=== PATIENT | male | born 1965 | race Hispanic/Latino ===

== ENCOUNTER 2017-01-19 11:39 | Inpatient (IN) | payer BC, OTHER ==
[2017-01-19 11:50] VITALS: BMI 25.1
[2017-01-19] MEDS ORDERED: Multivitamin (MVI) 10 ML, Thiamine 100 MG, Folic Acid 1 MG in Dextrose 5% In Water 1,00... IV ONE (12:02)
--- NOTE | 2017-01-19 12:15 | ED PDOC ---
Arrival/HPI - General Chief Complaint: Abdominal Pain Time Seen by Provider: 01/19/17 11:53 Historian: Patient - History of Present Illness Narrative History of Present Illness (Text): 01/19/17 11:53 A 51 year old male, whose denies any significant past medical history, presents to the emergency department complaining of nausea since this morning. Patient reports he drinks daily and has been feeling "whoozy" recently. Contrary to triage, the patient denies any abdominal pain or discomfort. Patient notes he saw his PMD a week ago and was started on antacids but it did not bring him any relief. He reports feeling gassy and is shaky upon walking. Patient notes some loose diarrhea and darker urine, but denies any fever, hematochezia, hematuria, or any other complaints at this time. PMD: Dr. aJmar Gay Time/Duration: Other (6-10 hours) Symptom Onset: Gradual Symptom Course: Unchanged Quality: Other Activities at Onset: Rest Modifying Factors (Text): antacid medication do not relieve symptoms Context: Home Associated Symptoms (Text): diarrhea and dark urination Past Medical History - Provider Review Nursing Documentation Reviewed: Yes - Psychiatric Hx Substance Use: No (denies) Family/Social History - Physician Review Nursing Documentation Reviewed: Yes Family/Social History: No Known Family HX Smoking Status: Never Smoked Hx Alcohol Use: Yes (ETOH) Frequency of alcohol use: Daily Hx Substance Use: No (denies) Allergies/Home Meds Allergies/Adverse Reactions: Allergies No Known Allergies Allergy (Unverified 01/19/17 12:01) Home Medications: Home Meds Medication Instructions Recorded Confirmed Pantoprazole Sodium [Protonix] 40 mg PO DAILY 01/19/17 01/19/17 Review of Systems - Physician Review All systems were reviewed & negative as marked: Yes - Review of Systems Constitutional: absent: Fevers Gastrointestinal: Diarrhea, Nausea. absent: Abdominal Pain, Vomiting, Hematochezia Genitourinary Male: Other (darker urination). absent: Hematuria Physical Exam Vital Signs Reviewed: Yes Vital Signs Temp Pulse Resp BP Pulse Ox 01/19/17 15:45 96 H 18 126/97 H 96 01/19/17 12:46 79 18 152/79 H 97 01/19/17 11:49 98.2 F 80 18 156/89 H 97 Temperature: Afebrile Blood Pressure: Hypertensive Pulse: Regular Respiratory Rate: Normal Appearance: Positive for: Well-Appearing, Non-Toxic, Comfortable Pain Distress: None Mental Status: Positive for: Alert and Oriented X 3 - Systems Exam Head: Present: Atraumatic, Normocephalic Pupils: Present: PERRL Extroacular Muscles: Present: EOMI Conjunctiva: Present: Normal Mouth: Present: Dry, Other (no tongue fasciculations) Neck: Present: Normal Range of Motion Respiratory/Chest: Present: Clear to Auscultation, Good Air Exchange. No: Respiratory Distress, Accessory Muscle Use Cardiovascular: Present: Regular Rate and Rhythm, Normal S1, S2. No: Murmurs Abdomen: Present: Normal Bowel Sounds. No: Tenderness, Distention, Peritoneal Signs, Rebound, Guarding Back: Present: Normal Inspection Upper Extremity: Present: Normal Inspection. No: Cyanosis, Edema Lower Extremity: Present: Normal Inspection. No: Edema Neurological: Present: GCS=15, CN II-XII Intact, Speech Normal, Motor Func Grossly Intact, Normal Sensory Function, Other (no tremors) Skin: Present: Warm, Dry, Normal Color. No: Rashes Psychiatric: Present: Alert, Oriented x 3, Normal Insight, Normal Concentration Medical Decision Making ED Course and Treatment: 01/19/17 12:28 Impression: A 51 year old female with nausea. Differential Diagnosis included but are not limited to: most likely alcohol withdrawal Plan: -- Labs -- Urinalysis -- Ativan, Librium and Banana bag -- Reassess and disposition Progress Notes: 01/19/17 14:32 Patient blood work noted to have very high Triglylcerides >5000. Case discussed with insights manager Dr. Miller, who is aware and agrees with the plan to admit the patient to ICU. Agrees to starting patient on an insulin drip. He recommends obtaining a Abdomen/Pelvis CT. Dr. Gay paged. 01/19/17 14:[address] Gay, who is aware and agrees with the plan to admit the patient to ICU under his service. He states to consult Dr. Berumen (edge gluer) and Dr. Regan (gastrointestinologist). I have discussed the results and plan with the patient, who expresses understanding. Patient given the opportunity to ask question, all questions were answered and there is agreement with the plan to be admitted to the hospital. 01/19/17 15:56 Resident David called the emergency department to notify us, Dr. Regan said to obtain Abdomen/Pelvis CT without contrast. - Critical Care Critical Care Minutes: 30 minutes - Lab Interpretations Lab Results: 01/19/17 12:15 01/19/17 12:50 Lab Results 01/19/17 12:50: Sodium 133, Potassium 5.3 H, Chloride 98, Carbon Dioxide 18 L, Anion Gap 22 H, BUN 15, Creatinine 1.1, Est GFR ( Amer) > 60, Est GFR ( Non-Af Amer) > 60, Random Glucose 112 H, Calcium 8.3 L, Phosphorus 2.5, Magnesium 2.2, Total Bilirubin 4.3 H, AST 517 H, ALT 200 H, Alkaline Phosphatase 189 H, Total Protein 8.4 H, Albumin 4.3, Globulin 4.2, Albumin/ Globulin Ratio 1.0 L, Triglycerides 5180 H, Cholesterol 399 H, LDL Cholesterol Direct 157 H, HDL Cholesterol 13 L, Amylase 103, Lipase 1344 H 01/19/17 12:30: Urine Color Yellow, Urine Appearance Clear, Urine pH 6.0, Ur Specific [place] 1.015, Urine Protein 30 H, Urine Glucose (UA) Negative, Urine Ketones Negative, Urine Blood Trace-intact H, Urine Nitrate Negative, Urine Bilirubin Negative, Urine Urobilinogen 0.2, Ur Leukocyte Esterase Negative, Urine RBC Negative, Urine WBC 0 - 2, Ur Epithelial Cells 0 - 2, Urine Bacteria Few, Urine Opiates Screen Negative, Urine Methadone Screen Negative, Ur Barbiturates Screen Negative, Ur Phencyclidine Scrn Negative, Ur Amphetamines Screen Negative, U Benzodiazepines Scrn Negative, U Oth Cocaine Metabols Negative, U Cannabinoids Screen Negative 01/19/17 12:15: WBC 6.9, RBC 4.93, Hgb 17.0, Hct 43.7, MCV 88.6, MCH 34.5, MCHC 38.9 H, RDW 13.8, Plt Count 158, MPV 9.8, Gran % 46.8 L, Lymph % (Auto) 38.7 H, [place] % (Auto) 12.8 H, Eos % (Auto) 1.0 L, Baso % (Auto) 0.7, Gran # 3.20, Lymph # 2.7, [place] # 0.9 H, Eos # 0.1, Baso # 0.05 I have reviewed the lab results: Yes - Medication Orders Current Medication Orders: Dextrose/Sodium Chloride (Dextrose 5%/0.45% Ns 1000 Ml) 1,000 mls @ 100 mls/hr IV .Q10H LENKA Last Admin: 01/19/17 15:04 Dose: 100 MLS/HR eMAR Start Stop Document 01/19/17 15:04 SF (Rec: 01/19/17 15:04 [email or web address] Intravenous Solution Start Date 01/19/17 Start Time 15:04 End Date 01/19/17 Insulin Human Regular 100 (units/ Sodium Chloride) 100 mls @ 7 mls/hr IV .[id number] PRN; Protocol; 7 UNITS/HR PRN Reason: Until an adequate response is Last Admin: 01/19/17 15:42 Dose: 7 MLS/HR MAR Blood Glucose Document 01/19/17 15:42 SF (Rec: 01/19/17 15:45 [email or web address] Blood Glucose Finger Stick Blood Glucose (70-120) 162 Titration Intervention Document 01/19/17 15:42 SF (Rec: 01/19/17 15:45 [email or web address] Titration Intake Container Volume 100 Titration Dosing Titration Dose 7 IV Rate 7 Intake/Decrease Start eMAR Start Stop Document 01/19/17 15:42 SF (Rec: 01/19/17 15:45 [email or web address] Intravenous Solution Start Date 01/19/17 Start Time 15:43 Lorazepam (Ativan) 1 mg IVP Q6H PRN; Protocol PRN Reason: Withdrawal Discontinued Medications Chlordiazepoxide (Librium) 25 mg PO STAT STA Stop: 01/19/17 12:02 Last Admin: 01/19/17 12:27 Dose: 25 MG Multivitamins/Vitamin C 10 ml/Thiamine HCl 100 mg/ Folic Acid 1 mg/ Dextrose 1, 011.2 mls @ 1,000 mls/hr IV .Q1H1M ONE Stop: 01/19/17 13:02 Last Admin: 01/19/17 12:44 Dose: 1,000 MLS/HR eMAR Start Stop Document 01/19/17 12:44 SF (Rec: 01/19/17 12:44 SF [email or web address]) Intravenous Solution Start Date 01/19/17 Start Time 12:44 End Date 01/19/17 End time 13:45 Total Infusion Time 61 Iohexol (Omnipaque 350 100 Ml) Confirm Administered Dose 350 mg .ROUTE .STK-MED ONE Stop: 01/19/17 14:36 Lorazepam (Ativan) 1 mg IVP ONCE ONE Stop: 01/19/17 12:02 Last Admin: 01/19/17 12:27 Dose: 1 MG IVP Administration Document 01/19/17 12:27 SF (Rec: 01/19/17 12:27 [email or web address] Charges for Administration # of IVP Administrations 1 - Scribe Statement The provider has reviewed the documentation as recorded by the Art Martinez training under Rubi Sevilla Provider Scribe Attestation: All medical record entries made by the Scribe were at my direction and personally dictated by me. I have reviewed the chart and agree that the record accurately reflects my personal performance of the history, physical exam, medical decision making, and the department course for this patient. I have also personally directed, reviewed, and agree with the discharge instructions and disposition. Disposition/Present on Arrival - Present on Arrival Any Indicators Present on Arrival: No History of DVT/PE: No History of Uncontrolled Diabetes: No Urinary Catheter: No History of Decub. Ulcer: No History Surgical Site Infection Following: None - Disposition Have Diagnosis and Disposition been Completed?: Yes Diagnosis: Hypertriglyceridemia, Pancreatitis, Alcohol withdrawal syndrome Disposition: HOSPITALIZED Disposition Time: 14:43 Patient Plan: Admission, ICU Condition: CRITICAL
[2017-01-19 12:36] LABS: URINE BILIRUBIN NEGATIVE (NEGATIVE); URINE BLOOD TRACE-INTACT (NEGATIVE); URINE GLUCOSE (UA) NEGATIVE (NEGATIVE); URINE KETONE NEGATIVE (NEGATIVE); URINE LEUKOCYTE ESTERASE NEGATIVE Leu/uL (NEGATIVE); URINE PROTEIN 30 mg/dL (<30 mg/dL); URINE UROBILINOGEN 0.2 E.U./dL (<1 E.U./dL)
[2017-01-19 12:37] LABS: URINE APPEARANCE CLEAR (CLEAR); URINE COLOR YELLOW (YELLOW)
[2017-01-19 12:42] LABS: ADD MANUAL DIFF? NO
[2017-01-19 12:44] LABS: URINE BACTERIA FEW (NEG); URINE EPITHELIAL CELLS 0 - 2 /hpf (0-5); URINE RBC NEGATIVE /hpf (0-2); URINE WBC 0 - 2 /hpf (0-6)
[2017-01-19 12:47] LABS: BASO # 0.05 K/mm3 (0.0-2.0); BASO % 0.7 % (0.0-3.0); EOS # 0.1 (0.0-0.7); GRAN % 46.8 % (50.0-68.0); HEMATOCRIT 43.7 % (42.0-52.0); LYMPH # 2.7 (1.2-3.4); LYMPH % 38.7 % (22.0-35.0); MEAN CELL VOLUME 88.6 fL (80.0-105.0); MEAN CORPUSCULAR HEMOGLOBIN 34.5 pg (25.0-35.0); MEAN CORPUSCULAR HGB CONC 38.9 g/dl (31.0-37.0); MEAN PLATELET VOLUME 9.8 fl (7.0-11.0); MONO # 0.9 (0.1-0.6); MONO % 12.8 % (1.0-6.0); PLATELET COUNT 158 10^3/uL (120.0-450.0); RED CELL DISTRIBUTION WIDTH 13.8 % (11.5-14.5); WHITE BLOOD COUNT 6.9 10^3/ul (4.5-11.0)
[2017-01-19 13:21] LABS: ALKALINE PHOSPHATASE 189 U/L (38-133); ALT/SGPT 200 U/L (7-56); AMYLASE 103 U/L (35-125); AST/SGOT 517 U/L (15-59); BILIRUBIN,TOTAL 4.3 mg/dL (0.2-1.3); BLOOD UREA NITROGEN 15 mg/dL (7-21); CALCIUM 8.3 mg/dL (8.4-10.5); CARBON DIOXIDE 18 mmol/L (21-33); CHLORIDE 98 mmol/L (98-107); GFR AFRICAN-AMERICAN > 60; MAGNESIUM 2.2 mg/dL (1.7-2.2); PHOSPHOROUS 2.5 mg/dL (2.5-4.5); POTASSIUM 5.3 mmol/L (3.6-5.0); SODIUM 133 mmol/L (132-148); TOTAL PROTEIN 8.4 g/dL (5.8-8.3)
[2017-01-19 13:28] LABS: LIPASE 1344 U/L (23-300)
[2017-01-19 13:36] LABS: GLUCOSE,RANDOM 112 mg/dL (70-110)
[2017-01-19 14:19] LABS: CHOLESTEROL 399 mg/dL (130-200)
[2017-01-19] MEDS ORDERED: Sodium Chloride 0.9% 1,000 ML IV STA (14:22)
[2017-01-19] MEDS ORDERED: Dextrose 5%/0.45% NS 1,000 ML IV SCH (14:30)
[2017-01-19] MEDS ORDERED: Iohexol 350 MG/100 ML VIAL ONE (14:35)
[2017-01-19] MEDS: Insulin Regular 100 UNITS in Sodium Chloride 0.9% 99 ML IV PRN ×2 (15:42→18:34)
--- NOTE | 2017-01-19 16:03 | CP.PCM.CON ---
<Robbie Armando - Last Filed: 01/19/17 18:26> History of Present Illness - History of Present Illness History of Present Illness: ICU Consult Note Robbie Armando, PGY-1 Internal Medicine CC: Malaise and abdominal discomfort HPI: This is a 51 yo M with PMH of HTN (not medically managed) and alcohol abuse who presents with complaint of fluctuating persistent abdominal discomfort, malaise, and weakness. Per patient, his symptoms began approximately 5 weeks ago, while on a 2-week trip to [place]. He initially attributed his symptoms to alcohol withdrawal, so he managed with increase alcohol intake (approximately 3 bottles of wine per day). He continued to drink this amount after returning, but reports that his symptoms persisted through this time, although the severity fluctuates. He reports decreased appetite/PO intake for the last 1-2 weeks; he is able to force himself to eat, and he is able to tolerate the intake, but he has no desire to eat and experiences early fullness. Patient is adamant that his abdominal symptoms are merely discomfort, not pain. He also reports intermittent episodes of emesis; he describes them as vomiting up small amounts of clear/white mucous, denies bilious or bloody emesis, and is not specifically associated with episodes of PO intake. He also reports watery and "bubbly" bowel movements, with foul odor which is new. He denies chest pain, shortness of breath, sensation of abdominal mass or rigidity, skin yellowing, new lesions or skin masses, syncopal episodes, hematuria, or hematochezia/melena, but admits to chronic abdominal fullness, intermittently blurred vision x 3-4 days, and 1 episode of near-syncope/lightheadedness today prior to presentation. We were consulted due to his initial labs including a TG > 5000, elevated LFTs, Bilirubin, and a Lipase of > 1300. PMH: HTN (not medically managed), Alcohol abuse (baseline 3-4 drinks daily of wine/martini's, up to 3 bottles of wine/day for last 5 weeks) PSH: Denies FHx: Stroke (Father), Unspecified "cholesterol" disorder (father and brother) SHx: Owns/Runs a liquor store Lives alone Denies tobacco, illicits, IVDA Admits alcohol (as detailed in PMH), last drink ~6hrs prior to presentation, becomes tremulous without alcohol within 12 hours PMD: Dr. Gay (established with PCP 2 weeks prior, no medical followup prior to this) Review of Systems - Constitutional Constitutional: Lethargy, Malaise, Weakness. absent: Chills, Fever, Increased Appetite, Weight Gain, Weight Loss - EENT Eyes: Blurred Vision (intermittently blurred vision x3-4 days). absent: Loss of Peripheral Vision, Spots in Vision, Loss of Vision Ears: Dizziness (1x episode of dizziness/lightheadedness/near-syncope today, prior to presentation to ED, resolved by time of exam) Nose/Mouth/Throat: absent: Dysphagia, Mouth Pain, Sore Throat, Throat Swelling, Neck Pain, Neck Mass - Cardiovascular Cardiovascular: Lightheadedness (1x episode of dizziness/lightheadedness/near- syncope today). absent: Chest Pain, Chest Pain at Rest, Chest Pain with Activity, Dyspnea, Edema, Pain Radiating to Arm/Neck/Jaw, Palpitations, Syncope Additional comments: One episode of near-syncope today, prior to presentation to ED, resolved by time of exam - Respiratory Respiratory: Cough (1 week productive cough, clear-white mucous, resolved 1-2 weeks prior to presentation). absent: Dyspnea, Hemoptysis, Wheezing, Pain on Inspiration, Change in Mucous Color - Gastrointestinal Gastrointestinal: Abdominal Pain (described more as discomfort/fullness/ pressure than pain, intermittent sensation of abdominal spasm), Change in Stool Character (soft to watery, describes as "bubbly," floating on water, new foul odor), Diarrhea, Early Satiety, Heartburn (midline chest burning sensation, worse with some PO intake and with lying flat, improved with PPI prescribed as outpt and with sitting up), Loose Stools, Vomiting (intermittent episodes of emesis, small output, clear-white output, non-bloody non-bilious, no specific triggers for emesis). absent: Coffee Ground Emesis, Constipation, Dysphagia, Fecal Incontinence, Hematemesis, Hematochezia, Melena, Nausea Additional comments: Decreased PO intake, decreased appetite, but remains able to tolerate PO food and fluids intake - Genitourinary Genitourinary: Other (Urine color increasingly dark). absent: Change in Urinary Stream, Difficulty Urinating, Dysuria, Flank Pain, Hematuria, Urinary Incontinence, Hx Renal/Bladder Calculi - Musculoskeletal Musculoskeletal: absent: Abnormal Gait, Back Pain, Deformity, Joint Swelling, Limited Range of Motion, Neck Pain, Numbness, Radiating Pain into Limb - Integumentary Integumentary: Other (denies new skin masses). absent: Bleeding Lesions, Change in Pigmentation, New Lesions, Non-Healing Lesions, Pruritus, Rash, Sores , Jaundice - Neurological Neurological: Dizziness, Weakness, Other Visual Disturbances (intermittently blurred vision x3-4 days). absent: Abnormal Gait, Confusion, Numbness, Focal Weakness, Frequent Falls, Loss of Vision, Syncope (1x episode of of dizziness/ lightheadedness/near-syncope today, but no acutal syncopal episode), Vertigo - Psychiatric Psychiatric: absent: Anxiety Additional comments: Alcohol dependence - Endocrine Endocrine: absent: Fatigue, Palpitations, Polyuria Past Patient History - Past Social History Smoking Status: Never Smoked - PSYCHIATRIC Hx Substance Use: No (denies) - SURGICAL HISTORY Hx Surgeries: No Meds Allergies/Adverse Reactions: Allergies Allergy/AdvReac Type Severity Reaction Status Date / Time No Known Allergies Allergy Verified 01/19/17 18:33 - Medications Medications: Current Medications Dextrose/Sodium Chloride (Dextrose 5%/0.45% Ns 1000 Ml) 1,000 mls @ 100 mls/hr IV .Q10H [facility] Last Admin: 01/19/17 15:04 Dose: 100 mls/hr Insulin Human Regular 100 (units/ Sodium Chloride) 100 mls @ 7 mls/hr IV .[id number] PRN; Protocol; 7 UNITS/HR PRN Reason: Until an adequate response is Physical Exam - Constitutional Appears: Well, Non-toxic, No Acute Distress - Head Exam Head Exam: ATRAUMATIC, NORMAL INSPECTION, NORMOCEPHALIC - Eye Exam Eye Exam: EOMI, PERRL, Scleral icterus (bilateral). absent: Conjunctival injection, Normal appearance, Nystagmus Pupil Exam: NORMAL ACCOMODATION, PERRL. absent: Fixed, Irregular, Unequal - ENT Exam ENT Exam: Mucous Membranes Moist. absent: Mucous Membranes Dry Additional comments: uvula midline - Neck Exam Neck exam: Positive for: Normal Inspection. Negative for: Lymphadenopathy, Tenderness Additional comments: No JVD, no hepatojugular reflex, normal carotid auscultation - Respiratory Exam Respiratory Exam: Clear to Auscultation Bilateral, NORMAL BREATHING PATTERN. absent: Accessory Muscle Use, Chest Wall Tenderness, Decreased Breath Sounds, Prolonged Expiratory Phase, Rales, Rhonchi, Wheezes, Respiratory Distress, Stridor - Cardiovascular Exam Cardiovascular Exam: Tachycardia, REGULAR RHYTHM, +S1, +S2. absent: Bradycardia , Clicks, Diastolic murmur, Irregular Rhythm, RRR, +S4, Systolic Murmur - GI/Abdominal Exam GI & Abdominal Exam: Distended (obese vs distended, unclear), Firm, Normal Bowel Sounds. absent: Diminished Bowel Sounds, Guarding, Hyperactive Bowel Sounds, Hypoactive Bowel Sounds, Organomegaly, Pulsatile Mass, Rebound, Rigid, Soft, Tenderness - Rectal Exam Rectal Exam: Deferred - Extremities Exam Extremities exam: Positive for: full ROM, normal capillary refill, normal inspection, pedal pulses present (+2 dorsalis pedis bilaterally). Negative for : calf tenderness, joint swelling, pedal edema, tenderness Additional comments: No acute tremors of extremities at rest or with movement - Back Exam Back exam: absent: CVA tenderness (L), CVA tenderness (R) - Neurological Exam Neurological exam: Alert, Oriented x3 Additional comments: no tremors, regular and appropriate movement of extremities, spontaneously moving all extremities - Psychiatric Exam Psychiatric exam: Normal Affect, Normal Mood - Skin Skin Exam: Dry, Intact (except for small scratch keith inferior to umbilicus, scabbed over, no active bleed or surrounding erythema), Normal Color, Warm Additional comments: no caput medusa, spider angiomas, or xanthomas Results - Vital Signs Recent Vital Signs: Last Vital Signs Temp 98.2 F 01/19/17 11:49 Pulse 79 01/19/17 12:46 Resp 18 01/19/17 12:46 BP 152/79 H 01/19/17 12:46 Pulse Ox 97 01/19/17 12:46 - Labs Result Diagrams: 01/19/17 12:15 01/19/17 12:50 Assessment & Plan - Assessment and Plan (Free Text) Assessment: This is a 51 yo M with PMH of HTN (not medically managed) and alcohol abuse who presents with complaint of fluctuating persistent abdominal discomfort , malaise, and weakness, and is being admitted to the ICU for management of severe hypertriglyceridemia (>5000) with pancreatitis, likely requiring pheresis. Plan: Neuro: -AAOx3, spontaneous movement of all extremities -Following commands appropriately -maintain normothermia -at risk for EtOH withdrawal, seizures due to significant alcohol abuse; Ativan 1mg IV q3 PRN for withdrawal, CIWA protocol q1, EtOH level -Tox screen negative Pulm: -CTAB on exam, satting well on room air, No O2 supplementation indicated at this time -Given pancreatitis, at risk for developing pulm edema/ARDS, continue to monitor -maintain SaO2 > 92% and paO2 > 60 -Aspiration precautions, head of bed to 30 degrees Cardio: -Currently hemodynamically stable, maintain MAP > 65 -EKG ordered, f/u -Hx HTN, SBP 150s at time of exam, continue to monitor -Hypertriglyceridemia > 5000 on admission labs; 2/2 severe alcohol abuse vs familial component, likely multifactorial; treating with insulin drip + D5 pending initiation of pheresis, Nephro (Dr. Berumen) concurs; will d/c insulin drip after pheresis started -Coags unable to be measured due to excessive lipid content of blood, will attempt to measure after first round of pheresis -No AC indicated at this time, SCDs for DVT ppx, Type and Screen ordered; if coags measurable after pheresis and elevated, may require FFP -K 5.3, Mag 2.2, Ca 8.3, will recheck post pheresis and again in AM, f/u -TSH wnl at 1.33 GI: -NPO -Protonix for GI ppx -Elevated LFTs, AST 517 and ALT 200 (2:1 ratio consistent with EtOH abuse), Alk phos 189, Tbili 4.3 -Lipase 1344, Amylase 103 -TG 5180, Chol 399, LDL 157, HDL 13 -Alcoholic hepatitis etiology present, but need to also rule out gallstone pancreatitis -CT abd/pelvis notable for mild infiltration of peripancreatic fat confined to head of pancreas, likely mild pancreatitis; recently passed common duct stones, hepatomegaly/hepatic steatosis; Abd US ordered to assess for gallstones/ gallstone pancreatitis -Aggressive fluid rehydration, IVF NS at 250cc/hr -GI (Dr. Regan) consulted, appreciate all recs -Lactic acid 1.9, Uric acid 7.2 -repeat CMP, Mag, Phos, TG, Lipid panel, and lactic acid post 1st round pheresis , f/u Renal: -Cr 1.1, no prior labs for comparison/baseline -Monitor I's & O's -Nephro (Dr. Berumen) consulted, appreciate all recs; pheresis ordered for Hypertriglyceridemia, 1st round to be done tonight -avoid nephrotoxic drugs where feasible -monitor and replete electrolytes as needed; will recheck CMP + Mag/Phos after 1st round pheresis -maintain euglycemia (BG 140-180), aggressive fluid rehydration for pancreatitis -UA obtained, notable for 30 Protein and trace intact blood Heme: -Hypertriglyceridemia > 5000 -GI and Nephro consulted, after discussed agreed to proceed with pheresis -Hgb 17.0, likely hemoconcentration component given poor PO intake/emesis/ diarrhea for 1-2 weeks, f/u AM CBC -Right IJ Double lumen dialysis catheter placed (please see procedure note by Dr Sne), XRay confirmed placement -Type and Screen ordered -Coags unobtainable due to elevated lipid content of blood, will repeat coags after 1st round of pheresis ID: -WBCs 6.9, afebrile -no antibiotics indicated at this time -IGG4 ordered Dispo: ICU pending pheresis, aggressive fluid resuscitation FEN: NPO, NS IVF 250cc/hr Access: Peripheral IVs, Right IJ double lumen dialysis catheter Consults: GI, Nephro Ppx: Protonix for GI, SCDs for DVT Code status: Full Patient seen, reviewed, and discussed with attending, Dr. Miller. - Date & Time Date: 01/19/17 Time: 18:31 <Paul UMANZOR,Madhavidemi H - Last Filed: 01/20/17 08:30> Meds - Medications Medications: Current Medications Insulin Human Regular 100 (units/ Sodium Chloride) 101 mls @ 7 mls/hr IV .[id number] [facility] Last Admin: 01/19/17 18:37 Dose: 0.2 mls/hr Sodium Chloride (Sodium Chloride 0.9%) 1,000 mls @ 250 mls/hr IV .Q4H [facility] Last Admin: 01/20/17 06:40 Dose: 250 mls/hr Calcium Gluconate 1,000 mg/ (Sodium Chloride) 110 mls @ 110 mls/hr IVPB Q1H [facility] Stop: 01/20/17 10:29 Last Admin: 01/20/17 07:55 Dose: 110 mls/hr Magnesium Sulfate 1 gm/ Sodium (Chloride) 102 mls @ 100 mls/hr IVPB ONCE ONE Stop: 01/20/17 08:53 Last Admin: 01/20/17 08:26 Dose: 100 mls/hr Lorazepam (Ativan) 1 mg IVP Q3H PRN; Protocol PRN Reason: Withdrawal Pantoprazole Sodium (Protonix Inj) 40 mg IVP DAILY [facility] Results - Vital Signs Recent Vital Signs: Last Vital Signs Temp 98.5 F 01/20/17 07:34 Pulse 99 H 01/20/17 07:00 Resp 18 01/20/17 07:00 BP 168/107 H 01/20/17 07:00 Pulse Ox 95 01/20/17 07:00 - Labs Result Diagrams: 01/20/17 05:30 01/20/17 05:30 Labs: Laboratory Results - last 24 hr 01/19/17 01/19/17 01/19/17 16:10 16:20 17:06 WBC RBC Hgb Hct MCV MCH MCHC RDW Plt Count MPV Gran % Lymph % (Auto) Sac % (Auto) Eos % (Auto) Baso % (Auto) Gran # Lymph # Sac # Eos # Baso # PT INR APTT Sodium Potassium Chloride Carbon Dioxide Anion Gap BUN Creatinine Est GFR ( Amer) Est GFR (Non-Af Amer) POC Glucose (mg/dL) 87 Random Glucose Lactic Acid 1.9 Uric Acid 7.2 Calcium Phosphorus Magnesium Total Bilirubin AST ALT Alkaline Phosphatase Total Protein Albumin Globulin Albumin/Globulin Ratio Triglycerides Cholesterol LDL Cholesterol Direct HDL Cholesterol Amylase 123 TSH 3rd Generation 1.33 Urine Color Urine Appearance Urine pH Ur Specific [place] Urine Protein Urine Glucose (UA) Urine Ketones Urine Blood Urine Nitrate Urine Bilirubin Urine Urobilinogen Ur Leukocyte Esterase Urine RBC Urine WBC Ur Epithelial Cells Urine Bacteria Ur Random Creatinine Ur Random Sodium Salicylates Acetaminophen Alcohol, Quantitative Blood Type Blood Type Confirm Antibody Screen BBK History Checked 01/19/17 01/19/17 01/19/17 18:00 18:14 18:27 WBC RBC Hgb Hct MCV MCH MCHC RDW Plt Count MPV Gran % Lymph % (Auto) Sac % (Auto) Eos % (Auto) Baso % (Auto) Gran # Lymph # Sac # Eos # Baso # PT INR APTT Sodium Potassium Chloride Carbon Dioxide Anion Gap BUN Creatinine Est GFR ( Amer) Est GFR (Non-Af Amer) POC Glucose (mg/dL) 96 Random Glucose Lactic Acid Uric Acid Calcium Phosphorus Magnesium Total Bilirubin AST ALT Alkaline Phosphatase Total Protein Albumin Globulin Albumin/Globulin Ratio Triglycerides 5136 H Cholesterol LDL Cholesterol Direct HDL Cholesterol Amylase TSH 3rd Generation Urine Color Urine Appearance Urine pH Ur Specific [place] Urine Protein Urine Glucose (UA) Urine Ketones Urine Blood Urine Nitrate Urine Bilirubin Urine Urobilinogen Ur Leukocyte Esterase Urine RBC Urine WBC Ur Epithelial Cells Urine Bacteria Ur Random Creatinine Ur Random Sodium Salicylates < 1 L Acetaminophen < 10.0 L Alcohol, Quantitative 291 H Blood Type O POSITIVE Blood Type Confirm Antibody Screen Negative BBK History Checked No verified bt 01/19/17 01/19/17 01/19/17 18:39 19:15 20:18 WBC RBC Hgb Hct MCV MCH MCHC RDW Plt Count MPV Gran % Lymph % (Auto) Sac % (Auto) Eos % (Auto) Baso % (Auto) Gran # Lymph # Sac # Eos # Baso # PT INR APTT Sodium Potassium Chloride Carbon Dioxide Anion Gap BUN Creatinine Est GFR ( Amer) Est GFR (Non-Af Amer) POC Glucose (mg/dL) 102 106 Random Glucose Lactic Acid Uric Acid Calcium Phosphorus Magnesium Total Bilirubin AST ALT Alkaline Phosphatase Total Protein Albumin Globulin Albumin/Globulin Ratio Triglycerides Cholesterol LDL Cholesterol Direct HDL Cholesterol Amylase TSH 3rd Generation Urine Color Urine Appearance Urine pH Ur Specific [place] Urine Protein Urine Glucose (UA) Urine Ketones Urine Blood Urine Nitrate Urine Bilirubin Urine Urobilinogen Ur Leukocyte Esterase Urine RBC Urine WBC Ur Epithelial Cells Urine Bacteria Ur Random Creatinine Ur Random Sodium Salicylates Acetaminophen Alcohol, Quantitative Blood Type Blood Type Confirm O POSITIVE Antibody Screen BBK History Checked 01/19/17 01/20/17 01/20/17 21:05 00:25 05:30 WBC 11.0 D RBC 4.76 Hgb 15.4 Hct 42.7 MCV 89.7 MCH 32.4 MCHC 36.1 RDW 14.0 Plt Count 118 L MPV 9.8 Gran % 70.3 H Lymph % (Auto) 20.9 L Sac % (Auto) 7.7 H Eos % (Auto) 0.6 L Baso % (Auto) 0.5 Gran # 7.71 H Lymph # 2.3 Sac # 0.9 H Eos # 0.1 Baso # 0.05 PT TNP INR TNP APTT TNP Sodium 136 136 Potassium 3.6 4.0 Chloride 104 105 Carbon Dioxide 23 21 Anion Gap 13 14 BUN 11 11 Creatinine 1.0 1.0 Est GFR ( Amer) > 60 > 60 Est GFR (Non-Af Amer) > 60 > 60 POC Glucose (mg/dL) Random Glucose 120 H 93 Lactic Acid 1.8 1.6 Uric Acid Calcium 6.6 L* 6.9 L* Phosphorus 2.9 3.5 Magnesium 1.7 1.6 L Total Bilirubin 2.3 H 3.1 H AST 136 H 163 H ALT 82 H 81 H Alkaline Phosphatase 45 47 Total Protein 5.3 L 5.4 L Albumin 3.6 3.5 Globulin 1.7 1.9 Albumin/Globulin Ratio 2.1 H 1.8 Triglycerides 1332 H 1516 H Cholesterol 156 166 LDL Cholesterol Direct < 30 < 30 HDL Cholesterol 11 L 11 L Amylase TSH 3rd Generation Urine Color Yellow Urine Appearance Clear Urine pH 7.0 Ur Specific [place] 1.010 Urine Protein Negative Urine Glucose (UA) Negative Urine Ketones Negative Urine Blood Trace-lysed H Urine Nitrate Negative Urine Bilirubin Negative Urine Urobilinogen 0.2 Ur Leukocyte Esterase Negative Urine RBC 1 - 3 Urine WBC Negative Ur Epithelial Cells None Urine Bacteria Few Ur Random Creatinine 55 Ur Random Sodium 94 Salicylates Acetaminophen Alcohol, Quantitative Blood Type Blood Type Confirm Antibody Screen BBK History Checked Attending/Attestation - Attestation I have personally seen and examined this patient.: Yes I have fully participated in the care of the patient.: Yes I have reviewed all pertinent clinical information: Yes Notes (Text): 01/20/17 08:29 51 y/o M w/ High TGYL pancreatitis. Please see Attending note. Agree with plan Apheresis x 3. F/U labs and clinical findings. cc time 92 min
[2017-01-19] MEDS ORDERED: Insulin Regular 100 UNITS in Sodium Chloride 0.9% 100 ML IV SCH (17:00)
[2017-01-19 17:02] LABS: URIC ACID 7.2 mg/dL (3.5-8.5)
--- NOTE | 2017-01-19 17:11 | CT ---
PROCEDURE: CT Abdomen and Pelvis without intravenous contrast HISTORY: high triglycerides, pancreatitis COMPARISON: None. TECHNIQUE: Technique. Contrast Dose: Radiation dose: Total exam DLP = mGy-cm. This CT exam was performed using one or more of the following dose reduction techniques: Automated exposure control, adjustment of the mA and/or kV according to patient size, and/or use of iterative reconstruction technique. FINDINGS: LOWER THORAX: Unremarkable. LIVER: Unremarkable. No gross lesion or ductal dilatation. GALLBLADDER AND BILE DUCTS: Unremarkable. PANCREAS: Mild streaking of the fat in the vicinity of the head of the pancreas/uncinate process. Findings may represent very mild pancreatitis. Two calculi identified in the duodenum which may represent recently passed common duct stones. SPLEEN: Unremarkable. ADRENALS: Unremarkable. No mass. KIDNEYS AND URETERS: Unremarkable. No hydronephrosis. No solid mass. VASCULATURE: Unremarkable. No aortic aneurysm. BOWEL: Unremarkable. No obstruction. No gross mural thickening. APPENDIX: Unremarkable. Normal appendix. PERITONEUM: Unremarkable. No free fluid. No free air. LYMPH NODES: Unremarkable. No enlarged lymph nodes. BLADDER: Unremarkable. REPRODUCTIVE: Unremarkable. BONES: No acute fracture. OTHER FINDINGS: None. IMPRESSION: 1. Mild infiltration peripancreatic fat confined to the head of the pancreas. Likely mild pancreatitis. 2. Findings suggest recently passed common duct stones. 3. Hepatomegaly/hepatic steatosis.
[2017-01-19] MEDS ORDERED: Lidocaine 2% Inj (20ml) IJ STA (18:08)
[2017-01-19] MEDS ORDERED: Albumin Human 5% (12.5 gm/250 ml) IV ONE (18:13)
[2017-01-19] MEDS ORDERED: Sodium Chloride 0.9% 100 ML IV SCH (18:15)
--- NOTE | 2017-01-19 19:27 | CP.PCM.CON ---
History of Present Illness - History of Present Illness History of Present Illness: 51 yo M w/ pmh of recently diagnosed htn, presented to ED with abdominal discomfort; Patient reports having feeling of abdomen feeling "hollow" intermittently since past 2 weeks; denies any overt abdominal pain but does have associated nausea and anorexia; reports discomfort is eased by drinking wine; has been drinking about 2 bottles of wine daily, increased over past month with recent visit to [place]; denies any vomiting or diarrhea; no change in stool color; no fevers/ chills; no abdominal discomfort after meals; denies any dysuria or change in urinary habits; Review of Systems - Constitutional Constitutional: Anorexia, Fatigue. absent: Chills - EENT Eyes: absent: Blurred Vision, Change in Vision Ears: absent: Decreased Hearing, Dizziness Nose/Mouth/Throat: absent: Nasal Discharge, Sinus Pain, Sore Throat Additional comments: URI symptoms about 2 weeks ago, resolved; - Cardiovascular Cardiovascular: absent: Chest Pain, Dyspnea, Leg Edema, Palpitations - Respiratory Respiratory: absent: Cough, Dyspnea on Exertion - Gastrointestinal Gastrointestinal: As Per HPI - Genitourinary Genitourinary: absent: Change in Urinary Stream, Dysuria - Musculoskeletal Musculoskeletal: absent: Arthralgias, Back Pain, Muscle Weakness - Integumentary Integumentary: absent: Pruritus, Rash - Neurological Neurological: absent: Abnormal Gait, Dizziness, Sensory Deficit - Psychiatric Psychiatric: absent: Anxiety, Depression - Hematologic/Lymphatic Hematologic: absent: Easy Bleeding, Easy Bruising Past Patient History - Past Social History Smoking Status: Never Smoked Alcohol: > 2 Drinks/Day - PSYCHIATRIC Hx Substance Use: No (denies) - SURGICAL HISTORY Hx Surgeries: No Meds Allergies/Adverse Reactions: Allergies Allergy/AdvReac Type Severity Reaction Status Date / Time No Known Allergies Allergy Verified 01/19/17 18:33 - Medications Medications: Current Medications Dextrose/Sodium Chloride (Dextrose 5%/0.45% Ns 1000 Ml) 1,000 mls @ 100 mls/hr IV .Q10H [facility] Last Admin: 01/19/17 15:04 Dose: 100 mls/hr Insulin Human Regular 100 (units/ Sodium Chloride) 101 mls @ 7 mls/hr IV .[id number] [facility] Last Admin: 01/19/17 18:37 Dose: 0.2 mls/hr Sodium Chloride (Sodium Chloride 0.9%) 100 mls @ 250 mls/hr IV .Q24M [facility] Last Admin: 01/19/17 18:15 Dose: 250 mls/hr Lorazepam (Ativan) 1 mg IVP Q3H PRN; Protocol PRN Reason: Withdrawal Physical Exam - Constitutional Appears: Well, No Acute Distress - Head Exam Head Exam: NORMAL INSPECTION - Eye Exam Eye Exam: EOMI, Normal appearance, PERRL. absent: Scleral icterus - ENT Exam ENT Exam: Mucous Membranes Moist - Neck Exam Neck exam: Positive for: Normal Inspection - Respiratory Exam Respiratory Exam: Clear to Auscultation Bilateral, NORMAL BREATHING PATTERN. absent: Rales, Rhonchi, Wheezes - Cardiovascular Exam Cardiovascular Exam: REGULAR RHYTHM, RRR, +S1, +S2. absent: JVD - GI/Abdominal Exam GI & Abdominal Exam: Normal Bowel Sounds, Soft. absent: Distended, Tenderness - Exam Exam: absent: Bladder Distension - Extremities Exam Extremities exam: Positive for: normal capillary refill, pedal pulses present. Negative for: pedal edema, tenderness - Neurological Exam Neurological exam: Alert, CN II-XII Intact, Oriented x3 Additional comments: 5/5 bilateral UE and LE motor strength - Psychiatric Exam Psychiatric exam: Normal Affect, Normal Mood - Skin Skin Exam: Normal Color, Warm Results - Vital Signs Recent Vital Signs: Last Vital Signs Temp 99.3 F 01/19/17 17:00 Pulse 93 H 01/19/17 18:00 Resp 19 01/19/17 18:00 BP 155/90 H 01/19/17 18:00 Pulse Ox 95 01/19/17 18:41 - Labs Result Diagrams: 01/19/17 12:15 01/19/17 12:50 Labs: Laboratory Results - last 24 hr 01/19/17 01/19/17 01/19/17 16:10 16:20 18:00 Lactic Acid 1.9 Uric Acid 7.2 Triglycerides 5136 H Amylase 123 TSH 3rd Generation 1.33 Salicylates < 1 L Acetaminophen < 10.0 L Alcohol, Quantitative 291 H BBK History Checked 01/19/17 18:27 Lactic Acid Uric Acid Triglycerides Amylase TSH 3rd Generation Salicylates Acetaminophen Alcohol, Quantitative BBK History Checked No verified bt - Imaging and Cardiology Chest x-ray Status: Image reviewed by me (no vascular congestion) Assessment & Plan - Assessment and Plan (Free Text) Assessment: Acute Pancreatitis - Secondary to severe hypertriglyceridemia although may be multi-factorial with patient admitting to ETOH abuse and with possibility of gallstone pancreatitis; not particularly hemoconcentrated and appears euvolemic currently on exam; nevertheless agree with agressive IVF to keep volume replete in the setting of expected pancreatic third spacing; As plasma exchange has been shown to be beneficial in rapidly decreasing triglyceride level and improving clinical outcome, will commence with one treatment this evening; blood bank will pherese 1 plasma volume (3L) with the same volume of 5% albumin replacement (150g); will give 3g of calcium gluconate during procedure as citrate is used in the pheresis circuit and can expect to chelate calcium (already with very mild hypocalcemia); -continue IVF -check urine Na for evidence of intravascular volume depletion despite elevated BP -agree with abd US to look for evidence of gallstone pancreatitis Hypertrigylceridemia - Possibly with genetic disposition; unclear family history ; obesity and ETOH abuse likely contributory; -agree with keeping on insulin drip until pheresis procedure starts; -start gemfibrozil 600 mg bid as adjuvant therapy -check HgbA1c HTN - BP modestly elevated currently; can start PO anti-htn agent as outpatient if BP remains elevated; ETOH abuse - Monitor for possible withdrawal; consider prn ativan Electrolyte imbalance - Borderline hyperkalemia, should improve with IVF; mild hypocalcemia in the setting of acute pancreatitis; calcium replenishment during phereis as mentioned above.
[2017-01-19] MEDS ORDERED: Pneumococcal 23-Valent Vaccine IM ONE (20:54)
[2017-01-19 21:18] LABS: URINE BILIRUBIN NEGATIVE (NEGATIVE); URINE BLOOD TRACE-LYSED (NEGATIVE); URINE GLUCOSE (UA) NEGATIVE (NEGATIVE); URINE KETONE NEGATIVE (NEGATIVE); URINE LEUKOCYTE ESTERASE NEGATIVE Leu/uL (NEGATIVE); URINE PROTEIN NEGATIVE mg/dL (<30 mg/dL); URINE UROBILINOGEN 0.2 E.U./dL (<1 E.U./dL)
[2017-01-19 21:29] LABS: URINE APPEARANCE CLEAR (CLEAR); URINE COLOR YELLOW (YELLOW)
[2017-01-19 21:34] LABS: URINE WBC NEGATIVE /hpf (0-6)
[2017-01-19 21:35] LABS: URINE BACTERIA FEW (NEG)
[2017-01-19] MEDS: Sodium Chloride 0.9% 1,000 ML IV SCH (22:38)
[2017-01-20 01:56] LABS: ALB/GLOB RATIO 2.1 (1.1-1.8); ALKALINE PHOSPHATASE 45 U/L (38-133); ALT/SGPT 82 U/L (7-56); AST/SGOT 136 U/L (15-59); BILIRUBIN,TOTAL 2.3 mg/dL (0.2-1.3); BLOOD UREA NITROGEN 11 mg/dL (7-21); CARBON DIOXIDE 23 mmol/L (21-33); CHLORIDE 104 mmol/L (98-107); CHOLESTEROL 156 mg/dL (130-200); GFR AFRICAN-AMERICAN > 60; GLUCOSE,RANDOM 120 mg/dL (70-110); MAGNESIUM 1.7 mg/dL (1.7-2.2); PHOSPHOROUS 2.9 mg/dL (2.5-4.5); POTASSIUM 3.6 mmol/L (3.6-5.0); SODIUM 136 mmol/L (132-148); TOTAL PROTEIN 5.3 g/dL (5.8-8.3)
[2017-01-20 01:58] LABS: CALCIUM 6.6 mg/dL (8.4-10.5)
[2017-01-20] MEDS: Sodium Chloride 0.9% 1,000 ML IV SCH ×4 (02:08→20:06)
--- NOTE | 2017-01-20 03:52 | CON ---
DATE: 01/19/2017 This patient was seen and evaluated earlier. Discussed with the metal stamper and also with Dr. Gay. HISTORY OF PRESENT ILLNESS: This 51-year-old patient with a long history of alcohol abuse presented to the Emergency Room complaining of wooziness and feeling of nausea. Denies any complaints of vomiting blood. No melena. Denies any abdominal pain. The patient mentioned that he recently has increased his alcohol intake more. He did have, recently, a trip to [place]. The patient was found to have elevated lipase level of 1,300, but triglycerides was were 5,000. GI consultation was requested to evaluate for pancreatitis in the setting of the triglycerides. The patient was also drinking alcohol before; that partially could also be it, in the past. The patient also noticed to have elevated liver enzymes. PAST MEDICAL HISTORY: Other past medical history as above. PAST SURGICAL HISTORY: Denies any surgical history. FAMILY HISTORY: Noncontributory except that father does have some cholesterol problem. SOCIAL HISTORY: Positive for alcohol. Denies smoking. No intravenous drug use. ALLERGIES: No known drug allergy. REVIEW OF SYSTEMS: Positive as above. Other systems reviewed. PHYSICAL EXAMINATION: VITAL SIGNS: Temp 98.8,BP 168/97,R 18 SAT 92 HEENT: Atraumatic, jaundiced. NECK: Supple. HEART: S1, S2 heard. LUNGS: Bilateral air entry present. ABDOMEN: Soft. There was no tenderness. EXTREMITIES: No edema. No cyanosis. NEUROLOGIC: Alert, oriented. Moves all the extremities. LABORATORY DATA: Hemoglobin 17, hematocrit 43.7, WBC 6.9, platelets 158. creatinine 1.1, total bilirubin 4.3, AST 517, ALT 200, alkaline phosphatase 189. Triglycerides 5,180. Total cholesterol 399. Amylase 103. Lipase 1,344. The patient had a CT scan of the abdomen and pelvis done, which was reviewed, mild infiltration of the peripancreatic fat in the head area suggestive of mild pancreatitis. There was a small radiopaque structure seen in the duodenum. One possibility to be considered is passed stone, hepatomegaly. Ultrasound scan of the abdomen was done, which was also reviewed. There is mild gallbladder wall thickening, but no stones seen. No sludge. CBD was normal, measuring only .26. IMPRESSION: This 51-year-old patient is admitted with vague abdominal complaints, nausea, found to be jaundiced, and also has mild pancreatitis. However, the real concern is significantly elevated triglycerides. The case was discussed in detail with metal stamper with Dr. Berumen and Dr. Gay. The patient is scheduled for plasmapheresis in view of the extremely high triglyceride level. CT, was -viewed, showed only pancreatitis in the head area with some peripancreatic fat infiltration. No fluid loculation or ascites. Questionable, there is a small radiopaque shadows in the duodenal bulb suggestive of possible passed stone; however, there are no stones in the gallbladder, so that makes it less likely. The other likely possibility to be considered is alcoholic-induced pancreatitis. Alcoholic hepatitis. The DF ratio is low, does not qualify for steroid therapy now. We will continue to closely follow up his care and suggest further management based on the clinical course. Brian Regan MD cc: [id number] TT: 01/20/2017 03:51:50 Confirmation # [id number] Dictation # [id number] MTDD
[2017-01-20 06:40] LABS: ADD MANUAL DIFF? NO
[2017-01-20 06:51] LABS: BASO # 0.05 K/mm3 (0.0-2.0); BASO % 0.5 % (0.0-3.0); EOS # 0.1 (0.0-0.7); EOS % 0.6 % (1.5-5.0); GRAN # 7.71 (1.4-6.5); GRAN % 70.3 % (50.0-68.0); HEMATOCRIT 42.7 % (42.0-52.0); LYMPH # 2.3 (1.2-3.4); LYMPH % 20.9 % (22.0-35.0); MEAN CELL VOLUME 89.7 fL (80.0-105.0); MEAN CORPUSCULAR HEMOGLOBIN 32.4 pg (25.0-35.0); MEAN CORPUSCULAR HGB CONC 36.1 g/dl (31.0-37.0); MEAN PLATELET VOLUME 9.8 fl (7.0-11.0); MONO # 0.9 (0.1-0.6); MONO % 7.7 % (1.0-6.0); PLATELET COUNT 118 10^3/uL (120.0-450.0)
[2017-01-20 07:01] LABS: ALB/GLOB RATIO 1.8 (1.1-1.8); ALKALINE PHOSPHATASE 47 U/L (38-133); ALT/SGPT 81 U/L (7-56); AST/SGOT 163 U/L (15-59); BILIRUBIN,TOTAL 3.1 mg/dL (0.2-1.3); BLOOD UREA NITROGEN 11 mg/dL (7-21); CARBON DIOXIDE 21 mmol/L (21-33); CHLORIDE 105 mmol/L (98-107); CHOLESTEROL 166 mg/dL (130-200); GFR AFRICAN-AMERICAN > 60; GLUCOSE,RANDOM 93 mg/dL (70-110); MAGNESIUM 1.6 mg/dL (1.7-2.2); PHOSPHOROUS 3.5 mg/dL (2.5-4.5); SODIUM 136 mmol/L (132-148); TOTAL PROTEIN 5.4 g/dL (5.8-8.3)
[2017-01-20 07:17] LABS: CALCIUM 6.9 mg/dL (8.4-10.5)
--- NOTE | 2017-01-20 07:37 | CP.CCUPN ---
<Robbie Armando - Last Filed: 01/20/17 14:08> CCU Subjective - Physician Review Subjective (Free Text): 01/20/17 07:07 Patient seen and examined at bedside in the ICU. Today is hospital day 2. Overnight, patient underwent pheresis, with reduction of TG from 5136 to 1332. He also was found to be hypocalemic overnight after pheresis, so calcium supplementation was given. No other acute events overnight. Resting comfortably in bed today, no acute distress. Denies chest pain, abdominal pain , shortness of breath, or nausea/emesis, but admits to abdominal "hollowness." CCU Objective - Vital Signs / Intake & Output Vital Signs (Last 4 hours): Vital Signs Temp Pulse Resp BP Pulse Ox 01/20/17 06:00 94 H 16 146/95 H 96 01/20/17 05:00 84 15 142/88 96 01/20/17 04:15 88 19 94 L 01/20/17 04:00 98.6 F 85 17 139/89 97 Intake and Output (Last 8hrs): Intake & Output 01/19/17 01/20/17 01/20/17 22:59 06:59 14:59 Intake Total 0.2 4100 Output Total 350 2600 Balance -349.8 1500 Weight 77.111 kg Intake: IV 0.2 4100 Left Forearm 4100 Oral 0 0 Output: Urine 350 2600 Urine, Voided 2600 Oral Regurgitation 0 Other: Voiding Method Urinal # Voids Urine, Voided 6 # Bowel Movements 0 0 - Physical Exam Head: Positive for: Atraumatic, Normocephalic. Negative for: Contusion, Swelling, Ecchymosis, Abrasion, Laceration Pupils: Positive for: PERRL. Negative for: Sluggish, Non-Reactive Extroacular Muscles: Positive for: EOMI. Negative for: Gaze Palsy, Entrapment Conjunctiva: Positive for: Icteric. Negative for: Normal, Injected Mouth: Positive for: Moist Mucous Membranes, Normal Tounge, Normal Teeth, Other (no tongue fasciculations). Negative for: Dry Pharnyx: Positive for: Normal. Negative for: Uvular Deviation Nose (External): Positive for: Atraumatic. Negative for: Abrasion, Contusion, Laceration Neck: Positive for: Normal Range of Motion, Trachea Midline. Negative for: Meningeal Signs, JVD, Lymphadenopathy Respiratory/Chest: Positive for: Clear to Auscultation, Good Air Exchange. Negative for: Respiratory Distress, Accessory Muscle Use, Wheezes, Decreased Breath Sounds, Rales, Retracting, Rhonchi, Tachypneic, Tender to Palpation Cardiovascular: Positive for: Normal S1, S2, Tachycardic. Negative for: Regular Rate and Rhythm (regular rhythm, rapid rate), Murmurs, Irregular Rhythm , Bradycardic Abdomen: Positive for: Distention (unclear if distention vs obseity), Normal Bowel Sounds, Other (firm but not rigid abdomen). Negative for: Tenderness, Peritoneal Signs, Rebound, Guarding Back: Negative for: CVA Tenderness Upper Extremity: Positive for: Normal Inspection, Normal ROM, NORMAL PULSES. Negative for: Cyanosis, Edema, Tenderness, Swelling, Erythema, Deformity Lower Extremity: Positive for: Normal Inspection, NORMAL PULSES, Normal ROM, Other (no tremors at rest or with movement). Negative for: Edema, CALF TENDERNESS, Cyanosis, Tenderness, Swelling, Erythema, Deformity Neurological: Positive for: GCS=15, CN II-XII Intact, Speech Normal, Motor Func Grossly Intact, Normal Sensory Function, Other (no tremors at rest or with movement) Skin: Positive for: Warm, Dry, Normal Color. Negative for: Rashes, Diaphoretic , Erythematous, Laceration, Abrasion Psychiatric: Positive for: Alert, Oriented x 3, Normal Insight, Normal Concentration, Normal Affect, Normal Mood. Negative for: Anxious, Agitated - Medications Active Medications: Active Medications Generic Name Dose Route Start Last Admin Trade Name Freq PRN Reason Stop Dose Admin Insulin Human Regular 100 101 mls @ 7 mls/hr 01/19/17 17:00 01/19/17 18:37 units/ Sodium Chloride IV 0.2 mls/hr .[id number] LENKA Administration Sodium Chloride 1,000 mls @ 250 mls/hr 01/19/17 22:34 01/20/17 06:40 Sodium Chloride 0.9% IV 250 mls/hr .Q4H LENKA Administration Lorazepam 1 mg 01/19/17 19:03 Ativan IVP Q3H PRN Withdrawal Protocol Pantoprazole Sodium 40 mg 01/20/17 10:00 Protonix Inj IVP DAILY LENKA - Patient Studies Lab Studies: Lab Studies 01/20/17 01/20/17 01/19/17 Range/Units 05:30 00:25 21:05 WBC 11.0 D (4.5-11.0) 10^3/ul RBC 4.76 (3.5-6.1) 10^6/uL Hgb 15.4 (14.0-18.0) gm/dL Hct 42.7 (42.0-52.0) % MCV 89.7 (80.0-105.0) fL MCH 32.4 (25.0-35.0) pg MCHC 36.1 (31.0-37.0) g/dl RDW 14.0 (11.5-14.5) % Plt Count 118 L (120.0-450.0) 10^3/uL MPV 9.8 (7.0-11.0) fl Gran % 70.3 H (50.0-68.0) % Lymph % (Auto) 20.9 L (22.0-35.0) % [place] % (Auto) 7.7 H (1.0-6.0) % Eos % (Auto) 0.6 L (1.5-5.0) % Baso % (Auto) 0.5 (0.0-3.0) % Gran # 7.71 H (1.4-6.5) Lymph # 2.3 (1.2-3.4) [place] # 0.9 H (0.1-0.6) Eos # 0.1 (0.0-0.7) Baso # 0.05 (0.0-2.0) K/mm3 PT TNP INR TNP APTT TNP Sodium 136 (132-148) mmol/L Potassium 3.6 (3.6-5.0) mmol/L Chloride 104 (98-107) mmol/L Carbon Dioxide 23 (21-33) mmol/L Anion Gap 13 (10-20) BUN 11 (7-21) mg/dL Creatinine 1.0 (0.5-1.4) mg/dL Est GFR ( Amer) > 60 Est GFR (Non-Af Amer) > 60 POC Glucose (mg/dL) (65-110) mg/dL Random Glucose 120 H (70-110) mg/dL Lactic Acid 1.8 (0.7-2.1) mmol/L Uric Acid (3.5-8.5) mg/dL Calcium 6.6 L* (8.4-10.5) mg/dL Phosphorus 2.9 (2.5-4.5) mg/dL Magnesium 1.7 (1.7-2.2) mg/dL Total Bilirubin 2.3 H (0.2-1.3) mg/dL AST 136 H (15-59) U/L ALT 82 H (7-56) U/L Alkaline Phosphatase 45 (38-133) U/L Total Protein 5.3 L (5.8-8.3) g/dL Albumin 3.6 (3.0-4.8) g/dL Globulin 1.7 gm/dL Albumin/Globulin Ratio 2.1 H (1.1-1.8) Triglycerides 1332 H (35-160) mg/dL Cholesterol 156 (130-200) mg/dL LDL Cholesterol Direct < 30 (0-129) mg/dL HDL Cholesterol 11 L (29-60) mg/dL Amylase (35-125) U/L TSH 3rd Generation (0.46-4.68) mIU/mL Urine Color Yellow (YELLOW) Urine Appearance Clear (CLEAR) Urine pH 7.0 (4.7-8.0) Ur Specific [place] 1.010 (1.005-1.035) Urine Protein Negative (<30 mg/dL) mg/dL Urine Glucose (UA) Negative (NEGATIVE) mg/dL Urine Ketones Negative (NEGATIVE) mg/dL Urine Blood Trace-lysed H (NEGATIVE) Urine Nitrate Negative (NEGATIVE) Urine Bilirubin Negative (NEGATIVE) Urine Urobilinogen 0.2 (<1 E.U./dL) E.U./dL Ur Leukocyte Esterase Negative (NEGATIVE) Winter/uL Urine RBC 1 - 3 (0-2) /hpf Urine WBC Negative (0-6) /hpf Ur Epithelial Cells None (0-5) /hpf Urine Bacteria Few (NEG) Ur Random Creatinine 55 mg/dL Ur Random Sodium 94 meq/L Salicylates (2.0-20.0) mg/dL Acetaminophen (10.0-20.0) ug/ml Alcohol, Quantitative (0-10) mg/dL Blood Type Blood Type Confirm Antibody Screen BBK History Checked 01/19/17 01/19/1717 Range/Units 20:18 19:15 18:39 WBC (4.5-11.0) 10^3/ul RBC (3.5-6.1) 10^6/uL Hgb (14.0-18.0) gm/dL Hct (42.0-52.0) % MCV (80.0-105.0) fL MCH (25.0-35.0) pg MCHC (31.0-37.0) g/dl RDW (11.5-14.5) % Plt Count (120.0-450.0) 10^3/uL MPV (7.0-11.0) fl Gran % (50.0-68.0) % Lymph % (Auto) (22.0-35.0) % [place] % (Auto) (1.0-6.0) % Eos % (Auto) (1.5-5.0) % Baso % (Auto) (0.0-3.0) % Gran # (1.4-6.5) Lymph # (1.2-3.4) [place] # (0.1-0.6) Eos # (0.0-0.7) Baso # (0.0-2.0) K/mm3 PT INR APTT Sodium (132-148) mmol/L Potassium (3.6-5.0) mmol/L Chloride (98-107) mmol/L Carbon Dioxide (21-33) mmol/L Anion Gap (10-20) BUN (7-21) mg/dL Creatinine (0.5-1.4) mg/dL Est GFR ( Amer) Est GFR (Non-Af Amer) POC Glucose (mg/dL) 106 102 (65-110) mg/dL Random Glucose (70-110) mg/dL Lactic Acid (0.7-2.1) mmol/L Uric Acid (3.5-8.5) mg/dL Calcium (8.4-10.5) mg/dL Phosphorus (2.5-4.5) mg/dL Magnesium (1.7-2.2) mg/dL Total Bilirubin (0.2-1.3) mg/dL AST (15-59) U/L ALT (7-56) U/L Alkaline Phosphatase (38-133) U/L Total Protein (5.8-8.3) g/dL Albumin (3.0-4.8) g/dL Globulin gm/dL Albumin/Globulin Ratio (1.1-1.8) Triglycerides (35-160) mg/dL Cholesterol (130-200) mg/dL LDL Cholesterol Direct (0-129) mg/dL HDL Cholesterol (29-60) mg/dL Amylase (35-125) U/L TSH 3rd Generation (0.46-4.68) mIU/mL Urine Color (YELLOW) Urine Appearance (CLEAR) Urine pH (4.7-8.0) Ur Specific [place] (1.005-1.035) Urine Protein (<30 mg/dL) mg/dL Urine Glucose (UA) (NEGATIVE) mg/dL Urine Ketones (NEGATIVE) mg/dL Urine Blood (NEGATIVE) Urine Nitrate (NEGATIVE) Urine Bilirubin (NEGATIVE) Urine Urobilinogen (<1 E.U./dL) E.U./dL Ur Leukocyte Esterase (NEGATIVE) Winter/uL Urine RBC (0-2) /hpf Urine WBC (0-6) /hpf Ur Epithelial Cells (0-5) /hpf Urine Bacteria (NEG) Ur Random Creatinine mg/dL Ur Random Sodium meq/L Salicylates (2.0-20.0) mg/dL Acetaminophen (10.0-20.0) ug/ml Alcohol, Quantitative (0-10) mg/dL Blood Type Blood Type Confirm O POSITIVE Antibody Screen BBK History Checked 01/19/17 01/19/17 01/19/17 Range/Units 18:27 18:14 18:00 WBC (4.5-11.0) 10^3/ul RBC (3.5-6.1) 10^6/uL Hgb (14.0-18.0) gm/dL Hct (42.0-52.0) % MCV (80.0-105.0) fL MCH (25.0-35.0) pg MCHC (31.0-37.0) g/dl RDW (11.5-14.5) % Plt Count (120.0-450.0) 10^3/uL MPV (7.0-11.0) fl Gran % (50.0-68.0) % Lymph % (Auto) (22.0-35.0) % [place] % (Auto) (1.0-6.0) % Eos % (Auto) (1.5-5.0) % Baso % (Auto) (0.0-3.0) % Gran # (1.4-6.5) Lymph # (1.2-3.4) [place] # (0.1-0.6) Eos # (0.0-0.7) Baso # (0.0-2.0) K/mm3 PT INR APTT Sodium (132-148) mmol/L Potassium (3.6-5.0) mmol/L Chloride (98-107) mmol/L Carbon Dioxide (21-33) mmol/L Anion Gap (10-20) BUN (7-21) mg/dL Creatinine (0.5-1.4) mg/dL Est GFR ( Amer) Est GFR (Non-Af Amer) POC Glucose (mg/dL) 96 (65-110) mg/dL Random Glucose (70-110) mg/dL Lactic Acid (0.7-2.1) mmol/L Uric Acid (3.5-8.5) mg/dL Calcium (8.4-10.5) mg/dL Phosphorus (2.5-4.5) mg/dL Magnesium (1.7-2.2) mg/dL Total Bilirubin (0.2-1.3) mg/dL AST (15-59) U/L ALT (7-56) U/L Alkaline Phosphatase (38-133) U/L Total Protein (5.8-8.3) g/dL Albumin (3.0-4.8) g/dL Globulin gm/dL Albumin/Globulin Ratio (1.1-1.8) Triglycerides 5136 H (35-160) mg/dL Cholesterol (130-200) mg/dL LDL Cholesterol Direct (0-129) mg/dL HDL Cholesterol (29-60) mg/dL Amylase (35-125) U/L TSH 3rd Generation (0.46-4.68) mIU/mL Urine Color (YELLOW) Urine Appearance (CLEAR) Urine pH (4.7-8.0) Ur Specific [place] (1.005-1.035) Urine Protein (<30 mg/dL) mg/dL Urine Glucose (UA) (NEGATIVE) mg/dL Urine Ketones (NEGATIVE) mg/dL Urine Blood (NEGATIVE) Urine Nitrate (NEGATIVE) Urine Bilirubin (NEGATIVE) Urine Urobilinogen (<1 E.U./dL) E.U./dL Ur Leukocyte Esterase (NEGATIVE) Winter/uL Urine RBC (0-2) /hpf Urine WBC (0-6) /hpf Ur Epithelial Cells (0-5) /hpf Urine Bacteria (NEG) Ur Random Creatinine mg/dL Ur Random Sodium meq/L Salicylates < 1 L (2.0-20.0) mg/dL Acetaminophen < 10.0 L (10.0-20.0) ug/ml Alcohol, Quantitative 291 H (0-10) mg/dL Blood Type O POSITIVE Blood Type Confirm Antibody Screen Negative BBK History Checked No verified bt 01/19/17 01/19/17 01/19/17 Range/Units 17:06 16:20 16:10 WBC (4.5-11.0) 10^3/ul RBC (3.5-6.1) 10^6/uL Hgb (14.0-18.0) gm/dL Hct (42.0-52.0) % MCV (80.0-105.0) fL MCH (25.0-35.0) pg MCHC (31.0-37.0) g/dl RDW (11.5-14.5) % Plt Count (120.0-450.0) 10^3/uL MPV (7.0-11.0) fl Gran % (50.0-68.0) % Lymph % (Auto) (22.0-35.0) % [place] % (Auto) (1.0-6.0) % Eos % (Auto) (1.5-5.0) % Baso % (Auto) (0.0-3.0) % Gran # (1.4-6.5) Lymph # (1.2-3.4) [place] # (0.1-0.6) Eos # (0.0-0.7) Baso # (0.0-2.0) K/mm3 PT INR APTT Sodium (132-148) mmol/L Potassium (3.6-5.0) mmol/L Chloride (98-107) mmol/L Carbon Dioxide (21-33) mmol/L Anion Gap (10-20) BUN (7-21) mg/dL Creatinine (0.5-1.4) mg/dL Est GFR ( Amer) Est GFR (Non-Af Amer) POC Glucose (mg/dL) 87 (65-110) mg/dL Random Glucose (70-110) mg/dL Lactic Acid 1.9 (0.7-2.1) mmol/L Uric Acid 7.2 (3.5-8.5) mg/dL Calcium (8.4-10.5) mg/dL Phosphorus (2.5-4.5) mg/dL Magnesium (1.7-2.2) mg/dL Total Bilirubin (0.2-1.3) mg/dL AST (15-59) U/L ALT (7-56) U/L Alkaline Phosphatase (38-133) U/L Total Protein (5.8-8.3) g/dL Albumin (3.0-4.8) g/dL Globulin gm/dL Albumin/Globulin Ratio (1.1-1.8) Triglycerides (35-160) mg/dL Cholesterol (130-200) mg/dL LDL Cholesterol Direct (0-129) mg/dL HDL Cholesterol (29-60) mg/dL Amylase 123 (35-125) U/L TSH 3rd Generation 1.33 (0.46-4.68) mIU/mL Urine Color (YELLOW) Urine Appearance (CLEAR) Urine pH (4.7-8.0) Ur Specific [place] (1.005-1.035) Urine Protein (<30 mg/dL) mg/dL Urine Glucose (UA) (NEGATIVE) mg/dL Urine Ketones (NEGATIVE) mg/dL Urine Blood (NEGATIVE) Urine Nitrate (NEGATIVE) Urine Bilirubin (NEGATIVE) Urine Urobilinogen (<1 E.U./dL) E.U./dL Ur Leukocyte Esterase (NEGATIVE) Winter/uL Urine RBC (0-2) /hpf Urine WBC (0-6) /hpf Ur Epithelial Cells (0-5) /hpf Urine Bacteria (NEG) Ur Random Creatinine mg/dL Ur Random Sodium meq/L Salicylates (2.0-20.0) mg/dL Acetaminophen (10.0-20.0) ug/ml Alcohol, Quantitative (0-10) mg/dL Blood Type Blood Type Confirm Antibody Screen BBK History Checked Laboratory Results - last 24 hr 01/19/17 01/19/17 01/19/17 16:10 16:20 17:06 WBC RBC Hgb Hct MCV MCH MCHC RDW Plt Count MPV Gran % Lymph % (Auto) [place] % (Auto) Eos % (Auto) Baso % (Auto) Gran # Lymph # [place] # Eos # Baso # PT INR APTT Sodium Potassium Chloride Carbon Dioxide Anion Gap BUN Creatinine Est GFR ( Amer) Est GFR (Non-Af Amer) POC Glucose (mg/dL) 87 Random Glucose Lactic Acid 1.9 Uric Acid 7.2 Calcium Phosphorus Magnesium Total Bilirubin AST ALT Alkaline Phosphatase Total Protein Albumin Globulin Albumin/Globulin Ratio Triglycerides Cholesterol LDL Cholesterol Direct HDL Cholesterol Amylase 123 TSH 3rd Generation 1.33 Urine Color Urine Appearance Urine pH Ur Specific [place] Urine Protein Urine Glucose (UA) Urine Ketones Urine Blood Urine Nitrate Urine Bilirubin Urine Urobilinogen Ur Leukocyte Esterase Urine RBC Urine WBC Ur Epithelial Cells Urine Bacteria Ur Random Creatinine Ur Random Sodium Salicylates Acetaminophen Alcohol, Quantitative Blood Type Blood Type Confirm Antibody Screen BBK History Checked 01/19/17 01/19/17 01/19/17 18:00 18:14 18:27 WBC RBC Hgb Hct MCV MCH MCHC RDW Plt Count MPV Gran % Lymph % (Auto) [place] % (Auto) Eos % (Auto) Baso % (Auto) Gran # Lymph # [place] # Eos # Baso # PT INR APTT Sodium Potassium Chloride Carbon Dioxide Anion Gap BUN Creatinine Est GFR ( Amer) Est GFR (Non-Af Amer) POC Glucose (mg/dL) 96 Random Glucose Lactic Acid Uric Acid Calcium Phosphorus Magnesium Total Bilirubin AST ALT Alkaline Phosphatase Total Protein Albumin Globulin Albumin/Globulin Ratio Triglycerides 5136 H Cholesterol LDL Cholesterol Direct HDL Cholesterol Amylase TSH 3rd Generation Urine Color Urine Appearance Urine pH Ur Specific [place] Urine Protein Urine Glucose (UA) Urine Ketones Urine Blood Urine Nitrate Urine Bilirubin Urine Urobilinogen Ur Leukocyte Esterase Urine RBC Urine WBC Ur Epithelial Cells Urine Bacteria Ur Random Creatinine Ur Random Sodium Salicylates < 1 L Acetaminophen < 10.0 L Alcohol, Quantitative 291 H Blood Type O POSITIVE Blood Type Confirm Antibody Screen Negative BBK History Checked No verified bt 01/19/17 01/19/17 01/19/17 18:39 19:15 20:18 WBC RBC Hgb Hct MCV MCH MCHC RDW Plt Count MPV Gran % Lymph % (Auto) [place] % (Auto) Eos % (Auto) Baso % (Auto) Gran # Lymph # [place] # Eos # Baso # PT INR APTT Sodium Potassium Chloride Carbon Dioxide Anion Gap BUN Creatinine Est GFR ( Amer) Est GFR (Non-Af Amer) POC Glucose (mg/dL) 102 106 Random Glucose Lactic Acid Uric Acid Calcium Phosphorus Magnesium Total Bilirubin AST ALT Alkaline Phosphatase Total Protein Albumin Globulin Albumin/Globulin Ratio Triglycerides Cholesterol LDL Cholesterol Direct HDL Cholesterol Amylase TSH 3rd Generation Urine Color Urine Appearance Urine pH Ur Specific [place] Urine Protein Urine Glucose (UA) Urine Ketones Urine Blood Urine Nitrate Urine Bilirubin Urine Urobilinogen Ur Leukocyte Esterase Urine RBC Urine WBC Ur Epithelial Cells Urine Bacteria Ur Random Creatinine Ur Random Sodium Salicylates Acetaminophen Alcohol, Quantitative Blood Type Blood Type Confirm O POSITIVE Antibody Screen BBK History Checked 01/19/17 01/20/17 01/20/17 21:05 00:25 05:30 WBC 11.0 D RBC 4.76 Hgb 15.4 Hct 42.7 MCV 89.7 MCH 32.4 MCHC 36.1 RDW 14.0 Plt Count 118 L MPV 9.8 Gran % 70.3 H Lymph % (Auto) 20.9 L [place] % (Auto) 7.7 H Eos % (Auto) 0.6 L Baso % (Auto) 0.5 Gran # 7.71 H Lymph # 2.3 [place] # 0.9 H Eos # 0.1 Baso # 0.05 PT TNP INR TNP APTT TNP Sodium 136 Potassium 3.6 Chloride 104 Carbon Dioxide 23 Anion Gap 13 BUN 11 Creatinine 1.0 Est GFR ( Amer) > 60 Est GFR (Non-Af Amer) > 60 POC Glucose (mg/dL) Random Glucose 120 H Lactic Acid 1.8 Uric Acid Calcium 6.6 L* Phosphorus 2.9 Magnesium 1.7 Total Bilirubin 2.3 H AST 136 H ALT 82 H Alkaline Phosphatase 45 Total Protein 5.3 L Albumin 3.6 Globulin 1.7 Albumin/Globulin Ratio 2.1 H Triglycerides 1332 H Cholesterol 156 LDL Cholesterol Direct < 30 HDL Cholesterol 11 L Amylase TSH 3rd Generation Urine Color Yellow Urine Appearance Clear Urine pH 7.0 Ur Specific [place] 1.010 Urine Protein Negative Urine Glucose (UA) Negative Urine Ketones Negative Urine Blood Trace-lysed H Urine Nitrate Negative Urine Bilirubin Negative Urine Urobilinogen 0.2 Ur Leukocyte Esterase Negative Urine RBC 1 - 3 Urine WBC Negative Ur Epithelial Cells None Urine Bacteria Few Ur Random Creatinine 55 Ur Random Sodium 94 Salicylates Acetaminophen Alcohol, Quantitative Blood Type Blood Type Confirm Antibody Screen BBK History Checked EKG/Cardiology Studies: Cardiology / EKG Studies 01/19/17 17:25 EKG [ELECTROCARDIOGRAM] Stat Comment: Reason For Exam: hypertrygleceremia Fingerstick Blood Sugar Results: 96 Review of Systems - Constitutional Constitutional: absent: Fever, Chills - EENT Eyes: absent: Blurred Vision, Change in Vision, Loss of Vision Ears: absent: Dizziness Nose/Mouth/Throat: absent: Sore Throat, Neck Pain - Cardiovascular Cardiovascular: absent: Chest Pain, Dyspnea, Pain Radiating to Arm/Neck/Jaw, Palpitations, Syncope - Respiratory Respiratory: absent: Cough, Dyspnea, Hemoptysis, Wheezing - Gastrointestinal Gastrointestinal: Abdominal Pain (describes it more as fullness than pain), Heartburn. absent: Coffee Ground Emesis, Constipation, Diarrhea, Dysphagia, Hematemesis, Hematochezia, Melena, Nausea, Vomiting - Genitourinary Genitourinary: absent: Dysuria, Flank Pain, Hematuria - Musculoskeletal Musculoskeletal: absent: Back Pain, Muscle Weakness, Numbness - Integumentary Integumentary: absent: Change in Pigmentation, Pruritus, Rash, Jaundice - Neurological Neurological: absent: Dizziness, Focal Weakness, Loss of Vision, Syncope, Other Visual Disturbances - Psychiatric Psychiatric: absent: Anxiety - Endocrine Endocrine: absent: Fatigue, Palpitations Critical Care Progress Note - Nutrition Nutrition: Nutrition Category Date Time Status NPO Diet [DIET] Diets 01/20/17 Breakfast Ordered Assessment/Plan - Assessment and Plan (Free Text) Assessment: This is a 51 yo M with PMH of HTN (not medically managed) and alcohol abuse who presents with complaint of fluctuating persistent abdominal discomfort , malaise, and weakness, and is being admitted to the ICU for management of severe hypertriglyceridemia (>5000) with pancreatitis, requiring pheresis. He has currently received one round of pheresis, and is pending another today. Plan: Neuro: -AAOx3, spontaneous movement of all extremities -Following commands appropriately -maintain normothermia -at risk for EtOH withdrawal, seizures due to significant alcohol abuse; Ativan 1mg IV q3 PRN for withdrawal, CIWA protocol q1, EtOH level 292 yesterday, repeat level pending -Tox screen negative Pulm: -CTAB on exam, satting well on room air, No O2 supplementation indicated at this time -Given pancreatitis, at risk for developing pulm edema/ARDS, continue to monitor -maintain SaO2 > 92% and paO2 > 60 -Aspiration precautions, head of bed to 30 degrees Cardio: -Currently hemodynamically stable, maintain MAP > 65 -Fluctuating rate and rhythm on telemetry, possible afib 2/2 electrolyte abnormalities vs holiday heart for alcohol abuse -Repeat EKG today notable for sinus tachy 113, incomplete RBBB, left axis deviation, prolonged QTc 463 -Hx HTN, started on PRN Lopressor 5mg IV q6 if SBP >= 180 -Hypertriglyceridemia > 5000 on admission labs, improved to 1516 today; 2/2 severe alcohol abuse vs familial component, likely multifactorial -Coags unable to be measured due to excessive lipid content of blood, blood remained to lipemic after first round of pheresis, send out to outside lab pending -Heparin 5000u SC q8 for DVT/PE ppx; need to cover with AC b/c risk of hypercoagulability post-pheresis -K 3.4, Mag 1.6, Ca 7.7, will recheck post pheresis and replete accordingly -Calcium persistently low after first round of pheresis, 6.6 post-procedure, then 6.9 after 4 bags of Calcium gluconate, then 7.7 after another 3 bags and 1x 1000mg IVP of Calcium Gluconate; continue to monitor due to risk for arrhythmia; will recheck after 2nd round of pheresis and replete further as needed -TSH wnl at 1.33 GI: -NPO -Protonix for GI ppx -Elevated LFTs, AST 196 and ALT 99 (2:1 ratio consistent with EtOH abuse), Alk phos 75, Tbili 3.6; all remain elevated but all improved over levels on admission -Lipase today 1739 (was 1344) -TG 1516, Chol 166, LDL < 30, HDL 11 -Alcoholic hepatitis etiology present, but need to also rule out gallstone pancreatitis -CT abd/pelvis notable for mild infiltration of peripancreatic fat confined to head of pancreas, likely mild pancreatitis; recently passed common duct stones, hepatomegaly/hepatic steatosis; Abd US notable for findings consistent with mild fatty liver, no sonographic evidence of pancreatic or GB pathology -Aggressive fluid rehydration, IVF NS at 250cc/hr -GI (Dr. Regan) consulted, appreciate all recs -Uric acid 7.2 on admit; Lactic acid 1.6 (was 1.8) -Hgb A1c 5.7 -repeat CMP, Mag, Phos, TG, Lipid panel, and lactic acid post 1st round pheresis , f/u Renal: -Cr 1.1, no prior labs for comparison/baseline -Monitor I's & O's -Nephro (Dr. Berumen) consulted, appreciate all recs; pheresis ordered for Hypertriglyceridemia, 1st round to be done tonight -avoid nephrotoxic drugs where feasible -monitor and replete electrolytes as needed; will recheck CMP + Mag/Phos after 1st round pheresis -maintain euglycemia (BG 140-180), aggressive fluid rehydration for pancreatitis -UA obtained, notable for 30 Protein and trace intact blood Heme: -Hypertriglyceridemia > 5000 on admission labs, improved to 1516 today; 2/2 severe alcohol abuse vs familial component, likely multifactorial -s/p 1 round pheresis overnight, pending another today -Hgb 15.4 (was 17.0), decrease more likely 2/2 hemoconcentration from poor PO intake than due to hemorrhage, will follow up AM CBC tmr -Right IJ Double lumen dialysis catheter placed (please see procedure note by Dr Sen), XRay confirmed placement, cleared for use for pheresis -Coags remain unobtainable due to lipemic content of blood, send out coags pending, will repeat coags after next round of pheresis -Heparin 5000u SC q8 for DVT/PE ppx; need to cover with AC b/c risk of hypercoagulability post-pheresis ID: -WBCs 11.0 (was 6.9), afebrile -no antibiotics indicated at this time -[id number] pending Dispo: ICU pending 2nd round of pheresis, aggressive fluid resuscitation FEN: NPO, NS IVF 250cc/hr Access: Peripheral IVs, Right IJ double lumen dialysis catheter Consults: GI, Nephro Ppx: Protonix for GI, Heparin for DVT Code status: Full Patient seen, reviewed, and discussed with attending, Dr. Miller. - Date & Time Date: 01/20/17 Time: 07:49 <David Miller MD H - Last Filed: 01/20/17 16:18> CCU Objective - Vital Signs / Intake & Output Vital Signs (Last 4 hours): Vital Signs Temp Pulse Resp BP Pulse Ox 01/20/17 14:01 106 H 19 172/101 H 93 L 01/20/17 14:00 112 H 21 95 01/20/17 13:43 112 H 23 179/110 H 93 L 01/20/17 13:32 106 H 19 172/110 H 94 L 01/20/17 13:11 111 H 21 93 L 01/20/17 13:04 107 H 21 159/103 H 93 L 01/20/17 13:00 112 H 20 171/118 H 94 L 01/20/17 12:15 98.9 F Intake and Output (Last 8hrs): Intake & Output 01/20/17 01/20/17 01/20/17 06:59 14:59 22:59 Intake Total 4100 Output Total 2600 Balance 1500 Intake: IV 4100 Left Forearm 4100 Oral 0 Output: Urine 2600 Urine, Voided 2600 Other: Voiding Method Urinal # Voids Urine, Voided 6 # Bowel Movements 0 - Medications Active Medications: Active Medications Generic Name Dose Route Start Last Admin Trade Name Freq PRN Reason Stop Dose Admin Heparin Sodium (Porcine) 5,000 units 01/20/17 11:00 01/20/17 11:03 Heparin SC 5,000 units Q8 LENKA Administration Protocol Sodium Chloride 1,000 mls @ 250 mls/hr 01/19/17 22:34 01/20/17 15:42 Sodium Chloride 0.9% IV 250 mls/hr .Q4H LENKA Administration Albumin Human 3,000 mls @ 1,500 mls/hr 01/20/17 14:45 01/20/17 15:35 Albutein 5% 500 Ml IVPB 01/20/17 16:44 1,500 mls/hr ONCE ONE Administration Calcium Gluconate 1,000 mg/ 110 mls @ 110 mls/hr 01/20/17 14:45 01/20/17 15:42 Sodium Chloride IVPB 01/20/17 18:44 110 mls/hr Q1H LENKA Administration Lorazepam 1 mg 01/19/17 19:03 Ativan IVP Q3H PRN Withdrawal Protocol Metoprolol Tartrate 5 mg 01/20/17 10:53 01/20/17 11:03 Lopressor IVP 5 mg Q6 PRN Administration SBP >= 180 Pantoprazole Sodium 40 mg 01/20/17 10:00 01/20/17 09:04 Protonix Inj IVP 40 mg DAILY LENKA Administration - Patient Studies Lab Studies: Lab Studies 01/20/17 01/20/17 01/20/17 Range/Units 10:30 06:00 05:30 WBC 11.0 D (4.5-11.0) 10^3/ul RBC 4.76 (3.5-6.1) 10^6/uL Hgb 15.4 (14.0-18.0) gm/dL Hct 42.7 (42.0-52.0) % MCV 89.7 (80.0-105.0) fL MCH 32.4 (25.0-35.0) pg MCHC 36.1 (31.0-37.0) g/dl RDW 14.0 (11.5-14.5) % Plt Count 118 L (120.0-450.0) 10^3/uL MPV 9.8 (7.0-11.0) fl Gran % 70.3 H (50.0-68.0) % Lymph % (Auto) 20.9 L (22.0-35.0) % [place] % (Auto) 7.7 H (1.0-6.0) % Eos % (Auto) 0.6 L (1.5-5.0) % Baso % (Auto) 0.5 (0.0-3.0) % Gran # 7.71 H (1.4-6.5) Lymph # 2.3 (1.2-3.4) [place] # 0.9 H (0.1-0.6) Eos # 0.1 (0.0-0.7) Baso # 0.05 (0.0-2.0) K/mm3 PT INR APTT Sodium 135 136 (132-148) mmol/L Potassium 3.4 L 4.0 (3.6-5.0) mmol/L Chloride 104 105 (98-107) mmol/L Carbon Dioxide 18 L 21 (21-33) mmol/L Anion Gap 16 14 (10-20) BUN 9 11 (7-21) mg/dL Creatinine 0.9 1.0 (0.5-1.4) mg/dL Est GFR ( Amer) > 60 > 60 Est GFR (Non-Af Amer) > 60 > 60 POC Glucose (mg/dL) (65-110) mg/dL Random Glucose 104 93 (70-110) mg/dL Hemoglobin A1c 5.7 (4.2-6.5) % Lactic Acid 1.6 (0.7-2.1) mmol/L Uric Acid (3.5-8.5) mg/dL Calcium 7.7 L 6.9 L* (8.4-10.5) mg/dL Phosphorus 3.2 3.5 (2.5-4.5) mg/dL Magnesium 1.6 L 1.6 L (1.7-2.2) mg/dL Total Bilirubin 3.9 H 3.1 H (0.2-1.3) mg/dL AST 196 H 163 H (15-59) U/L ALT 99 H 81 H (7-56) U/L Alkaline Phosphatase 75 47 (38-133) U/L Total Protein 5.9 5.4 L (5.8-8.3) g/dL Albumin 3.8 3.5 (3.0-4.8) g/dL Globulin 2.1 1.9 gm/dL Albumin/Globulin Ratio 1.8 1.8 (1.1-1.8) Triglycerides 1516 H (35-160) mg/dL Cholesterol 166 (130-200) mg/dL LDL Cholesterol Direct < 30 (0-129) mg/dL HDL Cholesterol 11 L (29-60) mg/dL Amylase (35-125) U/L Lipase 1739 H (23-300) U/L TSH 3rd Generation (0.46-4.68) mIU/mL Urine Color (YELLOW) Urine Appearance (CLEAR) Urine pH (4.7-8.0) Ur Specific [place] (1.005-1.035) Urine Protein (<30 mg/dL) mg/dL Urine Glucose (UA) (NEGATIVE) mg/dL Urine Ketones (NEGATIVE) mg/dL Urine Blood (NEGATIVE) Urine Nitrate (NEGATIVE) Urine Bilirubin (NEGATIVE) Urine Urobilinogen (<1 E.U./dL) E.U./dL Ur Leukocyte Esterase (NEGATIVE) Winter/uL Urine RBC (0-2) /hpf Urine WBC (0-6) /hpf Ur Epithelial Cells (0-5) /hpf Urine Bacteria (NEG) Ur Random Creatinine mg/dL Ur Random Sodium meq/L Salicylates (2.0-20.0) mg/dL Acetaminophen (10.0-20.0) ug/ml Alcohol, Quantitative 14 H (0-10) mg/dL Blood Type Blood Type Confirm Antibody Screen BBK History Checked 01/20/17 01/19/17 01/19/17 Range/Units 00:25 21:05 20:18 WBC (4.5-11.0) 10^3/ul RBC (3.5-6.1) 10^6/uL Hgb (14.0-18.0) gm/dL Hct (42.0-52.0) % MCV (80.0-105.0) fL MCH (25.0-35.0) pg MCHC (31.0-37.0) g/dl RDW (11.5-14.5) % Plt Count (120.0-450.0) 10^3/uL MPV (7.0-11.0) fl Gran % (50.0-68.0) % Lymph % (Auto) (22.0-35.0) % [place] % (Auto) (1.0-6.0) % Eos % (Auto) (1.5-5.0) % Baso % (Auto) (0.0-3.0) % Gran # (1.4-6.5) Lymph # (1.2-3.4) [place] # (0.1-0.6) Eos # (0.0-0.7) Baso # (0.0-2.0) K/mm3 PT TNP INR TNP APTT TNP Sodium 136 (132-148) mmol/L Potassium 3.6 (3.6-5.0) mmol/L Chloride 104 (98-107) mmol/L Carbon Dioxide 23 (21-33) mmol/L Anion Gap 13 (10-20) BUN 11 (7-21) mg/dL Creatinine 1.0 (0.5-1.4) mg/dL Est GFR ( Amer) > 60 Est GFR (Non-Af Amer) > 60 POC Glucose (mg/dL) 106 (65-110) mg/dL Random Glucose 120 H (70-110) mg/dL Hemoglobin A1c (4.2-6.5) % Lactic Acid 1.8 (0.7-2.1) mmol/L Uric Acid (3.5-8.5) mg/dL Calcium 6.6 L* (8.4-10.5) mg/dL Phosphorus 2.9 (2.5-4.5) mg/dL Magnesium 1.7 (1.7-2.2) mg/dL Total Bilirubin 2.3 H (0.2-1.3) mg/dL AST 136 H (15-59) U/L ALT 82 H (7-56) U/L Alkaline Phosphatase 45 (38-133) U/L Total Protein 5.3 L (5.8-8.3) g/dL Albumin 3.6 (3.0-4.8) g/dL Globulin 1.7 gm/dL Albumin/Globulin Ratio 2.1 H (1.1-1.8) Triglycerides 1332 H (35-160) mg/dL Cholesterol 156 (130-200) mg/dL LDL Cholesterol Direct < 30 (0-129) mg/dL HDL Cholesterol 11 L (29-60) mg/dL Amylase (35-125) U/L Lipase (23-300) U/L TSH 3rd Generation (0.46-4.68) mIU/mL Urine Color Yellow (YELLOW) Urine Appearance Clear (CLEAR) Urine pH 7.0 (4.7-8.0) Ur Specific [place] 1.010 (1.005-1.035) Urine Protein Negative (<30 mg/dL) mg/dL Urine Glucose (UA) Negative (NEGATIVE) mg/dL Urine Ketones Negative (NEGATIVE) mg/dL Urine Blood Trace-lysed H (NEGATIVE) Urine Nitrate Negative (NEGATIVE) Urine Bilirubin Negative (NEGATIVE) Urine Urobilinogen 0.2 (<1 E.U./dL) E.U./dL Ur Leukocyte Esterase Negative (NEGATIVE) Winter/uL Urine RBC 1 - 3 (0-2) /hpf Urine WBC Negative (0-6) /hpf Ur Epithelial Cells None (0-5) /hpf Urine Bacteria Few (NEG) Ur Random Creatinine 55 mg/dL Ur Random Sodium 94 meq/L Salicylates (2.0-20.0) mg/dL Acetaminophen (10.0-20.0) ug/ml Alcohol, Quantitative (0-10) mg/dL Blood Type Blood Type Confirm Antibody Screen BBK History Checked 01/19/17 01/19/17 01/19/17 Range/Units 19:15 18:39 18:27 WBC (4.5-11.0) 10^3/ul RBC (3.5-6.1) 10^6/uL Hgb (14.0-18.0) gm/dL Hct (42.0-52.0) % MCV (80.0-105.0) fL MCH (25.0-35.0) pg MCHC (31.0-37.0) g/dl RDW (11.5-14.5) % Plt Count (120.0-450.0) 10^3/uL MPV (7.0-11.0) fl Gran % (50.0-68.0) % Lymph % (Auto) (22.0-35.0) % [place] % (Auto) (1.0-6.0) % Eos % (Auto) (1.5-5.0) % Baso % (Auto) (0.0-3.0) % Gran # (1.4-6.5) Lymph # (1.2-3.4) [place] # (0.1-0.6) Eos # (0.0-0.7) Baso # (0.0-2.0) K/mm3 PT INR APTT Sodium (132-148) mmol/L Potassium (3.6-5.0) mmol/L Chloride (98-107) mmol/L Carbon Dioxide (21-33) mmol/L Anion Gap (10-20) BUN (7-21) mg/dL Creatinine (0.5-1.4) mg/dL Est GFR ( Amer) Est GFR (Non-Af Amer) POC Glucose (mg/dL) 102 (65-110) mg/dL Random Glucose (70-110) mg/dL Hemoglobin A1c (4.2-6.5) % Lactic Acid (0.7-2.1) mmol/L Uric Acid (3.5-8.5) mg/dL Calcium (8.4-10.5) mg/dL Phosphorus (2.5-4.5) mg/dL Magnesium (1.7-2.2) mg/dL Total Bilirubin (0.2-1.3) mg/dL AST (15-59) U/L ALT (7-56) U/L Alkaline Phosphatase (38-133) U/L Total Protein (5.8-8.3) g/dL Albumin (3.0-4.8) g/dL Globulin gm/dL Albumin/Globulin Ratio (1.1-1.8) Triglycerides (35-160) mg/dL Cholesterol (130-200) mg/dL LDL Cholesterol Direct (0-129) mg/dL HDL Cholesterol (29-60) mg/dL Amylase (35-125) U/L Lipase (23-300) U/L TSH 3rd Generation (0.46-4.68) mIU/mL Urine Color (YELLOW) Urine Appearance (CLEAR) Urine pH (4.7-8.0) Ur Specific [place] (1.005-1.035) Urine Protein (<30 mg/dL) mg/dL Urine Glucose (UA) (NEGATIVE) mg/dL Urine Ketones (NEGATIVE) mg/dL Urine Blood (NEGATIVE) Urine Nitrate (NEGATIVE) Urine Bilirubin (NEGATIVE) Urine Urobilinogen (<1 E.U./dL) E.U./dL Ur Leukocyte Esterase (NEGATIVE) Winter/uL Urine RBC (0-2) /hpf Urine WBC (0-6) /hpf Ur Epithelial Cells (0-5) /hpf Urine Bacteria (NEG) Ur Random Creatinine mg/dL Ur Random Sodium meq/L Salicylates (2.0-20.0) mg/dL Acetaminophen (10.0-20.0) ug/ml Alcohol, Quantitative (0-10) mg/dL Blood Type O POSITIVE Blood Type Confirm O POSITIVE Antibody Screen Negative BBK History Checked No verified bt 01/19/17 01/19/17 01/19/17 Range/Units 18:14 18:00 17:06 WBC (4.5-11.0) 10^3/ul RBC (3.5-6.1) 10^6/uL Hgb (14.0-18.0) gm/dL Hct (42.0-52.0) % MCV (80.0-105.0) fL MCH (25.0-35.0) pg MCHC (31.0-37.0) g/dl RDW (11.5-14.5) % Plt Count (120.0-450.0) 10^3/uL MPV (7.0-11.0) fl Gran % (50.0-68.0) % Lymph % (Auto) (22.0-35.0) % [place] % (Auto) (1.0-6.0) % Eos % (Auto) (1.5-5.0) % Baso % (Auto) (0.0-3.0) % Gran # (1.4-6.5) Lymph # (1.2-3.4) [place] # (0.1-0.6) Eos # (0.0-0.7) Baso # (0.0-2.0) K/mm3 PT 11.2 INR 1.10 H APTT 30.0 Sodium (132-148) mmol/L Potassium (3.6-5.0) mmol/L Chloride (98-107) mmol/L Carbon Dioxide (21-33) mmol/L Anion Gap (10-20) BUN (7-21) mg/dL Creatinine (0.5-1.4) mg/dL Est GFR ( Amer) Est GFR (Non-Af Amer) POC Glucose (mg/dL) 96 87 (65-110) mg/dL Random Glucose (70-110) mg/dL Hemoglobin A1c (4.2-6.5) % Lactic Acid (0.7-2.1) mmol/L Uric Acid (3.5-8.5) mg/dL Calcium (8.4-10.5) mg/dL Phosphorus (2.5-4.5) mg/dL Magnesium (1.7-2.2) mg/dL Total Bilirubin (0.2-1.3) mg/dL AST (15-59) U/L ALT (7-56) U/L Alkaline Phosphatase (38-133) U/L Total Protein (5.8-8.3) g/dL Albumin (3.0-4.8) g/dL Globulin gm/dL Albumin/Globulin Ratio (1.1-1.8) Triglycerides 5136 H (35-160) mg/dL Cholesterol (130-200) mg/dL LDL Cholesterol Direct (0-129) mg/dL HDL Cholesterol (29-60) mg/dL Amylase (35-125) U/L Lipase (23-300) U/L TSH 3rd Generation (0.46-4.68) mIU/mL Urine Color (YELLOW) Urine Appearance (CLEAR) Urine pH (4.7-8.0) Ur Specific [place] (1.005-1.035) Urine Protein (<30 mg/dL) mg/dL Urine Glucose (UA) (NEGATIVE) mg/dL Urine Ketones (NEGATIVE) mg/dL Urine Blood (NEGATIVE) Urine Nitrate (NEGATIVE) Urine Bilirubin (NEGATIVE) Urine Urobilinogen (<1 E.U./dL) E.U./dL Ur Leukocyte Esterase (NEGATIVE) Winter/uL Urine RBC (0-2) /hpf Urine WBC (0-6) /hpf Ur Epithelial Cells (0-5) /hpf Urine Bacteria (NEG) Ur Random Creatinine mg/dL Ur Random Sodium meq/L Salicylates < 1 L (2.0-20.0) mg/dL Acetaminophen < 10.0 L (10.0-20.0) ug/ml Alcohol, Quantitative 291 H (0-10) mg/dL Blood Type Blood Type Confirm Antibody Screen BBK History Checked 01/19/17 01/19/17 Range/Units 16:20 16:10 WBC (4.5-11.0) 10^3/ul RBC (3.5-6.1) 10^6/uL Hgb (14.0-18.0) gm/dL Hct (42.0-52.0) % MCV (80.0-105.0) fL MCH (25.0-35.0) pg MCHC (31.0-37.0) g/dl RDW (11.5-14.5) % Plt Count (120.0-450.0) 10^3/uL MPV (7.0-11.0) fl Gran % (50.0-68.0) % Lymph % (Auto) (22.0-35.0) % [place] % (Auto) (1.0-6.0) % Eos % (Auto) (1.5-5.0) % Baso % (Auto) (0.0-3.0) % Gran # (1.4-6.5) Lymph # (1.2-3.4) [place] # (0.1-0.6) Eos # (0.0-0.7) Baso # (0.0-2.0) K/mm3 PT INR APTT Sodium (132-148) mmol/L Potassium (3.6-5.0) mmol/L Chloride (98-107) mmol/L Carbon Dioxide (21-33) mmol/L Anion Gap (10-20) BUN (7-21) mg/dL Creatinine (0.5-1.4) mg/dL Est GFR ( Amer) Est GFR (Non-Af Amer) POC Glucose (mg/dL) (65-110) mg/dL Random Glucose (70-110) mg/dL Hemoglobin A1c (4.2-6.5) % Lactic Acid 1.9 (0.7-2.1) mmol/L Uric Acid 7.2 (3.5-8.5) mg/dL Calcium (8.4-10.5) mg/dL Phosphorus (2.5-4.5) mg/dL Magnesium (1.7-2.2) mg/dL Total Bilirubin (0.2-1.3) mg/dL AST (15-59) U/L ALT (7-56) U/L Alkaline Phosphatase (38-133) U/L Total Protein (5.8-8.3) g/dL Albumin (3.0-4.8) g/dL Globulin gm/dL Albumin/Globulin Ratio (1.1-1.8) Triglycerides (35-160) mg/dL Cholesterol (130-200) mg/dL LDL Cholesterol Direct (0-129) mg/dL HDL Cholesterol (29-60) mg/dL Amylase 123 (35-125) U/L Lipase (23-300) U/L TSH 3rd Generation 1.33 (0.46-4.68) mIU/mL Urine Color (YELLOW) Urine Appearance (CLEAR) Urine pH (4.7-8.0) Ur Specific [place] (1.005-1.035) Urine Protein (<30 mg/dL) mg/dL Urine Glucose (UA) (NEGATIVE) mg/dL Urine Ketones (NEGATIVE) mg/dL Urine Blood (NEGATIVE) Urine Nitrate (NEGATIVE) Urine Bilirubin (NEGATIVE) Urine Urobilinogen (<1 E.U./dL) E.U./dL Ur Leukocyte Esterase (NEGATIVE) Winter/uL Urine RBC (0-2) /hpf Urine WBC (0-6) /hpf Ur Epithelial Cells (0-5) /hpf Urine Bacteria (NEG) Ur Random Creatinine mg/dL Ur Random Sodium meq/L Salicylates (2.0-20.0) mg/dL Acetaminophen (10.0-20.0) ug/ml Alcohol, Quantitative (0-10) mg/dL Blood Type Blood Type Confirm Antibody Screen BBK History Checked Laboratory Results - last 24 hr 01/19/17 01/19/17 01/19/17 16:10 16:20 17:06 WBC RBC Hgb Hct MCV MCH MCHC RDW Plt Count MPV Gran % Lymph % (Auto) [place] % (Auto) Eos % (Auto) Baso % (Auto) Gran # Lymph # [place] # Eos # Baso # PT INR APTT Sodium Potassium Chloride Carbon Dioxide Anion Gap BUN Creatinine Est GFR ( Amer) Est GFR (Non-Af Amer) POC Glucose (mg/dL) 87 Random Glucose Hemoglobin A1c Lactic Acid 1.9 Uric Acid 7.2 Calcium Phosphorus Magnesium Total Bilirubin AST ALT Alkaline Phosphatase Total Protein Albumin Globulin Albumin/Globulin Ratio Triglycerides Cholesterol LDL Cholesterol Direct HDL Cholesterol Amylase 123 Lipase TSH 3rd Generation 1.33 Urine Color Urine Appearance Urine pH Ur Specific [place] Urine Protein Urine Glucose (UA) Urine Ketones Urine Blood Urine Nitrate Urine Bilirubin Urine Urobilinogen Ur Leukocyte Esterase Urine RBC Urine WBC Ur Epithelial Cells Urine Bacteria Ur Random Creatinine Ur Random Sodium Salicylates Acetaminophen Alcohol, Quantitative Blood Type Blood Type Confirm Antibody Screen BBK History Checked 01/19/17 01/19/17 01/19/17 18:00 18:14 18:27 WBC RBC Hgb Hct MCV MCH MCHC RDW Plt Count MPV Gran % Lymph % (Auto) [place] % (Auto) Eos % (Auto) Baso % (Auto) Gran # Lymph # [place] # Eos # Baso # PT 11.2 INR 1.10 H APTT 30.0 Sodium Potassium Chloride Carbon Dioxide Anion Gap BUN Creatinine Est GFR ( Amer) Est GFR (Non-Af Amer) POC Glucose (mg/dL) 96 Random Glucose Hemoglobin A1c Lactic Acid Uric Acid Calcium Phosphorus Magnesium Total Bilirubin AST ALT Alkaline Phosphatase Total Protein Albumin Globulin Albumin/Globulin Ratio Triglycerides 5136 H Cholesterol LDL Cholesterol Direct HDL Cholesterol Amylase Lipase TSH 3rd Generation Urine Color Urine Appearance Urine pH Ur Specific [place] Urine Protein Urine Glucose (UA) Urine Ketones Urine Blood Urine Nitrate Urine Bilirubin Urine Urobilinogen Ur Leukocyte Esterase Urine RBC Urine WBC Ur Epithelial Cells Urine Bacteria Ur Random Creatinine Ur Random Sodium Salicylates < 1 L Acetaminophen < 10.0 L Alcohol, Quantitative 291 H Blood Type O POSITIVE Blood Type Confirm Antibody Screen Negative BBK History Checked No verified bt 01/19/17 01/19/17 01/19/17 18:39 19:15 20:18 WBC RBC Hgb Hct MCV MCH MCHC RDW Plt Count MPV Gran % Lymph % (Auto) [place] % (Auto) Eos % (Auto) Baso % (Auto) Gran # Lymph # [place] # Eos # Baso # PT INR APTT Sodium Potassium Chloride Carbon Dioxide Anion Gap BUN Creatinine Est GFR ( Amer) Est GFR (Non-Af Amer) POC Glucose (mg/dL) 102 106 Random Glucose Hemoglobin A1c Lactic Acid Uric Acid Calcium Phosphorus Magnesium Total Bilirubin AST ALT Alkaline Phosphatase Total Protein Albumin Globulin Albumin/Globulin Ratio Triglycerides Cholesterol LDL Cholesterol Direct HDL Cholesterol Amylase Lipase TSH 3rd Generation Urine Color Urine Appearance Urine pH Ur Specific [place] Urine Protein Urine Glucose (UA) Urine Ketones Urine Blood Urine Nitrate Urine Bilirubin Urine Urobilinogen Ur Leukocyte Esterase Urine RBC Urine WBC Ur Epithelial Cells Urine Bacteria Ur Random Creatinine Ur Random Sodium Salicylates Acetaminophen Alcohol, Quantitative Blood Type Blood Type Confirm O POSITIVE Antibody Screen BBK History Checked 01/19/17 01/20/17 01/20/17 21:05 00:25 05:30 WBC 11.0 D RBC 4.76 Hgb 15.4 Hct 42.7 MCV 89.7 MCH 32.4 MCHC 36.1 RDW 14.0 Plt Count 118 L MPV 9.8 Gran % 70.3 H Lymph % (Auto) 20.9 L [place] % (Auto) 7.7 H Eos % (Auto) 0.6 L Baso % (Auto) 0.5 Gran # 7.71 H Lymph # 2.3 [place] # 0.9 H Eos # 0.1 Baso # 0.05 PT TNP INR TNP APTT TNP Sodium 136 136 Potassium 3.6 4.0 Chloride 104 105 Carbon Dioxide 23 21 Anion Gap 13 14 BUN 11 11 Creatinine 1.0 1.0 Est GFR ( Amer) > 60 > 60 Est GFR (Non-Af Amer) > 60 > 60 POC Glucose (mg/dL) Random Glucose 120 H 93 Hemoglobin A1c 5.7 Lactic Acid 1.8 1.6 Uric Acid Calcium 6.6 L* 6.9 L* Phosphorus 2.9 3.5 Magnesium 1.7 1.6 L Total Bilirubin 2.3 H 3.1 H AST 136 H 163 H ALT 82 H 81 H Alkaline Phosphatase 45 47 Total Protein 5.3 L 5.4 L Albumin 3.6 3.5 Globulin 1.7 1.9 Albumin/Globulin Ratio 2.1 H 1.8 Triglycerides 1332 H 1516 H Cholesterol 156 166 LDL Cholesterol Direct < 30 < 30 HDL Cholesterol 11 L 11 L Amylase Lipase TSH 3rd Generation Urine Color Yellow Urine Appearance Clear Urine pH 7.0 Ur Specific [place] 1.010 Urine Protein Negative Urine Glucose (UA) Negative Urine Ketones Negative Urine Blood Trace-lysed H Urine Nitrate Negative Urine Bilirubin Negative Urine Urobilinogen 0.2 Ur Leukocyte Esterase Negative Urine RBC 1 - 3 Urine WBC Negative Ur Epithelial Cells None Urine Bacteria Few Ur Random Creatinine 55 Ur Random Sodium 94 Salicylates Acetaminophen Alcohol, Quantitative Blood Type Blood Type Confirm Antibody Screen BBK History Checked 01/20/17 01/20/17 06:00 10:30 WBC RBC Hgb Hct MCV MCH MCHC RDW Plt Count MPV Gran % Lymph % (Auto) [place] % (Auto) Eos % (Auto) Baso % (Auto) Gran # Lymph # [place] # Eos # Baso # PT INR APTT Sodium 135 Potassium 3.4 L Chloride 104 Carbon Dioxide 18 L Anion Gap 16 BUN 9 Creatinine 0.9 Est GFR ( Amer) > 60 Est GFR (Non-Af Amer) > 60 POC Glucose (mg/dL) Random Glucose 104 Hemoglobin A1c Lactic Acid Uric Acid Calcium 7.7 L Phosphorus 3.2 Magnesium 1.6 L Total Bilirubin 3.9 H AST 196 H ALT 99 H Alkaline Phosphatase 75 Total Protein 5.9 Albumin 3.8 Globulin 2.1 Albumin/Globulin Ratio 1.8 Triglycerides Cholesterol LDL Cholesterol Direct HDL Cholesterol Amylase Lipase 1739 H TSH 3rd Generation Urine Color Urine Appearance Urine pH Ur Specific [place] Urine Protein Urine Glucose (UA) Urine Ketones Urine Blood Urine Nitrate Urine Bilirubin Urine Urobilinogen Ur Leukocyte Esterase Urine RBC Urine WBC Ur Epithelial Cells Urine Bacteria Ur Random Creatinine Ur Random Sodium Salicylates Acetaminophen Alcohol, Quantitative 14 H Blood Type Blood Type Confirm Antibody Screen BBK History Checked EKG/Cardiology Studies: Cardiology / EKG Studies 01/19/17 17:25 EKG [ELECTROCARDIOGRAM] Stat Comment: Reason For Exam: hypertrygleceremia 01/20/17 12:21 EKG [ELECTROCARDIOGRAM] Stat Comment: Reason For Exam: variable rapid HR Critical Care Progress Note - Nutrition Nutrition: Nutrition Category Date Time Status NPO Diet [DIET] Diets 01/20/17 Breakfast Ordered Attending/Attestation - Attestation I have personally seen and examined this patient.: Yes I have fully participated in the care of the patient.: Yes I have reviewed all pertinent clinical information: Yes Notes (Text): 01/20/17 16:07 51 y/o M W/ Hyper TGYL w/ Pancreatitis S/P 1 Apheresis done yesterday with improvement of the TGYL Hypocalcemia noted, with constant repletion , w/o any clinical signs currently. Mg, K, Phos and Ca to be repleted. Lipase stable but mildly elevated. On 250cc N.S/HR with good urine output. Alcohol level has almost normalized and patient's abd discomfort has subsided. Plan for next Apheresis today and hope for TGYL to be< 500. Appreciate Eileen and nephrology input. Literature has been kept in the chart about Apheresis in the setting of hyper- TGYL. cc time 72 min
--- NOTE | 2017-01-20 07:49 | US ---
HISTORY: pancreatitis COMPARISON: CT abdomen and pelvis 01/19/2017 report noted TECHNIQUE: Sonographic evaluation of the abdomen. FINDINGS: LIVER: Measures 13.2 cm. -normal size. Increased echogenicity of the liver parenchyma. No mass. No intrahepatic bile duct dilatation. GALLBLADDER: Unremarkable. No gallstones. COMMON BILE DUCT: Measures 2.6 mm. No stones. No dilatation. PANCREAS: Unremarkable as visualized. No mass. No ductal dilatation. No ultrasound correlate to the CT findings. RIGHT KIDNEY: Measures 11.9 x 4.7 x 6.0cm. Normal echogenicity. No calculus, mass, or hydronephrosis. LEFT KIDNEY: Measures 10.5 x 5.6 x 5.2cm. Normal echogenicity. No calculus, mass, or hydronephrosis. SPLEEN: Normal in size and contour. No mass. AORTA: No aneurysmal dilatation. IVC: Unremarkable. OTHER FINDINGS: None. IMPRESSION: Findings consistent with mild fatty liver. No sonographic pancreatic or gallbladder pathology
--- NOTE | 2017-01-20 07:53 | RAD ---
HISTORY: shiley/HD catheter placement COMPARISON: No prior. FINDINGS: LUNGS: No active pulmonary disease. PLEURA: No significant pleural effusion identified, no pneumothorax apparent. CARDIOVASCULAR: Normal. OSSEOUS STRUCTURES: No significant abnormalities. VISUALIZED UPPER ABDOMEN: Normal. OTHER FINDINGS: A right internal jugular vein central catheter, a reported Shiley catheter i, s inserted i-ts tip is in the right atrium. IMPRESSION: Right internal jugular vein central catheter - positioned as above. No pneumothorax.
--- NOTE | 2017-01-20 08:19 | CON ---
DATE: 01/19/2017 HISTORY OF PRESENT ILLNESS: The patient presented to the [facility] with acute abdominal pain, generalized fatigue, lethargy and mild alcohol intoxication. The patient gives a longstanding history dating back to the middle of November when he traveled to [place]. He claims that he had been drinking heavy while he was there, approximately 3-4 bottles of wine a day in addition to his normal drinking habits prior to his trip of roughly 4-5 drinks per day. He has returned from [place] the last 5 weeks and continued to drink to offset his alcohol withdrawal. He presents today with multiple lab abnormalities. Of note, his triglycerides are greater than 5000. I was called for the ICU. PAST MEDICAL HISTORY: None that he knows of. PAST SURGICAL HISTORY: None that he knows of. FAMILY HISTORY : DM, CVA SOCIAL HISTORY: The patient has a longstanding 40-year history of drinking, he says, very heavy drinking. No IV drug abuse. No smoking. REVIEW OF SYSTEMS: Complains of positive findings of lethargy, abdominal pain, nausea, vomiting. All other review of systems are negative. LABORATORY RESULTS: pertinent results showed a total bilirubin of 4.1. Triglycerides greater than 5000. Lactic acid is 1.9, bicarbonate is 18, creatinine 1.1, alk phos 186. AST 500, ALT 380. INR is still pending. Chest x- ray shows no acute findings. PHYSICAL EXAMINATION: VITAL SIGNS: Temp is 98.6, heart rate is 95, blood pressure 128/86, respiratory rate 22 HEENT: Pupils are equal and reactive. The patient has mild scleral icterus. NECK: No JVD. LUNGS: Clear to auscultation bilaterally without any rhonchi, rales, or wheezes. CARDIOVASCULAR: S1, S2 is heard without any heaves, murmurs, or thrills. ABDOMEN: Soft, mildly tender diffusely. No rebound or guarding is appreciated. Minimal bowel sounds. EXTREMITIES: Show no pedal edema. SKIN: Shows no rashes or xanthoma. NEUROLOGIC: The patient is alert and oriented x 3. No focal neurological deficits. ASSESSMENT AND PLAN: The patient is a 51-year-old male who presents with multiple abnormalities secondary to acute alcoholic hepatitis, possible gallstone pancreatitis, pancreatitis with lipase greater than 1300. Also found to have hypertriglyceridemia greater than 5000. Acute pancreatitis. The patient should have bowel rest early in the first 24 hours, IV fluids 250 mL an hour of normal saline or lactated Ringer's No antibiotics indicated at this time. CT abdomen and pelvis done without contrast. Review findings and results. The patient should also have an abdominal ultrasound to rule out any gallstones at this time. The patient had gastroenterology on board and consult. The patient does not have any encephalopathy at this time or renal failure. Upon review of multiple literature, since there is no [id number] trials or randomized control trials in the setting of hypertriglyceridemia greater than 5000, the mortality risk is quite high. Many studies have shown that early treatment with plasmapheresis has shown improved outcomes and rapid clearing of triglyceride levels . Therefore, at this point, the case was discussed with the custodian athletic equipment and gastroenterology, and we went ahead gained informed consent for dialysis , Shiley catheter placed, which was placed in the right IJ under ultrasound guidance with no complications, verified by x-ray . The patient should be plasmapheresed this evening and subsequent 2 more times. The patient should have labs following Aperesis - amylase, lipase, CMP, total bilirubin, electrolytes and triglycerides. The patient's urine output should be followed. All organs to be supported.Calcium, T.Bili and Transaminitis should also be followed and trended. The patient also will have an element of alcohol withdrawal for which the patient should be given Ativan p.r.n. The case is discussed in great extent to the patient's brother and the patient himself. The patient remains critically ill at this time. TOTAL CRITICAL CARE TIME: 94 minutes. David Miller M.D. cc: [id number] TT: 01/19/2017 19:30:31 Confirmation # [id number] Dictation # [id number] alton ALCANTAR
--- NOTE | 2017-01-20 08:24 | HP ---
CHIEF COMPLAINT: Vague abdominal pain. HISTORY OF PRESENT ILLNESS: This is a 51-year-old man whom I last saw in 2011 at the office for a well physical that was quite unremarkable. His mother is a regular patient of mine, as well as his brother. She had been concerned about him lately; requesting him to come in for a routine wellness exam. He was feeling well. He was rather resistant. He developed some abdominal pain , was seen by another physician a few weeks ago for reflux and GI symptoms, but now came to the Emergency Room because these symptoms persisted. In the Emergency Room, amylase and lipase were compatible with rather severe pancreatitis, and his triglycerides were markedly elevated at over 5100, so arrangements were made for him to be admitted, and in fact, he was admitted to ICU on the recommendation of the ER who first contacted renal system consultant, Dr. Berumen. PAST MEDICAL HISTORY: Negative for hypertension, diabetes, cholesterol, tuberculosis, asthma, seizures, gout, COPD, TIA, CVA, CT, CAD, or cancers of any type. He has no prior hospitalizations or surgeries. HE IS ALLERGIC TO PENICILLIN, WITH UNKNOWN REACTION A CHILD. He does not smoke, never did, but does drink quite a bit. In fact lately, he says he would be drinking mostly wine, but it was an estimated bottle or 2 per day. He drinks 2 cups of coffee per day. Has not had a colonoscopy as of yet, does not take the flu shot or want it, nor does he want a Pneumovax vaccine. FAMILY HISTORY: Significant that his mother is still alive and well at age 80. His father at a young age, age 61, of a cerebral aneurysm. He has a brother who was present with him in the intensive care. He is single, with no children. 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 REVIEW OF SYSTEMS: Negative, except for the reflux symptoms as mentioned above. On physical exam, the patient was seen in the intensive care unit, coronary care bed 4, with his mother and brother in attendance. He was undergoing plasmapheresis for the hypertriglyceridemia at that time. He was awake, alert, comfortable in bed, with a right central line in the neck for the phoresis. HEAD AND NECK: Otherwise unremarkable. Conjunctivae were pink. Mucous membranes moist. LUNGS: Clear. HEART: Regular, nontachycardic. ABDOMEN: Slightly tender in the epigastric area. EXTREMITIES: Were overweight with no significant edema. IMPRESSION: 1. Acute pancreatitis. 2. Hypertriglyceridemia. 3. Elevated liver enzymes. 4. Alcohol use. 5. Reflux esophagitis. PLAN: When the patient was in the Emergency Room I received an urgent/emergent call from the ER physician who had already spoke to the hospital youth liaison officer and the renal system consultant, Dr. Berumen, about the pancreatitis and hypertriglyceridemia. They were familiar with a protocol for plasmapheresis in situations like this, which I, up until now, had never used or heard of. I did some quick research and placed a call to Dr. Berumen, the consulting renal physician, as this all seemed new to me. He reassured me of the indications for such a protocol and his familiarity with it in similar circumstances in the past; so I will concede the plan to his direction. In the interim, I will ask GI to see the patient for his reflux symptoms as well as pancreatitis, for additional opinion and guidance through this course of treatment. I met with the patient and his family in ICU this Wednesday night. We reviewed the problems at hand and the treatment plan already underway. I also spoke at length with a renal system consultant associate of Dr. Berumen', Dr. Riggins. Hopefully, this is a one-time plasmapheresis, and we will follow the patient's labs in the morning. Will continue the conservative approach of aggressive hydration, especially in view of the no cardiac history, and check morning labs. I counseled the patient at great length regarding his alcohol consumption , explaining how this near life-ending experience of the pancreatitis, hypertriglyceridemia, hepatic insufficiency, and GERD, would mean an end to all future alcohol consumption. The patient feels this is possible. I offered additional outside help and referrals if need be. ADMITTING DIAGNOSES: 1. Acute pancreatitis. 2. Hypertriglyceridemia over 5,100. 3. Gastroesophageal reflux disease, reflux esophagitis. 4. Alcohol use. 5. Elevated liver enzymes in the acute setting. Jamar Gay MD cc: [id number] TT: 01/20/2017 08:23:51 jn MTDD
[2017-01-20 10:54] LABS: ALB/GLOB RATIO 1.8 (1.1-1.8); ALKALINE PHOSPHATASE 75 U/L (38-133); ALT/SGPT 99 U/L (7-56); AST/SGOT 196 U/L (15-59); BILIRUBIN,TOTAL 3.9 mg/dL (0.2-1.3); BLOOD UREA NITROGEN 9 mg/dL (7-21); CALCIUM 7.7 mg/dL (8.4-10.5); CARBON DIOXIDE 18 mmol/L (21-33); CHLORIDE 104 mmol/L (98-107); GFR AFRICAN-AMERICAN > 60; GLUCOSE,RANDOM 104 mg/dL (70-110); MAGNESIUM 1.6 mg/dL (1.7-2.2); PHOSPHOROUS 3.2 mg/dL (2.5-4.5); POTASSIUM 3.4 mmol/L (3.6-5.0); SODIUM 135 mmol/L (132-148); TOTAL PROTEIN 5.9 g/dL (5.8-8.3)
[2017-01-20] MEDS: Metoprolol 1 mg/ml Inj IVP PRN ×2 (11:03→19:28)
[2017-01-20 11:28] LABS: INR 1.1 (0.93-1.08)
--- NOTE | 2017-01-20 12:14 | PN ---
DATE: 01/20/2017 Seen and examined at the bedside. Earlier today, the patient had one round of plasmapheresis. He do es report improvement of abdominal pain. No nausea, vomiting. No shortness of breath or chest pain or reports of any overt GI bleed. VITAL SIGNS: Temperature this morning was 98.5. His blood pressure is 173/117, pulse 97, is 94 on r oom air. LABORATORY DATA: Sodium is 135, K is 3.4, BUN is 9, creatinine is 0.9, calcium is 7.7. Earlier it w as 6.9. These labs were repeated at 10:30. He had a set at 5:30. His total bilirubin is 3.9, AST 1 96, ALT is 99, alkaline phosphatase is 75. Triglycerides at 5:30 this morning is 1516. Around midni ght, it was 1332, so this went up a bit. His lipase this morning at 6:00 a.m. is 1739. This shows a mild increase compared to admission, which was 1344. The alcohol quantitative was done this morning . It is 14. On admission yesterday it was 291. PHYSICAL EXAMINATION: HEENT: Sclerae looks a little icteric. NECK: Supple. CARDIAC: S1, S2. LUNGS: Decreased breath sounds but good aeration. Did not hear any rales or wheeze. ABDOMEN: Positive bowel sounds. It is soft and distended, nontender at this time. No rebound, guar ding. EXTREMITIES: Positive pulses. No edema, no calf tenderness. NEUROLOGIC: Awake and alert, oriented, noted to have some positive mild hand tremors. ASSESSMENT: This is a 51-year-old male with history of hypertension as well as chronic alcohol abuse , came with complaints of abdominal discomfort and generalized weakness. The patient was found to shah ve severe hypertriglyceridemia with pancreatitis. He had plasmapheresis yesterday. His triglyceride s throughout the night did show a decrease, but mildly elevated again this morning. He is noted to h ave elevated liver enzymes which may be related to alcoholic hepatitis. The patient did have a CT sc an of abdomen and pelvis which was reviewed with Dr. Wei. It appears that there is some peripancr eatic fat infiltration and some pancreatitis at the head of the pancreas, but no fluid loculation or ascites and possibility of a passed stone. PLAN: The patient is currently n.p.o. The patient may have another round of plasmapheresis. He is also on seizure precautions for alcohol withdrawal symptoms and has Ativan p.r.n. for withdrawal. He is on DVT prophylaxis with heparin q. 8. Continue GI prophylaxis. He is on Protonix 40 IV daily an d on IV fluids for hydration. He was also receiving calcium replacement. He is also being followed by renal. Will continue to follow closely. The patient was seen and case discussed with Dr. Jose olivares Arlette BERG cc: [id number] TT: 01/20/2017 12:13:41 Confirmation # [id number] Dictation # [id number] alton
--- NOTE | 2017-01-20 15:41 | CARD ---
APPROVED REPORT EKG Measurement Heart [id number] <Conclusion> Normal sinus rhythm LAD PRWP NSSTW changes
[2017-01-20 18:33] LABS: ALB/GLOB RATIO 2.8 (1.1-1.8); ALKALINE PHOSPHATASE 21 U/L (38-133); ALT/SGPT 51 U/L (7-56); AST/SGOT 73 U/L (15-59); BILIRUBIN,TOTAL 3.6 mg/dL (0.2-1.3); BLOOD UREA NITROGEN 7 mg/dL (7-21); CALCIUM 7.2 mg/dL (8.4-10.5); CARBON DIOXIDE 18 mmol/L (21-33); CHLORIDE 106 mmol/L (98-107); GFR AFRICAN-AMERICAN > 60; GLUCOSE,RANDOM 117 mg/dL (70-110); MAGNESIUM 1.4 mg/dL (1.7-2.2); PHOSPHOROUS 2.5 mg/dL (2.5-4.5); POTASSIUM 3.4 mmol/L (3.6-5.0); SODIUM 136 mmol/L (132-148); TOTAL PROTEIN 5.3 g/dL (5.8-8.3)
[2017-01-20] MEDS ORDERED: Magnesium Sulfate 2 GM in Sodium Chloride 0.9% 100 ML IVPB ONE (19:00)
[2017-01-20 19:12] LABS: LIPASE 1128 U/L (23-300)
[2017-01-20] MEDS ORDERED: Potassium Chloride 20 mEq 100 ML IVPB SCH (19:15)
[2017-01-20] MEDS ORDERED: Potassium Chloride 10 mEq 100 ML IVPB SCH (21:15)
[2017-01-20] MEDS: Potassium Chloride 10 mEq 100 ML IVPB SCH ×2 (21:36→23:14)
--- NOTE | 2017-01-20 23:54 | PN ---
DATE: 01/20/2017 SUBJECTIVE: This patient was seen and evaluated earlier today. The patient did have one plasmaphere sis earlier. The patient feels comfortable. Tolerating the diet. PHYSICAL EXAMINATION: VITAL SIGNS: Afebrile, vital signs stable. HEENT: Jaundiced. NECK: Supple. HEART: S1, S2 heard. LUNGS: Bilateral normal vesicular breath sounds. ABDOMEN: Soft. There is no tenderness. EXTREMITIES: No edema. LABORATORY DATA: Total bilirubin was 3.9. Lipase in the morning was 1,739. Post plasmapheresis, th e level was 1,344. IMPRESSION: This 51-year-old patient with a history of ETOH abuse, admitted with pancreatitis, alcoh olic hepatitis. The patient has a very high triglyceride level, over 5,000, and had one drawn after plasmapheresis, due to have another one. The patient had 2 rounds of plasmapheresis. Discussed with anesthesia. Discussed with stabber. Recommendation is followup of the LFTs. Continue the present management . Monitor for a DT. The patient has, clinically, alcoholic hepatitis. Clinically, presentation is not typical of any gallstone disease. There are no stones noticed in the gallbladder. CBD was lilli l. The present plan is to followup of the LFTs and pancreatic enzymes. We will continue to closely follow up his care and suggest further management based on the clinical course. Brian Regan MD cc: [id number] TT: 01/20/2017 23:53:20 Confirmation # [id number] Dictation # [id number] tn
--- NOTE | 2017-01-21 00:05 | PN ---
DATE: 01/20/2017 NEPHROLOGY FOLLOWUP NOTE HISTORY OF PRESENT ILLNESS: A 51-year-old male with history of recently diagnosed hypertension, alco hol abuse, admitted with severe pancreatitis secondary to severe hypertriglyceridemia. The patient t his morning reports feeling well. Denies any abdominal pain. Feels tremulous, which happens when he withdraws from alcohol. PHYSICAL EXAMINATION: VITAL SIGNS: This morning, blood pressure 217/123, heart rate 99, respirations 15, O2 sat 94% on artur m air. GENERAL: No distress, speaking coherently in full sentences. HEENT: Nonicteric. Moist mucous membranes. No JVD. CHEST: Clear to auscultation bilaterally. No rales, no wheezes, no rhonchi. HEART: S1, S2 positive, no murmurs, no rubs, no gallops. ABDOMEN: Soft, nontender, nondistended. EXTREMITIES: No leg edema. Mild tremor of outstretched hands. LABORATORY DATA: This morning, WBC 11.0, hemoglobin 15.4, hematocrit 42.7, platelets 118. Chemistry : Sodium 136, potassium 4.0, chloride 105, bicarb is 21, BUN 11, creatinine 1.0, glucose 93, calcium 6.9, magnesium 1.6, albumin 3.5, triglycerides 1516, lipase 1739. ASSESSMENT: 1. Acute pancreatitis secondary to alcohol abuse and severe hypertriglyceridemia, status post one se ssion of plasma exchange last night, 1+ the volume exchanged, which came out to 3 L of 5% albumin rep lenished. Triglyceride level decreased by approximately two-thirds, lipase still markedly elevated. Plan for second plasma exchange today with same 3 L plasma volume being exchanged with 3 L of 5% alb umin. 2. Hypocalcemia secondary to citrate chelation during plasma exchange. The patient did get 3 g of c alcium gluconate with the plasma exchange. Nevertheless, still developed hypocalcemia. Received ano ther 3 g of calcium gluconate. Subsequently 4 g of calcium gluconate ordered with today's plasma exc hange session. Continue to monitor. Replenish magnesium as well, as hypomagnesemia will contribute to hypocalcemia. 3. Hypertension. The patient getting aggressive IV fluids in the setting of pancreatitis with dory rn for peripancreatic third spacing of fluids. Agree with giving p.r.n. Lopressor. Alcohol withdra wal may be contributory to hypertension. May benefit from p.r.n. clonidine. 4. Alcohol withdrawal. The patient with alcohol level yesterday of 291. Now experiencing mild with drawal signs and symptoms. Will benefit from tapering dose of benzodiazepine. 5. Hypertriglyceridemia, likely induced by alcohol abuse. Should be put on gemfibrozil p.o. as an a djuvant therapy. Monitor. Abhishek Leach MD cc: [id number] TT: 01/21/2017 00:05:01 Confirmation # [id number] Dictation # [id number] dn
[2017-01-21] MEDS: Potassium Chloride 10 mEq 100 ML IVPB SCH ×2 (00:16→03:14)
[2017-01-21] MEDS: Sodium Chloride 0.9% 1,000 ML IV SCH ×3 (00:17→07:58)
[2017-01-21 01:14] LABS: ALB/GLOB RATIO 2.3 (1.1-1.8); ALKALINE PHOSPHATASE 28 U/L (38-133); ALT/SGPT 62 U/L (7-56); AST/SGOT 103 U/L (15-59); BILIRUBIN,TOTAL 3.9 mg/dL (0.2-1.3); BLOOD UREA NITROGEN 7 mg/dL (7-21); CALCIUM 8.2 mg/dL (8.4-10.5); CARBON DIOXIDE 20 mmol/L (21-33); CHLORIDE 103 mmol/L (98-107); GFR AFRICAN-AMERICAN > 60; GLUCOSE,RANDOM 106 mg/dL (70-110); MAGNESIUM 2.1 mg/dL (1.7-2.2); PHOSPHOROUS 2.4 mg/dL (2.5-4.5); POTASSIUM 3.8 mmol/L (3.6-5.0); SODIUM 134 mmol/L (132-148); TOTAL PROTEIN 5.2 g/dL (5.8-8.3)
[2017-01-21 05:02] LABS: ADD MANUAL DIFF? NO
[2017-01-21 05:05] LABS: BASO # 0.06 K/mm3 (0.0-2.0); BASO % 0.5 % (0.0-3.0); EOS # 0.5 (0.0-0.7); EOS % 4.4 % (1.5-5.0); GRAN % 65.4 % (50.0-68.0); HEMATOCRIT 43.3 % (42.0-52.0); LYMPH # 2.4 (1.2-3.4); LYMPH % 21.9 % (22.0-35.0); MEAN CELL VOLUME 89.1 fL (80.0-105.0); MEAN CORPUSCULAR HEMOGLOBIN 32.5 pg (25.0-35.0); MEAN CORPUSCULAR HGB CONC 36.5 g/dl (31.0-37.0); MEAN PLATELET VOLUME 10.3 fl (7.0-11.0); MONO # 0.9 (0.1-0.6); MONO % 7.8 % (1.0-6.0); PLATELET COUNT 73 10^3/uL (120.0-450.0); RED CELL DISTRIBUTION WIDTH 13.9 % (11.5-14.5); WHITE BLOOD COUNT 11.2 10^3/ul (4.5-11.0)
[2017-01-21 05:17] LABS: INR 1.06 (0.93-1.08); PARTIAL THROMBOPLASTIN TIME 45.9 Seconds (23.7-30.8)
[2017-01-21 05:22] LABS: ALB/GLOB RATIO 2.2 (1.1-1.8); ALKALINE PHOSPHATASE 36 U/L (38-133); ALT/SGPT 68 U/L (7-56); AMYLASE 109 U/L (35-125); AST/SGOT 117 U/L (15-59); BILIRUBIN,TOTAL 4.4 mg/dL (0.2-1.3); BLOOD UREA NITROGEN 5 mg/dL (7-21); CALCIUM 7.9 mg/dL (8.4-10.5); CARBON DIOXIDE 18 mmol/L (21-33); CHLORIDE 103 mmol/L (98-107); CHOLESTEROL 87 mg/dL (130-200); GFR AFRICAN-AMERICAN > 60; GLUCOSE,RANDOM 102 mg/dL (70-110); LIPASE 892 U/L (23-300); PHOSPHOROUS 1.9 mg/dL (2.5-4.5); POTASSIUM 3.8 mmol/L (3.6-5.0); SODIUM 133 mmol/L (132-148); TOTAL PROTEIN 5.8 g/dL (5.8-8.3)
[2017-01-21] MEDS ORDERED: Potassium Phosphate 15 MMOLE in Dextrose 5% In Water 250 ML IVPB ONE (06:17)
[2017-01-21] MEDS ORDERED: Sodium Phosphate 15 MMOLE in Dextrose 5% In Water 250 ML IVPB ONE (07:13)
[2017-01-21 09:32] LABS: ALB/GLOB RATIO 2.2 (1.1-1.8); ALKALINE PHOSPHATASE 43 U/L (38-133); ALT/SGPT 66 U/L (7-56); AST/SGOT 126 U/L (15-59); BILIRUBIN,TOTAL 4.5 mg/dL (0.2-1.3); BLOOD UREA NITROGEN 5 mg/dL (7-21); CALCIUM 8.5 mg/dL (8.4-10.5); CARBON DIOXIDE 21 mmol/L (21-33); CHLORIDE 99 mmol/L (98-107); GFR AFRICAN-AMERICAN > 60; GLUCOSE,RANDOM 96 mg/dL (70-110); MAGNESIUM 1.9 mg/dL (1.7-2.2); PHOSPHOROUS 1.6 mg/dL (2.5-4.5); POTASSIUM 3.4 mmol/L (3.6-5.0); SODIUM 133 mmol/L (132-148); TOTAL PROTEIN 5.7 g/dL (5.8-8.3)
--- NOTE | 2017-01-21 11:12 | CARD ---
APPROVED REPORT EKG Measurement Heart [id number] <Conclusion> Sinus tachycardia Left axis deviation Incomplete right bundle branch block Abnormal ECG
[2017-01-21] MEDS ORDERED: Insulin Regular 100 UNITS in Sodium Chloride 0.9% 99 ML IV SCH (12:00)
[2017-01-21] MEDS: Dextrose 5%/0.45% NS 1,000 ML IV SCH (12:10)
--- NOTE | 2017-01-21 12:19 | PN ---
DATE: 01/21/2017 GI FOLLOWUP NOTE Seen and examined at bedside earlier today. He had a second round of plasmapheresis yesterday. Curr ently, he denies any nausea, vomiting. Improved abdominal discomfort. No reports of any shortness o f breath or chest pain. No fever or chills. VITAL SIGNS: Temperature is 98.4. Blood pressure is 1____3/109. Pulse is 90, respirations 18, 95 o n room air. LABORATORY DATA: Sodium is 133. K is 3.4, BUN 5. Creatinine is 0.9. Magnesium 1.9. Total bilirub in is 4.5, AST 126, ALT ____6. Alkaline phosphatase is 43. Lipase is 892. This is improving. His triglyceride is 705. PHYSICAL EXAMINATION: HEENT: Sclerae are icteric. NECK: Supple. CARDIAC: S1, S2. LUNGS: Lung sounds are clear. ABDOMEN: With bowel sounds, softly distended, but nontender on palpation. No rebound, guarding, or organomegaly. EXTREMITIES: No edema. NEUROLOGIC: Awake, alert, and oriented. ASSESSMENT: This is a 51-year-old male with history of hypertension and history of ethanol abuse, ad mitted with pancreatitis, hypertriglyceridemia. His levels were over 5000. Pancreatitis. The patie nt is status post 2 rounds of plasmapheresis. PLAN: Continue to trend LFTs. The patient is on IV fluids. He is getting thiamine, Ativan p.r.n. withdrawal symptoms on DVT prophylaxis of heparin. He is also on Librium. Continue GI prophylaxis on Protonix, and is on Lopressor as per renal. The patient was seen and case discussed with Dr. Regan. Arlette BERG cc: [id number] TT: 01/21/2017 12:19:05 Confirmation # [id number] Dictation # [id number] soni
[2017-01-21] MEDS: Multivitamin (MVI) 10 ML, Thiamine 100 MG, Folic Acid 1 MG in Sodium Chloride 0.9% 1,00... IV SCH ×2 (12:46→21:30)
[2017-01-21] MEDS: Metoprolol 1 mg/ml Inj IVP PRN (13:27)
--- NOTE | 2017-01-21 14:14 | CP.CCUPN ---
<Robbie Armando - Last Filed: 01/21/17 15:07> CCU Subjective - Physician Review Subjective (Free Text): 01/21/17 13:49 Patient seen and examined at bedside in the ICU. Today is hospital day 3. S/p 2x pheresis. TG now improved to 700s. Remains mildly tremulous overnight into today, with intermittent mild HR increases into tachycardia. No acute events overnight. Patient reports generally feeling better. Denies chest pain, shortness of breath, abdominal pain, or weakness; admits to some remaining tremulousness. CCU Objective - Vital Signs / Intake & Output Vital Signs (Last 4 hours): Vital Signs Temp Pulse Resp BP Pulse Ox 01/21/17 13:27 122 H 164/100 H 01/21/17 13:00 121 H 20 164/105 H 97 01/21/17 12:26 115 H 27 H 01/21/17 12:25 119 H 20 01/21/17 12:24 148 H 28 H 01/21/17 12:11 162/105 H 01/21/17 12:05 130 H 32 H 01/21/17 12:01 122 H 20 166/115 H 98 01/21/17 12:00 121 H 39 H 97 01/21/17 11:07 99 H 21 163/105 H 98 01/21/17 11:00 111 H 21 164/108 H 98 01/21/17 10:19 98.4 F 90 18 163/109 H 95 01/21/17 10:18 99 H 15 93 L 01/21/17 10:11 102 H 14 163/109 H 91 L 01/21/17 10:00 102 H 22 158/113 H 95 Intake and Output (Last 8hrs): Intake & Output 01/20/17 01/21/17 01/21/17 22:59 06:59 14:59 Intake Total 3100 3300 Output Total 780 2800 Balance 2320 500 Weight 78.188 kg Intake: IV 2500 Left Forearm 2500 Albumin 800 Other 3100 Output: Urine 780 2800 Urine, Voided 780 2800 Other: Voiding Method Urinal - Physical Exam Head: Positive for: Atraumatic, Normocephalic. Negative for: Contusion, Swelling, Ecchymosis, Abrasion, Laceration Pupils: Positive for: PERRL. Negative for: Sluggish, Non-Reactive Extroacular Muscles: Positive for: EOMI. Negative for: Gaze Palsy, Entrapment Conjunctiva: Positive for: Icteric. Negative for: Normal, Injected Mouth: Positive for: Moist Mucous Membranes, Normal Tounge, Normal Teeth, Other (no tongue fasciculations). Negative for: Dry Pharnyx: Positive for: Normal. Negative for: Uvular Deviation Nose (External): Positive for: Atraumatic. Negative for: Abrasion, Contusion, Laceration Neck: Positive for: Normal Range of Motion, Trachea Midline. Negative for: Meningeal Signs, JVD, Lymphadenopathy Respiratory/Chest: Positive for: Clear to Auscultation, Good Air Exchange. Negative for: Respiratory Distress, Accessory Muscle Use, Wheezes, Decreased Breath Sounds, Rales, Retracting, Rhonchi, Tachypneic, Tender to Palpation Cardiovascular: Positive for: Normal S1, S2, Tachycardic. Negative for: Regular Rate and Rhythm (regular rhythm, rapid rate), Murmurs, Irregular Rhythm , Bradycardic Abdomen: Positive for: Distention (unclear if distention vs obseity), Normal Bowel Sounds, Mass/Organomegaly (hepatomegaly), Other (firm but not rigid abdomen). Negative for: Tenderness, Peritoneal Signs, Rebound, Guarding Back: Negative for: CVA Tenderness Upper Extremity: Positive for: Normal Inspection, Normal ROM, NORMAL PULSES, Other (mild tremor in upper extremities at rest and with movement, but purposful activities intact, able to feed himself without overt difficulty). Negative for: Cyanosis, Edema, Tenderness, Swelling, Erythema, Deformity Lower Extremity: Positive for: Normal Inspection, NORMAL PULSES, Normal ROM, Other (no tremors at rest or with movement). Negative for: Edema, CALF TENDERNESS, Cyanosis, Tenderness, Swelling, Erythema, Deformity Neurological: Positive for: GCS=15, CN II-XII Intact, Speech Normal, Motor Func Grossly Intact, Normal Sensory Function, Other (no tremors at rest or with movement) Skin: Positive for: Warm, Dry, Normal Color. Negative for: Rashes, Diaphoretic , Erythematous, Laceration, Abrasion Psychiatric: Positive for: Alert, Oriented x 3, Normal Insight, Normal Concentration, Normal Affect, Normal Mood. Negative for: Anxious, Agitated - Medications Active Medications: Active Medications Generic Name Dose Route Start Last Admin Trade Name Bulmaro PRN Reason Stop Dose Admin Amlodipine Besylate 5 mg 01/21/17 12:00 01/21/17 12:11 Norvasc PO 5 mg DAILY LENKA Administration Chlordiazepoxide 10 mg 01/20/17 22:45 01/21/17 05:51 Librium PO 10 mg Q8 LENKA Administration Protocol Folic Acid 1 mg 01/21/17 10:00 01/21/17 10:00 Folic Acid PO 1 mg DAILY LENKA Administration Heparin Sodium (Porcine) 5,000 units 01/20/17 11:00 01/21/17 05:43 Heparin SC 5,000 units Q8 LENKA Administration Protocol Multivitamins/Vitamin C 10 ml/ 1,011.2 mls @ 150 mls/hr 01/21/17 12:00 12:46 Thiamine HCl 100 mg/ Folic IV 150 mls/hr Acid 1 mg/ Sodium Chloride .[id number] LENKA Administration Dextrose/Sodium Chloride 1,000 mls @ 75 mls/hr 01/21/17 12:00 01/21/17 12:10 Dextrose 5%/0.45% Ns 1000 Ml IV 75 mls/hr .[id number] LENKA Administration Insulin Human Regular 100 100 mls @ 0.2 mls/hr 01/21/17 12:00 01/21/17 13:00 units/ Sodium Chloride IV 1 units/hr .Q24H LENKA Titration Protocol 0.2 UNITS/HR Lorazepam 1 mg 01/19/17 19:03 01/21/17 12:20 Ativan IVP 1 mg Q3H PRN Administration Withdrawal Protocol Metoprolol Tartrate 5 mg 01/20/17 10:53 01/21/17 13:27 Lopressor IVP 5 mg Q6 PRN Administration SBP >= 180 Pantoprazole Sodium 40 mg 01/20/17 10:00 01/21/17 09:59 Protonix Inj IVP 40 mg DAILY LENKA Administration Thiamine HCl 100 mg 01/21/17 10:00 01/21/17 10:00 Vitamin B1 Tab PO 100 mg DAILY LENKA Administration - Patient Studies Lab Studies: Microbiology Studies 01/19/17 17:10 MRSA Culture (Admit) - Final Nose MRSA NOT DETECTED Lab Studies 01/21/17 01/21/17 01/21/17 Range/Units 09:00 06:46 04:50 WBC 11.2 H (4.5-11.0) 10^3/ul RBC 4.86 (3.5-6.1) 10^6/uL Hgb 15.8 (14.0-18.0) gm/dL Hct 43.3 (42.0-52.0) % MCV 89.1 (80.0-105.0) fL MCH 32.5 (25.0-35.0) pg MCHC 36.5 (31.0-37.0) g/dl RDW 13.9 (11.5-14.5) % Plt Count 73 L (120.0-450.0) 10^3/uL MPV 10.3 (7.0-11.0) fl Gran % 65.4 (50.0-68.0) % Lymph % (Auto) 21.9 L (22.0-35.0) % [place] % (Auto) 7.8 H (1.0-6.0) % Eos % (Auto) 4.4 (1.5-5.0) % Baso % (Auto) 0.5 (0.0-3.0) % Gran # 7.30 H (1.4-6.5) Lymph # 2.4 (1.2-3.4) [place] # 0.9 H (0.1-0.6) Eos # 0.5 (0.0-0.7) Baso # 0.06 (0.0-2.0) K/mm3 PT 11.4 (9.9-11.8) Seconds INR 1.06 (0.93-1.08) APTT 45.9 H (23.7-30.8) Seconds Sodium 133 133 (132-148) mmol/L Potassium 3.4 L 3.8 (3.6-5.0) mmol/L Chloride 99 103 (98-107) mmol/L Carbon Dioxide 21 18 L (21-33) mmol/L Anion Gap 16 16 (10-20) BUN 5 L 5 L (7-21) mg/dL Creatinine 0.9 0.9 (0.5-1.4) mg/dL Est GFR ( Amer) > 60 > 60 Est GFR (Non-Af Amer) > 60 > 60 POC Glucose (mg/dL) (65-110) mg/dL Random Glucose 96 102 (70-110) mg/dL Lactic Acid 0.9 (0.7-2.1) mmol/L Calcium 8.5 7.9 L (8.4-10.5) mg/dL Phosphorus 1.6 L 1.9 L (2.5-4.5) mg/dL Magnesium 1.9 2.0 (1.7-2.2) mg/dL Total Bilirubin 4.5 H 4.4 H (0.2-1.3) mg/dL AST 126 H 117 H (15-59) U/L ALT 66 H 68 H (7-56) U/L Alkaline Phosphatase 43 36 L (38-133) U/L Total Protein 5.7 L 5.8 (5.8-8.3) g/dL Albumin 3.9 3.9 (3.0-4.8) g/dL Globulin 1.8 1.8 gm/dL Albumin/Globulin Ratio 2.2 H 2.2 H (1.1-1.8) Triglycerides 705 H (35-160) mg/dL Cholesterol 87 L (130-200) mg/dL LDL Cholesterol Direct < 30 (0-129) mg/dL HDL Cholesterol 19 L (29-60) mg/dL Amylase 109 (35-125) U/L Lipase 892 H (23-300) U/L Vitamin B12 598 (239-931) pg/mL Folate 15.0 ng/mL Hepatitis A IgM Ab (NEGATIVE) Hep Bs Antigen (NEGATIVE) Hep B Core IgM Ab (NEGATIVE) Hepatitis C Antibody (NEGATIVE) 01/21/17 01/21/17 01/20/17 Range/Units 00:30 00:07 18:15 WBC (4.5-11.0) 10^3/ul RBC (3.5-6.1) 10^6/uL Hgb (14.0-18.0) gm/dL Hct (42.0-52.0) % MCV (80.0-105.0) fL MCH (25.0-35.0) pg MCHC (31.0-37.0) g/dl RDW (11.5-14.5) % Plt Count (120.0-450.0) 10^3/uL MPV (7.0-11.0) fl Gran % (50.0-68.0) % Lymph % (Auto) (22.0-35.0) % [place] % (Auto) (1.0-6.0) % Eos % (Auto) (1.5-5.0) % Baso % (Auto) (0.0-3.0) % Gran # (1.4-6.5) Lymph # (1.2-3.4) [place] # (0.1-0.6) Eos # (0.0-0.7) Baso # (0.0-2.0) K/mm3 PT (9.9-11.8) Seconds INR (0.93-1.08) APTT (23.7-30.8) Seconds Sodium 134 136 (132-148) mmol/L Potassium 3.8 3.4 L (3.6-5.0) mmol/L Chloride 103 106 (98-107) mmol/L Carbon Dioxide 20 L 18 L (21-33) mmol/L Anion Gap 15 15 (10-20) BUN 7 7 (7-21) mg/dL Creatinine 1.0 1.0 (0.5-1.4) mg/dL Est GFR ( Amer) > 60 > 60 Est GFR (Non-Af Amer) > 60 > 60 POC Glucose (mg/dL) 106 (65-110) mg/dL Random Glucose 106 117 H (70-110) mg/dL Lactic Acid (0.7-2.1) mmol/L Calcium 8.2 L 7.2 L (8.4-10.5) mg/dL Phosphorus 2.4 L 2.5 (2.5-4.5) mg/dL Magnesium 2.1 1.4 L (1.7-2.2) mg/dL Total Bilirubin 3.9 H 3.6 H (0.2-1.3) mg/dL AST 103 H 73 H (15-59) U/L ALT 62 H 51 (7-56) U/L Alkaline Phosphatase 28 L 21 L (38-133) U/L Total Protein 5.2 L 5.3 L (5.8-8.3) g/dL Albumin 3.6 3.9 (3.0-4.8) g/dL Globulin 1.6 1.4 gm/dL Albumin/Globulin Ratio 2.3 H 2.8 H (1.1-1.8) Triglycerides 400 H (35-160) mg/dL Cholesterol (130-200) mg/dL LDL Cholesterol Direct (0-129) mg/dL HDL Cholesterol (29-60) mg/dL Amylase (35-125) U/L Lipase 1128 H (23-300) U/L Vitamin B12 (239-931) pg/mL Folate ng/mL Hepatitis A IgM Ab Negative (NEGATIVE) Hep Bs Antigen Negative (NEGATIVE) Hep B Core IgM Ab Negative (NEGATIVE) Hepatitis C Antibody Negative (NEGATIVE) 01/20/17 01/20/17 Range/Units 11:52 07:56 WBC (4.5-11.0) 10^3/ul RBC (3.5-6.1) 10^6/uL Hgb (14.0-18.0) gm/dL Hct (42.0-52.0) % MCV (80.0-105.0) fL MCH (25.0-35.0) pg MCHC (31.0-37.0) g/dl RDW (11.5-14.5) % Plt Count (120.0-450.0) 10^3/uL MPV (7.0-11.0) fl Gran % (50.0-68.0) % Lymph % (Auto) (22.0-35.0) % [place] % (Auto) (1.0-6.0) % Eos % (Auto) (1.5-5.0) % Baso % (Auto) (0.0-3.0) % Gran # (1.4-6.5) Lymph # (1.2-3.4) [place] # (0.1-0.6) Eos # (0.0-0.7) Baso # (0.0-2.0) K/mm3 PT (9.9-11.8) Seconds INR (0.93-1.08) APTT (23.7-30.8) Seconds Sodium (132-148) mmol/L Potassium (3.6-5.0) mmol/L Chloride (98-107) mmol/L Carbon Dioxide (21-33) mmol/L Anion Gap (10-20) BUN (7-21) mg/dL Creatinine (0.5-1.4) mg/dL Est GFR ( Amer) Est GFR (Non-Af Amer) POC Glucose (mg/dL) 97 82 (65-110) mg/dL Random Glucose (70-110) mg/dL Lactic Acid (0.7-2.1) mmol/L Calcium (8.4-10.5) mg/dL Phosphorus (2.5-4.5) mg/dL Magnesium (1.7-2.2) mg/dL Total Bilirubin (0.2-1.3) mg/dL AST (15-59) U/L ALT (7-56) U/L Alkaline Phosphatase (38-133) U/L Total Protein (5.8-8.3) g/dL Albumin (3.0-4.8) g/dL Globulin gm/dL Albumin/Globulin Ratio (1.1-1.8) Triglycerides (35-160) mg/dL Cholesterol (130-200) mg/dL LDL Cholesterol Direct (0-129) mg/dL HDL Cholesterol (29-60) mg/dL Amylase (35-125) U/L Lipase (23-300) U/L Vitamin B12 (239-931) pg/mL Folate ng/mL Hepatitis A IgM Ab (NEGATIVE) Hep Bs Antigen (NEGATIVE) Hep B Core IgM Ab (NEGATIVE) Hepatitis C Antibody (NEGATIVE) Laboratory Results - last 24 hr 01/20/17 01/20/17 01/20/17 07:56 11:52 18:15 WBC RBC Hgb Hct MCV MCH MCHC RDW Plt Count MPV Gran % Lymph % (Auto) [place] % (Auto) Eos % (Auto) Baso % (Auto) Gran # Lymph # [place] # Eos # Baso # PT INR APTT Sodium 136 Potassium 3.4 L Chloride 106 Carbon Dioxide 18 L Anion Gap 15 BUN 7 Creatinine 1.0 Est GFR ( Amer) > 60 Est GFR (Non-Af Amer) > 60 POC Glucose (mg/dL) 82 97 Random Glucose 117 H Lactic Acid Calcium 7.2 L Phosphorus 2.5 Magnesium 1.4 L Total Bilirubin 3.6 H AST 73 H ALT 51 Alkaline Phosphatase 21 L Total Protein 5.3 L Albumin 3.9 Globulin 1.4 Albumin/Globulin Ratio 2.8 H Triglycerides 400 H Cholesterol LDL Cholesterol Direct HDL Cholesterol Amylase Lipase 1128 H Vitamin B12 Folate Hepatitis A IgM Ab Negative Hep Bs Antigen Negative Hep B Core IgM Ab Negative Hepatitis C Antibody Negative 01/21/17 01/21/17 01/21/17 00:07 00:30 04:50 WBC 11.2 H RBC 4.86 Hgb 15.8 Hct 43.3 MCV 89.1 MCH 32.5 MCHC 36.5 RDW 13.9 Plt Count 73 L MPV 10.3 Gran % 65.4 Lymph % (Auto) 21.9 L [place] % (Auto) 7.8 H Eos % (Auto) 4.4 Baso % (Auto) 0.5 Gran # 7.30 H Lymph # 2.4 [place] # 0.9 H Eos # 0.5 Baso # 0.06 PT 11.4 INR 1.06 APTT 45.9 H Sodium 134 133 Potassium 3.8 3.8 Chloride 103 103 Carbon Dioxide 20 L 18 L Anion Gap 15 16 BUN 7 5 L Creatinine 1.0 0.9 Est GFR ( Amer) > 60 > 60 Est GFR (Non-Af Amer) > 60 > 60 POC Glucose (mg/dL) 106 Random Glucose 106 102 Lactic Acid 0.9 Calcium 8.2 L 7.9 L Phosphorus 2.4 L 1.9 L Magnesium 2.1 2.0 Total Bilirubin 3.9 H 4.4 H AST 103 H 117 H ALT 62 H 68 H Alkaline Phosphatase 28 L 36 L Total Protein 5.2 L 5.8 Albumin 3.6 3.9 Globulin 1.6 1.8 Albumin/Globulin Ratio 2.3 H 2.2 H Triglycerides 705 H Cholesterol 87 L LDL Cholesterol Direct < 30 HDL Cholesterol 19 L Amylase 109 Lipase 892 H Vitamin B12 Folate Hepatitis A IgM Ab Hep Bs Antigen Hep B Core IgM Ab Hepatitis C Antibody 01/21/17 01/21/17 06:46 09:00 WBC RBC Hgb Hct MCV MCH MCHC RDW Plt Count MPV Gran % Lymph % (Auto) [place] % (Auto) Eos % (Auto) Baso % (Auto) Gran # Lymph # [place] # Eos # Baso # PT INR APTT Sodium 133 Potassium 3.4 L Chloride 99 Carbon Dioxide 21 Anion Gap 16 BUN 5 L Creatinine 0.9 Est GFR ( Amer) > 60 Est GFR (Non-Af Amer) > 60 POC Glucose (mg/dL) Random Glucose 96 Lactic Acid Calcium 8.5 Phosphorus 1.6 L Magnesium 1.9 Total Bilirubin 4.5 H AST 126 H ALT 66 H Alkaline Phosphatase 43 Total Protein 5.7 L Albumin 3.9 Globulin 1.8 Albumin/Globulin Ratio 2.2 H Triglycerides Cholesterol LDL Cholesterol Direct HDL Cholesterol Amylase Lipase Vitamin B12 598 Folate 15.0 Hepatitis A IgM Ab Hep Bs Antigen Hep B Core IgM Ab Hepatitis C Antibody Fingerstick Blood Sugar Results: 86 Review of Systems - Constitutional Constitutional: absent: Fever, Chills - EENT Eyes: absent: Blurred Vision, Change in Vision, Loss of Vision Ears: absent: Dizziness Nose/Mouth/Throat: absent: Sore Throat, Tongue Swelling, Facial Pain, Neck Pain - Cardiovascular Cardiovascular: absent: Chest Pain, Dyspnea, Lightheadedness, Palpitations, Syncope - Respiratory Respiratory: absent: Cough, Dyspnea, Hemoptysis, Dyspnea on Exertion, Pain on Inspiration - Gastrointestinal Gastrointestinal: absent: Abdominal Pain, Coffee Ground Emesis, Diarrhea, Dysphagia, Hematemesis, Hematochezia, Loose Stools, Melena, Nausea, Vomiting - Genitourinary Genitourinary: absent: Dysuria, Flank Pain, Hematuria, Pyuria - Musculoskeletal Musculoskeletal: absent: Back Pain, Neck Pain, Numbness, Radiating Pain into Limb - Integumentary Integumentary: absent: Pruritus, Rash, Skin Pain, Jaundice - Neurological Neurological: absent: Confusion, Disequilibrium, Dizziness, Focal Weakness, Headaches, Loss of Vision, Syncope, Tremor, Weakness, Other Visual Disturbances - Psychiatric Psychiatric: absent: Anxiety - Endocrine Endocrine: absent: Fatigue, Palpitations Critical Care Progress Note - Nutrition Nutrition: Nutrition Category Date Time Status Dysphagia/Modified Consistency Diet [DIET] Diets 01/21/17 Lunch Ordered Assessment/Plan - Assessment and Plan (Free Text) Assessment: This is a 51 yo M with PMH of HTN (not medically managed) and alcohol abuse who presents with complaint of fluctuating persistent abdominal discomfort , malaise, and weakness, and is being admitted to the ICU for management of severe hypertriglyceridemia (>5000) with pancreatitis, requiring pheresis. He has undergone two rounds of pheresis, and is now being medically management and observed. Plan: Neuro: -AAOx3, spontaneous movement of all extremities -Following commands appropriately -maintain normothermia -at risk for EtOH withdrawal, seizures due to significant alcohol abuse; Ativan 1mg IV q3 PRN for withdrawal, CIWA protocol q1, EtOH level 292 on admit, repeat level 22 -Tox screen negative Pulm: -CTAB on exam, satting well on room air, No O2 supplementation indicated at this time -Given pancreatitis, at risk for developing pulm edema/ARDS, continue to monitor -maintain SaO2 > 92% and paO2 > 60 -Aspiration precautions, head of bed to 30 degrees Cardio: -Currently hemodynamically stable, maintain MAP > 65 -Fluctuating rate on telemetry, possible afib 2/2 electrolyte abnormalities vs holiday heart for alcohol abuse; rhythm stable and hemodynamically stable, continue to monitor, PRN Lopressor will cover if HR becomes persistently rapid -Hx HTN, started on Amlodipine 5mg daily, continue PRN Lopressor 5mg IV q6 if SBP >= 180 -Hypertriglyceridemia > 5000 on admission labs, improved to 1516 yesterday after 1st pheresis, improved to 705 today after 2nd pheresis; 2/2 severe alcohol abuse vs familial component, likely multifactorial -INR 1.06, PT 11.4, PTT 45.9 today -Heparin 5000u SC q8 for DVT/PE ppx; need to cover with AC b/c risk of hypercoagulability post-pheresis -K 3.4, Mag 1.6, Ca 7.7, will recheck post pheresis and replete accordingly -Calcium persistently low after first round of pheresis, 6.6 post-procedure, then 6.9 after 4 bags of Calcium gluconate, then 7.7 after another 3 bags and 1x 1000mg IVP of Calcium Gluconate; continue to monitor due to risk for arrhythmia; will recheck after 2nd round of pheresis and replete further as needed -TSH wnl at 1.33 GI: -Diet advanced to Soft consistency low fat, will monitor to observe how patient tolerates -Protonix for GI ppx -Elevated LFTs, AST 126 and ALT 66 (2:1 ratio consistent with EtOH abuse), Alk phos 43, Tbili 4.5; T-bili worse than lvl at admission, likely 2/2 alcohol abuse /alcoholic hepatitis; AST/ALT improved -Lipase improved to 892 -TG 702, Chol 87, LDL < 30, HDL 19; will hold off on further pheresis and manage with IV insulin drip and D5 1/2 NS for now, continue to monitor -CT abd/pelvis notable for mild infiltration of peripancreatic fat confined to head of pancreas, likely mild pancreatitis; recently passed common duct stones, hepatomegaly/hepatic steatosis; Abd US notable for findings consistent with mild fatty liver, no sonographic evidence of pancreatic or GB pathology -Aggressive fluid rehydration, holding NS in favor of Banana bags at 150 cc/hr and D5 1/2 NS at 75 cc/hr -GI (Dr. Regan) consulted, appreciate all recs -Uric acid 7.2 on admit; Lactic acid 0.9 (was 1.6) -Hgb A1c 5.7 -CMP/Mag/Phos/TG/Lipase q4 Renal: -Cr 0.9 -Monitor I's & O's -Nephro (Dr. Berumen) consulted, appreciate all recs -avoid nephrotoxic drugs where feasible -monitor and replete electrolytes as needed -maintain euglycemia (BG 140-180), aggressive fluid rehydration for pancreatitis -UA obtained, notable for 30 Protein and trace intact blood -s/p 2 rounds of pheresis, TGs improved from > 5000s to 702, will hold on pheresis for now and proceed with IV insulin + D5 1/2 NS for management Heme: -Hypertriglyceridemia > 5000 on admission labs, improved to 1516 yesterday after 1st pheresis, improved to 705 today after 2nd pheresis; 2/2 severe alcohol abuse vs familial component, likely multifactorial -s/p 2 round pheresis, will hold on pheresis for now and proceed with IV insulin + D5 1/2 NS for management -Hgb 15.8 (was 15.4), will follow up AM CBC tmr -Heparin 5000u SC q8 for DVT/PE ppx; need to cover with AC b/c risk of hypercoagulability post-pheresis -INR 1.06, PT 11.4, PTT 45.9 today -Platelets decreased x2 days, from 158 to 118 to 73 ID: -WBCs 11.2 (was 11.0), afebrile -no antibiotics indicated at this time -IGG4 pending Dispo: ICU s/p 2nd round of pheresis, aggressive fluid resuscitation FEN: Soft low fat diet, 150cc/hr Banana Bag + 75cc/hr D5 1/2 NS Access: Peripheral IVs, Right IJ double lumen dialysis catheter Consults: GI, Nephro Ppx: Protonix for GI, Heparin for DVT Code status: Full Patient seen, reviewed, and discussed with attending, Dr. Miller. - Date & Time Date: 01/21/17 Time: 15:07 <Paul UMANZOR,David H - Last Filed: 01/21/17 15:25> CCU Objective - Vital Signs / Intake & Output Vital Signs (Last 4 hours): Vital Signs Pulse Resp BP Pulse Ox 01/21/17 15:00 109 H 23 143/97 H 95 01/21/17 14:00 102 H 21 139/96 H 95 01/21/17 13:31 94 H 19 94 L 01/21/17 13:27 122 H 164/100 H 01/21/17 13:00 121 H 20 164/105 H 97 01/21/17 12:26 115 H 27 H 01/21/17 12:25 119 H 20 01/21/17 12:24 148 H 28 H 01/21/17 12:11 162/105 H 01/21/17 12:05 130 H 32 H 01/21/17 12:01 122 H 20 166/115 H 98 01/21/17 12:00 121 H 39 H 97 Intake and Output (Last 8hrs): Intake & Output 01/21/17 01/21/17 01/21/17 06:59 14:59 22:59 Intake Total 3300 Output Total 2800 Balance 500 Weight 172 lb 6 oz Intake: IV 2500 Left Forearm 2500 Albumin 800 Output: Urine 2800 Urine, Voided 2800 Other: Voiding Method Urinal - Medications Active Medications: Active Medications Generic Name Dose Route Start Last Admin Trade Name Bulmaro PRN Reason Stop Dose Admin Amlodipine Besylate 5 mg 01/21/17 12:00 01/21/17 12:11 Norvasc PO 5 mg DAILY LENKA Administration Chlordiazepoxide 10 mg 01/20/17 22:45 01/21/17 14:37 Librium PO 10 mg Q8 LENKA Administration Protocol Folic Acid 1 mg 01/21/17 10:00 01/21/17 10:00 Folic Acid PO 1 mg DAILY LENKA Administration Gemfibrozil 600 mg 01/21/17 18:00 Lopid PO BID LENKA Heparin Sodium (Porcine) 5,000 units 01/20/17 11:00 01/21/17 14:36 Heparin SC 5,000 units Q8 LENKA Administration Protocol Multivitamins/Vitamin C 10 ml/ 1,011.2 mls @ 150 mls/hr 01/21/17 12:00 12:46 Thiamine HCl 100 mg/ Folic IV 150 mls/hr Acid 1 mg/ Sodium Chloride .[id number] LENKA Administration Dextrose/Sodium Chloride 1,000 mls @ 75 mls/hr 01/21/17 12:00 01/21/17 12:10 Dextrose 5%/0.45% Ns 1000 Ml IV 75 mls/hr .[id number] LENKA Administration Insulin Human Regular 100 100 mls @ 0.2 mls/hr 01/21/17 12:00 01/21/17 15:05 units/ Sodium Chloride IV 1 units/hr .Q24H LENKA Titration Protocol 0.2 UNITS/HR Potassium Phosphate 15 mmole/ 255 mls @ 42.5 mls/hr 01/21/17 15:00 Sodium Chloride IVPB 01/21/17 20:59 ONCE ONE Lorazepam 1 mg 01/19/17 19:03 01/21/17 12:20 Ativan IVP 1 mg Q3H PRN Administration Withdrawal Protocol Metoprolol Tartrate 5 mg 01/20/17 10:53 01/21/17 13:27 Lopressor IVP 5 mg Q6 PRN Administration SBP >= 180 Pantoprazole Sodium 40 mg 01/20/17 10:00 01/21/17 09:59 Protonix Inj IVP 40 mg DAILY LENKA Administration Thiamine HCl 100 mg 01/21/17 10:00 01/21/17 10:00 Vitamin B1 Tab PO 100 mg DAILY LENKA Administration - Patient Studies Lab Studies: Microbiology Studies 01/19/17 17:10 MRSA Culture (Admit) - Final Nose MRSA NOT DETECTED Lab Studies 01/21/17 01/21/17 01/21/17 Range/Units 09:00 06:46 04:50 WBC 11.2 H (4.5-11.0) 10^3/ul RBC 4.86 (3.5-6.1) 10^6/uL Hgb 15.8 (14.0-18.0) gm/dL Hct 43.3 (42.0-52.0) % MCV 89.1 (80.0-105.0) fL MCH 32.5 (25.0-35.0) pg MCHC 36.5 (31.0-37.0) g/dl RDW 13.9 (11.5-14.5) % Plt Count 73 L (120.0-450.0) 10^3/uL MPV 10.3 (7.0-11.0) fl Gran % 65.4 (50.0-68.0) % Lymph % (Auto) 21.9 L (22.0-35.0) % [place] % (Auto) 7.8 H (1.0-6.0) % Eos % (Auto) 4.4 (1.5-5.0) % Baso % (Auto) 0.5 (0.0-3.0) % Gran # 7.30 H (1.4-6.5) Lymph # 2.4 (1.2-3.4) [place] # 0.9 H (0.1-0.6) Eos # 0.5 (0.0-0.7) Baso # 0.06 (0.0-2.0) K/mm3 PT 11.4 (9.9-11.8) Seconds INR 1.06 (0.93-1.08) APTT 45.9 H (23.7-30.8) Seconds Sodium 133 133 (132-148) mmol/L Potassium 3.4 L 3.8 (3.6-5.0) mmol/L Chloride 99 103 (98-107) mmol/L Carbon Dioxide 21 18 L (21-33) mmol/L Anion Gap 16 16 (10-20) BUN 5 L 5 L (7-21) mg/dL Creatinine 0.9 0.9 (0.5-1.4) mg/dL Est GFR ( Amer) > 60 > 60 Est GFR (Non-Af Amer) > 60 > 60 POC Glucose (mg/dL) (65-110) mg/dL Random Glucose 96 102 (70-110) mg/dL Lactic Acid 0.9 (0.7-2.1) mmol/L Calcium 8.5 7.9 L (8.4-10.5) mg/dL Phosphorus 1.6 L 1.9 L (2.5-4.5) mg/dL Magnesium 1.9 2.0 (1.7-2.2) mg/dL Total Bilirubin 4.5 H 4.4 H (0.2-1.3) mg/dL AST 126 H 117 H (15-59) U/L ALT 66 H 68 H (7-56) U/L Alkaline Phosphatase 43 36 L (38-133) U/L Total Protein 5.7 L 5.8 (5.8-8.3) g/dL Albumin 3.9 3.9 (3.0-4.8) g/dL Globulin 1.8 1.8 gm/dL Albumin/Globulin Ratio 2.2 H 2.2 H (1.1-1.8) Triglycerides 705 H (35-160) mg/dL Cholesterol 87 L (130-200) mg/dL LDL Cholesterol Direct < 30 (0-129) mg/dL HDL Cholesterol 19 L (29-60) mg/dL Amylase 109 (35-125) U/L Lipase 892 H (23-300) U/L Vitamin B12 598 (239-931) pg/mL Folate 15.0 ng/mL Hepatitis A IgM Ab (NEGATIVE) Hep Bs Antigen (NEGATIVE) Hep B Core IgM Ab (NEGATIVE) Hepatitis C Antibody (NEGATIVE) 01/21/17 01/21/17 01/20/17 Range/Units 00:30 00:07 18:15 WBC (4.5-11.0) 10^3/ul RBC (3.5-6.1) 10^6/uL Hgb (14.0-18.0) gm/dL Hct (42.0-52.0) % MCV (80.0-105.0) fL MCH (25.0-35.0) pg MCHC (31.0-37.0) g/dl RDW (11.5-14.5) % Plt Count (120.0-450.0) 10^3/uL MPV (7.0-11.0) fl Gran % (50.0-68.0) % Lymph % (Auto) (22.0-35.0) % [place] % (Auto) (1.0-6.0) % Eos % (Auto) (1.5-5.0) % Baso % (Auto) (0.0-3.0) % Gran # (1.4-6.5) Lymph # (1.2-3.4) [place] # (0.1-0.6) Eos # (0.0-0.7) Baso # (0.0-2.0) K/mm3 PT (9.9-11.8) Seconds INR (0.93-1.08) APTT (23.7-30.8) Seconds Sodium 134 136 (132-148) mmol/L Potassium 3.8 3.4 L (3.6-5.0) mmol/L Chloride 103 106 (98-107) mmol/L Carbon Dioxide 20 L 18 L (21-33) mmol/L Anion Gap 15 15 (10-20) BUN 7 7 (7-21) mg/dL Creatinine 1.0 1.0 (0.5-1.4) mg/dL Est GFR ( Amer) > 60 > 60 Est GFR (Non-Af Amer) > 60 > 60 POC Glucose (mg/dL) 106 (65-110) mg/dL Random Glucose 106 117 H (70-110) mg/dL Lactic Acid (0.7-2.1) mmol/L Calcium 8.2 L 7.2 L (8.4-10.5) mg/dL Phosphorus 2.4 L 2.5 (2.5-4.5) mg/dL Magnesium 2.1 1.4 L (1.7-2.2) mg/dL Total Bilirubin 3.9 H 3.6 H (0.2-1.3) mg/dL AST 103 H 73 H (15-59) U/L ALT 62 H 51 (7-56) U/L Alkaline Phosphatase 28 L 21 L (38-133) U/L Total Protein 5.2 L 5.3 L (5.8-8.3) g/dL Albumin 3.6 3.9 (3.0-4.8) g/dL Globulin 1.6 1.4 gm/dL Albumin/Globulin Ratio 2.3 H 2.8 H (1.1-1.8) Triglycerides 400 H (35-160) mg/dL Cholesterol (130-200) mg/dL LDL Cholesterol Direct (0-129) mg/dL HDL Cholesterol (29-60) mg/dL Amylase (35-125) U/L Lipase 1128 H (23-300) U/L Vitamin B12 (239-931) pg/mL Folate ng/mL Hepatitis A IgM Ab Negative (NEGATIVE) Hep Bs Antigen Negative (NEGATIVE) Hep B Core IgM Ab Negative (NEGATIVE) Hepatitis C Antibody Negative (NEGATIVE) 01/20/17 01/20/17 Range/Units 11:52 07:56 WBC (4.5-11.0) 10^3/ul RBC (3.5-6.1) 10^6/uL Hgb (14.0-18.0) gm/dL Hct (42.0-52.0) % MCV (80.0-105.0) fL MCH (25.0-35.0) pg MCHC (31.0-37.0) g/dl RDW (11.5-14.5) % Plt Count (120.0-450.0) 10^3/uL MPV (7.0-11.0) fl Gran % (50.0-68.0) % Lymph % (Auto) (22.0-35.0) % [place] % (Auto) (1.0-6.0) % Eos % (Auto) (1.5-5.0) % Baso % (Auto) (0.0-3.0) % Gran # (1.4-6.5) Lymph # (1.2-3.4) [place] # (0.1-0.6) Eos # (0.0-0.7) Baso # (0.0-2.0) K/mm3 PT (9.9-11.8) Seconds INR (0.93-1.08) APTT (23.7-30.8) Seconds Sodium (132-148) mmol/L Potassium (3.6-5.0) mmol/L Chloride (98-107) mmol/L Carbon Dioxide (21-33) mmol/L Anion Gap (10-20) BUN (7-21) mg/dL Creatinine (0.5-1.4) mg/dL Est GFR ( Amer) Est GFR (Non-Af Amer) POC Glucose (mg/dL) 97 82 (65-110) mg/dL Random Glucose (70-110) mg/dL Lactic Acid (0.7-2.1) mmol/L Calcium (8.4-10.5) mg/dL Phosphorus (2.5-4.5) mg/dL Magnesium (1.7-2.2) mg/dL Total Bilirubin (0.2-1.3) mg/dL AST (15-59) U/L ALT (7-56) U/L Alkaline Phosphatase (38-133) U/L Total Protein (5.8-8.3) g/dL Albumin (3.0-4.8) g/dL Globulin gm/dL Albumin/Globulin Ratio (1.1-1.8) Triglycerides (35-160) mg/dL Cholesterol (130-200) mg/dL LDL Cholesterol Direct (0-129) mg/dL HDL Cholesterol (29-60) mg/dL Amylase (35-125) U/L Lipase (23-300) U/L Vitamin B12 (239-931) pg/mL Folate ng/mL Hepatitis A IgM Ab (NEGATIVE) Hep Bs Antigen (NEGATIVE) Hep B Core IgM Ab (NEGATIVE) Hepatitis C Antibody (NEGATIVE) Laboratory Results - last 24 hr 01/20/17 01/20/17 01/20/17 07:56 11:52 18:15 WBC RBC Hgb Hct MCV MCH MCHC RDW Plt Count MPV Gran % Lymph % (Auto) [place] % (Auto) Eos % (Auto) Baso % (Auto) Gran # Lymph # [place] # Eos # Baso # PT INR APTT Sodium 136 Potassium 3.4 L Chloride 106 Carbon Dioxide 18 L Anion Gap 15 BUN 7 Creatinine 1.0 Est GFR ( Amer) > 60 Est GFR (Non-Af Amer) > 60 POC Glucose (mg/dL) 82 97 Random Glucose 117 H Lactic Acid Calcium 7.2 L Phosphorus 2.5 Magnesium 1.4 L Total Bilirubin 3.6 H AST 73 H ALT 51 Alkaline Phosphatase 21 L Total Protein 5.3 L Albumin 3.9 Globulin 1.4 Albumin/Globulin Ratio 2.8 H Triglycerides 400 H Cholesterol LDL Cholesterol Direct HDL Cholesterol Amylase Lipase 1128 H Vitamin B12 Folate Hepatitis A IgM Ab Negative Hep Bs Antigen Negative Hep B Core IgM Ab Negative Hepatitis C Antibody Negative 01/21/17 01/21/17 01/21/17 00:07 00:30 04:50 WBC 11.2 H RBC 4.86 Hgb 15.8 Hct 43.3 MCV 89.1 MCH 32.5 MCHC 36.5 RDW 13.9 Plt Count 73 L MPV 10.3 Gran % 65.4 Lymph % (Auto) 21.9 L [place] % (Auto) 7.8 H Eos % (Auto) 4.4 Baso % (Auto) 0.5 Gran # 7.30 H Lymph # 2.4 [place] # 0.9 H Eos # 0.5 Baso # 0.06 PT 11.4 INR 1.06 APTT 45.9 H Sodium 134 133 Potassium 3.8 3.8 Chloride 103 103 Carbon Dioxide 20 L 18 L Anion Gap 15 16 BUN 7 5 L Creatinine 1.0 0.9 Est GFR ( Amer) > 60 > 60 Est GFR (Non-Af Amer) > 60 > 60 POC Glucose (mg/dL) 106 Random Glucose 106 102 Lactic Acid 0.9 Calcium 8.2 L 7.9 L Phosphorus 2.4 L 1.9 L Magnesium 2.1 2.0 Total Bilirubin 3.9 H 4.4 H AST 103 H 117 H ALT 62 H 68 H Alkaline Phosphatase 28 L 36 L Total Protein 5.2 L 5.8 Albumin 3.6 3.9 Globulin 1.6 1.8 Albumin/Globulin Ratio 2.3 H 2.2 H Triglycerides 705 H Cholesterol 87 L LDL Cholesterol Direct < 30 HDL Cholesterol 19 L Amylase 109 Lipase 892 H Vitamin B12 Folate Hepatitis A IgM Ab Hep Bs Antigen Hep B Core IgM Ab Hepatitis C Antibody 01/21/17 01/21/17 06:46 09:00 WBC RBC Hgb Hct MCV MCH MCHC RDW Plt Count MPV Gran % Lymph % (Auto) [place] % (Auto) Eos % (Auto) Baso % (Auto) Gran # Lymph # [place] # Eos # Baso # PT INR APTT Sodium 133 Potassium 3.4 L Chloride 99 Carbon Dioxide 21 Anion Gap 16 BUN 5 L Creatinine 0.9 Est GFR ( Amer) > 60 Est GFR (Non-Af Amer) > 60 POC Glucose (mg/dL) Random Glucose 96 Lactic Acid Calcium 8.5 Phosphorus 1.6 L Magnesium 1.9 Total Bilirubin 4.5 H AST 126 H ALT 66 H Alkaline Phosphatase 43 Total Protein 5.7 L Albumin 3.9 Globulin 1.8 Albumin/Globulin Ratio 2.2 H Triglycerides Cholesterol LDL Cholesterol Direct HDL Cholesterol Amylase Lipase Vitamin B12 598 Folate 15.0 Hepatitis A IgM Ab Hep Bs Antigen Hep B Core IgM Ab Hepatitis C Antibody Critical Care Progress Note - Nutrition Nutrition: Nutrition Category Date Time Status Dysphagia/Modified Consistency Diet [DIET] Diets 01/21/17 Lunch Ordered Attending/Attestation - Attestation I have personally seen and examined this patient.: Yes I have fully participated in the care of the patient.: Yes I have reviewed all pertinent clinical information: Yes Notes (Text): 01/21/17 15:23 51 y/o M w/ Hyper TGYL w/ Pancreatitis S/P 2 sessions of Plasmapheresis . TGYL now < 1000. Pt's electrolyte abnormalities to be corrected, including Mg, Ca, K. Lopid to be started today and Insuling ggt w/ D5. q1 hr finger check. Alcohol withdrawl - Ativan prn. MV, Thimaine folate. Diet advanced, Lipase trending down, Pancreatitis improving. Out of bed to chair. dvt p heparin sq tid cc time 65 min
[2017-01-21] MEDS ORDERED: Potassium Chloride 40 mEq/30 ml LIQ UD PO ONE (14:45)
[2017-01-21] MEDS ORDERED: Potassium Phosphate 3 mmol/ml Inj IV ONE (14:45)
[2017-01-21] MEDS ORDERED: Potassium Phosphate 15 MMOLE in Sodium Chloride 0.9% 250 ML IVPB ONE (15:00)
[2017-01-21 15:50] LABS: ALKALINE PHOSPHATASE 49 U/L (38-133); ALT/SGPT 74 U/L (7-56); AST/SGOT 136 U/L (15-59); BILIRUBIN,TOTAL 4.7 mg/dL (0.2-1.3); BLOOD UREA NITROGEN 5 mg/dL (7-21); CALCIUM 8.9 mg/dL (8.4-10.5); CARBON DIOXIDE 21 mmol/L (21-33); CHLORIDE 96 mmol/L (98-107); GFR AFRICAN-AMERICAN > 60; GLUCOSE,RANDOM 124 mg/dL (70-110); LIPASE 1070 U/L (23-300); MAGNESIUM 1.7 mg/dL (1.7-2.2); PHOSPHOROUS 2.1 mg/dL (2.5-4.5); POTASSIUM 3.4 mmol/L (3.6-5.0); SODIUM 129 mmol/L (132-148)
[2017-01-21 20:19] LABS: ALB/GLOB RATIO 1.7 (1.1-1.8); ALKALINE PHOSPHATASE 68 U/L (38-133); ALT/SGPT 87 U/L (7-56); AST/SGOT 195 U/L (15-59); BILIRUBIN,TOTAL 4.8 mg/dL (0.2-1.3); BLOOD UREA NITROGEN 7 mg/dL (7-21); CALCIUM 8.5 mg/dL (8.4-10.5); CARBON DIOXIDE 21 mmol/L (21-33); CHLORIDE 97 mmol/L (98-107); GFR AFRICAN-AMERICAN > 60; GLUCOSE,RANDOM 142 mg/dL (70-110); MAGNESIUM 1.7 mg/dL (1.7-2.2); PHOSPHOROUS 1.6 mg/dL (2.5-4.5); SODIUM 129 mmol/L (132-148)
[2017-01-21 20:27] LABS: LIPASE 2201 U/L (23-300)
--- NOTE | 2017-01-21 21:10 | PN ---
DATE: 01/21/2017 NEPHROLOGY FOLLOWUP NOTE The patient is a 51-year-old male with history of recently diagnosed hypertension, alcohol abuse, admitted with severe pancreatitis secondary to severe hypertriglyceridemia. The patient today reports feeling well. Denies any abdominal pain. Still feeling tremulous, but improved. PHYSICAL EXAMINATION: VITAL SIGNS: This morning, blood pressure 163/109, heart rate 102, respirations 14, O2 sat 95% on room air, temperature 98.4. GENERAL: No distress, able to speak coherently in full sentences, alert and oriented x 3. HEENT: Moist mucous membranes. Nonicteric. CHEST: Clear to auscultation bilaterally. No rales, no rhonchi, no wheezes. HEART: S1, S2 positive, tachycardic, no murmurs, no gallops, no rubs. ABDOMEN: Soft, nontender, nondistended. EXTREMITIES: No leg edema. LABORATORY DATA: This morning, WBC 11.2, hemoglobin 15.8, hematocrit 43.3, platelets 73. Chemistry: Sodium 133, potassium 3.8, chloride 103, bicarbonate 18, BUN 5, creatinine 0.9, glucose 102, calcium 7.9, phosphorus 1.9. T-bili 4.4. AST 117, ALT 68. Triglycerides 705, albumin 3.9, lipase 892. Coags: PT 11.4, PTT 45.9, INR 1.06. ASSESSMENT: 1. Acute pancreatitis secondary to alcohol abuse and severe hypertriglyceridemia, status post 2 consecutive daily sessions of plasma exchange with 1 plasma volume exchanged with 3 liters of 5% albumin. Triglyceride level continues to decrease, likely still markedly elevated. The patient has been symptomatic. Discussed with critical care team and will hold off on another plasma exchange treatment, unless triglyceride levels rebound. IV insulin restarted. Continue with dextrose-containing fluids. Monitor urine output for signs of hypovolemia. 2. Hypocalcemia secondary to citrate chelation during plasma exchange, serum calcium improved. Continue to replenish to keep calcium level above 8.0. 3. Hypertension. Rate of IV fluids decreased. Starting amlodipine 5 mg daily. Should continue with p.r.n. beta daily as needed. If patient shows signs of severe alcohol withdrawal, may need p.r.n. clonidine. 4. Alcohol withdrawal. Currently with mild withdrawal signs and symptoms on tapering dose of Librium. 5. Hypertriglyceridemia, likely induced by alcohol abuse. Should be put on gemfibrozil p.o. as an adjuvant therapy. 6. Hypophosphatemia. Replenish as needed. Avoid giving calcium and phosphate together as they may complex together. Abhishek Leach MD cc: [id number] TT: 01/21/2017 21:09:29 Confirmation # [id number] Dictation # [id number] alton ALCANTAR
--- NOTE | 2017-01-21 23:22 | PN ---
DATE: 01/21/2017 HISTORY OF PRESENT ILLNESS: The patient was seen this afternoon at lunchtime in critical car e unit, CCU bed #4. He was sitting out of bed in a chair, awake, alert, clear, and in good spirits. He was a bit tremulous at times as a sign of alcohol withdrawal. He was clear and coherent, appropr iate in speech. I talked to him about his situation and how abstinence from alcohol would be essenti al in the future. Help is available in the form of AA, sponsors, meetings, friends, etc. PHYSICAL EXAMINATION: LUNGS: Show good aeration. ABDOMEN: Nontender. EXTREMITIES: Show no edema. ASSESSMENT AND PLAN: Earlier this morning, I communicated with Dr. Berumen in a series of texts. I t was my feeling that the indications for continued plasmapheresis had disappeared with his improved treatment. His triglyceride level was down below 1000 at 705 as of this morning and his lipase had d ecreased to less than 3 times the upper limit of normal. Dr. Berumen agreed. We will continue IV f luids. I am certainly okay with the idea of discontinuing the insulin drip; continuing out of bed, a ggressive hydration, prophylaxis for alcohol withdrawals and in the form of Librium or other be nzodiazepines; physical therapy; ambulation; and home soon. Jamar Gay MD cc: [id number] TT: 01/21/2017 23:22:00 Confirmation # [id number] Dictation # [id number]
[2017-01-22 01:27] LABS: ALB/GLOB RATIO 1.7 (1.1-1.8); ALKALINE PHOSPHATASE 66 U/L (38-133); ALT/SGPT 82 U/L (7-56); AST/SGOT 147 U/L (15-59); BILIRUBIN,TOTAL 3.7 mg/dL (0.2-1.3); BLOOD UREA NITROGEN 8 mg/dL (7-21); CALCIUM 8.2 mg/dL (8.4-10.5); CARBON DIOXIDE 25 mmol/L (21-33); CHLORIDE 104 mmol/L (98-107); GFR AFRICAN-AMERICAN > 60; GLUCOSE,RANDOM 96 mg/dL (70-110); LIPASE 1552 U/L (23-300); MAGNESIUM 1.9 mg/dL (1.7-2.2); PHOSPHOROUS 2.3 mg/dL (2.5-4.5); POTASSIUM 3.6 mmol/L (3.6-5.0); SODIUM 134 mmol/L (132-148); TOTAL PROTEIN 5.1 g/dL (5.8-8.3)
[2017-01-22] MEDS: Dextrose 5%/0.45% NS 1,000 ML IV SCH (01:43)
[2017-01-22] MEDS ORDERED: Potassium Phosphate 15 MMOLE in Sodium Chloride 0.9% 250 ML IVPB ONE (02:10)
[2017-01-22] MEDS: Multivitamin (MVI) 10 ML, Thiamine 100 MG, Folic Acid 1 MG in Sodium Chloride 0.9% 1,00... IV SCH ×2 (04:40→12:28)
[2017-01-22 05:09] LABS: ADD MANUAL DIFF? NO
[2017-01-22 05:14] LABS: BASO # 0.04 K/mm3 (0.0-2.0); BASO % 0.6 % (0.0-3.0); EOS # 0.4 (0.0-0.7); EOS % 6.6 % (1.5-5.0); GRAN # 4.13 (1.4-6.5); HEMATOCRIT 37.6 % (42.0-52.0); LYMPH # 1.6 (1.2-3.4); LYMPH % 23.7 % (22.0-35.0); MEAN CELL VOLUME 90.2 fL (80.0-105.0); MEAN CORPUSCULAR HEMOGLOBIN 32.1 pg (25.0-35.0); MEAN CORPUSCULAR HGB CONC 35.6 g/dl (31.0-37.0); MEAN PLATELET VOLUME 10.4 fl (7.0-11.0); MONO # 0.5 (0.1-0.6); MONO % 7.1 % (1.0-6.0); PLATELET COUNT 51 10^3/uL (120.0-450.0); RED CELL DISTRIBUTION WIDTH 13.8 % (11.5-14.5)
[2017-01-22 05:21] LABS: INR 0.97 (0.93-1.08); PARTIAL THROMBOPLASTIN TIME 31.7 Seconds (23.7-30.8)
[2017-01-22 05:30] LABS: ALB/GLOB RATIO 1.5 (1.1-1.8); ALKALINE PHOSPHATASE 69 U/L (38-133); ALT/SGPT 82 U/L (7-56); AST/SGOT 134 U/L (15-59); BILIRUBIN,TOTAL 3.6 mg/dL (0.2-1.3); BLOOD UREA NITROGEN 8 mg/dL (7-21); CALCIUM 7.9 mg/dL (8.4-10.5); CARBON DIOXIDE 24 mmol/L (21-33); CHLORIDE 103 mmol/L (98-107); CHOLESTEROL 118 mg/dL (130-200); GFR AFRICAN-AMERICAN > 60; GLUCOSE,RANDOM 97 mg/dL (70-110); LIPASE 1344 U/L (23-300); MAGNESIUM 1.9 mg/dL (1.7-2.2); PHOSPHOROUS 2.3 mg/dL (2.5-4.5); POTASSIUM 3.2 mmol/L (3.6-5.0); SODIUM 134 mmol/L (132-148); TOTAL PROTEIN 5.3 g/dL (5.8-8.3)
[2017-01-22 05:33] LABS: WHITE BLOOD COUNT 6.7 10^3/ul (4.5-11.0)
--- NOTE | 2017-01-22 08:06 | PN ---
DATE: 01/21/2017 ADDENDUM SUBJECTIVE: This patient was seen and evaluated earlier and discussed with nursing staff. This is an addendum to the GI progress note dictated by Arlette Kumar NP. The patient did receive 2 times The patient did have 2 of plasmapheresis. The patient is presently on insulin drip. The patient denies any abdominal pain. PHYSICAL EXAMINATION: VITAL SIGNS: Afebrile, blood pressure 150/80, hr 72, respirations 18. HEENT: Atraumatic, anicteric. NECK: Supple. HEART: S1, S2 heard. LUNGS: Bilateral air entry present. ABDOMEN: Soft. There is no mass palpable. No tenderness. EXTREMITIES: No edema. No cyanosis. LABORATORY DATA: hematocrit 43.3, WBC is 11.2, platelets 73. Total bilirubin 4.8, AST 195, ALT 87. IMPRESSION: This is a 51-year-old patient admitted with acute pancreatitis, hypertriglyceridemia, SP 2 times plasmapheresis, now on insulin drip. The patient's triglyceride is still on the high side,. The patient does has alcoholic hepatitis. Total bilirubin showed slight downward trend at the present time. We will continue to follow up the LFTs. The diet has been advanced. We will continue to closely follow up his care and suggest further management based . Thank you very much for allowing us to participate in the care of the patient. Brian Regan MD cc: [id number] TT: 01/22/2017 04:00:04 Confirmation # [id number] Dictation # [id number] corey ALCANTAR
[2017-01-22 09:22] LABS: ALB/GLOB RATIO 1.5 (1.1-1.8); ALKALINE PHOSPHATASE 67 U/L (38-133); ALT/SGPT 79 U/L (7-56); AST/SGOT 139 U/L (15-59); BILIRUBIN,TOTAL 3.6 mg/dL (0.2-1.3); BLOOD UREA NITROGEN 6 mg/dL (7-21); CARBON DIOXIDE 24 mmol/L (21-33); CHLORIDE 101 mmol/L (98-107); GFR AFRICAN-AMERICAN > 60; GLUCOSE,RANDOM 127 mg/dL (70-110); LIPASE 1391 U/L (23-300); MAGNESIUM 1.7 mg/dL (1.7-2.2); PHOSPHOROUS 2.2 mg/dL (2.5-4.5); POTASSIUM 3.5 mmol/L (3.6-5.0); SODIUM 133 mmol/L (132-148); TOTAL PROTEIN 5.6 g/dL (5.8-8.3)
[2017-01-22] MEDS: Pantoprazole 40 mg EC Tab PO SCH (09:37)
--- NOTE | 2017-01-22 12:18 | CP.CCUPN ---
<Robbie Armando - Last Filed: 01/22/17 12:42> CCU Subjective - Physician Review Subjective (Free Text): 01/22/17 12:14 Patient seen and examined at bedside in the ICU. Today is hospital day 4. S/p 2x pheresis. Overnight, TGs and Lipase worsened, but improved by this AM. Elevations coincide with resumption of diet (heart-healthy low fat). Remains mildly tremulous overnight into today, with intermittent mild HR increases into tachycardia; but improved compared to yesterday. Patient reports generally feeling better. Denies chest pain, shortness of breath, abdominal pain, or weakness. CCU Objective - Vital Signs / Intake & Output Vital Signs (Last 4 hours): Vital Signs Pulse Resp BP Pulse Ox 01/22/17 11:00 107 H 20 138/94 H 95 01/22/17 10:00 101 H 23 147/95 H 98 01/22/17 09:37 146/67 01/22/17 09:00 107 H 23 146/97 H 97 Intake and Output (Last 8hrs): Intake & Output 01/21/17 01/22/17 01/22/17 22:59 06:59 14:59 Intake Total 3860 3250 Output Total 1500 2000 Balance 2360 1250 Weight 78.562 kg Intake: IV 3060 2950 Left Forearm 1800 lh 1250 thierno 10 2950 Oral 300 Other 800 Output: Urine 1500 2000 Urine, Voided 1500 2000 Other: Voiding Method Urinal Urinal # Bowel Movements 0 - Physical Exam Head: Positive for: Atraumatic, Normocephalic. Negative for: Contusion, Swelling, Ecchymosis, Abrasion, Laceration Pupils: Positive for: PERRL. Negative for: Sluggish, Non-Reactive Extroacular Muscles: Positive for: EOMI. Negative for: Gaze Palsy, Entrapment Conjunctiva: Positive for: Icteric. Negative for: Normal, Injected Mouth: Positive for: Moist Mucous Membranes, Normal Tounge, Normal Teeth, Other (no tongue fasciculations). Negative for: Dry Pharnyx: Positive for: Normal. Negative for: Uvular Deviation Nose (External): Positive for: Atraumatic. Negative for: Abrasion, Contusion, Laceration Neck: Positive for: Normal Range of Motion, Trachea Midline. Negative for: Meningeal Signs, JVD, Lymphadenopathy Respiratory/Chest: Positive for: Clear to Auscultation, Good Air Exchange. Negative for: Respiratory Distress, Accessory Muscle Use, Wheezes, Decreased Breath Sounds, Rales, Retracting, Rhonchi, Tachypneic, Tender to Palpation Cardiovascular: Positive for: Normal S1, S2, Tachycardic. Negative for: Regular Rate and Rhythm (regular rhythm, rapid rate), Murmurs, Irregular Rhythm , Bradycardic Abdomen: Positive for: Distention (unclear if distention vs obseity), Normal Bowel Sounds, Mass/Organomegaly (hepatomegaly), Other (firm but not rigid abdomen). Negative for: Tenderness, Peritoneal Signs, Rebound, Guarding Back: Negative for: CVA Tenderness Upper Extremity: Positive for: Normal Inspection, Normal ROM, NORMAL PULSES, Other (mild tremor in upper extremities at rest and with movement, but purposful activities intact, able to feed himself without overt difficulty). Negative for: Cyanosis, Edema, Tenderness, Swelling, Erythema, Deformity Lower Extremity: Positive for: Normal Inspection, NORMAL PULSES, Normal ROM, Other (no tremors at rest or with movement). Negative for: Edema, CALF TENDERNESS, Cyanosis, Tenderness, Swelling, Erythema, Deformity Neurological: Positive for: GCS=15, CN II-XII Intact, Speech Normal, Motor Func Grossly Intact, Normal Sensory Function, Other (mild hand tremors, otherwise unremarkable) Skin: Positive for: Warm, Dry, Normal Color. Negative for: Rashes, Diaphoretic , Erythematous, Laceration, Abrasion Psychiatric: Positive for: Alert, Oriented x 3, Normal Insight, Normal Concentration, Normal Affect, Normal Mood. Negative for: Anxious, Agitated - Medications Active Medications: Active Medications Generic Name Dose Route Start Last Admin Trade Name Freq PRN Reason Stop Dose Admin Amlodipine Besylate 5 mg 01/21/17 12:00 01/22/17 09:37 Norvasc PO 5 mg DAILY JHON Administration Chlordiazepoxide 10 mg 01/20/17 22:45 01/22/17 05:05 Librium PO 10 mg Q8 JHON Administration Protocol Folic Acid 1 mg 01/21/17 10:00 01/22/17 09:37 Folic Acid PO 1 mg DAILY JHON Administration Gemfibrozil 600 mg 01/21/17 18:00 01/22/17 09:37 Lopid PO 600 mg BID JHON Administration Heparin Sodium (Porcine) 5,000 units 01/20/17 11:00 01/22/17 05:06 Heparin SC 5,000 units Q8 JHON Administration Protocol Multivitamins/Vitamin C 10 ml/ 1,011.2 mls @ 150 mls/hr 01/21/17 12:00 04:40 Thiamine HCl 100 mg/ Folic IV 150 mls/hr Acid 1 mg/ Sodium Chloride .[id number] JHON Administration Dextrose/Sodium Chloride 1,000 mls @ 75 mls/hr 01/21/17 12:00 01/22/17 01:43 Dextrose 5%/0.45% Ns 1000 Ml IV 75 mls/hr .[id number] JHON Administration Insulin Human Regular 100 100 mls @ 0.2 mls/hr 01/21/17 12:00 01/22/17 06:02 units/ Sodium Chloride IV 0.5 units/hr .Q24H JHON Titration Protocol 0.2 UNITS/HR Lorazepam 1 mg 01/19/17 19:03 01/21/17 12:20 Ativan IVP 1 mg Q3H PRN Administration Withdrawal Protocol Metoprolol Tartrate 5 mg 01/20/17 10:53 01/21/17 13:27 Lopressor IVP 5 mg Q6 PRN Administration SBP >= 180 Pantoprazole Sodium 40 mg 01/22/17 07:30 01/22/17 09:37 Protonix Ec Tab PO 40 mg ACB JHON Administration Thiamine HCl 100 mg 01/21/17 10:00 01/22/17 09:37 Vitamin B1 Tab PO 100 mg DAILY JHON Administration - Patient Studies Lab Studies: Lab Studies 01/22/17 01/22/17 01/22/17 Range/Units 11:16 10:01 09:00 WBC (4.5-11.0) 10^3/ul RBC (3.5-6.1) 10^6/uL Hgb (14.0-18.0) gm/dL Hct (42.0-52.0) % MCV (80.0-105.0) fL MCH (25.0-35.0) pg MCHC (31.0-37.0) g/dl RDW (11.5-14.5) % Plt Count (120.0-450.0) 10^3/uL MPV (7.0-11.0) fl Gran % (50.0-68.0) % Lymph % (Auto) (22.0-35.0) % [place] % (Auto) (1.0-6.0) % Eos % (Auto) (1.5-5.0) % Baso % (Auto) (0.0-3.0) % Gran # (1.4-6.5) Lymph # (1.2-3.4) [place] # (0.1-0.6) Eos # (0.0-0.7) Baso # (0.0-2.0) K/mm3 PT (9.9-11.8) Seconds INR (0.93-1.08) APTT (23.7-30.8) Seconds Sodium 133 (132-148) mmol/L Potassium 3.5 L (3.6-5.0) mmol/L Chloride 101 (98-107) mmol/L Carbon Dioxide 24 (21-33) mmol/L Anion Gap 12 (10-20) BUN 6 L (7-21) mg/dL Creatinine 0.8 (0.5-1.4) mg/dL Est GFR ( Amer) > 60 Est GFR (Non-Af Amer) > 60 POC Glucose (mg/dL) 121 H 133 H (65-110) mg/dL Random Glucose 127 H (70-110) mg/dL Lactic Acid (0.7-2.1) mmol/L Calcium 8.0 L (8.4-10.5) mg/dL Phosphorus 2.2 L (2.5-4.5) mg/dL Magnesium 1.7 (1.7-2.2) mg/dL Total Bilirubin 3.6 H (0.2-1.3) mg/dL AST 139 H (15-59) U/L ALT 79 H (7-56) U/L Alkaline Phosphatase 67 (38-133) U/L Total Protein 5.6 L (5.8-8.3) g/dL Albumin 3.4 (3.0-4.8) g/dL Globulin 2.2 gm/dL Albumin/Globulin Ratio 1.5 (1.1-1.8) Triglycerides 691 H (35-160) mg/dL Cholesterol (130-200) mg/dL LDL Cholesterol Direct (0-129) mg/dL HDL Cholesterol (29-60) mg/dL Lipase 1391 H (23-300) U/L Vitamin B12 (239-931) pg/mL Folate ng/mL Hepatitis A IgM Ab (NEGATIVE) Hep Bs Antigen (NEGATIVE) Hep B Core IgM Ab (NEGATIVE) Hepatitis C Antibody (NEGATIVE) 01/22/17 01/22/17 01/22/17 Range/Units 07:17 05:30 05:06 WBC 6.7 D (4.5-11.0) 10^3/ul RBC 4.17 (3.5-6.1) 10^6/uL Hgb 13.4 L (14.0-18.0) gm/dL Hct 37.6 L (42.0-52.0) % MCV 90.2 (80.0-105.0) fL MCH 32.1 (25.0-35.0) pg MCHC 35.6 (31.0-37.0) g/dl RDW 13.8 (11.5-14.5) % Plt Count 51 L (120.0-450.0) 10^3/uL MPV 10.4 (7.0-11.0) fl Gran % 62.0 (50.0-68.0) % Lymph % (Auto) 23.7 (22.0-35.0) % [place] % (Auto) 7.1 H (1.0-6.0) % Eos % (Auto) 6.6 H (1.5-5.0) % Baso % (Auto) 0.6 (0.0-3.0) % Gran # 4.13 (1.4-6.5) Lymph # 1.6 (1.2-3.4) [place] # 0.5 (0.1-0.6) Eos # 0.4 (0.0-0.7) Baso # 0.04 (0.0-2.0) K/mm3 PT 10.5 (9.9-11.8) Seconds INR 0.97 (0.93-1.08) APTT 31.7 H (23.7-30.8) Seconds Sodium 134 (132-148) mmol/L Potassium 3.2 L (3.6-5.0) mmol/L Chloride 103 (98-107) mmol/L Carbon Dioxide 24 (21-33) mmol/L Anion Gap 10 (10-20) BUN 8 (7-21) mg/dL Creatinine 0.9 (0.5-1.4) mg/dL Est GFR ( Amer) > 60 Est GFR (Non-Af Amer) > 60 POC Glucose (mg/dL) 121 H 114 H (65-110) mg/dL Random Glucose 97 (70-110) mg/dL Lactic Acid 1.1 (0.7-2.1) mmol/L Calcium 7.9 L (8.4-10.5) mg/dL Phosphorus 2.3 L (2.5-4.5) mg/dL Magnesium 1.9 (1.7-2.2) mg/dL Total Bilirubin 3.6 H (0.2-1.3) mg/dL AST 134 H (15-59) U/L ALT 82 H (7-56) U/L Alkaline Phosphatase 69 (38-133) U/L Total Protein 5.3 L (5.8-8.3) g/dL Albumin 3.2 (3.0-4.8) g/dL Globulin 2.1 gm/dL Albumin/Globulin Ratio 1.5 (1.1-1.8) Triglycerides 623 H (35-160) mg/dL Cholesterol 118 L (130-200) mg/dL LDL Cholesterol Direct 33 (0-129) mg/dL HDL Cholesterol 19 L (29-60) mg/dL Lipase 1344 H (23-300) U/L Vitamin B12 (239-931) pg/mL Folate ng/mL Hepatitis A IgM Ab (NEGATIVE) Hep Bs Antigen (NEGATIVE) Hep B Core IgM Ab (NEGATIVE) Hepatitis C Antibody (NEGATIVE) 01/22/17 01/22/17 01/22/17 Range/Units 02:59 01:12 01:11 WBC (4.5-11.0) 10^3/ul RBC (3.5-6.1) 10^6/uL Hgb (14.0-18.0) gm/dL Hct (42.0-52.0) % MCV (80.0-105.0) fL MCH (25.0-35.0) pg MCHC (31.0-37.0) g/dl RDW (11.5-14.5) % Plt Count (120.0-450.0) 10^3/uL MPV (7.0-11.0) fl Gran % (50.0-68.0) % Lymph % (Auto) (22.0-35.0) % [place] % (Auto) (1.0-6.0) % Eos % (Auto) (1.5-5.0) % Baso % (Auto) (0.0-3.0) % Gran # (1.4-6.5) Lymph # (1.2-3.4) [place] # (0.1-0.6) Eos # (0.0-0.7) Baso # (0.0-2.0) K/mm3 PT (9.9-11.8) Seconds INR (0.93-1.08) APTT (23.7-30.8) Seconds Sodium 134 (132-148) mmol/L Potassium 3.6 (3.6-5.0) mmol/L Chloride 104 (98-107) mmol/L Carbon Dioxide 25 (21-33) mmol/L Anion Gap 9 L (10-20) BUN 8 (7-21) mg/dL Creatinine 0.9 (0.5-1.4) mg/dL Est GFR ( Amer) > 60 Est GFR (Non-Af Amer) > 60 POC Glucose (mg/dL) 97 94 (65-110) mg/dL Random Glucose 96 (70-110) mg/dL Lactic Acid (0.7-2.1) mmol/L Calcium 8.2 L (8.4-10.5) mg/dL Phosphorus 2.3 L (2.5-4.5) mg/dL Magnesium 1.9 (1.7-2.2) mg/dL Total Bilirubin 3.7 H (0.2-1.3) mg/dL AST 147 H (15-59) U/L ALT 82 H (7-56) U/L Alkaline Phosphatase 66 (38-133) U/L Total Protein 5.1 L (5.8-8.3) g/dL Albumin 3.2 (3.0-4.8) g/dL Globulin 1.9 gm/dL Albumin/Globulin Ratio 1.7 (1.1-1.8) Triglycerides 616 H (35-160) mg/dL Cholesterol (130-200) mg/dL LDL Cholesterol Direct (0-129) mg/dL HDL Cholesterol (29-60) mg/dL Lipase 1552 H (23-300) U/L Vitamin B12 (239-931) pg/mL Folate ng/mL Hepatitis A IgM Ab (NEGATIVE) Hep Bs Antigen (NEGATIVE) Hep B Core IgM Ab (NEGATIVE) Hepatitis C Antibody (NEGATIVE) 01/22/17 01/21/17 01/21/17 Range/Units 00:02 23:00 21:48 WBC (4.5-11.0) 10^3/ul RBC (3.5-6.1) 10^6/uL Hgb (14.0-18.0) gm/dL Hct (42.0-52.0) % MCV (80.0-105.0) fL MCH (25.0-35.0) pg MCHC (31.0-37.0) g/dl RDW (11.5-14.5) % Plt Count (120.0-450.0) 10^3/uL MPV (7.0-11.0) fl Gran % (50.0-68.0) % Lymph % (Auto) (22.0-35.0) % [place] % (Auto) (1.0-6.0) % Eos % (Auto) (1.5-5.0) % Baso % (Auto) (0.0-3.0) % Gran # (1.4-6.5) Lymph # (1.2-3.4) [place] # (0.1-0.6) Eos # (0.0-0.7) Baso # (0.0-2.0) K/mm3 PT (9.9-11.8) Seconds INR (0.93-1.08) APTT (23.7-30.8) Seconds Sodium (132-148) mmol/L Potassium (3.6-5.0) mmol/L Chloride (98-107) mmol/L Carbon Dioxide (21-33) mmol/L Anion Gap (10-20) BUN (7-21) mg/dL Creatinine (0.5-1.4) mg/dL Est GFR ( Amer) Est GFR (Non-Af Amer) POC Glucose (mg/dL) 115 H 115 H 125 H (65-110) mg/dL Random Glucose (70-110) mg/dL Lactic Acid (0.7-2.1) mmol/L Calcium (8.4-10.5) mg/dL Phosphorus (2.5-4.5) mg/dL Magnesium (1.7-2.2) mg/dL Total Bilirubin (0.2-1.3) mg/dL AST (15-59) U/L ALT (7-56) U/L Alkaline Phosphatase (38-133) U/L Total Protein (5.8-8.3) g/dL Albumin (3.0-4.8) g/dL Globulin gm/dL Albumin/Globulin Ratio (1.1-1.8) Triglycerides (35-160) mg/dL Cholesterol (130-200) mg/dL LDL Cholesterol Direct (0-129) mg/dL HDL Cholesterol (29-60) mg/dL Lipase (23-300) U/L Vitamin B12 (239-931) pg/mL Folate ng/mL Hepatitis A IgM Ab (NEGATIVE) Hep Bs Antigen (NEGATIVE) Hep B Core IgM Ab (NEGATIVE) Hepatitis C Antibody (NEGATIVE) 01/21/17 01/21/17 01/21/17 Range/Units 20:58 20:11 19:55 WBC (4.5-11.0) 10^3/ul RBC (3.5-6.1) 10^6/uL Hgb (14.0-18.0) gm/dL Hct (42.0-52.0) % MCV (80.0-105.0) fL MCH (25.0-35.0) pg MCHC (31.0-37.0) g/dl RDW (11.5-14.5) % Plt Count (120.0-450.0) 10^3/uL MPV (7.0-11.0) fl Gran % (50.0-68.0) % Lymph % (Auto) (22.0-35.0) % [place] % (Auto) (1.0-6.0) % Eos % (Auto) (1.5-5.0) % Baso % (Auto) (0.0-3.0) % Gran # (1.4-6.5) Lymph # (1.2-3.4) [place] # (0.1-0.6) Eos # (0.0-0.7) Baso # (0.0-2.0) K/mm3 PT (9.9-11.8) Seconds INR (0.93-1.08) APTT (23.7-30.8) Seconds Sodium 129 L (132-148) mmol/L Potassium 4.0 (3.6-5.0) mmol/L Chloride 97 L (98-107) mmol/L Carbon Dioxide 21 (21-33) mmol/L Anion Gap 15 (10-20) BUN 7 (7-21) mg/dL Creatinine 1.0 (0.5-1.4) mg/dL Est GFR ( Amer) > 60 Est GFR (Non-Af Amer) > 60 POC Glucose (mg/dL) 127 H 150 H (65-110) mg/dL Random Glucose 142 H (70-110) mg/dL Lactic Acid (0.7-2.1) mmol/L Calcium 8.5 (8.4-10.5) mg/dL Phosphorus 1.6 L (2.5-4.5) mg/dL Magnesium 1.7 (1.7-2.2) mg/dL Total Bilirubin 4.8 H (0.2-1.3) mg/dL AST 195 H (15-59) U/L ALT 87 H (7-56) U/L Alkaline Phosphatase 68 (38-133) U/L Total Protein 6.0 (5.8-8.3) g/dL Albumin 3.8 (3.0-4.8) g/dL Globulin 2.2 gm/dL Albumin/Globulin Ratio 1.7 (1.1-1.8) Triglycerides 817 H (35-160) mg/dL Cholesterol (130-200) mg/dL LDL Cholesterol Direct (0-129) mg/dL HDL Cholesterol (29-60) mg/dL Lipase 2201 H (23-300) U/L Vitamin B12 (239-931) pg/mL Folate ng/mL Hepatitis A IgM Ab (NEGATIVE) Hep Bs Antigen (NEGATIVE) Hep B Core IgM Ab (NEGATIVE) Hepatitis C Antibody (NEGATIVE) 01/21/17 01/21/17 01/21/17 Range/Units 19:22 17:49 16:14 WBC (4.5-11.0) 10^3/ul RBC (3.5-6.1) 10^6/uL Hgb (14.0-18.0) gm/dL Hct (42.0-52.0) % MCV (80.0-105.0) fL MCH (25.0-35.0) pg MCHC (31.0-37.0) g/dl RDW (11.5-14.5) % Plt Count (120.0-450.0) 10^3/uL MPV (7.0-11.0) fl Gran % (50.0-68.0) % Lymph % (Auto) (22.0-35.0) % [place] % (Auto) (1.0-6.0) % Eos % (Auto) (1.5-5.0) % Baso % (Auto) (0.0-3.0) % Gran # (1.4-6.5) Lymph # (1.2-3.4) [place] # (0.1-0.6) Eos # (0.0-0.7) Baso # (0.0-2.0) K/mm3 PT (9.9-11.8) Seconds INR (0.93-1.08) APTT (23.7-30.8) Seconds Sodium (132-148) mmol/L Potassium (3.6-5.0) mmol/L Chloride (98-107) mmol/L Carbon Dioxide (21-33) mmol/L Anion Gap (10-20) BUN (7-21) mg/dL Creatinine (0.5-1.4) mg/dL Est GFR ( Amer) Est GFR (Non-Af Amer) POC Glucose (mg/dL) 187 H 144 H 107 (65-110) mg/dL Random Glucose (70-110) mg/dL Lactic Acid (0.7-2.1) mmol/L Calcium (8.4-10.5) mg/dL Phosphorus (2.5-4.5) mg/dL Magnesium (1.7-2.2) mg/dL Total Bilirubin (0.2-1.3) mg/dL AST (15-59) U/L ALT (7-56) U/L Alkaline Phosphatase (38-133) U/L Total Protein (5.8-8.3) g/dL Albumin (3.0-4.8) g/dL Globulin gm/dL Albumin/Globulin Ratio (1.1-1.8) Triglycerides (35-160) mg/dL Cholesterol (130-200) mg/dL LDL Cholesterol Direct (0-129) mg/dL HDL Cholesterol (29-60) mg/dL Lipase (23-300) U/L Vitamin B12 (239-931) pg/mL Folate ng/mL Hepatitis A IgM Ab (NEGATIVE) Hep Bs Antigen (NEGATIVE) Hep B Core IgM Ab (NEGATIVE) Hepatitis C Antibody (NEGATIVE) 01/21/17 01/21/17 01/21/17 Range/Units 15:35 14:58 13:50 WBC (4.5-11.0) 10^3/ul RBC (3.5-6.1) 10^6/uL Hgb (14.0-18.0) gm/dL Hct (42.0-52.0) % MCV (80.0-105.0) fL MCH (25.0-35.0) pg MCHC (31.0-37.0) g/dl RDW (11.5-14.5) % Plt Count (120.0-450.0) 10^3/uL MPV (7.0-11.0) fl Gran % (50.0-68.0) % Lymph % (Auto) (22.0-35.0) % [place] % (Auto) (1.0-6.0) % Eos % (Auto) (1.5-5.0) % Baso % (Auto) (0.0-3.0) % Gran # (1.4-6.5) Lymph # (1.2-3.4) [place] # (0.1-0.6) Eos # (0.0-0.7) Baso # (0.0-2.0) K/mm3 PT (9.9-11.8) Seconds INR (0.93-1.08) APTT (23.7-30.8) Seconds Sodium 129 L (132-148) mmol/L Potassium 3.4 L (3.6-5.0) mmol/L Chloride 96 L (98-107) mmol/L Carbon Dioxide 21 (21-33) mmol/L Anion Gap 15 (10-20) BUN 5 L (7-21) mg/dL Creatinine 0.9 (0.5-1.4) mg/dL Est GFR ( Amer) > 60 Est GFR (Non-Af Amer) > 60 POC Glucose (mg/dL) 141 H 187 H (65-110) mg/dL Random Glucose 124 H (70-110) mg/dL Lactic Acid (0.7-2.1) mmol/L Calcium 8.9 (8.4-10.5) mg/dL Phosphorus 2.1 L (2.5-4.5) mg/dL Magnesium 1.7 (1.7-2.2) mg/dL Total Bilirubin 4.7 H (0.2-1.3) mg/dL AST 136 H (15-59) U/L ALT 74 H (7-56) U/L Alkaline Phosphatase 49 (38-133) U/L Total Protein 6.0 (5.8-8.3) g/dL Albumin 4.0 (3.0-4.8) g/dL Globulin 2.0 gm/dL Albumin/Globulin Ratio 2.0 H (1.1-1.8) Triglycerides 761 H (35-160) mg/dL Cholesterol (130-200) mg/dL LDL Cholesterol Direct (0-129) mg/dL HDL Cholesterol (29-60) mg/dL Lipase 1070 H (23-300) U/L Vitamin B12 (239-931) pg/mL Folate ng/mL Hepatitis A IgM Ab (NEGATIVE) Hep Bs Antigen (NEGATIVE) Hep B Core IgM Ab (NEGATIVE) Hepatitis C Antibody (NEGATIVE) 01/21/17 01/21/17 01/21/17 Range/Units 13:23 12:02 11:17 WBC (4.5-11.0) 10^3/ul RBC (3.5-6.1) 10^6/uL Hgb (14.0-18.0) gm/dL Hct (42.0-52.0) % MCV (80.0-105.0) fL MCH (25.0-35.0) pg MCHC (31.0-37.0) g/dl RDW (11.5-14.5) % Plt Count (120.0-450.0) 10^3/uL MPV (7.0-11.0) fl Gran % (50.0-68.0) % Lymph % (Auto) (22.0-35.0) % [place] % (Auto) (1.0-6.0) % Eos % (Auto) (1.5-5.0) % Baso % (Auto) (0.0-3.0) % Gran # (1.4-6.5) Lymph # (1.2-3.4) [place] # (0.1-0.6) Eos # (0.0-0.7) Baso # (0.0-2.0) K/mm3 PT (9.9-11.8) Seconds INR (0.93-1.08) APTT (23.7-30.8) Seconds Sodium (132-148) mmol/L Potassium (3.6-5.0) mmol/L Chloride (98-107) mmol/L Carbon Dioxide (21-33) mmol/L Anion Gap (10-20) BUN (7-21) mg/dL Creatinine (0.5-1.4) mg/dL Est GFR ( Amer) Est GFR (Non-Af Amer) POC Glucose (mg/dL) 136 H 81 90 (65-110) mg/dL Random Glucose (70-110) mg/dL Lactic Acid (0.7-2.1) mmol/L Calcium (8.4-10.5) mg/dL Phosphorus (2.5-4.5) mg/dL Magnesium (1.7-2.2) mg/dL Total Bilirubin (0.2-1.3) mg/dL AST (15-59) U/L ALT (7-56) U/L Alkaline Phosphatase (38-133) U/L Total Protein (5.8-8.3) g/dL Albumin (3.0-4.8) g/dL Globulin gm/dL Albumin/Globulin Ratio (1.1-1.8) Triglycerides (35-160) mg/dL Cholesterol (130-200) mg/dL LDL Cholesterol Direct (0-129) mg/dL HDL Cholesterol (29-60) mg/dL Lipase (23-300) U/L Vitamin B12 (239-931) pg/mL Folate ng/mL Hepatitis A IgM Ab (NEGATIVE) Hep Bs Antigen (NEGATIVE) Hep B Core IgM Ab (NEGATIVE) Hepatitis C Antibody (NEGATIVE) 01/21/17 01/21/17 01/20/17 Range/Units 07:12 06:46 18:15 WBC (4.5-11.0) 10^3/ul RBC (3.5-6.1) 10^6/uL Hgb (14.0-18.0) gm/dL Hct (42.0-52.0) % MCV (80.0-105.0) fL MCH (25.0-35.0) pg MCHC (31.0-37.0) g/dl RDW (11.5-14.5) % Plt Count (120.0-450.0) 10^3/uL MPV (7.0-11.0) fl Gran % (50.0-68.0) % Lymph % (Auto) (22.0-35.0) % [place] % (Auto) (1.0-6.0) % Eos % (Auto) (1.5-5.0) % Baso % (Auto) (0.0-3.0) % Gran # (1.4-6.5) Lymph # (1.2-3.4) [place] # (0.1-0.6) Eos # (0.0-0.7) Baso # (0.0-2.0) K/mm3 PT (9.9-11.8) Seconds INR (0.93-1.08) APTT (23.7-30.8) Seconds Sodium (132-148) mmol/L Potassium (3.6-5.0) mmol/L Chloride (98-107) mmol/L Carbon Dioxide (21-33) mmol/L Anion Gap (10-20) BUN (7-21) mg/dL Creatinine (0.5-1.4) mg/dL Est GFR ( Amer) Est GFR (Non-Af Amer) POC Glucose (mg/dL) 86 (65-110) mg/dL Random Glucose (70-110) mg/dL Lactic Acid (0.7-2.1) mmol/L Calcium (8.4-10.5) mg/dL Phosphorus (2.5-4.5) mg/dL Magnesium (1.7-2.2) mg/dL Total Bilirubin (0.2-1.3) mg/dL AST (15-59) U/L ALT (7-56) U/L Alkaline Phosphatase (38-133) U/L Total Protein (5.8-8.3) g/dL Albumin (3.0-4.8) g/dL Globulin gm/dL Albumin/Globulin Ratio (1.1-1.8) Triglycerides (35-160) mg/dL Cholesterol (130-200) mg/dL LDL Cholesterol Direct (0-129) mg/dL HDL Cholesterol (29-60) mg/dL Lipase (23-300) U/L Vitamin B12 598 (239-931) pg/mL Folate 15.0 ng/mL Hepatitis A IgM Ab Negative (NEGATIVE) Hep Bs Antigen Negative (NEGATIVE) Hep B Core IgM Ab Negative (NEGATIVE) Hepatitis C Antibody Negative (NEGATIVE) 01/19/17 01/19/17 Range/Units 16:35 15:43 WBC (4.5-11.0) 10^3/ul RBC (3.5-6.1) 10^6/uL Hgb (14.0-18.0) gm/dL Hct (42.0-52.0) % MCV (80.0-105.0) fL MCH (25.0-35.0) pg MCHC (31.0-37.0) g/dl RDW (11.5-14.5) % Plt Count (120.0-450.0) 10^3/uL MPV (7.0-11.0) fl Gran % (50.0-68.0) % Lymph % (Auto) (22.0-35.0) % [place] % (Auto) (1.0-6.0) % Eos % (Auto) (1.5-5.0) % Baso % (Auto) (0.0-3.0) % Gran # (1.4-6.5) Lymph # (1.2-3.4) [place] # (0.1-0.6) Eos # (0.0-0.7) Baso # (0.0-2.0) K/mm3 PT (9.9-11.8) Seconds INR (0.93-1.08) APTT (23.7-30.8) Seconds Sodium (132-148) mmol/L Potassium (3.6-5.0) mmol/L Chloride (98-107) mmol/L Carbon Dioxide (21-33) mmol/L Anion Gap (10-20) BUN (7-21) mg/dL Creatinine (0.5-1.4) mg/dL Est GFR ( Amer) Est GFR (Non-Af Amer) POC Glucose (mg/dL) 109 162 H (65-110) mg/dL Random Glucose (70-110) mg/dL Lactic Acid (0.7-2.1) mmol/L Calcium (8.4-10.5) mg/dL Phosphorus (2.5-4.5) mg/dL Magnesium (1.7-2.2) mg/dL Total Bilirubin (0.2-1.3) mg/dL AST (15-59) U/L ALT (7-56) U/L Alkaline Phosphatase (38-133) U/L Total Protein (5.8-8.3) g/dL Albumin (3.0-4.8) g/dL Globulin gm/dL Albumin/Globulin Ratio (1.1-1.8) Triglycerides (35-160) mg/dL Cholesterol (130-200) mg/dL LDL Cholesterol Direct (0-129) mg/dL HDL Cholesterol (29-60) mg/dL Lipase (23-300) U/L Vitamin B12 (239-931) pg/mL Folate ng/mL Hepatitis A IgM Ab (NEGATIVE) Hep Bs Antigen (NEGATIVE) Hep B Core IgM Ab (NEGATIVE) Hepatitis C Antibody (NEGATIVE) Laboratory Results - last 24 hr 01/19/17 01/19/17 01/20/17 15:43 16:35 18:15 WBC RBC Hgb Hct MCV MCH MCHC RDW Plt Count MPV Gran % Lymph % (Auto) [place] % (Auto) Eos % (Auto) Baso % (Auto) Gran # Lymph # [place] # Eos # Baso # PT INR APTT Sodium Potassium Chloride Carbon Dioxide Anion Gap BUN Creatinine Est GFR ( Amer) Est GFR (Non-Af Amer) POC Glucose (mg/dL) 162 H 109 Random Glucose Lactic Acid Calcium Phosphorus Magnesium Total Bilirubin AST ALT Alkaline Phosphatase Total Protein Albumin Globulin Albumin/Globulin Ratio Triglycerides Cholesterol LDL Cholesterol Direct HDL Cholesterol Lipase Vitamin B12 Folate Hepatitis A IgM Ab Negative Hep Bs Antigen Negative Hep B Core IgM Ab Negative Hepatitis C Antibody Negative 01/21/17 01/21/17 01/21/17 06:46 07:12 11:17 WBC RBC Hgb Hct MCV MCH MCHC RDW Plt Count MPV Gran % Lymph % (Auto) [place] % (Auto) Eos % (Auto) Baso % (Auto) Gran # Lymph # [place] # Eos # Baso # PT INR APTT Sodium Potassium Chloride Carbon Dioxide Anion Gap BUN Creatinine Est GFR ( Amer) Est GFR (Non-Af Amer) POC Glucose (mg/dL) 86 90 Random Glucose Lactic Acid Calcium Phosphorus Magnesium Total Bilirubin AST ALT Alkaline Phosphatase Total Protein Albumin Globulin Albumin/Globulin Ratio Triglycerides Cholesterol LDL Cholesterol Direct HDL Cholesterol Lipase Vitamin B12 598 Folate 15.0 Hepatitis A IgM Ab Hep Bs Antigen Hep B Core IgM Ab Hepatitis C Antibody 01/21/17 01/21/17 01/21/17 12:02 13:23 13:50 WBC RBC Hgb Hct MCV MCH MCHC RDW Plt Count MPV Gran % Lymph % (Auto) [place] % (Auto) Eos % (Auto) Baso % (Auto) Gran # Lymph # [place] # Eos # Baso # PT INR APTT Sodium Potassium Chloride Carbon Dioxide Anion Gap BUN Creatinine Est GFR ( Amer) Est GFR (Non-Af Amer) POC Glucose (mg/dL) 81 136 H 187 H Random Glucose Lactic Acid Calcium Phosphorus Magnesium Total Bilirubin AST ALT Alkaline Phosphatase Total Protein Albumin Globulin Albumin/Globulin Ratio Triglycerides Cholesterol LDL Cholesterol Direct HDL Cholesterol Lipase Vitamin B12 Folate Hepatitis A IgM Ab Hep Bs Antigen Hep B Core IgM Ab Hepatitis C Antibody 01/21/17 01/21/17 01/21/17 14:58 15:35 16:14 WBC RBC Hgb Hct MCV MCH MCHC RDW Plt Count MPV Gran % Lymph % (Auto) [place] % (Auto) Eos % (Auto) Baso % (Auto) Gran # Lymph # [place] # Eos # Baso # PT INR APTT Sodium 129 L Potassium 3.4 L Chloride 96 L Carbon Dioxide 21 Anion Gap 15 BUN 5 L Creatinine 0.9 Est GFR ( Amer) > 60 Est GFR (Non-Af Amer) > 60 POC Glucose (mg/dL) 141 H 107 Random Glucose 124 H Lactic Acid Calcium 8.9 Phosphorus 2.1 L Magnesium 1.7 Total Bilirubin 4.7 H AST 136 H ALT 74 H Alkaline Phosphatase 49 Total Protein 6.0 Albumin 4.0 Globulin 2.0 Albumin/Globulin Ratio 2.0 H Triglycerides 761 H Cholesterol LDL Cholesterol Direct HDL Cholesterol Lipase 1070 H Vitamin B12 Folate Hepatitis A IgM Ab Hep Bs Antigen Hep B Core IgM Ab Hepatitis C Antibody 01/21/17 01/21/17 01/21/17 17:49 19:22 19:55 WBC RBC Hgb Hct MCV MCH MCHC RDW Plt Count MPV Gran % Lymph % (Auto) [place] % (Auto) Eos % (Auto) Baso % (Auto) Gran # Lymph # [place] # Eos # Baso # PT INR APTT Sodium 129 L Potassium 4.0 Chloride 97 L Carbon Dioxide 21 Anion Gap 15 BUN 7 Creatinine 1.0 Est GFR ( Amer) > 60 Est GFR (Non-Af Amer) > 60 POC Glucose (mg/dL) 144 H 187 H Random Glucose 142 H Lactic Acid Calcium 8.5 Phosphorus 1.6 L Magnesium 1.7 Total Bilirubin 4.8 H AST 195 H ALT 87 H Alkaline Phosphatase 68 Total Protein 6.0 Albumin 3.8 Globulin 2.2 Albumin/Globulin Ratio 1.7 Triglycerides 817 H Cholesterol LDL Cholesterol Direct HDL Cholesterol Lipase 2201 H Vitamin B12 Folate Hepatitis A IgM Ab Hep Bs Antigen Hep B Core IgM Ab Hepatitis C Antibody 01/21/17 01/21/17 01/21/17 20:11 20:58 21:48 WBC RBC Hgb Hct MCV MCH MCHC RDW Plt Count MPV Gran % Lymph % (Auto) [place] % (Auto) Eos % (Auto) Baso % (Auto) Gran # Lymph # [place] # Eos # Baso # PT INR APTT Sodium Potassium Chloride Carbon Dioxide Anion Gap BUN Creatinine Est GFR ( Amer) Est GFR (Non-Af Amer) POC Glucose (mg/dL) 150 H 127 H 125 H Random Glucose Lactic Acid Calcium Phosphorus Magnesium Total Bilirubin AST ALT Alkaline Phosphatase Total Protein Albumin Globulin Albumin/Globulin Ratio Triglycerides Cholesterol LDL Cholesterol Direct HDL Cholesterol Lipase Vitamin B12 Folate Hepatitis A IgM Ab Hep Bs Antigen Hep B Core IgM Ab Hepatitis C Antibody 01/21/17 01/22/17 01/22/17 23:00 00:02 01:11 WBC RBC Hgb Hct MCV MCH MCHC RDW Plt Count MPV Gran % Lymph % (Auto) [place] % (Auto) Eos % (Auto) Baso % (Auto) Gran # Lymph # [place] # Eos # Baso # PT INR APTT Sodium Potassium Chloride Carbon Dioxide Anion Gap BUN Creatinine Est GFR ( Amer) Est GFR (Non-Af Amer) POC Glucose (mg/dL) 115 H 115 H 94 Random Glucose Lactic Acid Calcium Phosphorus Magnesium Total Bilirubin AST ALT Alkaline Phosphatase Total Protein Albumin Globulin Albumin/Globulin Ratio Triglycerides Cholesterol LDL Cholesterol Direct HDL Cholesterol Lipase Vitamin B12 Folate Hepatitis A IgM Ab Hep Bs Antigen Hep B Core IgM Ab Hepatitis C Antibody 01/22/17 01/22/17 01/22/17 01:12 02:59 05:06 WBC 6.7 D RBC 4.17 Hgb 13.4 L Hct 37.6 L MCV 90.2 MCH 32.1 MCHC 35.6 RDW 13.8 Plt Count 51 L MPV 10.4 Gran % 62.0 Lymph % (Auto) 23.7 [place] % (Auto) 7.1 H Eos % (Auto) 6.6 H Baso % (Auto) 0.6 Gran # 4.13 Lymph # 1.6 [place] # 0.5 Eos # 0.4 Baso # 0.04 PT 10.5 INR 0.97 APTT 31.7 H Sodium 134 134 Potassium 3.6 3.2 L Chloride 104 103 Carbon Dioxide 25 24 Anion Gap 9 L 10 BUN 8 8 Creatinine 0.9 0.9 Est GFR ( Amer) > 60 > 60 Est GFR (Non-Af Amer) > 60 > 60 POC Glucose (mg/dL) 97 Random Glucose 96 97 Lactic Acid 1.1 Calcium 8.2 L 7.9 L Phosphorus 2.3 L 2.3 L Magnesium 1.9 1.9 Total Bilirubin 3.7 H 3.6 H AST 147 H 134 H ALT 82 H 82 H Alkaline Phosphatase 66 69 Total Protein 5.1 L 5.3 L Albumin 3.2 3.2 Globulin 1.9 2.1 Albumin/Globulin Ratio 1.7 1.5 Triglycerides 616 H 623 H Cholesterol 118 L LDL Cholesterol Direct 33 HDL Cholesterol 19 L Lipase 1552 H 1344 H Vitamin B12 Folate Hepatitis A IgM Ab Hep Bs Antigen Hep B Core IgM Ab Hepatitis C Antibody 04/01/22/17 01/22/17 05:30 07:17 09:00 WBC RBC Hgb Hct MCV MCH MCHC RDW Plt Count MPV Gran % Lymph % (Auto) [place] % (Auto) Eos % (Auto) Baso % (Auto) Gran # Lymph # [place] # Eos # Baso # PT INR APTT Sodium 133 Potassium 3.5 L Chloride 101 Carbon Dioxide 24 Anion Gap 12 BUN 6 L Creatinine 0.8 Est GFR ( Amer) > 60 Est GFR (Non-Af Amer) > 60 POC Glucose (mg/dL) 114 H 121 H Random Glucose 127 H Lactic Acid Calcium 8.0 L Phosphorus 2.2 L Magnesium 1.7 Total Bilirubin 3.6 H AST 139 H ALT 79 H Alkaline Phosphatase 67 Total Protein 5.6 L Albumin 3.4 Globulin 2.2 Albumin/Globulin Ratio 1.5 Triglycerides 691 H Cholesterol LDL Cholesterol Direct HDL Cholesterol Lipase 1391 H Vitamin B12 Folate Hepatitis A IgM Ab Hep Bs Antigen Hep B Core IgM Ab Hepatitis C Antibody 01/22/17 01/22/17 10:01 11:16 WBC RBC Hgb Hct MCV MCH MCHC RDW Plt Count MPV Gran % Lymph % (Auto) [place] % (Auto) Eos % (Auto) Baso % (Auto) Gran # Lymph # [place] # Eos # Baso # PT INR APTT Sodium Potassium Chloride Carbon Dioxide Anion Gap BUN Creatinine Est GFR ( Amer) Est GFR (Non-Af Amer) POC Glucose (mg/dL) 133 H 121 H Random Glucose Lactic Acid Calcium Phosphorus Magnesium Total Bilirubin AST ALT Alkaline Phosphatase Total Protein Albumin Globulin Albumin/Globulin Ratio Triglycerides Cholesterol LDL Cholesterol Direct HDL Cholesterol Lipase Vitamin B12 Folate Hepatitis A IgM Ab Hep Bs Antigen Hep B Core IgM Ab Hepatitis C Antibody Fingerstick Blood Sugar Results: 114 Review of Systems - Constitutional Constitutional: absent: Fever, Chills - EENT Eyes: absent: Blurred Vision, Change in Vision, Loss of Vision Ears: absent: Dizziness Nose/Mouth/Throat: absent: Dysphagia, Mouth Pain, Sore Throat, Neck Pain - Cardiovascular Cardiovascular: absent: Chest Pain, Diaphoresis, Dyspnea, Palpitations - Respiratory Respiratory: absent: Cough, Dyspnea, Hemoptysis, Dyspnea on Exertion, Wheezing, Pain on Inspiration - Gastrointestinal Gastrointestinal: absent: Abdominal Pain, Bloating, Coffee Ground Emesis, Constipation, Cramping, Diarrhea, Dysphagia, Loose Stools, Melena, Nausea, Vomiting - Genitourinary Genitourinary: absent: Difficulty Urinating, Dysuria, Flank Pain, Hematuria - Musculoskeletal Musculoskeletal: absent: Back Pain, Neck Pain, Numbness, Radiating Pain into Limb - Integumentary Integumentary: absent: Pruritus, Rash, Skin Pain, Jaundice - Neurological Neurological: absent: Confusion, Disequilibrium, Dizziness, Numbness, Focal Weakness, Loss of Vision, Syncope, Weakness, Other Visual Disturbances - Psychiatric Psychiatric: absent: Anxiety - Endocrine Endocrine: absent: Fatigue, Palpitations Critical Care Progress Note - Nutrition Nutrition: Nutrition Category Date Time Status Heart Healthy Diet [DIET] Diets 01/21/17 Dinner Ordered Assessment/Plan - Assessment and Plan (Free Text) Assessment: This is a 51 yo M with PMH of HTN (not medically managed) and alcohol abuse who presents with complaint of fluctuating persistent abdominal discomfort , malaise, and weakness, and is being admitted to the ICU for management of severe hypertriglyceridemia (>5000) with pancreatitis, requiring pheresis. He has undergone two rounds of pheresis, and is now managed with oral fibrate medication and an insulin drip with D5. Plan: Neuro: -AAOx3, spontaneous movement of all extremities -Following commands appropriately -maintain normothermia, no fevers overnight -at risk for EtOH withdrawal, seizures due to significant alcohol abuse; Ativan 1mg IV q3 PRN and Jhon Geodon for withdrawal, CIWA protocol q1, EtOH level 292 on admit, repeat level 22 -Tox screen negative Pulm: -CTAB on exam, satting well on room air, No O2 supplementation indicated at this time -Given pancreatitis, at risk for developing pulm edema/ARDS, continue to monitor -maintain SaO2 > 92% and paO2 > 60 -Aspiration precautions, head of bed to 30 degrees Cardio: -Currently hemodynamically stable, maintain MAP > 65 -Fluctuating rate on telemetry, possible afib 2/2 electrolyte abnormalities vs holiday heart for alcohol abuse; rhythm stable and hemodynamically stable, continue to monitor, PRN Lopressor will cover if HR becomes persistently rapid -Hx HTN, continue Amlodipine 5mg daily, continue PRN Lopressor 5mg IV q6 if SBP >= 180 -Hypertriglyceridemia > 5000 on admission labs, improved to 705 after 2nd pheresis, some increase overnight coinciding with initiation of solid foods, but improving again while on oral Lopid and Insulin Drip + D5; 691 on last check -Hypertriglyceridemia 2/2 severe alcohol abuse vs familial component, likely multifactorial; gallstone etiology ruled out -INR 0.97, PT 10.5, PTT 31.7 today -Heparin 5000u SC q8 for DVT/PE ppx -K 3.4, Mag 1.6, Ca 7.7, will recheck post pheresis and replete accordingly -intermittently tachycardic to 110's-120's, otherwise HR stable, continue to monitor K/Ca/Mag and replete as needed -TSH wnl at 1.33 GI: -Diet advanced to heart-healthy low fat, tolerating well -Protonix for GI ppx -Elevated LFTs, AST 139 and ALT 79 (2:1 ratio consistent with EtOH abuse), Alk phos 67, Tbili 3.6; remain elevated but stable, some improvement with Tbili -Hypertriglyceridemia > 5000 on admission labs, improved to 705 after 2nd pheresis, some increase overnight coinciding with initiation of solid foods, but improving again while on oral Lopid and Insulin Drip + D5; 691 on last check -Lipase worsened overnight, concurrent with initiation of solid food diet, but improved this AM from 2201 to 1398 -CT abd/pelvis notable for mild infiltration of peripancreatic fat confined to head of pancreas, likely mild pancreatitis; recently passed common duct stones, hepatomegaly/hepatic steatosis; Abd US notable for findings consistent with mild fatty liver, no sonographic evidence of pancreatic or GB pathology -Aggressive fluid rehydration, NS 150cc/hr and D5 1/2 NS at 75 cc/hr -GI (Dr. Regan) consulted, appreciate all recs -Uric acid 7.2 on admit -Lactic acid today 1.1 -Hgb A1c 5.7 -CMP/Mag/Phos/TG/Lipase q4 Renal: -Cr 0.8 today -Monitor I's & O's -Nephro (Dr. Berumen) consulted, appreciate all recs -avoid nephrotoxic drugs where feasible -monitor and replete electrolytes as needed -maintain euglycemia (BG 140-180), aggressive fluid rehydration for pancreatitis -UA obtained on admission, notable for 30 Protein and trace intact blood -s/p 2 rounds of pheresis, now managing with oral Lopid & Insulin drip + D5, will d/c insulin drip after TGs decrease and remain below 500 Heme: -Hypertriglyceridemia > 5000 on admission labs, improved to 705 after 2nd pheresis, some increase overnight coinciding with initiation of solid foods, but improving again while on oral Lopid and Insulin Drip + D5; 691 on last check -s/p 2 rounds of pheresis, now managing with oral Lopid & Insulin drip + D5, will d/c insulin drip after TGs decrease and remain below 500 -Hgb 13.4 (was 15.8), will follow up AM CBC tmr -Heparin 5000u SC q8 for DVT/PE ppx -INR 0.97, PT 10.5, PTT 31.7 today -Platelets decreased x3 days, from 158 to 118 to 73 to 51, likely 2/2 alcohol abuse vs HIT-1, not in appropriate timeframe for HIT-2, peripheral smear ordered ID: -WBCs 6.7 (was 11.2), afebrile -no antibiotics indicated at this time -if patient becomes febrile and/or shows signs of necrotizing pancreatitis, start on carbapenems -IGG4 pending Dispo: ICU s/p 2nd round of pheresis, aggressive fluid resuscitation, now managed on Lopid and Insulin drip + D5 FEN: Heart-healthy low fat, NS 150cc/hr + 75cc/hr D5 1/2 NS Access: Peripheral IVs, Right IJ double lumen dialysis catheter Consults: GI, Nephro Ppx: Protonix for GI, Heparin for DVT Code status: Full Patient seen, reviewed, and discussed with attending, Dr. Markham. - Date & Time Date: 01/22/17 Time: 12:30 <Luis Fernando Markham - Last Filed: 01/22/17 14:13> CCU Objective - Vital Signs / Intake & Output Vital Signs (Last 4 hours): Vital Signs Pulse Resp BP Pulse Ox 01/22/17 12:00 109 H 18 144/97 H 99 01/22/17 11:03 111 H 95 01/22/17 11:00 107 H 20 138/94 H 95 Intake and Output (Last 8hrs): Intake & Output 01/21/17 01/22/17 01/22/17 22:59 06:59 14:59 Intake Total 3860 3250 Output Total 1500 2000 Balance 2360 1250 Weight 173 lb 3.2 oz Intake: IV 3060 2950 Left Forearm 1800 lh 1250 thierno 10 2950 Oral 300 Other 800 Output: Urine 1500 2000 Urine, Voided 1500 2000 Other: Voiding Method Urinal Urinal # Bowel Movements 0 - Medications Active Medications: Active Medications Generic Name Dose Route Start Last Admin Trade Name Freq PRN Reason Stop Dose Admin Amlodipine Besylate 5 mg 01/21/17 12:00 01/22/17 09:37 Norvasc PO 5 mg DAILY JHON Administration Chlordiazepoxide 10 mg 01/20/17 22:45 01/22/17 14:06 Librium PO 10 mg Q8 JHON Administration Protocol Folic Acid 1 mg 01/21/17 10:00 01/22/17 09:37 Folic Acid PO 1 mg DAILY JHON Administration Gemfibrozil 600 mg 01/21/17 18:00 01/22/17 09:37 Lopid PO 600 mg BID JHON Administration Heparin Sodium (Porcine) 5,000 units 01/20/17 11:00 01/22/17 14:06 Heparin SC 5,000 units Q8 JHON Administration Protocol Insulin Human Regular 100 100 mls @ 0.2 mls/hr 01/21/17 12:00 01/22/17 06:02 units/ Sodium Chloride IV 0.5 units/hr .Q24H JHON Titration Protocol 0.2 UNITS/HR Sodium Chloride 1,000 mls @ 150 mls/hr 01/22/17 12:30 01/22/17 12:42 Sodium Chloride 0.9% IV 150 mls/hr .Q6H40M JHON Administration Calcium Gluconate 1,000 mg/ 110 mls @ 110 mls/hr 01/22/17 12:45 01/22/17 14:00 Sodium Chloride IVPB 01/22/17 14:44 110 mls/hr Q1H JHON Administration Potassium Chloride 100 mls @ 100 mls/hr 01/22/17 13:00 01/22/17 14:03 Potassium Chloride 10 Meq/100 Ml IVPB 01/22/17 15:59 100 mls/hr Q2H JHON Administration Lorazepam 1 mg 01/19/17 19:03 01/21/17 12:20 Ativan IVP 1 mg Q3H PRN Administration Withdrawal Protocol Metoprolol Tartrate 5 mg 01/20/17 10:53 01/21/17 13:27 Lopressor IVP 5 mg Q6 PRN Administration SBP >= 180 Pantoprazole Sodium 40 mg 01/22/17 07:30 01/22/17 09:37 Protonix Ec Tab PO 40 mg ACB JHON Administration Potassium Chloride 40 meq 01/23/17 10:00 Potassium Chloride Oral Soln PO DAILY JHON Thiamine HCl 100 mg 01/21/17 10:00 01/22/17 09:37 Vitamin B1 Tab PO 100 mg DAILY JHON Administration - Patient Studies Lab Studies: Lab Studies 01/22/17 01/22/17 01/22/17 Range/Units 14:04 13:07 12:32 WBC (4.5-11.0) 10^3/ul RBC (3.5-6.1) 10^6/uL Hgb (14.0-18.0) gm/dL Hct (42.0-52.0) % MCV (80.0-105.0) fL MCH (25.0-35.0) pg MCHC (31.0-37.0) g/dl RDW (11.5-14.5) % Plt Count (120.0-450.0) 10^3/uL MPV (7.0-11.0) fl Gran % (50.0-68.0) % Lymph % (Auto) (22.0-35.0) % [place] % (Auto) (1.0-6.0) % Eos % (Auto) (1.5-5.0) % Baso % (Auto) (0.0-3.0) % Gran # (1.4-6.5) Lymph # (1.2-3.4) [place] # (0.1-0.6) Eos # (0.0-0.7) Baso # (0.0-2.0) K/mm3 PT (9.9-11.8) Seconds INR (0.93-1.08) APTT (23.7-30.8) Seconds Sodium (132-148) mmol/L Potassium (3.6-5.0) mmol/L Chloride (98-107) mmol/L Carbon Dioxide (21-33) mmol/L Anion Gap (10-20) BUN (7-21) mg/dL Creatinine (0.5-1.4) mg/dL Est GFR ( Amer) Est GFR (Non-Af Amer) POC Glucose (mg/dL) 104 114 H (65-110) mg/dL Random Glucose (70-110) mg/dL Lactic Acid (0.7-2.1) mmol/L Calcium (8.4-10.5) mg/dL Phosphorus (2.5-4.5) mg/dL Magnesium (1.7-2.2) mg/dL Total Bilirubin (0.2-1.3) mg/dL AST (15-59) U/L ALT (7-56) U/L Alkaline Phosphatase (38-133) U/L Total Protein (5.8-8.3) g/dL Albumin (3.0-4.8) g/dL Globulin gm/dL Albumin/Globulin Ratio (1.1-1.8) Triglycerides 814 H (35-160) mg/dL Cholesterol (130-200) mg/dL LDL Cholesterol Direct (0-129) mg/dL HDL Cholesterol (29-60) mg/dL Lipase 1411 H (23-300) U/L 01/22/17 01/22/17 01/22/17 Range/Units 12:22 11:16 10:01 WBC (4.5-11.0) 10^3/ul RBC (3.5-6.1) 10^6/uL Hgb (14.0-18.0) gm/dL Hct (42.0-52.0) % MCV (80.0-105.0) fL MCH (25.0-35.0) pg MCHC (31.0-37.0) g/dl RDW (11.5-14.5) % Plt Count (120.0-450.0) 10^3/uL MPV (7.0-11.0) fl Gran % (50.0-68.0) % Lymph % (Auto) (22.0-35.0) % [place] % (Auto) (1.0-6.0) % Eos % (Auto) (1.5-5.0) % Baso % (Auto) (0.0-3.0) % Gran # (1.4-6.5) Lymph # (1.2-3.4) [place] # (0.1-0.6) Eos # (0.0-0.7) Baso # (0.0-2.0) K/mm3 PT (9.9-11.8) Seconds INR (0.93-1.08) APTT (23.7-30.8) Seconds Sodium (132-148) mmol/L Potassium (3.6-5.0) mmol/L Chloride (98-107) mmol/L Carbon Dioxide (21-33) mmol/L Anion Gap (10-20) BUN (7-21) mg/dL Creatinine (0.5-1.4) mg/dL Est GFR ( Amer) Est GFR (Non-Af Amer) POC Glucose (mg/dL) 178 H 121 H 133 H (65-110) mg/dL Random Glucose (70-110) mg/dL Lactic Acid (0.7-2.1) mmol/L Calcium (8.4-10.5) mg/dL Phosphorus (2.5-4.5) mg/dL Magnesium (1.7-2.2) mg/dL Total Bilirubin (0.2-1.3) mg/dL AST (15-59) U/L ALT (7-56) U/L Alkaline Phosphatase (38-133) U/L Total Protein (5.8-8.3) g/dL Albumin (3.0-4.8) g/dL Globulin gm/dL Albumin/Globulin Ratio (1.1-1.8) Triglycerides (35-160) mg/dL Cholesterol (130-200) mg/dL LDL Cholesterol Direct (0-129) mg/dL HDL Cholesterol (29-60) mg/dL Lipase (23-300) U/L 01/22/17 01/22/17 01/22/17 Range/Units 09:00 07:17 05:30 WBC (4.5-11.0) 10^3/ul RBC (3.5-6.1) 10^6/uL Hgb (14.0-18.0) gm/dL Hct (42.0-52.0) % MCV (80.0-105.0) fL MCH (25.0-35.0) pg MCHC (31.0-37.0) g/dl RDW (11.5-14.5) % Plt Count (120.0-450.0) 10^3/uL MPV (7.0-11.0) fl Gran % (50.0-68.0) % Lymph % (Auto) (22.0-35.0) % [place] % (Auto) (1.0-6.0) % Eos % (Auto) (1.5-5.0) % Baso % (Auto) (0.0-3.0) % Gran # (1.4-6.5) Lymph # (1.2-3.4) [place] # (0.1-0.6) Eos # (0.0-0.7) Baso # (0.0-2.0) K/mm3 PT (9.9-11.8) Seconds INR (0.93-1.08) APTT (23.7-30.8) Seconds Sodium 133 (132-148) mmol/L Potassium 3.5 L (3.6-5.0) mmol/L Chloride 101 (98-107) mmol/L Carbon Dioxide 24 (21-33) mmol/L Anion Gap 12 (10-20) BUN 6 L (7-21) mg/dL Creatinine 0.8 (0.5-1.4) mg/dL Est GFR ( Amer) > 60 Est GFR (Non-Af Amer) > 60 POC Glucose (mg/dL) 121 H 114 H (65-110) mg/dL Random Glucose 127 H (70-110) mg/dL Lactic Acid (0.7-2.1) mmol/L Calcium 8.0 L (8.4-10.5) mg/dL Phosphorus 2.2 L (2.5-4.5) mg/dL Magnesium 1.7 (1.7-2.2) mg/dL Total Bilirubin 3.6 H (0.2-1.3) mg/dL AST 139 H (15-59) U/L ALT 79 H (7-56) U/L Alkaline Phosphatase 67 (38-133) U/L Total Protein 5.6 L (5.8-8.3) g/dL Albumin 3.4 (3.0-4.8) g/dL Globulin 2.2 gm/dL Albumin/Globulin Ratio 1.5 (1.1-1.8) Triglycerides 691 H (35-160) mg/dL Cholesterol (130-200) mg/dL LDL Cholesterol Direct (0-129) mg/dL HDL Cholesterol (29-60) mg/dL Lipase 1391 H (23-300) U/L 01/22/17 01/22/17 01/22/17 Range/Units 05:06 02:59 01:12 WBC 6.7 D (4.5-11.0) 10^3/ul RBC 4.17 (3.5-6.1) 10^6/uL Hgb 13.4 L (14.0-18.0) gm/dL Hct 37.6 L (42.0-52.0) % MCV 90.2 (80.0-105.0) fL MCH 32.1 (25.0-35.0) pg MCHC 35.6 (31.0-37.0) g/dl RDW 13.8 (11.5-14.5) % Plt Count 51 L (120.0-450.0) 10^3/uL MPV 10.4 (7.0-11.0) fl Gran % 62.0 (50.0-68.0) % Lymph % (Auto) 23.7 (22.0-35.0) % [place] % (Auto) 7.1 H (1.0-6.0) % Eos % (Auto) 6.6 H (1.5-5.0) % Baso % (Auto) 0.6 (0.0-3.0) % Gran # 4.13 (1.4-6.5) Lymph # 1.6 (1.2-3.4) [place] # 0.5 (0.1-0.6) Eos # 0.4 (0.0-0.7) Baso # 0.04 (0.0-2.0) K/mm3 PT 10.5 (9.9-11.8) Seconds INR 0.97 (0.93-1.08) APTT 31.7 H (23.7-30.8) Seconds Sodium 134 134 (132-148) mmol/L Potassium 3.2 L 3.6 (3.6-5.0) mmol/L Chloride 103 104 (98-107) mmol/L Carbon Dioxide 24 25 (21-33) mmol/L Anion Gap 10 9 L (10-20) BUN 8 8 (7-21) mg/dL Creatinine 0.9 0.9 (0.5-1.4) mg/dL Est GFR ( Amer) > 60 > 60 Est GFR (Non-Af Amer) > 60 > 60 POC Glucose (mg/dL) 97 (65-110) mg/dL Random Glucose 97 96 (70-110) mg/dL Lactic Acid 1.1 (0.7-2.1) mmol/L Calcium 7.9 L 8.2 L (8.4-10.5) mg/dL Phosphorus 2.3 L 2.3 L (2.5-4.5) mg/dL Magnesium 1.9 1.9 (1.7-2.2) mg/dL Total Bilirubin 3.6 H 3.7 H (0.2-1.3) mg/dL AST 134 H 147 H (15-59) U/L ALT 82 H 82 H (7-56) U/L Alkaline Phosphatase 69 66 (38-133) U/L Total Protein 5.3 L 5.1 L (5.8-8.3) g/dL Albumin 3.2 3.2 (3.0-4.8) g/dL Globulin 2.1 1.9 gm/dL Albumin/Globulin Ratio 1.5 1.7 (1.1-1.8) Triglycerides 623 H 616 H (35-160) mg/dL Cholesterol 118 L (130-200) mg/dL LDL Cholesterol Direct 33 (0-129) mg/dL HDL Cholesterol 19 L (29-60) mg/dL Lipase 1344 H 1552 H (23-300) U/L 01/22/17 01/22/17 01/21/17 Range/Units 01:11 00:02 23:00 WBC (4.5-11.0) 10^3/ul RBC (3.5-6.1) 10^6/uL Hgb (14.0-18.0) gm/dL Hct (42.0-52.0) % MCV (80.0-105.0) fL MCH (25.0-35.0) pg MCHC (31.0-37.0) g/dl RDW (11.5-14.5) % Plt Count (120.0-450.0) 10^3/uL MPV (7.0-11.0) fl Gran % (50.0-68.0) % Lymph % (Auto) (22.0-35.0) % [place] % (Auto) (1.0-6.0) % Eos % (Auto) (1.5-5.0) % Baso % (Auto) (0.0-3.0) % Gran # (1.4-6.5) Lymph # (1.2-3.4) [place] # (0.1-0.6) Eos # (0.0-0.7) Baso # (0.0-2.0) K/mm3 PT (9.9-11.8) Seconds INR (0.93-1.08) APTT (23.7-30.8) Seconds Sodium (132-148) mmol/L Potassium (3.6-5.0) mmol/L Chloride (98-107) mmol/L Carbon Dioxide (21-33) mmol/L Anion Gap (10-20) BUN (7-21) mg/dL Creatinine (0.5-1.4) mg/dL Est GFR ( Amer) Est GFR (Non-Af Amer) POC Glucose (mg/dL) 94 115 H 115 H (65-110) mg/dL Random Glucose (70-110) mg/dL Lactic Acid (0.7-2.1) mmol/L Calcium (8.4-10.5) mg/dL Phosphorus (2.5-4.5) mg/dL Magnesium (1.7-2.2) mg/dL Total Bilirubin (0.2-1.3) mg/dL AST (15-59) U/L ALT (7-56) U/L Alkaline Phosphatase (38-133) U/L Total Protein (5.8-8.3) g/dL Albumin (3.0-4.8) g/dL Globulin gm/dL Albumin/Globulin Ratio (1.1-1.8) Triglycerides (35-160) mg/dL Cholesterol (130-200) mg/dL LDL Cholesterol Direct (0-129) mg/dL HDL Cholesterol (29-60) mg/dL Lipase (23-300) U/L 01/21/17 01/21/17 01/21/17 Range/Units 21:48 20:58 20:11 WBC (4.5-11.0) 10^3/ul RBC (3.5-6.1) 10^6/uL Hgb (14.0-18.0) gm/dL Hct (42.0-52.0) % MCV (80.0-105.0) fL MCH (25.0-35.0) pg MCHC (31.0-37.0) g/dl RDW (11.5-14.5) % Plt Count (120.0-450.0) 10^3/uL MPV (7.0-11.0) fl Gran % (50.0-68.0) % Lymph % (Auto) (22.0-35.0) % [place] % (Auto) (1.0-6.0) % Eos % (Auto) (1.5-5.0) % Baso % (Auto) (0.0-3.0) % Gran # (1.4-6.5) Lymph # (1.2-3.4) [place] # (0.1-0.6) Eos # (0.0-0.7) Baso # (0.0-2.0) K/mm3 PT (9.9-11.8) Seconds INR (0.93-1.08) APTT (23.7-30.8) Seconds Sodium (132-148) mmol/L Potassium (3.6-5.0) mmol/L Chloride (98-107) mmol/L Carbon Dioxide (21-33) mmol/L Anion Gap (10-20) BUN (7-21) mg/dL Creatinine (0.5-1.4) mg/dL Est GFR ( Amer) Est GFR (Non-Af Amer) POC Glucose (mg/dL) 125 H 127 H 150 H (65-110) mg/dL Random Glucose (70-110) mg/dL Lactic Acid (0.7-2.1) mmol/L Calcium (8.4-10.5) mg/dL Phosphorus (2.5-4.5) mg/dL Magnesium (1.7-2.2) mg/dL Total Bilirubin (0.2-1.3) mg/dL AST (15-59) U/L ALT (7-56) U/L Alkaline Phosphatase (38-133) U/L Total Protein (5.8-8.3) g/dL Albumin (3.0-4.8) g/dL Globulin gm/dL Albumin/Globulin Ratio (1.1-1.8) Triglycerides (35-160) mg/dL Cholesterol (130-200) mg/dL LDL Cholesterol Direct (0-129) mg/dL HDL Cholesterol (29-60) mg/dL Lipase (23-300) U/L 01/21/17 01/21/17 01/21/17 Range/Units 19:55 19:22 17:49 WBC (4.5-11.0) 10^3/ul RBC (3.5-6.1) 10^6/uL Hgb (14.0-18.0) gm/dL Hct (42.0-52.0) % MCV (80.0-105.0) fL MCH (25.0-35.0) pg MCHC (31.0-37.0) g/dl RDW (11.5-14.5) % Plt Count (120.0-450.0) 10^3/uL MPV (7.0-11.0) fl Gran % (50.0-68.0) % Lymph % (Auto) (22.0-35.0) % [place] % (Auto) (1.0-6.0) % Eos % (Auto) (1.5-5.0) % Baso % (Auto) (0.0-3.0) % Gran # (1.4-6.5) Lymph # (1.2-3.4) [place] # (0.1-0.6) Eos # (0.0-0.7) Baso # (0.0-2.0) K/mm3 PT (9.9-11.8) Seconds INR (0.93-1.08) APTT (23.7-30.8) Seconds Sodium 129 L (132-148) mmol/L Potassium 4.0 (3.6-5.0) mmol/L Chloride 97 L (98-107) mmol/L Carbon Dioxide 21 (21-33) mmol/L Anion Gap 15 (10-20) BUN 7 (7-21) mg/dL Creatinine 1.0 (0.5-1.4) mg/dL Est GFR ( Amer) > 60 Est GFR (Non-Af Amer) > 60 POC Glucose (mg/dL) 187 H 144 H (65-110) mg/dL Random Glucose 142 H (70-110) mg/dL Lactic Acid (0.7-2.1) mmol/L Calcium 8.5 (8.4-10.5) mg/dL Phosphorus 1.6 L (2.5-4.5) mg/dL Magnesium 1.7 (1.7-2.2) mg/dL Total Bilirubin 4.8 H (0.2-1.3) mg/dL AST 195 H (15-59) U/L ALT 87 H (7-56) U/L Alkaline Phosphatase 68 (38-133) U/L Total Protein 6.0 (5.8-8.3) g/dL Albumin 3.8 (3.0-4.8) g/dL Globulin 2.2 gm/dL Albumin/Globulin Ratio 1.7 (1.1-1.8) Triglycerides 817 H (35-160) mg/dL Cholesterol (130-200) mg/dL LDL Cholesterol Direct (0-129) mg/dL HDL Cholesterol (29-60) mg/dL Lipase 2201 H (23-300) U/L 01/21/17 01/21/17 01/21/17 Range/Units 16:14 15:35 14:58 WBC (4.5-11.0) 10^3/ul RBC (3.5-6.1) 10^6/uL Hgb (14.0-18.0) gm/dL Hct (42.0-52.0) % MCV (80.0-105.0) fL MCH (25.0-35.0) pg MCHC (31.0-37.0) g/dl RDW (11.5-14.5) % Plt Count (120.0-450.0) 10^3/uL MPV (7.0-11.0) fl Gran % (50.0-68.0) % Lymph % (Auto) (22.0-35.0) % [place] % (Auto) (1.0-6.0) % Eos % (Auto) (1.5-5.0) % Baso % (Auto) (0.0-3.0) % Gran # (1.4-6.5) Lymph # (1.2-3.4) [place] # (0.1-0.6) Eos # (0.0-0.7) Baso # (0.0-2.0) K/mm3 PT (9.9-11.8) Seconds INR (0.93-1.08) APTT (23.7-30.8) Seconds Sodium 129 L (132-148) mmol/L Potassium 3.4 L (3.6-5.0) mmol/L Chloride 96 L (98-107) mmol/L Carbon Dioxide 21 (21-33) mmol/L Anion Gap 15 (10-20) BUN 5 L (7-21) mg/dL Creatinine 0.9 (0.5-1.4) mg/dL Est GFR ( Amer) > 60 Est GFR (Non-Af Amer) > 60 POC Glucose (mg/dL) 107 141 H (65-110) mg/dL Random Glucose 124 H (70-110) mg/dL Lactic Acid (0.7-2.1) mmol/L Calcium 8.9 (8.4-10.5) mg/dL Phosphorus 2.1 L (2.5-4.5) mg/dL Magnesium 1.7 (1.7-2.2) mg/dL Total Bilirubin 4.7 H (0.2-1.3) mg/dL AST 136 H (15-59) U/L ALT 74 H (7-56) U/L Alkaline Phosphatase 49 (38-133) U/L Total Protein 6.0 (5.8-8.3) g/dL Albumin 4.0 (3.0-4.8) g/dL Globulin 2.0 gm/dL Albumin/Globulin Ratio 2.0 H (1.1-1.8) Triglycerides 761 H (35-160) mg/dL Cholesterol (130-200) mg/dL LDL Cholesterol Direct (0-129) mg/dL HDL Cholesterol (29-60) mg/dL Lipase 1070 H (23-300) U/L 01/21/17 01/21/17 01/21/17 Range/Units 13:50 13:23 12:02 WBC (4.5-11.0) 10^3/ul RBC (3.5-6.1) 10^6/uL Hgb (14.0-18.0) gm/dL Hct (42.0-52.0) % MCV (80.0-105.0) fL MCH (25.0-35.0) pg MCHC (31.0-37.0) g/dl RDW (11.5-14.5) % Plt Count (120.0-450.0) 10^3/uL MPV (7.0-11.0) fl Gran % (50.0-68.0) % Lymph % (Auto) (22.0-35.0) % [place] % (Auto) (1.0-6.0) % Eos % (Auto) (1.5-5.0) % Baso % (Auto) (0.0-3.0) % Gran # (1.4-6.5) Lymph # (1.2-3.4) [place] # (0.1-0.6) Eos # (0.0-0.7) Baso # (0.0-2.0) K/mm3 PT (9.9-11.8) Seconds INR (0.93-1.08) APTT (23.7-30.8) Seconds Sodium (132-148) mmol/L Potassium (3.6-5.0) mmol/L Chloride (98-107) mmol/L Carbon Dioxide (21-33) mmol/L Anion Gap (10-20) BUN (7-21) mg/dL Creatinine (0.5-1.4) mg/dL Est GFR ( Amer) Est GFR (Non-Af Amer) POC Glucose (mg/dL) 187 H 136 H 81 (65-110) mg/dL Random Glucose (70-110) mg/dL Lactic Acid (0.7-2.1) mmol/L Calcium (8.4-10.5) mg/dL Phosphorus (2.5-4.5) mg/dL Magnesium (1.7-2.2) mg/dL Total Bilirubin (0.2-1.3) mg/dL AST (15-59) U/L ALT (7-56) U/L Alkaline Phosphatase (38-133) U/L Total Protein (5.8-8.3) g/dL Albumin (3.0-4.8) g/dL Globulin gm/dL Albumin/Globulin Ratio (1.1-1.8) Triglycerides (35-160) mg/dL Cholesterol (130-200) mg/dL LDL Cholesterol Direct (0-129) mg/dL HDL Cholesterol (29-60) mg/dL Lipase (23-300) U/L 01/21/17 01/21/17 01/19/17 Range/Units 11:17 07:12 16:35 WBC (4.5-11.0) 10^3/ul RBC (3.5-6.1) 10^6/uL Hgb (14.0-18.0) gm/dL Hct (42.0-52.0) % MCV (80.0-105.0) fL MCH (25.0-35.0) pg MCHC (31.0-37.0) g/dl RDW (11.5-14.5) % Plt Count (120.0-450.0) 10^3/uL MPV (7.0-11.0) fl Gran % (50.0-68.0) % Lymph % (Auto) (22.0-35.0) % [place] % (Auto) (1.0-6.0) % Eos % (Auto) (1.5-5.0) % Baso % (Auto) (0.0-3.0) % Gran # (1.4-6.5) Lymph # (1.2-3.4) [place] # (0.1-0.6) Eos # (0.0-0.7) Baso # (0.0-2.0) K/mm3 PT (9.9-11.8) Seconds INR (0.93-1.08) APTT (23.7-30.8) Seconds Sodium (132-148) mmol/L Potassium (3.6-5.0) mmol/L Chloride (98-107) mmol/L Carbon Dioxide (21-33) mmol/L Anion Gap (10-20) BUN (7-21) mg/dL Creatinine (0.5-1.4) mg/dL Est GFR ( Amer) Est GFR (Non-Af Amer) POC Glucose (mg/dL) 90 86 109 (65-110) mg/dL Random Glucose (70-110) mg/dL Lactic Acid (0.7-2.1) mmol/L Calcium (8.4-10.5) mg/dL Phosphorus (2.5-4.5) mg/dL Magnesium (1.7-2.2) mg/dL Total Bilirubin (0.2-1.3) mg/dL AST (15-59) U/L ALT (7-56) U/L Alkaline Phosphatase (38-133) U/L Total Protein (5.8-8.3) g/dL Albumin (3.0-4.8) g/dL Globulin gm/dL Albumin/Globulin Ratio (1.1-1.8) Triglycerides (35-160) mg/dL Cholesterol (130-200) mg/dL LDL Cholesterol Direct (0-129) mg/dL HDL Cholesterol (29-60) mg/dL Lipase (23-300) U/L 01/19/17 Range/Units 15:43 WBC (4.5-11.0) 10^3/ul RBC (3.5-6.1) 10^6/uL Hgb (14.0-18.0) gm/dL Hct (42.0-52.0) % MCV (80.0-105.0) fL MCH (25.0-35.0) pg MCHC (31.0-37.0) g/dl RDW (11.5-14.5) % Plt Count (120.0-450.0) 10^3/uL MPV (7.0-11.0) fl Gran % (50.0-68.0) % Lymph % (Auto) (22.0-35.0) % [place] % (Auto) (1.0-6.0) % Eos % (Auto) (1.5-5.0) % Baso % (Auto) (0.0-3.0) % Gran # (1.4-6.5) Lymph # (1.2-3.4) [place] # (0.1-0.6) Eos # (0.0-0.7) Baso # (0.0-2.0) K/mm3 PT (9.9-11.8) Seconds INR (0.93-1.08) APTT (23.7-30.8) Seconds Sodium (132-148) mmol/L Potassium (3.6-5.0) mmol/L Chloride (98-107) mmol/L Carbon Dioxide (21-33) mmol/L Anion Gap (10-20) BUN (7-21) mg/dL Creatinine (0.5-1.4) mg/dL Est GFR ( Amer) Est GFR (Non-Af Amer) POC Glucose (mg/dL) 162 H (65-110) mg/dL Random Glucose (70-110) mg/dL Lactic Acid (0.7-2.1) mmol/L Calcium (8.4-10.5) mg/dL Phosphorus (2.5-4.5) mg/dL Magnesium (1.7-2.2) mg/dL Total Bilirubin (0.2-1.3) mg/dL AST (15-59) U/L ALT (7-56) U/L Alkaline Phosphatase (38-133) U/L Total Protein (5.8-8.3) g/dL Albumin (3.0-4.8) g/dL Globulin gm/dL Albumin/Globulin Ratio (1.1-1.8) Triglycerides (35-160) mg/dL Cholesterol (130-200) mg/dL LDL Cholesterol Direct (0-129) mg/dL HDL Cholesterol (29-60) mg/dL Lipase (23-300) U/L Laboratory Results - last 24 hr 01/19/17 01/19/17 01/21/17 15:43 16:35 07:12 WBC RBC Hgb Hct MCV MCH MCHC RDW Plt Count MPV Gran % Lymph % (Auto) [place] % (Auto) Eos % (Auto) Baso % (Auto) Gran # Lymph # [place] # Eos # Baso # PT INR APTT Sodium Potassium Chloride Carbon Dioxide Anion Gap BUN Creatinine Est GFR ( Amer) Est GFR (Non-Af Amer) POC Glucose (mg/dL) 162 H 109 86 Random Glucose Lactic Acid Calcium Phosphorus Magnesium Total Bilirubin AST ALT Alkaline Phosphatase Total Protein Albumin Globulin Albumin/Globulin Ratio Triglycerides Cholesterol LDL Cholesterol Direct HDL Cholesterol Lipase 01/21/17 01/21/17 01/21/17 11:17 12:02 13:23 WBC RBC Hgb Hct MCV MCH MCHC RDW Plt Count MPV Gran % Lymph % (Auto) [place] % (Auto) Eos % (Auto) Baso % (Auto) Gran # Lymph # [place] # Eos # Baso # PT INR APTT Sodium Potassium Chloride Carbon Dioxide Anion Gap BUN Creatinine Est GFR ( Amer) Est GFR (Non-Af Amer) POC Glucose (mg/dL) 90 81 136 H Random Glucose Lactic Acid Calcium Phosphorus Magnesium Total Bilirubin AST ALT Alkaline Phosphatase Total Protein Albumin Globulin Albumin/Globulin Ratio Triglycerides Cholesterol LDL Cholesterol Direct HDL Cholesterol Lipase 01/21/17 01/21/17 01/21/17 13:50 14:58 15:35 WBC RBC Hgb Hct MCV MCH MCHC RDW Plt Count MPV Gran % Lymph % (Auto) [place] % (Auto) Eos % (Auto) Baso % (Auto) Gran # Lymph # [place] # Eos # Baso # PT INR APTT Sodium 129 L Potassium 3.4 L Chloride 96 L Carbon Dioxide 21 Anion Gap 15 BUN 5 L Creatinine 0.9 Est GFR ( Amer) > 60 Est GFR (Non-Af Amer) > 60 POC Glucose (mg/dL) 187 H 141 H Random Glucose 124 H Lactic Acid Calcium 8.9 Phosphorus 2.1 L Magnesium 1.7 Total Bilirubin 4.7 H AST 136 H ALT 74 H Alkaline Phosphatase 49 Total Protein 6.0 Albumin 4.0 Globulin 2.0 Albumin/Globulin Ratio 2.0 H Triglycerides 761 H Cholesterol LDL Cholesterol Direct HDL Cholesterol Lipase 1070 H 01/21/17 01/21/17 01/21/17 16:14 17:49 19:22 WBC RBC Hgb Hct MCV MCH MCHC RDW Plt Count MPV Gran % Lymph % (Auto) [place] % (Auto) Eos % (Auto) Baso % (Auto) Gran # Lymph # [place] # Eos # Baso # PT INR APTT Sodium Potassium Chloride Carbon Dioxide Anion Gap BUN Creatinine Est GFR ( Amer) Est GFR (Non-Af Amer) POC Glucose (mg/dL) 107 144 H 187 H Random Glucose Lactic Acid Calcium Phosphorus Magnesium Total Bilirubin AST ALT Alkaline Phosphatase Total Protein Albumin Globulin Albumin/Globulin Ratio Triglycerides Cholesterol LDL Cholesterol Direct HDL Cholesterol Lipase 01/21/17 01/21/17 01/21/17 19:55 20:11 20:58 WBC RBC Hgb Hct MCV MCH MCHC RDW Plt Count MPV Gran % Lymph % (Auto) [place] % (Auto) Eos % (Auto) Baso % (Auto) Gran # Lymph # [place] # Eos # Baso # PT INR APTT Sodium 129 L Potassium 4.0 Chloride 97 L Carbon Dioxide 21 Anion Gap 15 BUN 7 Creatinine 1.0 Est GFR ( Amer) > 60 Est GFR (Non-Af Amer) > 60 POC Glucose (mg/dL) 150 H 127 H Random Glucose 142 H Lactic Acid Calcium 8.5 Phosphorus 1.6 L Magnesium 1.7 Total Bilirubin 4.8 H AST 195 H ALT 87 H Alkaline Phosphatase 68 Total Protein 6.0 Albumin 3.8 Globulin 2.2 Albumin/Globulin Ratio 1.7 Triglycerides 817 H Cholesterol LDL Cholesterol Direct HDL Cholesterol Lipase 2201 H 01/21/17 01/21/17 01/22/17 21:48 23:00 00:02 WBC RBC Hgb Hct MCV MCH MCHC RDW Plt Count MPV Gran % Lymph % (Auto) [place] % (Auto) Eos % (Auto) Baso % (Auto) Gran # Lymph # [place] # Eos # Baso # PT INR APTT Sodium Potassium Chloride Carbon Dioxide Anion Gap BUN Creatinine Est GFR ( Amer) Est GFR (Non-Af Amer) POC Glucose (mg/dL) 125 H 115 H 115 H Random Glucose Lactic Acid Calcium Phosphorus Magnesium Total Bilirubin AST ALT Alkaline Phosphatase Total Protein Albumin Globulin Albumin/Globulin Ratio Triglycerides Cholesterol LDL Cholesterol Direct HDL Cholesterol Lipase 01/22/17 01/22/17 01/22/17 01:11 01:12 02:59 WBC RBC Hgb Hct MCV MCH MCHC RDW Plt Count MPV Gran % Lymph % (Auto) [place] % (Auto) Eos % (Auto) Baso % (Auto) Gran # Lymph # [place] # Eos # Baso # PT INR APTT Sodium 134 Potassium 3.6 Chloride 104 Carbon Dioxide 25 Anion Gap 9 L BUN 8 Creatinine 0.9 Est GFR ( Amer) > 60 Est GFR (Non-Af Amer) > 60 POC Glucose (mg/dL) 94 97 Random Glucose 96 Lactic Acid Calcium 8.2 L Phosphorus 2.3 L Magnesium 1.9 Total Bilirubin 3.7 H AST 147 H ALT 82 H Alkaline Phosphatase 66 Total Protein 5.1 L Albumin 3.2 Globulin 1.9 Albumin/Globulin Ratio 1.7 Triglycerides 616 H Cholesterol LDL Cholesterol Direct HDL Cholesterol Lipase 1552 H 01/22/17 01/22/17 01/22/17 05:06 05:30 07:17 WBC 6.7 D RBC 4.17 Hgb 13.4 L Hct 37.6 L MCV 90.2 MCH 32.1 MCHC 35.6 RDW 13.8 Plt Count 51 L MPV 10.4 Gran % 62.0 Lymph % (Auto) 23.7 [place] % (Auto) 7.1 H Eos % (Auto) 6.6 H Baso % (Auto) 0.6 Gran # 4.13 Lymph # 1.6 [place] # 0.5 Eos # 0.4 Baso # 0.04 PT 10.5 INR 0.97 APTT 31.7 H Sodium 134 Potassium 3.2 L Chloride 103 Carbon Dioxide 24 Anion Gap 10 BUN 8 Creatinine 0.9 Est GFR ( Amer) > 60 Est GFR (Non-Af Amer) > 60 POC Glucose (mg/dL) 114 H 121 H Random Glucose 97 Lactic Acid 1.1 Calcium 7.9 L Phosphorus 2.3 L Magnesium 1.9 Total Bilirubin 3.6 H AST 134 H ALT 82 H Alkaline Phosphatase 69 Total Protein 5.3 L Albumin 3.2 Globulin 2.1 Albumin/Globulin Ratio 1.5 Triglycerides 623 H Cholesterol 118 L LDL Cholesterol Direct 33 HDL Cholesterol 19 L Lipase 1344 H 01/22/17 01/22/17 01/22/17 09:00 10:01 11:16 WBC RBC Hgb Hct MCV MCH MCHC RDW Plt Count MPV Gran % Lymph % (Auto) [place] % (Auto) Eos % (Auto) Baso % (Auto) Gran # Lymph # [place] # Eos # Baso # PT INR APTT Sodium 133 Potassium 3.5 L Chloride 101 Carbon Dioxide 24 Anion Gap 12 BUN 6 L Creatinine 0.8 Est GFR ( Amer) > 60 Est GFR (Non-Af Amer) > 60 POC Glucose (mg/dL) 133 H 121 H Random Glucose 127 H Lactic Acid Calcium 8.0 L Phosphorus 2.2 L Magnesium 1.7 Total Bilirubin 3.6 H AST 139 H ALT 79 H Alkaline Phosphatase 67 Total Protein 5.6 L Albumin 3.4 Globulin 2.2 Albumin/Globulin Ratio 1.5 Triglycerides 691 H Cholesterol LDL Cholesterol Direct HDL Cholesterol Lipase 1391 H 01/22/17 01/22/17 01/22/17 12:22 12:32 13:07 WBC RBC Hgb Hct MCV MCH MCHC RDW Plt Count MPV Gran % Lymph % (Auto) [place] % (Auto) Eos % (Auto) Baso % (Auto) Gran # Lymph # [place] # Eos # Baso # PT INR APTT Sodium Potassium Chloride Carbon Dioxide Anion Gap BUN Creatinine Est GFR ( Amer) Est GFR (Non-Af Amer) POC Glucose (mg/dL) 178 H 114 H Random Glucose Lactic Acid Calcium Phosphorus Magnesium Total Bilirubin AST ALT Alkaline Phosphatase Total Protein Albumin Globulin Albumin/Globulin Ratio Triglycerides 814 H Cholesterol LDL Cholesterol Direct HDL Cholesterol Lipase 1411 H 01/22/17 14:04 WBC RBC Hgb Hct MCV MCH MCHC RDW Plt Count MPV Gran % Lymph % (Auto) [place] % (Auto) Eos % (Auto) Baso % (Auto) Gran # Lymph # [place] # Eos # Baso # PT INR APTT Sodium Potassium Chloride Carbon Dioxide Anion Gap BUN Creatinine Est GFR ( Amer) Est GFR (Non-Af Amer) POC Glucose (mg/dL) 104 Random Glucose Lactic Acid Calcium Phosphorus Magnesium Total Bilirubin AST ALT Alkaline Phosphatase Total Protein Albumin Globulin Albumin/Globulin Ratio Triglycerides Cholesterol LDL Cholesterol Direct HDL Cholesterol Lipase Critical Care Progress Note - Nutrition Nutrition: Nutrition Category Date Time Status Heart Healthy Diet [DIET] Diets 01/21/17 Dinner Ordered Attending/Attestation - Attestation I have personally seen and examined this patient.: Yes I have fully participated in the care of the patient.: Yes I have reviewed all pertinent clinical information: Yes Notes (Text): 01/22/17 14:09 The patient was seen and examined at the bedside. Patient care was discussed with resident Medical records, lab studies, and imaging were reviewed and management issues were discussed and formulated. Last 24H events reviewed. Agree with above treatment plans as outlined in 's note with addition of the following: -continue hemodynamic monitoring to maintain MAP>65; currently stable -continue norvasc and metoprolol -o2 supplementation to maintain Spo2 90-92 Pao2>60; currently comfortable on NC -monitor fever and WBC, off Abx at this time -f\u Bun\Cr and U\o -Monitor and replace e-lites -PO diet and aspiration precautions -f\u Trigliceride levels -continue gemfibrozil -continue insulin drip and D5w, monitor BGM Q1h -d\c insulin drip once Trig level <500 -f\u lipase; pt clinically improved and tolerating diet -GI team following -DVT \ PUD prophylaxis CCM f\u 35min
[2017-01-22] MEDS ORDERED: Sodium Chloride 0.9% 1,000 ML IV SCH (12:30)
[2017-01-22] MEDS ORDERED: Potassium Chloride 40 mEq/30 ml LIQ UD PO ONE (12:44)
[2017-01-22 12:45] LABS: LIPASE 1411 U/L (23-300)
[2017-01-22] MEDS ORDERED: Magnesium Sulfate 2 GM in Sodium Chloride 0.9% 100 ML IVPB ONE (12:46)
--- NOTE | 2017-01-22 13:04 | PN ---
DATE: 01/22/2017 The patient is a 51-year-old male with essentially negative past medical history who presented to the [facility] Emergency Room on 01/19 complaining of upper gastrointestinal sympto ms and reflux. He was diagnosed with acute severe pancreatitis and was admitted to the intensive car e unit. The patient is known to have a history of hyperlipidemia. He also has a history of drinking at least 2 bottles of wine per day, perhaps a few other alcoholic drinks in between. When seen toriay zapata, the patient is in the intensive care unit. He is out of bed, sitting in a bedside chair. He just had a healthy bowel movement. He is awake, alert, and oriented. He claims he finished his lunch me al and is tolerating it well. He is being followed by Dr. Regan, the senior research analyst. CURRENT MEDICATIONS: Include Ativan 1 mg intravenously every 3 hours as needed, folic acid 1 mg tri y, heparin 5000 units subcutaneously, his fingerstick glucoses are being covered with regular insulin on a sliding scale. He is receiving Librium 10 mg q. 8 hours, Lopid 600 mg twice a day, Lopressor 5 mg intravenously q. 6 hours, Norvasc 5 mg daily, Protonix 40 mg daily, thiamine 100 mg daily. PHYSICAL EXAMINATION: LUNGS: Clear. HEART: Regular. ABDOMEN: Soft and nontender. LABORATORY DATA: This morning laboratory studies show the white blood cell count is 6.7, hemoglobin and hematocrit are 13.4 and 37.6 respectively, platelet count is depressed at 51. Sodium is 134, pot assium 3.2, BUN and creatinine are 8 and 0.9 respectively. Blood pressure is 140/88. His heart rate is 88 beats per minute and he is afebrile. He does note some tremors in his hands when holding them extended. His total bilirubin is down to 3.6. AST and ALT are 134 and 82 respectively, which is sl ightly decreased from the past. So we are continuing with the patient's current regimen. He will probably be discharged out of the i ntensive care unit to a medical floor later today where we will continue to follow him closely. Dwayne Gay MD cc: [id number] TT: 01/22/2017 13:04:04 Confirmation # [id number] Dictation # [id number] rn
[2017-01-22] MEDS: Potassium Chloride 10 mEq 100 ML IVPB SCH ×2 (14:03→16:48)
--- NOTE | 2017-01-22 14:11 | PN ---
DATE: 01/22/2017 Seen and examined at the bedside earlier today. The patient's diet advanced and tolerating. He had a formed bowel movement yesterday. No reports of any melena or bright red blood per rectum. He is f eeling less abdominal discomfort. No shortness of breath or chest pain. No acute overnight events r eported. VITAL SIGNS: Temperature is 98, his blood pressure is 147/95, respirations 23, 98% on room air, puls e 101. LABORATORIES: Sodium is 133, K is 3.5, BUN is 6, creatinine 0.8, mag 1.7, total bilirubin 3.6, AST 1 39, ALT is 79. Total bilirubin is improving. Triglycerides 691. The lipase is 1391, PHYSICAL EXAMINATION: HEENT: Sclera is . NECK: Supple. CARDIAC: S1, S2. LUNG SOUNDS: Clear. ABDOMEN: With bowel sounds, soft. Appears less distended and nontender on palpation. No organomega ly. EXTREMITIES: No edema. ASSESSMENT: This is a 51-year-old male with history of hypertension and history of increased alcohol intake, comes with complaints of abdominal discomfort and generalized weakness, found to have hypert riglyceridemia, it was greater than 5000 with pancreatitis. The patient had undergone [address] asmapheresis. The patient is noted to have elevated LFTs and bilirubin, which has shown some improve ment. He has elevated AST, ALT, may be secondary to alcoholic hepatitis. The patient's lipase did i mprove, but he did start on solids yesterday. The patient is not symptomatic, no pain. He did have a CT scan of abdomen and pelvis, which showed some peripancreatic fat at the head of the pancreas, li elmer mild pancreatitis and hepatomegaly, hepatic steatosis. Abdominal ultrasound was negative, no ac marlene findings. PLAN: Monitor liver enzymes, monitor for alcohol withdrawal symptoms, no tremors today. He is on Li brium. He is also on deep venous thrombosis prophylaxis, heparin. He is on folic acid and thiamine, is on PPI, Protonix. He is also on insulin drip, on Lopid, getting calcium replacement for hypocalc emia. As per renal and ICU team. The patient is also noted to have thrombocytopenia. Request for m anual platelet count. PT/INR are stable. The patient was seen and case discussed with Dr. Regan. Arlette BERG cc: [id number] TT: 01/22/2017 14:10:58 Confirmation # [id number] Dictation # [id number]
[2017-01-22 14:13] LABS: ALB/GLOB RATIO 1.5 (1.1-1.8); ALKALINE PHOSPHATASE 96 U/L (38-133); ALT/SGPT 99 U/L (7-56); AST/SGOT 191 U/L (15-59); BLOOD UREA NITROGEN 6 mg/dL (7-21); CALCIUM 8.3 mg/dL (8.4-10.5); CARBON DIOXIDE 27 mmol/L (21-33); CHLORIDE 96 mmol/L (98-107); GFR AFRICAN-AMERICAN > 60; GLUCOSE,RANDOM 119 mg/dL (70-110); POTASSIUM 3.7 mmol/L (3.6-5.0); SODIUM 131 mmol/L (132-148); TOTAL PROTEIN 6.2 g/dL (5.8-8.3)
[2017-01-22 15:59] LABS: ALB/GLOB RATIO 1.4 (1.1-1.8); ALKALINE PHOSPHATASE 85 U/L (38-133); ALT/SGPT 105 U/L (7-56); AST/SGOT 200 U/L (15-59); BILIRUBIN,TOTAL 3.5 mg/dL (0.2-1.3); BLOOD UREA NITROGEN 7 mg/dL (7-21); CALCIUM 8.6 mg/dL (8.4-10.5); CARBON DIOXIDE 27 mmol/L (21-33); CHLORIDE 100 mmol/L (98-107); GFR AFRICAN-AMERICAN > 60; GLUCOSE,RANDOM 106 mg/dL (70-110); LIPASE 1391 U/L (23-300); MAGNESIUM 1.8 mg/dL (1.7-2.2); PHOSPHOROUS 2.1 mg/dL (2.5-4.5); POTASSIUM 4.5 mmol/L (3.6-5.0); SODIUM 131 mmol/L (132-148); TOTAL PROTEIN 5.8 g/dL (5.8-8.3)
[2017-01-23 06:53] LABS: ADD MANUAL DIFF? NO
[2017-01-23 06:58] LABS: BASO # 0.05 K/mm3 (0.0-2.0); BASO % 0.8 % (0.0-3.0); EOS # 0.3 (0.0-0.7); EOS % 4.8 % (1.5-5.0); GRAN # 4.16 (1.4-6.5); GRAN % 66.6 % (50.0-68.0); HEMATOCRIT 36.6 % (42.0-52.0); LYMPH # 1.4 (1.2-3.4); MEAN CELL VOLUME 92.9 fL (80.0-105.0); MEAN CORPUSCULAR HEMOGLOBIN 32.2 pg (25.0-35.0); MEAN CORPUSCULAR HGB CONC 34.7 g/dl (31.0-37.0); MEAN PLATELET VOLUME 10.5 fl (7.0-11.0); MONO # 0.4 (0.1-0.6); MONO % 5.8 % (1.0-6.0); PLATELET COUNT 60 10^3/uL (120.0-450.0); RED CELL DISTRIBUTION WIDTH 13.9 % (11.5-14.5); WHITE BLOOD COUNT 6.2 10^3/ul (4.5-11.0)
[2017-01-23 07:08] LABS: ALB/GLOB RATIO 1.4 (1.1-1.8); ALKALINE PHOSPHATASE 89 U/L (38-133); ALT/SGPT 111 U/L (7-56); AST/SGOT 157 U/L (15-59); BILIRUBIN,TOTAL 2.6 mg/dL (0.2-1.3); BLOOD UREA NITROGEN 8 mg/dL (7-21); CALCIUM 8.4 mg/dL (8.4-10.5); CARBON DIOXIDE 27 mmol/L (21-33); CHLORIDE 103 mmol/L (98-107); CHOLESTEROL 169 mg/dL (130-200); GFR AFRICAN-AMERICAN > 60; GLUCOSE,RANDOM 80 mg/dL (70-110); INR 0.92 (0.93-1.08); LIPASE 756 U/L (23-300); MAGNESIUM 2.2 mg/dL (1.7-2.2); POTASSIUM 3.9 mmol/L (3.6-5.0); SODIUM 136 mmol/L (132-148); TOTAL PROTEIN 5.9 g/dL (5.8-8.3)
--- NOTE | 2017-01-23 07:24 | CP.PCM.PN ---
Subjective - Date & Time of Evaluation Date of Evaluation: 01/22/17 Time of Evaluation: 10:30 - Subjective Subjective: Patient reports tolerating diet well; denies any abd pain; ambulating without difficulty; still mildly tremulous; Objective - Vital Signs/Intake and Output Vital Signs (last 24 hours): Temp Pulse Resp BP Pulse Ox 98.9 F 90 16 134/87 96 01/22/17 16:00 01/23/17 07:00 01/23/17 07:00 01/23/17 07:00 01/23/17 07:00 - Medications Medications: Current Medications Amlodipine Besylate (Norvasc) 5 mg PO DAILY [facility] Last Admin: 01/22/17 09:37 Dose: 5 mg Chlordiazepoxide (Librium) 10 mg PO Q8 LENKA PRN Reason: Protocol Last Admin: 01/23/17 06:16 Dose: 10 mg Folic Acid (Folic Acid) 1 mg PO DAILY [facility] Last Admin: 01/22/17 09:37 Dose: 1 mg Gemfibrozil (Lopid) 600 mg PO BID [facility] Last Admin: 01/22/17 18:49 Dose: 600 mg Heparin Sodium (Porcine) (Heparin) 5,000 units SC Q8 LENKA PRN Reason: Protocol Last Admin: 01/23/17 06:16 Dose: 5,000 units Insulin Human Regular 100 (units/ Sodium Chloride) 100 mls @ 0.2 mls/hr IV .Q24H LENKA; 0.2 UNITS/HR PRN Reason: Protocol Last Titration: 01/22/17 06:02 Dose: 0.5 units/hr Sodium Chloride (Sodium Chloride 0.9%) 1,000 mls @ 150 mls/hr IV .Q6H40M [facility] Last Admin: 01/22/17 12:42 Dose: 150 mls/hr Lorazepam (Ativan) 1 mg IVP Q3H PRN; Protocol PRN Reason: Withdrawal Last Admin: 01/21/17 12:20 Dose: 1 mg Metoprolol Tartrate (Lopressor) 5 mg IVP Q6 PRN PRN Reason: SBP >= 180 Last Admin: 01/21/17 13:27 Dose: 5 mg Pantoprazole Sodium (Protonix Ec Tab) 40 mg PO ACB [facility] Last Admin: 01/22/17 09:37 Dose: 40 mg Potassium Chloride (Potassium Chloride Oral Soln) 40 meq PO DAILY [facility] Thiamine HCl (Vitamin B1 Tab) 100 mg PO DAILY [facility] Last Admin: 01/22/17 09:37 Dose: 100 mg - Labs Labs: 01/23/17 05:30 01/22/17 15:25 PT 9.9 Seconds (9.9-11.8) 01/23/17 05:30 INR 0.92 (0.93-1.08) L 01/23/17 05:30 APTT 25.0 Seconds (23.7-30.8) 01/23/17 05:30 - Constitutional Appears: Well, No Acute Distress - Head Exam Head Exam: NORMAL INSPECTION - Eye Exam Eye Exam: Normal appearance - ENT Exam ENT Exam: Mucous Membranes Moist - Neck Exam Neck Exam: Normal Inspection - Respiratory Exam Respiratory Exam: Clear to Ausculation Bilateral, NORMAL BREATHING PATTERN. absent: Rales, Rhonchi, Wheezes - Cardiovascular Exam Cardiovascular Exam: RRR, +S1, +S2. absent: JVD - GI/Abdominal Exam GI & Abdominal Exam: Soft. absent: Distended, Tenderness - Extremities Exam Extremities Exam: Normal Inspection Additional comments: No leg edema - Neurological Exam Neurological Exam: Alert, Awake Additional comments: Mild tremor of outstretched hands; - Psychiatric Exam Psychiatric exam: Normal Affect, Normal Mood. absent: Anxious - Skin Skin Exam: Normal Color, Warm Assessment and Plan (1) Alcohol withdrawal Assessment & Plan: Relatively mild; has not shown any signs of delirium; improving on librium taper ; was likely contributing to markedly elevated htn; -continue librium taper Status: Acute (2) Hypertriglyceridemia Assessment & Plan: Severe, rapid improvement s/p 2 sessions of plasma exchange (1 plasma volume exchanged with 5% albumin solution each time); plasma exchange done to avoid exacerbating acute pancreatitis; triglyceride levels still modestly elevated; -agree with continuing insulin drip until triglyceride levels decrease to under 500 mg/dL -continue gemfibrozil 600 mg PO bid -patient again counseled on the need for ETOH abstinence Status: Acute (3) Pancreatitis Assessment & Plan: Secondary to hypertriglyceridemia and etoh abuse, clinically improved; -continue IVF to avoid volume depletion Status: Acute (4) HTN (hypertension) Assessment & Plan: Improved, started on norvasc 5 yesterday although improvement reflects resolvibg etoh withdrawal rather than the effect of norvasc which takes several days to have significant effect; continue same Status: Acute (5) Hypocalcemia Assessment & Plan: Secondary to chelation from citrate used in anticoagulation during pheresis; monitor Status: Acute (6) Thrombocytopenia Assessment & Plan: Likely from etoh abuse, checking HIT Ab; Status: Acute
[2017-01-23] MEDS: Pantoprazole 40 mg EC Tab PO SCH (08:00)
[2017-01-23] MEDS ORDERED: Insulin Regular 100 UNITS in Sodium Chloride 0.9% 99 ML IV SCH (09:04)
[2017-01-23] MEDS ORDERED: Potassium Chloride 40 mEq/30 ml LIQ UD PO SCH (10:00)
--- NOTE | 2017-01-23 11:06 | CP.CCUPN ---
<Azalea Wong - Last Filed: 01/23/17 12:04> CCU Subjective - Physician Review Subjective (Free Text): 01/23/17 11:05 Today is hospital day 5. S/p 2x pheresis. No tremors or agitations overnight. Denies chest pain, shortness of breath, abdominal pain, or weakness. CCU Objective - Vital Signs / Intake & Output Vital Signs (Last 4 hours): Vital Signs Temp Pulse Resp BP Pulse Ox 01/23/17 09:08 107 H 121/69 01/23/17 08:33 115 H 01/23/17 08:00 98.4 F 97 H 17 138/80 96 01/23/17 07:49 101 H 95 Intake and Output (Last 8hrs): Intake & Output 01/22/17 01/23/17 01/23/17 22:59 06:59 14:59 Intake Total 3956 2806 Output Total 1999 2200 Balance 1956 606 Intake: IV 2556 1806 Left Forearm 1800 1800 lh 750 thierno 6 6 Oral 900 500 Other 500 500 Output: Urine 1999 2200 Urine, Voided 1999 2200 Oral Regurgitation 0 Other: Voiding Method Urinal # Bowel Movements 1 1 - Physical Exam Head: Positive for: Atraumatic, Normocephalic. Negative for: Contusion, Swelling, Ecchymosis, Abrasion, Laceration Pupils: Positive for: PERRL. Negative for: Sluggish, Non-Reactive Extroacular Muscles: Positive for: EOMI. Negative for: Gaze Palsy, Entrapment Conjunctiva: Positive for: Icteric. Negative for: Normal, Injected Mouth: Positive for: Moist Mucous Membranes, Normal Tounge, Normal Teeth, Other (no tongue fasciculations). Negative for: Dry Pharnyx: Positive for: Normal. Negative for: Uvular Deviation Nose (External): Positive for: Atraumatic. Negative for: Abrasion, Contusion, Laceration Neck: Positive for: Normal Range of Motion, Trachea Midline. Negative for: Meningeal Signs, JVD, Lymphadenopathy Respiratory/Chest: Positive for: Clear to Auscultation, Good Air Exchange. Negative for: Respiratory Distress, Accessory Muscle Use, Wheezes, Decreased Breath Sounds, Rales, Retracting, Rhonchi, Tachypneic, Tender to Palpation Cardiovascular: Positive for: Normal S1, S2, Tachycardic. Negative for: Regular Rate and Rhythm (regular rhythm, rapid rate), Murmurs, Irregular Rhythm , Bradycardic Abdomen: Positive for: Distention (unclear if distention vs obseity), Normal Bowel Sounds, Mass/Organomegaly (hepatomegaly), Other (firm but not rigid abdomen). Negative for: Tenderness, Peritoneal Signs, Rebound, Guarding Back: Negative for: CVA Tenderness Upper Extremity: Positive for: Normal Inspection, Normal ROM, NORMAL PULSES, Other (mild tremor in upper extremities at rest and with movement, but purposful activities intact, able to feed himself without overt difficulty). Negative for: Cyanosis, Edema, Tenderness, Swelling, Erythema, Deformity Lower Extremity: Positive for: Normal Inspection, NORMAL PULSES, Normal ROM, Other (no tremors at rest or with movement). Negative for: Edema, CALF TENDERNESS, Cyanosis, Tenderness, Swelling, Erythema, Deformity Neurological: Positive for: GCS=15, CN II-XII Intact, Speech Normal, Motor Func Grossly Intact, Normal Sensory Function, Other (mild hand tremors, otherwise unremarkable) Skin: Positive for: Warm, Dry, Normal Color. Negative for: Rashes, Diaphoretic , Erythematous, Laceration, Abrasion Psychiatric: Positive for: Alert, Oriented x 3, Normal Insight, Normal Concentration, Normal Affect, Normal Mood. Negative for: Anxious, Agitated - Medications Active Medications: Active Medications Generic Name Dose Route Start Last Admin Trade Name Freq PRN Reason Stop Dose Admin Amlodipine Besylate 5 mg 01/21/17 12:00 01/23/17 09:08 Norvasc PO 5 mg DAILY JHON Administration Chlordiazepoxide 10 mg 01/20/17 22:45 01/23/17 06:16 Librium PO 10 mg Q8 JHON Administration Protocol Folic Acid 1 mg 01/21/17 10:00 01/22/17 09:37 Folic Acid PO 1 mg DAILY JHON Administration Gemfibrozil 600 mg 01/21/17 18:00 01/23/17 09:07 Lopid PO 600 mg BID JHON Administration Dextrose 1,000 mls @ 100 mls/hr 01/23/17 08:00 01/23/17 08:00 Dextrose 5% In Water 1000 Ml IV 100 mls/hr .Q10H JHON Administration Insulin Human Regular 100 100 mls @ 1 mls/hr 01/23/17 09:04 units/ Sodium Chloride IV .Q24H JHON 1 UNITS/HR Lorazepam 1 mg 01/19/17 19:03 01/21/17 12:20 Ativan IVP 1 mg Q3H PRN Administration Withdrawal Protocol Pantoprazole Sodium 40 mg 01/22/17 07:30 01/23/17 08:00 Protonix Ec Tab PO 40 mg ACB JHON Administration Potassium Chloride 40 meq 01/23/17 10:00 01/23/17 09:09 Potassium Chloride Oral Soln PO 40 meq DAILY JHON Administration Thiamine HCl 100 mg 01/21/17 10:00 01/23/17 09:07 Vitamin B1 Tab PO 100 mg DAILY JHON Administration - Patient Studies Lab Studies: Lab Studies 01/23/17 01/23/17 01/23/17 Range/Units 10:54 09:54 09:00 WBC (4.5-11.0) 10^3/ul RBC (3.5-6.1) 10^6/uL Hgb (14.0-18.0) gm/dL Hct (42.0-52.0) % MCV (80.0-105.0) fL MCH (25.0-35.0) pg MCHC (31.0-37.0) g/dl RDW (11.5-14.5) % Plt Count (120.0-450.0) 10^3/uL Manual Plt Count (120-450) K/mm3 MPV (7.0-11.0) fl Gran % (50.0-68.0) % Lymph % (Auto) (22.0-35.0) % [place] % (Auto) (1.0-6.0) % Eos % (Auto) (1.5-5.0) % Baso % (Auto) (0.0-3.0) % Gran # (1.4-6.5) Lymph # (1.2-3.4) [place] # (0.1-0.6) Eos # (0.0-0.7) Baso # (0.0-2.0) K/mm3 PT (9.9-11.8) Seconds INR (0.93-1.08) APTT (23.7-30.8) Seconds Sodium (132-148) mmol/L Potassium (3.6-5.0) mmol/L Chloride (98-107) mmol/L Carbon Dioxide (21-33) mmol/L Anion Gap (10-20) BUN (7-21) mg/dL Creatinine (0.5-1.4) mg/dL Est GFR ( Amer) Est GFR (Non-Af Amer) POC Glucose (mg/dL) 141 H 172 H 138 H (65-110) mg/dL Random Glucose (70-110) mg/dL Lactic Acid (0.7-2.1) mmol/L Calcium (8.4-10.5) mg/dL Phosphorus (2.5-4.5) mg/dL Magnesium (1.7-2.2) mg/dL Total Bilirubin (0.2-1.3) mg/dL AST (15-59) U/L ALT (7-56) U/L Alkaline Phosphatase (38-133) U/L Total Protein (5.8-8.3) g/dL Albumin (3.0-4.8) g/dL Globulin gm/dL Albumin/Globulin Ratio (1.1-1.8) Triglycerides (35-160) mg/dL Cholesterol (130-200) mg/dL LDL Cholesterol Direct (0-129) mg/dL HDL Cholesterol (29-60) mg/dL Lipase (23-300) U/L 01/23/17 01/23/17 01/23/17 Range/Units 06:55 05:30 04:09 WBC 6.2 (4.5-11.0) 10^3/ul RBC 3.94 (3.5-6.1) 10^6/uL Hgb 12.7 L (14.0-18.0) gm/dL Hct 36.6 L (42.0-52.0) % MCV 92.9 (80.0-105.0) fL MCH 32.2 (25.0-35.0) pg MCHC 34.7 (31.0-37.0) g/dl RDW 13.9 (11.5-14.5) % Plt Count 60 L (120.0-450.0) 10^3/uL Manual Plt Count (120-450) K/mm3 MPV 10.5 (7.0-11.0) fl Gran % 66.6 (50.0-68.0) % Lymph % (Auto) 22.0 (22.0-35.0) % [place] % (Auto) 5.8 (1.0-6.0) % Eos % (Auto) 4.8 (1.5-5.0) % Baso % (Auto) 0.8 (0.0-3.0) % Gran # 4.16 (1.4-6.5) Lymph # 1.4 (1.2-3.4) [place] # 0.4 (0.1-0.6) Eos # 0.3 (0.0-0.7) Baso # 0.05 (0.0-2.0) K/mm3 PT 9.9 (9.9-11.8) Seconds INR 0.92 L (0.93-1.08) APTT 25.0 (23.7-30.8) Seconds Sodium 136 (132-148) mmol/L Potassium 3.9 (3.6-5.0) mmol/L Chloride 103 (98-107) mmol/L Carbon Dioxide 27 (21-33) mmol/L Anion Gap 10 (10-20) BUN 8 (7-21) mg/dL Creatinine 0.9 (0.5-1.4) mg/dL Est GFR ( Amer) > 60 Est GFR (Non-Af Amer) > 60 POC Glucose (mg/dL) 81 86 (65-110) mg/dL Random Glucose 80 (70-110) mg/dL Lactic Acid 0.6 L (0.7-2.1) mmol/L Calcium 8.4 (8.4-10.5) mg/dL Phosphorus 3.0 (2.5-4.5) mg/dL Magnesium 2.2 (1.7-2.2) mg/dL Total Bilirubin 2.6 H (0.2-1.3) mg/dL AST 157 H (15-59) U/L ALT 111 H (7-56) U/L Alkaline Phosphatase 89 (38-133) U/L Total Protein 5.9 (5.8-8.3) g/dL Albumin 3.4 (3.0-4.8) g/dL Globulin 2.5 gm/dL Albumin/Globulin Ratio 1.4 (1.1-1.8) Triglycerides 523 H (35-160) mg/dL Cholesterol 169 (130-200) mg/dL LDL Cholesterol Direct 84 (0-129) mg/dL HDL Cholesterol 24 L (29-60) mg/dL Lipase 756 H (23-300) U/L 01/23/17 01/23/17 01/22/17 Range/Units 01:54 00:20 21:51 WBC (4.5-11.0) 10^3/ul RBC (3.5-6.1) 10^6/uL Hgb (14.0-18.0) gm/dL Hct (42.0-52.0) % MCV (80.0-105.0) fL MCH (25.0-35.0) pg MCHC (31.0-37.0) g/dl RDW (11.5-14.5) % Plt Count (120.0-450.0) 10^3/uL Manual Plt Count (120-450) K/mm3 MPV (7.0-11.0) fl Gran % (50.0-68.0) % Lymph % (Auto) (22.0-35.0) % [place] % (Auto) (1.0-6.0) % Eos % (Auto) (1.5-5.0) % Baso % (Auto) (0.0-3.0) % Gran # (1.4-6.5) Lymph # (1.2-3.4) [place] # (0.1-0.6) Eos # (0.0-0.7) Baso # (0.0-2.0) K/mm3 PT (9.9-11.8) Seconds INR (0.93-1.08) APTT (23.7-30.8) Seconds Sodium (132-148) mmol/L Potassium (3.6-5.0) mmol/L Chloride (98-107) mmol/L Carbon Dioxide (21-33) mmol/L Anion Gap (10-20) BUN (7-21) mg/dL Creatinine (0.5-1.4) mg/dL Est GFR ( Amer) Est GFR (Non-Af Amer) POC Glucose (mg/dL) 102 99 97 (65-110) mg/dL Random Glucose (70-110) mg/dL Lactic Acid (0.7-2.1) mmol/L Calcium (8.4-10.5) mg/dL Phosphorus (2.5-4.5) mg/dL Magnesium (1.7-2.2) mg/dL Total Bilirubin (0.2-1.3) mg/dL AST (15-59) U/L ALT (7-56) U/L Alkaline Phosphatase (38-133) U/L Total Protein (5.8-8.3) g/dL Albumin (3.0-4.8) g/dL Globulin gm/dL Albumin/Globulin Ratio (1.1-1.8) Triglycerides (35-160) mg/dL Cholesterol (130-200) mg/dL LDL Cholesterol Direct (0-129) mg/dL HDL Cholesterol (29-60) mg/dL Lipase (23-300) U/L 01/22/17 01/22/17 01/22/17 Range/Units 21:15 20:06 18:56 WBC (4.5-11.0) 10^3/ul RBC (3.5-6.1) 10^6/uL Hgb (14.0-18.0) gm/dL Hct (42.0-52.0) % MCV (80.0-105.0) fL MCH (25.0-35.0) pg MCHC (31.0-37.0) g/dl RDW (11.5-14.5) % Plt Count (120.0-450.0) 10^3/uL Manual Plt Count (120-450) K/mm3 MPV (7.0-11.0) fl Gran % (50.0-68.0) % Lymph % (Auto) (22.0-35.0) % [place] % (Auto) (1.0-6.0) % Eos % (Auto) (1.5-5.0) % Baso % (Auto) (0.0-3.0) % Gran # (1.4-6.5) Lymph # (1.2-3.4) [place] # (0.1-0.6) Eos # (0.0-0.7) Baso # (0.0-2.0) K/mm3 PT (9.9-11.8) Seconds INR (0.93-1.08) APTT (23.7-30.8) Seconds Sodium (132-148) mmol/L Potassium (3.6-5.0) mmol/L Chloride (98-107) mmol/L Carbon Dioxide (21-33) mmol/L Anion Gap (10-20) BUN (7-21) mg/dL Creatinine (0.5-1.4) mg/dL Est GFR ( Amer) Est GFR (Non-Af Amer) POC Glucose (mg/dL) 97 108 143 H (65-110) mg/dL Random Glucose (70-110) mg/dL Lactic Acid (0.7-2.1) mmol/L Calcium (8.4-10.5) mg/dL Phosphorus (2.5-4.5) mg/dL Magnesium (1.7-2.2) mg/dL Total Bilirubin (0.2-1.3) mg/dL AST (15-59) U/L ALT (7-56) U/L Alkaline Phosphatase (38-133) U/L Total Protein (5.8-8.3) g/dL Albumin (3.0-4.8) g/dL Globulin gm/dL Albumin/Globulin Ratio (1.1-1.8) Triglycerides (35-160) mg/dL Cholesterol (130-200) mg/dL LDL Cholesterol Direct (0-129) mg/dL HDL Cholesterol (29-60) mg/dL Lipase (23-300) U/L 01/22/17 01/22/17 01/22/17 Range/Units 18:00 16:59 16:05 WBC (4.5-11.0) 10^3/ul RBC (3.5-6.1) 10^6/uL Hgb (14.0-18.0) gm/dL Hct (42.0-52.0) % MCV (80.0-105.0) fL MCH (25.0-35.0) pg MCHC (31.0-37.0) g/dl RDW (11.5-14.5) % Plt Count (120.0-450.0) 10^3/uL Manual Plt Count (120-450) K/mm3 MPV (7.0-11.0) fl Gran % (50.0-68.0) % Lymph % (Auto) (22.0-35.0) % [place] % (Auto) (1.0-6.0) % Eos % (Auto) (1.5-5.0) % Baso % (Auto) (0.0-3.0) % Gran # (1.4-6.5) Lymph # (1.2-3.4) [place] # (0.1-0.6) Eos # (0.0-0.7) Baso # (0.0-2.0) K/mm3 PT (9.9-11.8) Seconds INR (0.93-1.08) APTT (23.7-30.8) Seconds Sodium (132-148) mmol/L Potassium (3.6-5.0) mmol/L Chloride (98-107) mmol/L Carbon Dioxide (21-33) mmol/L Anion Gap (10-20) BUN (7-21) mg/dL Creatinine (0.5-1.4) mg/dL Est GFR ( Amer) Est GFR (Non-Af Amer) POC Glucose (mg/dL) 158 H 133 H 104 (65-110) mg/dL Random Glucose (70-110) mg/dL Lactic Acid (0.7-2.1) mmol/L Calcium (8.4-10.5) mg/dL Phosphorus (2.5-4.5) mg/dL Magnesium (1.7-2.2) mg/dL Total Bilirubin (0.2-1.3) mg/dL AST (15-59) U/L ALT (7-56) U/L Alkaline Phosphatase (38-133) U/L Total Protein (5.8-8.3) g/dL Albumin (3.0-4.8) g/dL Globulin gm/dL Albumin/Globulin Ratio (1.1-1.8) Triglycerides (35-160) mg/dL Cholesterol (130-200) mg/dL LDL Cholesterol Direct (0-129) mg/dL HDL Cholesterol (29-60) mg/dL Lipase (23-300) U/L 01/22/17 01/22/17 01/22/17 Range/Units 15:25 14:04 13:07 WBC (4.5-11.0) 10^3/ul RBC (3.5-6.1) 10^6/uL Hgb (14.0-18.0) gm/dL Hct (42.0-52.0) % MCV (80.0-105.0) fL MCH (25.0-35.0) pg MCHC (31.0-37.0) g/dl RDW (11.5-14.5) % Plt Count (120.0-450.0) 10^3/uL Manual Plt Count (120-450) K/mm3 MPV (7.0-11.0) fl Gran % (50.0-68.0) % Lymph % (Auto) (22.0-35.0) % [place] % (Auto) (1.0-6.0) % Eos % (Auto) (1.5-5.0) % Baso % (Auto) (0.0-3.0) % Gran # (1.4-6.5) Lymph # (1.2-3.4) [place] # (0.1-0.6) Eos # (0.0-0.7) Baso # (0.0-2.0) K/mm3 PT (9.9-11.8) Seconds INR (0.93-1.08) APTT (23.7-30.8) Seconds Sodium 131 L (132-148) mmol/L Potassium 4.5 (3.6-5.0) mmol/L Chloride 100 (98-107) mmol/L Carbon Dioxide 27 (21-33) mmol/L Anion Gap 9 L (10-20) BUN 7 (7-21) mg/dL Creatinine 0.9 (0.5-1.4) mg/dL Est GFR ( Amer) > 60 Est GFR (Non-Af Amer) > 60 POC Glucose (mg/dL) 104 114 H (65-110) mg/dL Random Glucose 106 (70-110) mg/dL Lactic Acid (0.7-2.1) mmol/L Calcium 8.6 (8.4-10.5) mg/dL Phosphorus 2.1 L (2.5-4.5) mg/dL Magnesium 1.8 (1.7-2.2) mg/dL Total Bilirubin 3.5 H (0.2-1.3) mg/dL AST 200 H (15-59) U/L ALT 105 H (7-56) U/L Alkaline Phosphatase 85 (38-133) U/L Total Protein 5.8 (5.8-8.3) g/dL Albumin 3.4 (3.0-4.8) g/dL Globulin 2.4 gm/dL Albumin/Globulin Ratio 1.4 (1.1-1.8) Triglycerides 644 H (35-160) mg/dL Cholesterol (130-200) mg/dL LDL Cholesterol Direct (0-129) mg/dL HDL Cholesterol (29-60) mg/dL Lipase 1391 H (23-300) U/L 01/22/17 01/22/17 01/22/17 Range/Units 12:33 12:32 12:22 WBC (4.5-11.0) 10^3/ul RBC (3.5-6.1) 10^6/uL Hgb (14.0-18.0) gm/dL Hct (42.0-52.0) % MCV (80.0-105.0) fL MCH (25.0-35.0) pg MCHC (31.0-37.0) g/dl RDW (11.5-14.5) % Plt Count (120.0-450.0) 10^3/uL Manual Plt Count (120-450) K/mm3 MPV (7.0-11.0) fl Gran % (50.0-68.0) % Lymph % (Auto) (22.0-35.0) % [place] % (Auto) (1.0-6.0) % Eos % (Auto) (1.5-5.0) % Baso % (Auto) (0.0-3.0) % Gran # (1.4-6.5) Lymph # (1.2-3.4) [place] # (0.1-0.6) Eos # (0.0-0.7) Baso # (0.0-2.0) K/mm3 PT (9.9-11.8) Seconds INR (0.93-1.08) APTT (23.7-30.8) Seconds Sodium 131 L (132-148) mmol/L Potassium 3.7 (3.6-5.0) mmol/L Chloride 96 L (98-107) mmol/L Carbon Dioxide 27 (21-33) mmol/L Anion Gap 12 (10-20) BUN 6 L (7-21) mg/dL Creatinine 0.9 (0.5-1.4) mg/dL Est GFR ( Amer) > 60 Est GFR (Non-Af Amer) > 60 POC Glucose (mg/dL) 178 H (65-110) mg/dL Random Glucose 119 H (70-110) mg/dL Lactic Acid (0.7-2.1) mmol/L Calcium 8.3 L (8.4-10.5) mg/dL Phosphorus (2.5-4.5) mg/dL Magnesium (1.7-2.2) mg/dL Total Bilirubin 4.0 H (0.2-1.3) mg/dL AST 191 H (15-59) U/L ALT 99 H (7-56) U/L Alkaline Phosphatase 96 (38-133) U/L Total Protein 6.2 (5.8-8.3) g/dL Albumin 3.7 (3.0-4.8) g/dL Globulin 2.4 gm/dL Albumin/Globulin Ratio 1.5 (1.1-1.8) Triglycerides 814 H (35-160) mg/dL Cholesterol (130-200) mg/dL LDL Cholesterol Direct (0-129) mg/dL HDL Cholesterol (29-60) mg/dL Lipase 1411 H (23-300) U/L 01/22/17 01/22/17 Range/Units 11:16 05:06 WBC (4.5-11.0) 10^3/ul RBC (3.5-6.1) 10^6/uL Hgb (14.0-18.0) gm/dL Hct (42.0-52.0) % MCV (80.0-105.0) fL MCH (25.0-35.0) pg MCHC (31.0-37.0) g/dl RDW (11.5-14.5) % Plt Count (120.0-450.0) 10^3/uL Manual Plt Count 62 L* (120-450) K/mm3 MPV (7.0-11.0) fl Gran % (50.0-68.0) % Lymph % (Auto) (22.0-35.0) % [place] % (Auto) (1.0-6.0) % Eos % (Auto) (1.5-5.0) % Baso % (Auto) (0.0-3.0) % Gran # (1.4-6.5) Lymph # (1.2-3.4) [place] # (0.1-0.6) Eos # (0.0-0.7) Baso # (0.0-2.0) K/mm3 PT (9.9-11.8) Seconds INR (0.93-1.08) APTT (23.7-30.8) Seconds Sodium (132-148) mmol/L Potassium (3.6-5.0) mmol/L Chloride (98-107) mmol/L Carbon Dioxide (21-33) mmol/L Anion Gap (10-20) BUN (7-21) mg/dL Creatinine (0.5-1.4) mg/dL Est GFR ( Amer) Est GFR (Non-Af Amer) POC Glucose (mg/dL) 121 H (65-110) mg/dL Random Glucose (70-110) mg/dL Lactic Acid (0.7-2.1) mmol/L Calcium (8.4-10.5) mg/dL Phosphorus (2.5-4.5) mg/dL Magnesium (1.7-2.2) mg/dL Total Bilirubin (0.2-1.3) mg/dL AST (15-59) U/L ALT (7-56) U/L Alkaline Phosphatase (38-133) U/L Total Protein (5.8-8.3) g/dL Albumin (3.0-4.8) g/dL Globulin gm/dL Albumin/Globulin Ratio (1.1-1.8) Triglycerides (35-160) mg/dL Cholesterol (130-200) mg/dL LDL Cholesterol Direct (0-129) mg/dL HDL Cholesterol (29-60) mg/dL Lipase (23-300) U/L Laboratory Results - last 24 hr 01/22/17 01/22/17 01/22/17 05:06 11:16 12:22 WBC RBC Hgb Hct MCV MCH MCHC RDW Plt Count Manual Plt Count 62 L* MPV Gran % Lymph % (Auto) [place] % (Auto) Eos % (Auto) Baso % (Auto) Gran # Lymph # [place] # Eos # Baso # PT INR APTT Sodium Potassium Chloride Carbon Dioxide Anion Gap BUN Creatinine Est GFR ( Amer) Est GFR (Non-Af Amer) POC Glucose (mg/dL) 121 H 178 H Random Glucose Lactic Acid Calcium Phosphorus Magnesium Total Bilirubin AST ALT Alkaline Phosphatase Total Protein Albumin Globulin Albumin/Globulin Ratio Triglycerides Cholesterol LDL Cholesterol Direct HDL Cholesterol Lipase 01/22/17 01/22/17 01/22/17 12:32 12:33 13:07 WBC RBC Hgb Hct MCV MCH MCHC RDW Plt Count Manual Plt Count MPV Gran % Lymph % (Auto) [place] % (Auto) Eos % (Auto) Baso % (Auto) Gran # Lymph # [place] # Eos # Baso # PT INR APTT Sodium 131 L Potassium 3.7 Chloride 96 L Carbon Dioxide 27 Anion Gap 12 BUN 6 L Creatinine 0.9 Est GFR ( Amer) > 60 Est GFR (Non-Af Amer) > 60 POC Glucose (mg/dL) 114 H Random Glucose 119 H Lactic Acid Calcium 8.3 L Phosphorus Magnesium Total Bilirubin 4.0 H AST 191 H ALT 99 H Alkaline Phosphatase 96 Total Protein 6.2 Albumin 3.7 Globulin 2.4 Albumin/Globulin Ratio 1.5 Triglycerides 814 H Cholesterol LDL Cholesterol Direct HDL Cholesterol Lipase 1411 H 01/22/17 01/22/17 01/22/17 14:04 15:25 16:05 WBC RBC Hgb Hct MCV MCH MCHC RDW Plt Count Manual Plt Count MPV Gran % Lymph % (Auto) [place] % (Auto) Eos % (Auto) Baso % (Auto) Gran # Lymph # [place] # Eos # Baso # PT INR APTT Sodium 131 L Potassium 4.5 Chloride 100 Carbon Dioxide 27 Anion Gap 9 L BUN 7 Creatinine 0.9 Est GFR ( Amer) > 60 Est GFR (Non-Af Amer) > 60 POC Glucose (mg/dL) 104 104 Random Glucose 106 Lactic Acid Calcium 8.6 Phosphorus 2.1 L Magnesium 1.8 Total Bilirubin 3.5 H AST 200 H ALT 105 H Alkaline Phosphatase 85 Total Protein 5.8 Albumin 3.4 Globulin 2.4 Albumin/Globulin Ratio 1.4 Triglycerides 644 H Cholesterol LDL Cholesterol Direct HDL Cholesterol Lipase 1391 H 01/22/17 01/22/17 01/22/17 16:59 18:00 18:56 WBC RBC Hgb Hct MCV MCH MCHC RDW Plt Count Manual Plt Count MPV Gran % Lymph % (Auto) [place] % (Auto) Eos % (Auto) Baso % (Auto) Gran # Lymph # [place] # Eos # Baso # PT INR APTT Sodium Potassium Chloride Carbon Dioxide Anion Gap BUN Creatinine Est GFR ( Amer) Est GFR (Non-Af Amer) POC Glucose (mg/dL) 133 H 158 H 143 H Random Glucose Lactic Acid Calcium Phosphorus Magnesium Total Bilirubin AST ALT Alkaline Phosphatase Total Protein Albumin Globulin Albumin/Globulin Ratio Triglycerides Cholesterol LDL Cholesterol Direct HDL Cholesterol Lipase 01/22/17 01/22/17 01/22/17 20:06 21:15 21:51 WBC RBC Hgb Hct MCV MCH MCHC RDW Plt Count Manual Plt Count MPV Gran % Lymph % (Auto) [place] % (Auto) Eos % (Auto) Baso % (Auto) Gran # Lymph # [place] # Eos # Baso # PT INR APTT Sodium Potassium Chloride Carbon Dioxide Anion Gap BUN Creatinine Est GFR ( Amer) Est GFR (Non-Af Amer) POC Glucose (mg/dL) 108 97 97 Random Glucose Lactic Acid Calcium Phosphorus Magnesium Total Bilirubin AST ALT Alkaline Phosphatase Total Protein Albumin Globulin Albumin/Globulin Ratio Triglycerides Cholesterol LDL Cholesterol Direct HDL Cholesterol Lipase 01/23/17 01/23/17 01/23/17 00:20 01:54 04:09 WBC RBC Hgb Hct MCV MCH MCHC RDW Plt Count Manual Plt Count MPV Gran % Lymph % (Auto) [place] % (Auto) Eos % (Auto) Baso % (Auto) Gran # Lymph # [place] # Eos # Baso # PT INR APTT Sodium Potassium Chloride Carbon Dioxide Anion Gap BUN Creatinine Est GFR ( Amer) Est GFR (Non-Af Amer) POC Glucose (mg/dL) 99 102 86 Random Glucose Lactic Acid Calcium Phosphorus Magnesium Total Bilirubin AST ALT Alkaline Phosphatase Total Protein Albumin Globulin Albumin/Globulin Ratio Triglycerides Cholesterol LDL Cholesterol Direct HDL Cholesterol Lipase 01/23/17 01/23/17 01/23/17 05:30 06:55 09:00 WBC 6.2 RBC 3.94 Hgb 12.7 L Hct 36.6 L MCV 92.9 MCH 32.2 MCHC 34.7 RDW 13.9 Plt Count 60 L Manual Plt Count MPV 10.5 Gran % 66.6 Lymph % (Auto) 22.0 [place] % (Auto) 5.8 Eos % (Auto) 4.8 Baso % (Auto) 0.8 Gran # 4.16 Lymph # 1.4 [place] # 0.4 Eos # 0.3 Baso # 0.05 PT 9.9 INR 0.92 L APTT 25.0 Sodium 136 Potassium 3.9 Chloride 103 Carbon Dioxide 27 Anion Gap 10 BUN 8 Creatinine 0.9 Est GFR ( Amer) > 60 Est GFR (Non-Af Amer) > 60 POC Glucose (mg/dL) 81 138 H Random Glucose 80 Lactic Acid 0.6 L Calcium 8.4 Phosphorus 3.0 Magnesium 2.2 Total Bilirubin 2.6 H AST 157 H ALT 111 H Alkaline Phosphatase 89 Total Protein 5.9 Albumin 3.4 Globulin 2.5 Albumin/Globulin Ratio 1.4 Triglycerides 523 H Cholesterol 169 LDL Cholesterol Direct 84 HDL Cholesterol 24 L Lipase 756 H 01/23/17 01/23/17 09:54 10:54 WBC RBC Hgb Hct MCV MCH MCHC RDW Plt Count Manual Plt Count MPV Gran % Lymph % (Auto) [place] % (Auto) Eos % (Auto) Baso % (Auto) Gran # Lymph # [place] # Eos # Baso # PT INR APTT Sodium Potassium Chloride Carbon Dioxide Anion Gap BUN Creatinine Est GFR ( Amer) Est GFR (Non-Af Amer) POC Glucose (mg/dL) 172 H 141 H Random Glucose Lactic Acid Calcium Phosphorus Magnesium Total Bilirubin AST ALT Alkaline Phosphatase Total Protein Albumin Globulin Albumin/Globulin Ratio Triglycerides Cholesterol LDL Cholesterol Direct HDL Cholesterol Lipase Fingerstick Blood Sugar Results: 81 Critical Care Progress Note - Nutrition Nutrition: Nutrition Category Date Time Status Heart Healthy Diet [DIET] Diets 01/21/17 Dinner Ordered Assessment/Plan - Assessment and Plan (Free Text) Plan: This is a 51 yo M with PMH of HTN (not medically managed) and alcohol abuse who presents with complaint of fluctuating persistent abdominal discomfort , malaise, and weakness, and is being admitted to the ICU for management of severe hypertriglyceridemia (>5000) with pancreatitis, requiring pheresis. He has undergone two rounds of pheresis, and is now managed with oral fibrate medication and an insulin drip with D5. Neuro: -AAOx3, spontaneous movement of all extremities -Following commands appropriately -maintain normothermia, no fevers overnight -at risk for EtOH withdrawal, seizures due to significant alcohol abuse; Ativan 1mg IV q3 PRN and Jhon Librium for withdrawal, CIWA protocol q1, EtOH level 292 on admit, repeat level 14 -Tox screen negative Pulm: -CTAB on exam, satting well on room air, No O2 supplementation indicated at this time -Given pancreatitis, at risk for developing pulm edema/ARDS, continue to monitor -maintain SaO2 90-92% and paO2 > 60 -Aspiration precautions, head of bed to 30 degrees Cardio: -Currently hemodynamically stable, maintain MAP > 65 -Fluctuating rate on telemetry, possible afib 2/2 electrolyte abnormalities vs holiday heart for alcohol abuse; rhythm stable and hemodynamically stable, continue to monitor, PRN Lopressor will cover if HR becomes persistently rapid -Hx HTN, continue Amlodipine 5mg daily, continue PRN Lopressor 5mg IV q6 if SBP >= 180 -Hypertriglyceridemia > 5000 on admission labs, improved to 705 after 2nd pheresis, some increase overnight coinciding with initiation of solid foods, but improving again while on oral Lopid and Insulin Drip + D5; 523 on last check -Hypertriglyceridemia 2/2 severe alcohol abuse vs familial component, likely multifactorial; gallstone etiology ruled out -INR 0.92, PT 9.9, PTT 25 today -Heparin 5000u SC q8 for DVT/PE ppx -intermittently tachycardic in 100s, otherwise HR stable, continue to monitor K/ Ca/Mag and replete as needed -TSH wnl at 1.33 GI: -At 5pm today, d\c insulin drip if Trig level <500 and downgrade - Insulin drip at 1 u/hr with D5W @ 100 - Lopid 600 BID -Diet advanced to heart-healthy low fat, tolerating well -Protonix for GI ppx -Elevated LFTs, AST:ALT(2:1 ratio consistent with EtOH abuse), Alk phos 89, Tbili 3.6 --> 2.6; remain elevated but stable, some improvement with Tbili -Hypertriglyceridemia > 5000 on admission labs, improved to 705 after 2nd pheresis, some increase overnight coinciding with initiation of solid foods, but improving again while on oral Lopid and Insulin Drip + D5; Tg 691 --> 523 -Lipase 1391 --> 756 -CT abd/pelvis notable for mild infiltration of peripancreatic fat confined to head of pancreas, likely mild pancreatitis; recently passed common duct stones, hepatomegaly/hepatic steatosis; Abd US notable for findings consistent with mild fatty liver, no sonographic evidence of pancreatic or GB pathology -Aggressive fluid rehydration - done -GI (Dr. Regan) consulted, appreciate all recs -Uric acid 7.2 on admit -Lactic acid yesterday 1.1 -Hgb A1c 5.7 -CMP/Mag/Phos/TG/Lipase q4 Renal: -Monitor I's & O's -Nephro (Dr. Berumen) consulted, appreciate all recs -avoid nephrotoxic drugs where feasible -monitor and replete electrolytes as needed -maintain euglycemia (BG 140-180), aggressive fluid rehydration for pancreatitis -UA obtained on admission, notable for 30 Protein and trace intact blood -s/p 2 rounds of pheresis, now managing with oral Lopid & Insulin drip + D5, will d/c insulin drip after TGs decrease and remain below 500 Heme: -Hypertriglyceridemia > 5000 on admission labs, improved to 705 after 2nd pheresis, some increase overnight coinciding with initiation of solid foods, but improving again while on oral Lopid and Insulin Drip + D5; 691 on last check -s/p 2 rounds of pheresis, now managing with oral Lopid & Insulin drip + D5, will d/c insulin drip after TGs decrease and remain below 500 -Hgb 12.7 <-- 13.4 (was 15.8), will follow up AM CBC tmr -Heparin 5000u SC q8 for DVT/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 Pt ambulates well, scd prn Code status: Full Patient seen, reviewed, and discussed with attending, Dr. Markham. - Date & Time Date: 01/23/17 Time: 10:20 <Luis Fernando Markham - Last Filed: 01/24/17 09:34> CCU Objective - Vital Signs / Intake & Output Vital Signs (Last 4 hours): Vital Signs Temp Pulse Resp BP Pulse Ox 01/23/17 09:08 107 H 121/69 01/23/17 08:33 115 H 01/23/17 08:00 98.4 F 97 H 17 138/80 96 Intake and Output (Last 8hrs): Intake & Output 01/22/17 01/23/17 01/23/17 22:59 06:59 14:59 Intake Total 3956 2806 Output Total 1999 2200 Balance 1956 606 Intake: IV 2556 1806 Left Forearm 1800 1800 lh 750 thierno 6 6 Oral 900 500 Other 500 500 Output: Urine 1999 2200 Urine, Voided 1999 2200 Oral Regurgitation 0 Other: Voiding Method Urinal # Bowel Movements 1 1 - Medications Active Medications: Active Medications Generic Name Dose Route Start Last Admin Trade Name Jaswinderq PRN Reason Stop Dose Admin Amlodipine Besylate 5 mg 01/21/17 12:00 01/23/17 09:08 Norvasc PO 5 mg DAILY JHON Administration Chlordiazepoxide 10 mg 01/20/17 22:45 01/23/17 06:16 Librium PO 10 mg Q8 JHON Administration Protocol Folic Acid 1 mg 01/21/17 10:00 01/22/17 09:37 Folic Acid PO 1 mg DAILY JHON Administration Gemfibrozil 600 mg 01/21/17 18:00 01/23/17 09:07 Lopid PO 600 mg BID JHON Administration Dextrose 1,000 mls @ 100 mls/hr 01/23/17 08:00 01/23/17 08:00 Dextrose 5% In Water 1000 Ml IV 100 mls/hr .Q10H JHON Administration Insulin Human Regular 100 100 mls @ 1 mls/hr 01/23/17 09:04 units/ Sodium Chloride IV .Q24H JHON 1 UNITS/HR Lorazepam 1 mg 01/19/17 19:03 01/21/17 12:20 Ativan IVP 1 mg Q3H PRN Administration Withdrawal Protocol Pantoprazole Sodium 40 mg 01/22/17 07:30 01/23/17 08:00 Protonix Ec Tab PO 40 mg ACB JHON Administration Potassium Chloride 40 meq 01/23/17 10:00 01/23/17 09:09 Potassium Chloride Oral Soln PO 40 meq DAILY JHON Administration Thiamine HCl 100 mg 01/21/17 10:00 01/23/17 09:07 Vitamin B1 Tab PO 100 mg DAILY JHON Administration - Patient Studies Lab Studies: Lab Studies 01/23/17 01/23/17 01/23/17 Range/Units 10:54 09:54 09:00 WBC (4.5-11.0) 10^3/ul RBC (3.5-6.1) 10^6/uL Hgb (14.0-18.0) gm/dL Hct (42.0-52.0) % MCV (80.0-105.0) fL MCH (25.0-35.0) pg MCHC (31.0-37.0) g/dl RDW (11.5-14.5) % Plt Count (120.0-450.0) 10^3/uL Manual Plt Count (120-450) K/mm3 MPV (7.0-11.0) fl Gran % (50.0-68.0) % Lymph % (Auto) (22.0-35.0) % [place] % (Auto) (1.0-6.0) % Eos % (Auto) (1.5-5.0) % Baso % (Auto) (0.0-3.0) % Gran # (1.4-6.5) Lymph # (1.2-3.4) [place] # (0.1-0.6) Eos # (0.0-0.7) Baso # (0.0-2.0) K/mm3 PT (9.9-11.8) Seconds INR (0.93-1.08) APTT (23.7-30.8) Seconds Sodium (132-148) mmol/L Potassium (3.6-5.0) mmol/L Chloride (98-107) mmol/L Carbon Dioxide (21-33) mmol/L Anion Gap (10-20) BUN (7-21) mg/dL Creatinine (0.5-1.4) mg/dL Est GFR ( Amer) Est GFR (Non-Af Amer) POC Glucose (mg/dL) 141 H 172 H 138 H (65-110) mg/dL Random Glucose (70-110) mg/dL Lactic Acid (0.7-2.1) mmol/L Calcium (8.4-10.5) mg/dL Phosphorus (2.5-4.5) mg/dL Magnesium (1.7-2.2) mg/dL Total Bilirubin (0.2-1.3) mg/dL AST (15-59) U/L ALT (7-56) U/L Alkaline Phosphatase (38-133) U/L Total Protein (5.8-8.3) g/dL Albumin (3.0-4.8) g/dL Globulin gm/dL Albumin/Globulin Ratio (1.1-1.8) Triglycerides (35-160) mg/dL Cholesterol (130-200) mg/dL LDL Cholesterol Direct (0-129) mg/dL HDL Cholesterol (29-60) mg/dL Lipase (23-300) U/L 01/23/17 01/23/17 01/23/17 Range/Units 06:55 05:30 04:09 WBC 6.2 (4.5-11.0) 10^3/ul RBC 3.94 (3.5-6.1) 10^6/uL Hgb 12.7 L (14.0-18.0) gm/dL Hct 36.6 L (42.0-52.0) % MCV 92.9 (80.0-105.0) fL MCH 32.2 (25.0-35.0) pg MCHC 34.7 (31.0-37.0) g/dl RDW 13.9 (11.5-14.5) % Plt Count 60 L (120.0-450.0) 10^3/uL Manual Plt Count (120-450) K/mm3 MPV 10.5 (7.0-11.0) fl Gran % 66.6 (50.0-68.0) % Lymph % (Auto) 22.0 (22.0-35.0) % [place] % (Auto) 5.8 (1.0-6.0) % Eos % (Auto) 4.8 (1.5-5.0) % Baso % (Auto) 0.8 (0.0-3.0) % Gran # 4.16 (1.4-6.5) Lymph # 1.4 (1.2-3.4) [place] # 0.4 (0.1-0.6) Eos # 0.3 (0.0-0.7) Baso # 0.05 (0.0-2.0) K/mm3 PT 9.9 (9.9-11.8) Seconds INR 0.92 L (0.93-1.08) APTT 25.0 (23.7-30.8) Seconds Sodium 136 (132-148) mmol/L Potassium 3.9 (3.6-5.0) mmol/L Chloride 103 (98-107) mmol/L Carbon Dioxide 27 (21-33) mmol/L Anion Gap 10 (10-20) BUN 8 (7-21) mg/dL Creatinine 0.9 (0.5-1.4) mg/dL Est GFR ( Amer) > 60 Est GFR (Non-Af Amer) > 60 POC Glucose (mg/dL) 81 86 (65-110) mg/dL Random Glucose 80 (70-110) mg/dL Lactic Acid 0.6 L (0.7-2.1) mmol/L Calcium 8.4 (8.4-10.5) mg/dL Phosphorus 3.0 (2.5-4.5) mg/dL Magnesium 2.2 (1.7-2.2) mg/dL Total Bilirubin 2.6 H (0.2-1.3) mg/dL AST 157 H (15-59) U/L ALT 111 H (7-56) U/L Alkaline Phosphatase 89 (38-133) U/L Total Protein 5.9 (5.8-8.3) g/dL Albumin 3.4 (3.0-4.8) g/dL Globulin 2.5 gm/dL Albumin/Globulin Ratio 1.4 (1.1-1.8) Triglycerides 523 H (35-160) mg/dL Cholesterol 169 (130-200) mg/dL LDL Cholesterol Direct 84 (0-129) mg/dL HDL Cholesterol 24 L (29-60) mg/dL Lipase 756 H (23-300) U/L 01/23/17 01/23/17 01/22/17 Range/Units 01:54 00:20 21:51 WBC (4.5-11.0) 10^3/ul RBC (3.5-6.1) 10^6/uL Hgb (14.0-18.0) gm/dL Hct (42.0-52.0) % MCV (80.0-105.0) fL MCH (25.0-35.0) pg MCHC (31.0-37.0) g/dl RDW (11.5-14.5) % Plt Count (120.0-450.0) 10^3/uL Manual Plt Count (120-450) K/mm3 MPV (7.0-11.0) fl Gran % (50.0-68.0) % Lymph % (Auto) (22.0-35.0) % [place] % (Auto) (1.0-6.0) % Eos % (Auto) (1.5-5.0) % Baso % (Auto) (0.0-3.0) % Gran # (1.4-6.5) Lymph # (1.2-3.4) [place] # (0.1-0.6) Eos # (0.0-0.7) Baso # (0.0-2.0) K/mm3 PT (9.9-11.8) Seconds INR (0.93-1.08) APTT (23.7-30.8) Seconds Sodium (132-148) mmol/L Potassium (3.6-5.0) mmol/L Chloride (98-107) mmol/L Carbon Dioxide (21-33) mmol/L Anion Gap (10-20) BUN (7-21) mg/dL Creatinine (0.5-1.4) mg/dL Est GFR ( Amer) Est GFR (Non-Af Amer) POC Glucose (mg/dL) 102 99 97 (65-110) mg/dL Random Glucose (70-110) mg/dL Lactic Acid (0.7-2.1) mmol/L Calcium (8.4-10.5) mg/dL Phosphorus (2.5-4.5) mg/dL Magnesium (1.7-2.2) mg/dL Total Bilirubin (0.2-1.3) mg/dL AST (15-59) U/L ALT (7-56) U/L Alkaline Phosphatase (38-133) U/L Total Protein (5.8-8.3) g/dL Albumin (3.0-4.8) g/dL Globulin gm/dL Albumin/Globulin Ratio (1.1-1.8) Triglycerides (35-160) mg/dL Cholesterol (130-200) mg/dL LDL Cholesterol Direct (0-129) mg/dL HDL Cholesterol (29-60) mg/dL Lipase (23-300) U/L 01/22/17 01/22/17 01/22/17 Range/Units 21:15 20:06 18:56 WBC (4.5-11.0) 10^3/ul RBC (3.5-6.1) 10^6/uL Hgb (14.0-18.0) gm/dL Hct (42.0-52.0) % MCV (80.0-105.0) fL MCH (25.0-35.0) pg MCHC (31.0-37.0) g/dl RDW (11.5-14.5) % Plt Count (120.0-450.0) 10^3/uL Manual Plt Count (120-450) K/mm3 MPV (7.0-11.0) fl Gran % (50.0-68.0) % Lymph % (Auto) (22.0-35.0) % [place] % (Auto) (1.0-6.0) % Eos % (Auto) (1.5-5.0) % Baso % (Auto) (0.0-3.0) % Gran # (1.4-6.5) Lymph # (1.2-3.4) [place] # (0.1-0.6) Eos # (0.0-0.7) Baso # (0.0-2.0) K/mm3 PT (9.9-11.8) Seconds INR (0.93-1.08) APTT (23.7-30.8) Seconds Sodium (132-148) mmol/L Potassium (3.6-5.0) mmol/L Chloride (98-107) mmol/L Carbon Dioxide (21-33) mmol/L Anion Gap (10-20) BUN (7-21) mg/dL Creatinine (0.5-1.4) mg/dL Est GFR ( Amer) Est GFR (Non-Af Amer) POC Glucose (mg/dL) 97 108 143 H (65-110) mg/dL Random Glucose (70-110) mg/dL Lactic Acid (0.7-2.1) mmol/L Calcium (8.4-10.5) mg/dL Phosphorus (2.5-4.5) mg/dL Magnesium (1.7-2.2) mg/dL Total Bilirubin (0.2-1.3) mg/dL AST (15-59) U/L ALT (7-56) U/L Alkaline Phosphatase (38-133) U/L Total Protein (5.8-8.3) g/dL Albumin (3.0-4.8) g/dL Globulin gm/dL Albumin/Globulin Ratio (1.1-1.8) Triglycerides (35-160) mg/dL Cholesterol (130-200) mg/dL LDL Cholesterol Direct (0-129) mg/dL HDL Cholesterol (29-60) mg/dL Lipase (23-300) U/L 01/22/17 01/22/17 01/22/17 Range/Units 18:00 16:59 16:05 WBC (4.5-11.0) 10^3/ul RBC (3.5-6.1) 10^6/uL Hgb (14.0-18.0) gm/dL Hct (42.0-52.0) % MCV (80.0-105.0) fL MCH (25.0-35.0) pg MCHC (31.0-37.0) g/dl RDW (11.5-14.5) % Plt Count (120.0-450.0) 10^3/uL Manual Plt Count (120-450) K/mm3 MPV (7.0-11.0) fl Gran % (50.0-68.0) % Lymph % (Auto) (22.0-35.0) % [place] % (Auto) (1.0-6.0) % Eos % (Auto) (1.5-5.0) % Baso % (Auto) (0.0-3.0) % Gran # (1.4-6.5) Lymph # (1.2-3.4) [place] # (0.1-0.6) Eos # (0.0-0.7) Baso # (0.0-2.0) K/mm3 PT (9.9-11.8) Seconds INR (0.93-1.08) APTT (23.7-30.8) Seconds Sodium (132-148) mmol/L Potassium (3.6-5.0) mmol/L Chloride (98-107) mmol/L Carbon Dioxide (21-33) mmol/L Anion Gap (10-20) BUN (7-21) mg/dL Creatinine (0.5-1.4) mg/dL Est GFR ( Amer) Est GFR (Non-Af Amer) POC Glucose (mg/dL) 158 H 133 H 104 (65-110) mg/dL Random Glucose (70-110) mg/dL Lactic Acid (0.7-2.1) mmol/L Calcium (8.4-10.5) mg/dL Phosphorus (2.5-4.5) mg/dL Magnesium (1.7-2.2) mg/dL Total Bilirubin (0.2-1.3) mg/dL AST (15-59) U/L ALT (7-56) U/L Alkaline Phosphatase (38-133) U/L Total Protein (5.8-8.3) g/dL Albumin (3.0-4.8) g/dL Globulin gm/dL Albumin/Globulin Ratio (1.1-1.8) Triglycerides (35-160) mg/dL Cholesterol (130-200) mg/dL LDL Cholesterol Direct (0-129) mg/dL HDL Cholesterol (29-60) mg/dL Lipase (23-300) U/L 01/22/17 01/22/17 01/22/17 Range/Units 15:25 14:04 13:07 WBC (4.5-11.0) 10^3/ul RBC (3.5-6.1) 10^6/uL Hgb (14.0-18.0) gm/dL Hct (42.0-52.0) % MCV (80.0-105.0) fL MCH (25.0-35.0) pg MCHC (31.0-37.0) g/dl RDW (11.5-14.5) % Plt Count (120.0-450.0) 10^3/uL Manual Plt Count (120-450) K/mm3 MPV (7.0-11.0) fl Gran % (50.0-68.0) % Lymph % (Auto) (22.0-35.0) % [place] % (Auto) (1.0-6.0) % Eos % (Auto) (1.5-5.0) % Baso % (Auto) (0.0-3.0) % Gran # (1.4-6.5) Lymph # (1.2-3.4) [place] # (0.1-0.6) Eos # (0.0-0.7) Baso # (0.0-2.0) K/mm3 PT (9.9-11.8) Seconds INR (0.93-1.08) APTT (23.7-30.8) Seconds Sodium 131 L (132-148) mmol/L Potassium 4.5 (3.6-5.0) mmol/L Chloride 100 (98-107) mmol/L Carbon Dioxide 27 (21-33) mmol/L Anion Gap 9 L (10-20) BUN 7 (7-21) mg/dL Creatinine 0.9 (0.5-1.4) mg/dL Est GFR ( Amer) > 60 Est GFR (Non-Af Amer) > 60 POC Glucose (mg/dL) 104 114 H (65-110) mg/dL Random Glucose 106 (70-110) mg/dL Lactic Acid (0.7-2.1) mmol/L Calcium 8.6 (8.4-10.5) mg/dL Phosphorus 2.1 L (2.5-4.5) mg/dL Magnesium 1.8 (1.7-2.2) mg/dL Total Bilirubin 3.5 H (0.2-1.3) mg/dL AST 200 H (15-59) U/L ALT 105 H (7-56) U/L Alkaline Phosphatase 85 (38-133) U/L Total Protein 5.8 (5.8-8.3) g/dL Albumin 3.4 (3.0-4.8) g/dL Globulin 2.4 gm/dL Albumin/Globulin Ratio 1.4 (1.1-1.8) Triglycerides 644 H (35-160) mg/dL Cholesterol (130-200) mg/dL LDL Cholesterol Direct (0-129) mg/dL HDL Cholesterol (29-60) mg/dL Lipase 1391 H (23-300) U/L 01/22/17 01/22/17 01/22/17 Range/Units 12:33 12:32 12:22 WBC (4.5-11.0) 10^3/ul RBC (3.5-6.1) 10^6/uL Hgb (14.0-18.0) gm/dL Hct (42.0-52.0) % MCV (80.0-105.0) fL MCH (25.0-35.0) pg MCHC (31.0-37.0) g/dl RDW (11.5-14.5) % Plt Count (120.0-450.0) 10^3/uL Manual Plt Count (120-450) K/mm3 MPV (7.0-11.0) fl Gran % (50.0-68.0) % Lymph % (Auto) (22.0-35.0) % [place] % (Auto) (1.0-6.0) % Eos % (Auto) (1.5-5.0) % Baso % (Auto) (0.0-3.0) % Gran # (1.4-6.5) Lymph # (1.2-3.4) [place] # (0.1-0.6) Eos # (0.0-0.7) Baso # (0.0-2.0) K/mm3 PT (9.9-11.8) Seconds INR (0.93-1.08) APTT (23.7-30.8) Seconds Sodium 131 L (132-148) mmol/L Potassium 3.7 (3.6-5.0) mmol/L Chloride 96 L (98-107) mmol/L Carbon Dioxide 27 (21-33) mmol/L Anion Gap 12 (10-20) BUN 6 L (7-21) mg/dL Creatinine 0.9 (0.5-1.4) mg/dL Est GFR ( Amer) > 60 Est GFR (Non-Af Amer) > 60 POC Glucose (mg/dL) 178 H (65-110) mg/dL Random Glucose 119 H (70-110) mg/dL Lactic Acid (0.7-2.1) mmol/L Calcium 8.3 L (8.4-10.5) mg/dL Phosphorus (2.5-4.5) mg/dL Magnesium (1.7-2.2) mg/dL Total Bilirubin 4.0 H (0.2-1.3) mg/dL AST 191 H (15-59) U/L ALT 99 H (7-56) U/L Alkaline Phosphatase 96 (38-133) U/L Total Protein 6.2 (5.8-8.3) g/dL Albumin 3.7 (3.0-4.8) g/dL Globulin 2.4 gm/dL Albumin/Globulin Ratio 1.5 (1.1-1.8) Triglycerides 814 H (35-160) mg/dL Cholesterol (130-200) mg/dL LDL Cholesterol Direct (0-129) mg/dL HDL Cholesterol (29-60) mg/dL Lipase 1411 H (23-300) U/L 01/22/17 Range/Units 05:06 WBC (4.5-11.0) 10^3/ul RBC (3.5-6.1) 10^6/uL Hgb (14.0-18.0) gm/dL Hct (42.0-52.0) % MCV (80.0-105.0) fL MCH (25.0-35.0) pg MCHC (31.0-37.0) g/dl RDW (11.5-14.5) % Plt Count (120.0-450.0) 10^3/uL Manual Plt Count 62 L* (120-450) K/mm3 MPV (7.0-11.0) fl Gran % (50.0-68.0) % Lymph % (Auto) (22.0-35.0) % [place] % (Auto) (1.0-6.0) % Eos % (Auto) (1.5-5.0) % Baso % (Auto) (0.0-3.0) % Gran # (1.4-6.5) Lymph # (1.2-3.4) [place] # (0.1-0.6) Eos # (0.0-0.7) Baso # (0.0-2.0) K/mm3 PT (9.9-11.8) Seconds INR (0.93-1.08) APTT (23.7-30.8) Seconds Sodium (132-148) mmol/L Potassium (3.6-5.0) mmol/L Chloride (98-107) mmol/L Carbon Dioxide (21-33) mmol/L Anion Gap (10-20) BUN (7-21) mg/dL Creatinine (0.5-1.4) mg/dL Est GFR ( Amer) Est GFR (Non-Af Amer) POC Glucose (mg/dL) (65-110) mg/dL Random Glucose (70-110) mg/dL Lactic Acid (0.7-2.1) mmol/L Calcium (8.4-10.5) mg/dL Phosphorus (2.5-4.5) mg/dL Magnesium (1.7-2.2) mg/dL Total Bilirubin (0.2-1.3) mg/dL AST (15-59) U/L ALT (7-56) U/L Alkaline Phosphatase (38-133) U/L Total Protein (5.8-8.3) g/dL Albumin (3.0-4.8) g/dL Globulin gm/dL Albumin/Globulin Ratio (1.1-1.8) Triglycerides (35-160) mg/dL Cholesterol (130-200) mg/dL LDL Cholesterol Direct (0-129) mg/dL HDL Cholesterol (29-60) mg/dL Lipase (23-300) U/L Laboratory Results - last 24 hr 01/22/17 01/22/17 01/22/17 05:06 12:22 12:32 WBC RBC Hgb Hct MCV MCH MCHC RDW Plt Count Manual Plt Count 62 L* MPV Gran % Lymph % (Auto) [place] % (Auto) Eos % (Auto) Baso % (Auto) Gran # Lymph # [place] # Eos # Baso # PT INR APTT Sodium Potassium Chloride Carbon Dioxide Anion Gap BUN Creatinine Est GFR ( Amer) Est GFR (Non-Af Amer) POC Glucose (mg/dL) 178 H Random Glucose Lactic Acid Calcium Phosphorus Magnesium Total Bilirubin AST ALT Alkaline Phosphatase Total Protein Albumin Globulin Albumin/Globulin Ratio Triglycerides 814 H Cholesterol LDL Cholesterol Direct HDL Cholesterol Lipase 1411 H 01/22/17 01/22/17 01/22/17 12:33 13:07 14:04 WBC RBC Hgb Hct MCV MCH MCHC RDW Plt Count Manual Plt Count MPV Gran % Lymph % (Auto) [place] % (Auto) Eos % (Auto) Baso % (Auto) Gran # Lymph # [place] # Eos # Baso # PT INR APTT Sodium 131 L Potassium 3.7 Chloride 96 L Carbon Dioxide 27 Anion Gap 12 BUN 6 L Creatinine 0.9 Est GFR ( Amer) > 60 Est GFR (Non-Af Amer) > 60 POC Glucose (mg/dL) 114 H 104 Random Glucose 119 H Lactic Acid Calcium 8.3 L Phosphorus Magnesium Total Bilirubin 4.0 H AST 191 H ALT 99 H Alkaline Phosphatase 96 Total Protein 6.2 Albumin 3.7 Globulin 2.4 Albumin/Globulin Ratio 1.5 Triglycerides Cholesterol LDL Cholesterol Direct HDL Cholesterol Lipase 01/22/17 01/22/17 01/22/17 15:25 16:05 16:59 WBC RBC Hgb Hct MCV MCH MCHC RDW Plt Count Manual Plt Count MPV Gran % Lymph % (Auto) [place] % (Auto) Eos % (Auto) Baso % (Auto) Gran # Lymph # [place] # Eos # Baso # PT INR APTT Sodium 131 L Potassium 4.5 Chloride 100 Carbon Dioxide 27 Anion Gap 9 L BUN 7 Creatinine 0.9 Est GFR ( Amer) > 60 Est GFR (Non-Af Amer) > 60 POC Glucose (mg/dL) 104 133 H Random Glucose 106 Lactic Acid Calcium 8.6 Phosphorus 2.1 L Magnesium 1.8 Total Bilirubin 3.5 H AST 200 H ALT 105 H Alkaline Phosphatase 85 Total Protein 5.8 Albumin 3.4 Globulin 2.4 Albumin/Globulin Ratio 1.4 Triglycerides 644 H Cholesterol LDL Cholesterol Direct HDL Cholesterol Lipase 1391 H 01/22/17 01/22/17 01/22/17 18:00 18:56 20:06 WBC RBC Hgb Hct MCV MCH MCHC RDW Plt Count Manual Plt Count MPV Gran % Lymph % (Auto) [place] % (Auto) Eos % (Auto) Baso % (Auto) Gran # Lymph # [place] # Eos # Baso # PT INR APTT Sodium Potassium Chloride Carbon Dioxide Anion Gap BUN Creatinine Est GFR ( Amer) Est GFR (Non-Af Amer) POC Glucose (mg/dL) 158 H 143 H 108 Random Glucose Lactic Acid Calcium Phosphorus Magnesium Total Bilirubin AST ALT Alkaline Phosphatase Total Protein Albumin Globulin Albumin/Globulin Ratio Triglycerides Cholesterol LDL Cholesterol Direct HDL Cholesterol Lipase 01/22/17 01/22/17 01/23/17 21:15 21:51 00:20 WBC RBC Hgb Hct MCV MCH MCHC RDW Plt Count Manual Plt Count MPV Gran % Lymph % (Auto) [place] % (Auto) Eos % (Auto) Baso % (Auto) Gran # Lymph # [place] # Eos # Baso # PT INR APTT Sodium Potassium Chloride Carbon Dioxide Anion Gap BUN Creatinine Est GFR ( Amer) Est GFR (Non-Af Amer) POC Glucose (mg/dL) 97 97 99 Random Glucose Lactic Acid Calcium Phosphorus Magnesium Total Bilirubin AST ALT Alkaline Phosphatase Total Protein Albumin Globulin Albumin/Globulin Ratio Triglycerides Cholesterol LDL Cholesterol Direct HDL Cholesterol Lipase 01/23/17 01/23/17 01/23/17 01:54 04:09 05:30 WBC 6.2 RBC 3.94 Hgb 12.7 L Hct 36.6 L MCV 92.9 MCH 32.2 MCHC 34.7 RDW 13.9 Plt Count 60 L Manual Plt Count MPV 10.5 Gran % 66.6 Lymph % (Auto) 22.0 [place] % (Auto) 5.8 Eos % (Auto) 4.8 Baso % (Auto) 0.8 Gran # 4.16 Lymph # 1.4 [place] # 0.4 Eos # 0.3 Baso # 0.05 PT 9.9 INR 0.92 L APTT 25.0 Sodium 136 Potassium 3.9 Chloride 103 Carbon Dioxide 27 Anion Gap 10 BUN 8 Creatinine 0.9 Est GFR ( Amer) > 60 Est GFR (Non-Af Amer) > 60 POC Glucose (mg/dL) 102 86 Random Glucose 80 Lactic Acid 0.6 L Calcium 8.4 Phosphorus 3.0 Magnesium 2.2 Total Bilirubin 2.6 H AST 157 H ALT 111 H Alkaline Phosphatase 89 Total Protein 5.9 Albumin 3.4 Globulin 2.5 Albumin/Globulin Ratio 1.4 Triglycerides 523 H Cholesterol 169 LDL Cholesterol Direct 84 HDL Cholesterol 24 L Lipase 756 H 01/23/17 01/23/17 01/23/17 06:55 09:00 09:54 WBC RBC Hgb Hct MCV MCH MCHC RDW Plt Count Manual Plt Count MPV Gran % Lymph % (Auto) [place] % (Auto) Eos % (Auto) Baso % (Auto) Gran # Lymph # [place] # Eos # Baso # PT INR APTT Sodium Potassium Chloride Carbon Dioxide Anion Gap BUN Creatinine Est GFR ( Amer) Est GFR (Non-Af Amer) POC Glucose (mg/dL) 81 138 H 172 H Random Glucose Lactic Acid Calcium Phosphorus Magnesium Total Bilirubin AST ALT Alkaline Phosphatase Total Protein Albumin Globulin Albumin/Globulin Ratio Triglycerides Cholesterol LDL Cholesterol Direct HDL Cholesterol Lipase 01/23/17 10:54 WBC RBC Hgb Hct MCV MCH MCHC RDW Plt Count Manual Plt Count MPV Gran % Lymph % (Auto) [place] % (Auto) Eos % (Auto) Baso % (Auto) Gran # Lymph # [place] # Eos # Baso # PT INR APTT Sodium Potassium Chloride Carbon Dioxide Anion Gap BUN Creatinine Est GFR ( Amer) Est GFR (Non-Af Amer) POC Glucose (mg/dL) 141 H Random Glucose Lactic Acid Calcium Phosphorus Magnesium Total Bilirubin AST ALT Alkaline Phosphatase Total Protein Albumin Globulin Albumin/Globulin Ratio Triglycerides Cholesterol LDL Cholesterol Direct HDL Cholesterol Lipase Critical Care Progress Note - Nutrition Nutrition: Nutrition Category Date Time Status Heart Healthy Diet [DIET] Diets 01/21/17 Dinner Ordered Attending/Attestation - Attestation I have personally seen and examined this patient.: Yes I have fully participated in the care of the patient.: Yes I have reviewed all pertinent clinical information: Yes Notes (Text): 01/23/17 11:50 The patient was seen and examined at the bedside. Patient care was discussed with resident Medical records, lab studies, and imaging were reviewed and management issues were discussed and formulated. Last 24H events reviewed. Agree with above treatment plans as outlined in 's note with addition of the following: -continue hemodynamic monitoring to maintain MAP>65; currently stable -continue norvasc and metoprolol -o2 supplementation to maintain Spo2 90-92 Pao2>60; currently comfortable on room air -monitor fever and WBC, off Abx at this time -f\u Bun\Cr and U\o -Monitor and replace e-lites -PO diet and aspiration precautions -f\u Trigliceride levels -continue gemfibrozil -continue insulin drip and D5w, monitor BGM Q1h -d\c insulin drip once Trig level <500 -f\u lipase; pt clinically improved and tolerating diet -GI team following -hold heparin and send HIT Ab and DWAIN -consider heme\onc eval for thrombocytopenia -monitor serial CBC and for bleeding -continue thiamine and folic acid -continue librium and monitor for etoh withdrawal -DVT \ PUD prophylaxis CCM f\u 35min
--- NOTE | 2017-01-23 12:43 | PN ---
DATE: 01/23/2017 SUBJECTIVE: This patient was seen and evaluated today at 12:30 p.m. The patient is tolerating the d iet. No complaints of any abdominal pain, still on insulin drip. PHYSICAL EXAMINATION: VITAL SIGNS: Temperature is 98.7, pulse 97, blood pressure 121/69. HEENT: Atraumatic, anicteric. NECK: Supple. HEART: S1, S2 heard. LUNGS: Bilateral air entry present. ABDOMEN: Soft. There is no mass palpable. No tenderness. EXTREMITIES: No edema. No cyanosis. NEUROLOGIC: Alert, oriented. Moves all the extremities. LABORATORY DATA: Hemoglobin is 12.7, hematocrit 36.6, WBC is 6.2, platelets 60. Yesterday's ____ wa s 62. LFTs show significant improvement. Total bilirubin is 3.5, AST is 200, ALT is 105, triglyceri de level has also significantly decreased to 654, lipase is still elevated at 1391. IMPRESSION: 1. Acute pancreatitis, probably secondary to hypertriglyceridemia. 2. Hypertriglyceridemia. On insulin drip, status post plasmapheresis x2. 3. Manual platelet count is still low. The patient has been on Protonix 40 mg daily. We will disco ntinue the Protonix. We will start the patient on Carafate 1 gram q.i.d. 4. Alcoholic hepatitis. LFTs showing downward trend. Thank you very much for allowing us to participate in the care of the patient. We will continue to c losely follow up his care and suggest further management based on the clinical course. Brian Regan MD cc: [id number] TT: 01/23/2017 12:42:32 Confirmation # [id number] Dictation # [id number] soni
--- NOTE | 2017-01-23 12:46 | PN ---
DATE: 01/22/2017 This patient had a [id number] interaction and evaluation. This patient was seen and evaluated [facility] with Arlette Kumar APN, yesterday evening. We evaluated on 01/22/2017 at 8:00 p.m. The patient was comfortable, tolerating the diet. No complaints of any abdominal pain. PHYSICAL EXAMINATION: ABDOMEN: Soft. No tenderness. LABORATORY DATA: Review of the lab showed platelet count was 51. Requested a manual platelet count. The patient's LFTs showing downward trend. The patient has been on Protonix 40 mg daily. Would co ntinue followup. IMPRESSION: 1. Acute pancreatitis, hypertriglyceridemia, on insulin drip. 2. Thrombocytopenia. 3. Alcoholic hepatitis is improving. Continue to closely follow up her care and suggest further man agement based on the clinical course. Brian Regan MD cc: [id number] TT: 01/23/2017 12:45:13 Confirmation # [id number] Dictation # [id number]
[2017-01-23 15:22] LABS: ALB/GLOB RATIO 1.4 (1.1-1.8); ALKALINE PHOSPHATASE 107 U/L (38-133); ALT/SGPT 131 U/L (7-56); AST/SGOT 198 U/L (15-59); BILIRUBIN,TOTAL 2.3 mg/dL (0.2-1.3); BLOOD UREA NITROGEN 8 mg/dL (7-21); CALCIUM 8.7 mg/dL (8.4-10.5); CARBON DIOXIDE 27 mmol/L (21-33); CHLORIDE 100 mmol/L (98-107); GFR AFRICAN-AMERICAN > 60; GLUCOSE,RANDOM 114 mg/dL (70-110); LIPASE 1165 U/L (23-300); MAGNESIUM 2.1 mg/dL (1.7-2.2); PHOSPHOROUS 2.7 mg/dL (2.5-4.5); POTASSIUM 4.2 mmol/L (3.6-5.0); SODIUM 132 mmol/L (132-148); TOTAL PROTEIN 6.2 g/dL (5.8-8.3)
[2017-01-23] MEDS: Sucralfate 1 gm/10 ml Oral Susp UD PO SCH ×2 (16:30→21:13)
[2017-01-24 06:08] LABS: ADD MANUAL DIFF? NO; BASO # 0.04 K/mm3 (0.0-2.0); BASO % 0.6 % (0.0-3.0); EOS # 0.3 (0.0-0.7); EOS % 3.7 % (1.5-5.0); GRAN # 4.42 (1.4-6.5); GRAN % 65.7 % (50.0-68.0); LYMPH # 1.5 (1.2-3.4); LYMPH % 22.1 % (22.0-35.0); MEAN CELL VOLUME 94.5 fL (80.0-105.0); MEAN CORPUSCULAR HEMOGLOBIN 31.8 pg (25.0-35.0); MEAN CORPUSCULAR HGB CONC 33.6 g/dl (31.0-37.0); MEAN PLATELET VOLUME 9.6 fl (7.0-11.0); MONO # 0.5 (0.1-0.6); MONO % 7.9 % (1.0-6.0); PLATELET COUNT 96 10^3/uL (120.0-450.0); RED CELL DISTRIBUTION WIDTH 14.1 % (11.5-14.5); WHITE BLOOD COUNT 6.7 10^3/ul (4.5-11.0)
[2017-01-24 06:21] LABS: INR 0.93 (0.93-1.08); PARTIAL THROMBOPLASTIN TIME 23.8 Seconds (23.7-30.8)
[2017-01-24 06:28] LABS: ALB/GLOB RATIO 1.3 (1.1-1.8); ALKALINE PHOSPHATASE 94 U/L (38-133); ALT/SGPT 125 U/L (7-56); AST/SGOT 153 U/L (15-59); BILIRUBIN,TOTAL 1.6 mg/dL (0.2-1.3); BLOOD UREA NITROGEN 7 mg/dL (7-21); CALCIUM 8.7 mg/dL (8.4-10.5); CARBON DIOXIDE 29 mmol/L (21-33); CHLORIDE 101 mmol/L (95-110); CHOLESTEROL 203 mg/dL (130-200); GFR AFRICAN-AMERICAN > 60; GLUCOSE,RANDOM 96 mg/dL (70-110); LIPASE 696 U/L (23-300); MAGNESIUM 2.2 mg/dL (1.7-2.2); PHOSPHOROUS 3.9 mg/dL (2.5-4.5); POTASSIUM 4.1 mmol/L (3.6-5.0); SODIUM 136 mmol/L (132-148)
[2017-01-24] MEDS: Sucralfate 1 gm/10 ml Oral Susp UD PO SCH ×5 (09:29→22:00)
--- NOTE | 2017-01-24 10:18 | CP.CCUPN ---
<Robbie Armando - Last Filed: 01/24/17 10:14> CCU Subjective - Physician Review Subjective (Free Text): 01/24/17 10:15 Patient seen and examined at bedside in the ICU. Today is hospital day 6. S/p 2x pheresis. No acute events overnight. Today, resting comfortably in chair at time of exam. Continues to tolerate diet well, no further tremors, no complains. Denies chest pain, shortness of breath, tremors, diarrhea, emesis. CCU Objective - Vital Signs / Intake & Output Vital Signs (Last 4 hours): Vital Signs Temp Pulse Resp BP Pulse Ox 01/24/17 09:29 101 H 125/72 01/24/17 09:00 102 H 125/72 96 01/24/17 08:04 97 H 96 01/24/17 08:01 102 H 17 152/78 H 96 01/24/17 08:00 98.7 F 100 H 22 94 L 01/24/17 07:59 102 H 17 94 L 01/24/17 07:00 94 H 18 152/88 H 95 01/24/17 06:35 85 31 H 95 Intake and Output (Last 8hrs): Intake & Output 01/23/17 01/24/17 01/24/17 22:59 06:59 14:59 Intake Total 4422 1612 Output Total 1600 Balance 4422 12 Weight 78.154 kg Intake: IV 1222 1012 Left Forearm 1222 thierno 1012 Oral 3200 600 Output: Urine 1600 Urine, Voided 1600 Other: Voiding Method Urinal Toilet # Voids Urine, Voided 6 # Bowel Movements 1 - Physical Exam Head: Positive for: Atraumatic, Normocephalic. Negative for: Contusion, Swelling, Ecchymosis, Abrasion, Laceration Pupils: Positive for: PERRL. Negative for: Sluggish, Non-Reactive Extroacular Muscles: Positive for: EOMI. Negative for: Gaze Palsy, Entrapment Conjunctiva: Positive for: Icteric. Negative for: Normal, Injected Mouth: Positive for: Moist Mucous Membranes, Normal Tounge, Normal Teeth, Other (no tongue fasciculations). Negative for: Dry Pharnyx: Positive for: Normal. Negative for: Uvular Deviation Nose (External): Positive for: Atraumatic. Negative for: Abrasion, Contusion, Laceration Neck: Positive for: Normal Range of Motion, Trachea Midline. Negative for: Meningeal Signs, JVD, Lymphadenopathy Respiratory/Chest: Positive for: Clear to Auscultation, Good Air Exchange. Negative for: Respiratory Distress, Accessory Muscle Use, Wheezes, Decreased Breath Sounds, Rales, Retracting, Rhonchi, Tachypneic, Tender to Palpation Cardiovascular: Positive for: Regular Rate and Rhythm, Normal S1, S2. Negative for: Murmurs, Irregular Rhythm, Tachycardic, Bradycardic Abdomen: Positive for: Distention (unclear if distention vs obseity), Normal Bowel Sounds, Mass/Organomegaly (hepatomegaly), Other (firm but not rigid abdomen). Negative for: Tenderness, Peritoneal Signs, Rebound, Guarding Back: Negative for: CVA Tenderness Upper Extremity: Positive for: Normal Inspection, Normal ROM, NORMAL PULSES, Other (no tremors). Negative for: Cyanosis, Edema, Tenderness, Swelling, Erythema, Deformity Lower Extremity: Positive for: Normal Inspection, NORMAL PULSES, Normal ROM, Other (no tremors at rest or with movement). Negative for: Edema, CALF TENDERNESS, Cyanosis, Tenderness, Swelling, Erythema, Deformity Neurological: Positive for: GCS=15, CN II-XII Intact, Speech Normal, Motor Func Grossly Intact, Normal Sensory Function, Other (mild hand tremors, otherwise unremarkable) Skin: Positive for: Warm, Dry, Normal Color. Negative for: Rashes, Diaphoretic , Erythematous, Laceration, Abrasion Psychiatric: Positive for: Alert, Oriented x 3, Normal Insight, Normal Concentration, Normal Affect, Normal Mood. Negative for: Anxious, Agitated - Medications Active Medications: Active Medications Generic Name Dose Route Start Last Admin Trade Name Freq PRN Reason Stop Dose Admin Amlodipine Besylate 5 mg 01/21/17 12:00 01/24/17 09:29 Norvasc PO 5 mg DAILY [facility] Administration Chlordiazepoxide 10 mg 01/20/17 22:45 01/24/17 05:42 Librium PO 10 mg Q8 [facility] Administration Protocol Folic Acid 1 mg 01/21/17 10:00 01/24/17 09:29 Folic Acid PO 1 mg DAILY [facility] Administration Gemfibrozil 600 mg 01/21/17 18:00 01/24/17 09:29 Lopid PO 600 mg BID [facility] Administration Lorazepam 1 mg 01/19/17 19:03 01/21/17 12:20 Ativan IVP 1 mg Q3H PRN Administration Withdrawal Protocol Sucralfate 1 gm 01/23/17 14:00 01/24/17 09:29 Carafate Oral Susp PO 1 gm QID [facility] Administration Thiamine HCl 100 mg 01/21/17 10:00 01/24/17 09:29 Vitamin B1 Tab PO 100 mg DAILY [facility] Administration - Patient Studies Lab Studies: Lab Studies 01/24/17 01/24/17 01/24/17 Range/Units 09:02 08:02 07:12 WBC (4.5-11.0) 10^3/ul RBC (3.5-6.1) 10^6/uL Hgb (14.0-18.0) gm/dL Hct (42.0-52.0) % MCV (80.0-105.0) fL MCH (25.0-35.0) pg MCHC (31.0-37.0) g/dl RDW (11.5-14.5) % Plt Count (120.0-450.0) 10^3/uL MPV (7.0-11.0) fl Gran % (50.0-68.0) % Lymph % (Auto) (22.0-35.0) % [place] % (Auto) (1.0-6.0) % Eos % (Auto) (1.5-5.0) % Baso % (Auto) (0.0-3.0) % Gran # (1.4-6.5) Lymph # (1.2-3.4) [place] # (0.1-0.6) Eos # (0.0-0.7) Baso # (0.0-2.0) K/mm3 PT (9.9-11.8) Seconds INR (0.93-1.08) APTT (23.7-30.8) Seconds Sodium (132-148) mmol/L Potassium (3.6-5.0) mmol/L Chloride (95-110) mmol/L Carbon Dioxide (21-33) mmol/L Anion Gap (10-20) BUN (7-21) mg/dL Creatinine (0.5-1.4) mg/dL Est GFR ( Amer) Est GFR (Non-Af Amer) POC Glucose (mg/dL) 147 H 100 98 (65-110) mg/dL Random Glucose (70-110) mg/dL Lactic Acid (0.7-2.1) mmol/L Calcium (8.4-10.5) mg/dL Phosphorus (2.5-4.5) mg/dL Magnesium (1.7-2.2) mg/dL Total Bilirubin (0.2-1.3) mg/dL AST (15-59) U/L ALT (7-56) U/L Alkaline Phosphatase (38-133) U/L Total Protein (5.8-8.3) g/dL Albumin (3.0-4.8) g/dL Globulin gm/dL Albumin/Globulin Ratio (1.1-1.8) Triglycerides (35-160) mg/dL Cholesterol (130-200) mg/dL LDL Cholesterol Direct (0-129) mg/dL HDL Cholesterol (29-60) mg/dL Lipase (23-300) U/L 01/24/17 01/24/17 01/24/17 Range/Units 06:01 05:33 05:30 WBC 6.7 (4.5-11.0) 10^3/ul RBC 3.81 (3.5-6.1) 10^6/uL Hgb 12.1 L (14.0-18.0) gm/dL Hct 36.0 L (42.0-52.0) % MCV 94.5 (80.0-105.0) fL MCH 31.8 (25.0-35.0) pg MCHC 33.6 (31.0-37.0) g/dl RDW 14.1 (11.5-14.5) % Plt Count 96 L (120.0-450.0) 10^3/uL MPV 9.6 (7.0-11.0) fl Gran % 65.7 (50.0-68.0) % Lymph % (Auto) 22.1 (22.0-35.0) % [place] % (Auto) 7.9 H (1.0-6.0) % Eos % (Auto) 3.7 (1.5-5.0) % Baso % (Auto) 0.6 (0.0-3.0) % Gran # 4.42 (1.4-6.5) Lymph # 1.5 (1.2-3.4) [place] # 0.5 (0.1-0.6) Eos # 0.3 (0.0-0.7) Baso # 0.04 (0.0-2.0) K/mm3 PT 10.0 (9.9-11.8) Seconds INR 0.93 (0.93-1.08) APTT 23.8 (23.7-30.8) Seconds Sodium 136 (132-148) mmol/L Potassium 4.1 (3.6-5.0) mmol/L Chloride 101 (95-110) mmol/L Carbon Dioxide 29 (21-33) mmol/L Anion Gap 10 (10-20) BUN 7 (7-21) mg/dL Creatinine 0.9 (0.5-1.4) mg/dL Est GFR ( Amer) > 60 Est GFR (Non-Af Amer) > 60 POC Glucose (mg/dL) 98 103 (65-110) mg/dL Random Glucose 96 (70-110) mg/dL Lactic Acid 0.9 (0.7-2.1) mmol/L Calcium 8.7 (8.4-10.5) mg/dL Phosphorus 3.9 (2.5-4.5) mg/dL Magnesium 2.2 (1.7-2.2) mg/dL Total Bilirubin 1.6 H (0.2-1.3) mg/dL AST 153 H (15-59) U/L ALT 125 H (7-56) U/L Alkaline Phosphatase 94 (38-133) U/L Total Protein 6.0 (5.8-8.3) g/dL Albumin 3.4 (3.0-4.8) g/dL Globulin 2.6 gm/dL Albumin/Globulin Ratio 1.3 (1.1-1.8) Triglycerides 288 H (35-160) mg/dL Cholesterol 203 H (130-200) mg/dL LDL Cholesterol Direct 114 (0-129) mg/dL HDL Cholesterol 31 (29-60) mg/dL Lipase 696 H (23-300) U/L 01/24/17 01/24/17 01/24/17 Range/Units 04:38 02:58 01:55 WBC (4.5-11.0) 10^3/ul RBC (3.5-6.1) 10^6/uL Hgb (14.0-18.0) gm/dL Hct (42.0-52.0) % MCV (80.0-105.0) fL MCH (25.0-35.0) pg MCHC (31.0-37.0) g/dl RDW (11.5-14.5) % Plt Count (120.0-450.0) 10^3/uL MPV (7.0-11.0) fl Gran % (50.0-68.0) % Lymph % (Auto) (22.0-35.0) % [place] % (Auto) (1.0-6.0) % Eos % (Auto) (1.5-5.0) % Baso % (Auto) (0.0-3.0) % Gran # (1.4-6.5) Lymph # (1.2-3.4) [place] # (0.1-0.6) Eos # (0.0-0.7) Baso # (0.0-2.0) K/mm3 PT (9.9-11.8) Seconds INR (0.93-1.08) APTT (23.7-30.8) Seconds Sodium (132-148) mmol/L Potassium (3.6-5.0) mmol/L Chloride (95-110) mmol/L Carbon Dioxide (21-33) mmol/L Anion Gap (10-20) BUN (7-21) mg/dL Creatinine (0.5-1.4) mg/dL Est GFR ( Amer) Est GFR (Non-Af Amer) POC Glucose (mg/dL) 96 113 H 110 (65-110) mg/dL Random Glucose (70-110) mg/dL Lactic Acid (0.7-2.1) mmol/L Calcium (8.4-10.5) mg/dL Phosphorus (2.5-4.5) mg/dL Magnesium (1.7-2.2) mg/dL Total Bilirubin (0.2-1.3) mg/dL AST (15-59) U/L ALT (7-56) U/L Alkaline Phosphatase (38-133) U/L Total Protein (5.8-8.3) g/dL Albumin (3.0-4.8) g/dL Globulin gm/dL Albumin/Globulin Ratio (1.1-1.8) Triglycerides (35-160) mg/dL Cholesterol (130-200) mg/dL LDL Cholesterol Direct (0-129) mg/dL HDL Cholesterol (29-60) mg/dL Lipase (23-300) U/L 01/24/17 01/24/17 01/23/17 Range/Units 00:59 00:15 23:02 WBC (4.5-11.0) 10^3/ul RBC (3.5-6.1) 10^6/uL Hgb (14.0-18.0) gm/dL Hct (42.0-52.0) % MCV (80.0-105.0) fL MCH (25.0-35.0) pg MCHC (31.0-37.0) g/dl RDW (11.5-14.5) % Plt Count (120.0-450.0) 10^3/uL MPV (7.0-11.0) fl Gran % (50.0-68.0) % Lymph % (Auto) (22.0-35.0) % [place] % (Auto) (1.0-6.0) % Eos % (Auto) (1.5-5.0) % Baso % (Auto) (0.0-3.0) % Gran # (1.4-6.5) Lymph # (1.2-3.4) [place] # (0.1-0.6) Eos # (0.0-0.7) Baso # (0.0-2.0) K/mm3 PT (9.9-11.8) Seconds INR (0.93-1.08) APTT (23.7-30.8) Seconds Sodium (132-148) mmol/L Potassium (3.6-5.0) mmol/L Chloride (95-110) mmol/L Carbon Dioxide (21-33) mmol/L Anion Gap (10-20) BUN (7-21) mg/dL Creatinine (0.5-1.4) mg/dL Est GFR ( Amer) Est GFR (Non-Af Amer) POC Glucose (mg/dL) 107 122 H 114 H (65-110) mg/dL Random Glucose (70-110) mg/dL Lactic Acid (0.7-2.1) mmol/L Calcium (8.4-10.5) mg/dL Phosphorus (2.5-4.5) mg/dL Magnesium (1.7-2.2) mg/dL Total Bilirubin (0.2-1.3) mg/dL AST (15-59) U/L ALT (7-56) U/L Alkaline Phosphatase (38-133) U/L Total Protein (5.8-8.3) g/dL Albumin (3.0-4.8) g/dL Globulin gm/dL Albumin/Globulin Ratio (1.1-1.8) Triglycerides (35-160) mg/dL Cholesterol (130-200) mg/dL LDL Cholesterol Direct (0-129) mg/dL HDL Cholesterol (29-60) mg/dL Lipase (23-300) U/L 01/23/17 01/23/17 01/23/17 Range/Units 22:03 21:16 20:18 WBC (4.5-11.0) 10^3/ul RBC (3.5-6.1) 10^6/uL Hgb (14.0-18.0) gm/dL Hct (42.0-52.0) % MCV (80.0-105.0) fL MCH (25.0-35.0) pg MCHC (31.0-37.0) g/dl RDW (11.5-14.5) % Plt Count (120.0-450.0) 10^3/uL MPV (7.0-11.0) fl Gran % (50.0-68.0) % Lymph % (Auto) (22.0-35.0) % [place] % (Auto) (1.0-6.0) % Eos % (Auto) (1.5-5.0) % Baso % (Auto) (0.0-3.0) % Gran # (1.4-6.5) Lymph # (1.2-3.4) [place] # (0.1-0.6) Eos # (0.0-0.7) Baso # (0.0-2.0) K/mm3 PT (9.9-11.8) Seconds INR (0.93-1.08) APTT (23.7-30.8) Seconds Sodium (132-148) mmol/L Potassium (3.6-5.0) mmol/L Chloride (95-110) mmol/L Carbon Dioxide (21-33) mmol/L Anion Gap (10-20) BUN (7-21) mg/dL Creatinine (0.5-1.4) mg/dL Est GFR ( Amer) Est GFR (Non-Af Amer) POC Glucose (mg/dL) 94 115 H 110 (65-110) mg/dL Random Glucose (70-110) mg/dL Lactic Acid (0.7-2.1) mmol/L Calcium (8.4-10.5) mg/dL Phosphorus (2.5-4.5) mg/dL Magnesium (1.7-2.2) mg/dL Total Bilirubin (0.2-1.3) mg/dL AST (15-59) U/L ALT (7-56) U/L Alkaline Phosphatase (38-133) U/L Total Protein (5.8-8.3) g/dL Albumin (3.0-4.8) g/dL Globulin gm/dL Albumin/Globulin Ratio (1.1-1.8) Triglycerides (35-160) mg/dL Cholesterol (130-200) mg/dL LDL Cholesterol Direct (0-129) mg/dL HDL Cholesterol (29-60) mg/dL Lipase (23-300) U/L 01/23/17 01/23/17 01/23/17 Range/Units 19:46 18:28 17:21 WBC (4.5-11.0) 10^3/ul RBC (3.5-6.1) 10^6/uL Hgb (14.0-18.0) gm/dL Hct (42.0-52.0) % MCV (80.0-105.0) fL MCH (25.0-35.0) pg MCHC (31.0-37.0) g/dl RDW (11.5-14.5) % Plt Count (120.0-450.0) 10^3/uL MPV (7.0-11.0) fl Gran % (50.0-68.0) % Lymph % (Auto) (22.0-35.0) % [place] % (Auto) (1.0-6.0) % Eos % (Auto) (1.5-5.0) % Baso % (Auto) (0.0-3.0) % Gran # (1.4-6.5) Lymph # (1.2-3.4) [place] # (0.1-0.6) Eos # (0.0-0.7) Baso # (0.0-2.0) K/mm3 PT (9.9-11.8) Seconds INR (0.93-1.08) APTT (23.7-30.8) Seconds Sodium (132-148) mmol/L Potassium (3.6-5.0) mmol/L Chloride (95-110) mmol/L Carbon Dioxide (21-33) mmol/L Anion Gap (10-20) BUN (7-21) mg/dL Creatinine (0.5-1.4) mg/dL Est GFR ( Amer) Est GFR (Non-Af Amer) POC Glucose (mg/dL) 133 H 130 H 103 (65-110) mg/dL Random Glucose (70-110) mg/dL Lactic Acid (0.7-2.1) mmol/L Calcium (8.4-10.5) mg/dL Phosphorus (2.5-4.5) mg/dL Magnesium (1.7-2.2) mg/dL Total Bilirubin (0.2-1.3) mg/dL AST (15-59) U/L ALT (7-56) U/L Alkaline Phosphatase (38-133) U/L Total Protein (5.8-8.3) g/dL Albumin (3.0-4.8) g/dL Globulin gm/dL Albumin/Globulin Ratio (1.1-1.8) Triglycerides (35-160) mg/dL Cholesterol (130-200) mg/dL LDL Cholesterol Direct (0-129) mg/dL HDL Cholesterol (29-60) mg/dL Lipase (23-300) U/L 01/23/17 01/23/17 01/23/17 Range/Units 16:16 15:03 14:45 WBC (4.5-11.0) 10^3/ul RBC (3.5-6.1) 10^6/uL Hgb (14.0-18.0) gm/dL Hct (42.0-52.0) % MCV (80.0-105.0) fL MCH (25.0-35.0) pg MCHC (31.0-37.0) g/dl RDW (11.5-14.5) % Plt Count (120.0-450.0) 10^3/uL MPV (7.0-11.0) fl Gran % (50.0-68.0) % Lymph % (Auto) (22.0-35.0) % [place] % (Auto) (1.0-6.0) % Eos % (Auto) (1.5-5.0) % Baso % (Auto) (0.0-3.0) % Gran # (1.4-6.5) Lymph # (1.2-3.4) [place] # (0.1-0.6) Eos # (0.0-0.7) Baso # (0.0-2.0) K/mm3 PT (9.9-11.8) Seconds INR (0.93-1.08) APTT (23.7-30.8) Seconds Sodium 132 (132-148) mmol/L Potassium 4.2 (3.6-5.0) mmol/L Chloride 100 (95-110) mmol/L Carbon Dioxide 27 (21-33) mmol/L Anion Gap 9 L (10-20) BUN 8 (7-21) mg/dL Creatinine 0.9 (0.5-1.4) mg/dL Est GFR ( Amer) > 60 Est GFR (Non-Af Amer) > 60 POC Glucose (mg/dL) 120 H 141 H (65-110) mg/dL Random Glucose 114 H (70-110) mg/dL Lactic Acid (0.7-2.1) mmol/L Calcium 8.7 (8.4-10.5) mg/dL Phosphorus 2.7 (2.5-4.5) mg/dL Magnesium 2.1 (1.7-2.2) mg/dL Total Bilirubin 2.3 H (0.2-1.3) mg/dL AST 198 H (15-59) U/L ALT 131 H (7-56) U/L Alkaline Phosphatase 107 (38-133) U/L Total Protein 6.2 (5.8-8.3) g/dL Albumin 3.6 (3.0-4.8) g/dL Globulin 2.6 gm/dL Albumin/Globulin Ratio 1.4 (1.1-1.8) Triglycerides 525 H (35-160) mg/dL Cholesterol (130-200) mg/dL LDL Cholesterol Direct (0-129) mg/dL HDL Cholesterol (29-60) mg/dL Lipase 1165 H (23-300) U/L 01/23/17 01/23/17 01/23/17 Range/Units 13:59 12:57 12:04 WBC (4.5-11.0) 10^3/ul RBC (3.5-6.1) 10^6/uL Hgb (14.0-18.0) gm/dL Hct (42.0-52.0) % MCV (80.0-105.0) fL MCH (25.0-35.0) pg MCHC (31.0-37.0) g/dl RDW (11.5-14.5) % Plt Count (120.0-450.0) 10^3/uL MPV (7.0-11.0) fl Gran % (50.0-68.0) % Lymph % (Auto) (22.0-35.0) % [place] % (Auto) (1.0-6.0) % Eos % (Auto) (1.5-5.0) % Baso % (Auto) (0.0-3.0) % Gran # (1.4-6.5) Lymph # (1.2-3.4) [place] # (0.1-0.6) Eos # (0.0-0.7) Baso # (0.0-2.0) K/mm3 PT (9.9-11.8) Seconds INR (0.93-1.08) APTT (23.7-30.8) Seconds Sodium (132-148) mmol/L Potassium (3.6-5.0) mmol/L Chloride (95-110) mmol/L Carbon Dioxide (21-33) mmol/L Anion Gap (10-20) BUN (7-21) mg/dL Creatinine (0.5-1.4) mg/dL Est GFR ( Amer) Est GFR (Non-Af Amer) POC Glucose (mg/dL) 127 H 168 H 126 H (65-110) mg/dL Random Glucose (70-110) mg/dL Lactic Acid (0.7-2.1) mmol/L Calcium (8.4-10.5) mg/dL Phosphorus (2.5-4.5) mg/dL Magnesium (1.7-2.2) mg/dL Total Bilirubin (0.2-1.3) mg/dL AST (15-59) U/L ALT (7-56) U/L Alkaline Phosphatase (38-133) U/L Total Protein (5.8-8.3) g/dL Albumin (3.0-4.8) g/dL Globulin gm/dL Albumin/Globulin Ratio (1.1-1.8) Triglycerides (35-160) mg/dL Cholesterol (130-200) mg/dL LDL Cholesterol Direct (0-129) mg/dL HDL Cholesterol (29-60) mg/dL Lipase (23-300) U/L // Range/Units 10:54 WBC (4.5-11.0) 10^3/ul RBC (3.5-6.1) 10^6/uL Hgb (14.0-18.0) gm/dL Hct (42.0-52.0) % MCV (80.0-105.0) fL MCH (25.0-35.0) pg MCHC (31.0-37.0) g/dl RDW (11.5-14.5) % Plt Count (120.0-450.0) 10^3/uL MPV (7.0-11.0) fl Gran % (50.0-68.0) % Lymph % (Auto) (22.0-35.0) % [place] % (Auto) (1.0-6.0) % Eos % (Auto) (1.5-5.0) % Baso % (Auto) (0.0-3.0) % Gran # (1.4-6.5) Lymph # (1.2-3.4) [place] # (0.1-0.6) Eos # (0.0-0.7) Baso # (0.0-2.0) K/mm3 PT (9.9-11.8) Seconds INR (0.93-1.08) APTT (23.7-30.8) Seconds Sodium (132-148) mmol/L Potassium (3.6-5.0) mmol/L Chloride (95-110) mmol/L Carbon Dioxide (21-33) mmol/L Anion Gap (10-20) BUN (7-21) mg/dL Creatinine (0.5-1.4) mg/dL Est GFR ( Amer) Est GFR (Non-Af Amer) POC Glucose (mg/dL) 141 H (65-110) mg/dL Random Glucose (70-110) mg/dL Lactic Acid (0.7-2.1) mmol/L Calcium (8.4-10.5) mg/dL Phosphorus (2.5-4.5) mg/dL Magnesium (1.7-2.2) mg/dL Total Bilirubin (0.2-1.3) mg/dL AST (15-59) U/L ALT (7-56) U/L Alkaline Phosphatase (38-133) U/L Total Protein (5.8-8.3) g/dL Albumin (3.0-4.8) g/dL Globulin gm/dL Albumin/Globulin Ratio (1.1-1.8) Triglycerides (35-160) mg/dL Cholesterol (130-200) mg/dL LDL Cholesterol Direct (0-129) mg/dL HDL Cholesterol (29-60) mg/dL Lipase (23-300) U/L Laboratory Results - last 24 hr 01/23/17 01/23/17 01/23/17 10:54 12:04 12:57 WBC RBC Hgb Hct MCV MCH MCHC RDW Plt Count MPV Gran % Lymph % (Auto) [place] % (Auto) Eos % (Auto) Baso % (Auto) Gran # Lymph # [place] # Eos # Baso # PT INR APTT Sodium Potassium Chloride Carbon Dioxide Anion Gap BUN Creatinine Est GFR ( Amer) Est GFR (Non-Af Amer) POC Glucose (mg/dL) 141 H 126 H 168 H Random Glucose Lactic Acid Calcium Phosphorus Magnesium Total Bilirubin AST ALT Alkaline Phosphatase Total Protein Albumin Globulin Albumin/Globulin Ratio Triglycerides Cholesterol LDL Cholesterol Direct HDL Cholesterol Lipase 01/23/17 01/23/17 01/23/17 13:59 14:45 15:03 WBC RBC Hgb Hct MCV MCH MCHC RDW Plt Count MPV Gran % Lymph % (Auto) [place] % (Auto) Eos % (Auto) Baso % (Auto) Gran # Lymph # [place] # Eos # Baso # PT INR APTT Sodium 132 Potassium 4.2 Chloride 100 Carbon Dioxide 27 Anion Gap 9 L BUN 8 Creatinine 0.9 Est GFR ( Amer) > 60 Est GFR (Non-Af Amer) > 60 POC Glucose (mg/dL) 127 H 141 H Random Glucose 114 H Lactic Acid Calcium 8.7 Phosphorus 2.7 Magnesium 2.1 Total Bilirubin 2.3 H AST 198 H ALT 131 H Alkaline Phosphatase 107 Total Protein 6.2 Albumin 3.6 Globulin 2.6 Albumin/Globulin Ratio 1.4 Triglycerides 525 H Cholesterol LDL Cholesterol Direct HDL Cholesterol Lipase 1165 H 01/23/17 01/23/17 01/23/17 16:16 17:21 18:28 WBC RBC Hgb Hct MCV MCH MCHC RDW Plt Count MPV Gran % Lymph % (Auto) [place] % (Auto) Eos % (Auto) Baso % (Auto) Gran # Lymph # [place] # Eos # Baso # PT INR APTT Sodium Potassium Chloride Carbon Dioxide Anion Gap BUN Creatinine Est GFR ( Amer) Est GFR (Non-Af Amer) POC Glucose (mg/dL) 120 H 103 130 H Random Glucose Lactic Acid Calcium Phosphorus Magnesium Total Bilirubin AST ALT Alkaline Phosphatase Total Protein Albumin Globulin Albumin/Globulin Ratio Triglycerides Cholesterol LDL Cholesterol Direct HDL Cholesterol Lipase 01/23/17 01/23/17 01/23/17 19:46 20:18 21:16 WBC RBC Hgb Hct MCV MCH MCHC RDW Plt Count MPV Gran % Lymph % (Auto) [place] % (Auto) Eos % (Auto) Baso % (Auto) Gran # Lymph # [place] # Eos # Baso # PT INR APTT Sodium Potassium Chloride Carbon Dioxide Anion Gap BUN Creatinine Est GFR ( Amer) Est GFR (Non-Af Amer) POC Glucose (mg/dL) 133 H 110 115 H Random Glucose Lactic Acid Calcium Phosphorus Magnesium Total Bilirubin AST ALT Alkaline Phosphatase Total Protein Albumin Globulin Albumin/Globulin Ratio Triglycerides Cholesterol LDL Cholesterol Direct HDL Cholesterol Lipase 01/23/17 01/23/17 01/24/17 22:03 23:02 00:15 WBC RBC Hgb Hct MCV MCH MCHC RDW Plt Count MPV Gran % Lymph % (Auto) [place] % (Auto) Eos % (Auto) Baso % (Auto) Gran # Lymph # [place] # Eos # Baso # PT INR APTT Sodium Potassium Chloride Carbon Dioxide Anion Gap BUN Creatinine Est GFR ( Amer) Est GFR (Non-Af Amer) POC Glucose (mg/dL) 94 114 H 122 H Random Glucose Lactic Acid Calcium Phosphorus Magnesium Total Bilirubin AST ALT Alkaline Phosphatase Total Protein Albumin Globulin Albumin/Globulin Ratio Triglycerides Cholesterol LDL Cholesterol Direct HDL Cholesterol Lipase 01/24/17 01/24/17 01/24/17 00:59 01:55 02:58 WBC RBC Hgb Hct MCV MCH MCHC RDW Plt Count MPV Gran % Lymph % (Auto) [place] % (Auto) Eos % (Auto) Baso % (Auto) Gran # Lymph # [place] # Eos # Baso # PT INR APTT Sodium Potassium Chloride Carbon Dioxide Anion Gap BUN Creatinine Est GFR ( Amer) Est GFR (Non-Af Amer) POC Glucose (mg/dL) 107 110 113 H Random Glucose Lactic Acid Calcium Phosphorus Magnesium Total Bilirubin AST ALT Alkaline Phosphatase Total Protein Albumin Globulin Albumin/Globulin Ratio Triglycerides Cholesterol LDL Cholesterol Direct HDL Cholesterol Lipase 01/24/17 01/24/17 01/24/17 04:38 05:30 05:33 WBC 6.7 RBC 3.81 Hgb 12.1 L Hct 36.0 L MCV 94.5 MCH 31.8 MCHC 33.6 RDW 14.1 Plt Count 96 L MPV 9.6 Gran % 65.7 Lymph % (Auto) 22.1 [place] % (Auto) 7.9 H Eos % (Auto) 3.7 Baso % (Auto) 0.6 Gran # 4.42 Lymph # 1.5 [place] # 0.5 Eos # 0.3 Baso # 0.04 PT 10.0 INR 0.93 APTT 23.8 Sodium 136 Potassium 4.1 Chloride 101 Carbon Dioxide 29 Anion Gap 10 BUN 7 Creatinine 0.9 Est GFR ( Amer) > 60 Est GFR (Non-Af Amer) > 60 POC Glucose (mg/dL) 96 103 Random Glucose 96 Lactic Acid 0.9 Calcium 8.7 Phosphorus 3.9 Magnesium 2.2 Total Bilirubin 1.6 H AST 153 H ALT 125 H Alkaline Phosphatase 94 Total Protein 6.0 Albumin 3.4 Globulin 2.6 Albumin/Globulin Ratio 1.3 Triglycerides 288 H Cholesterol 203 H LDL Cholesterol Direct 114 HDL Cholesterol 31 Lipase 696 H 01/24/17 01/24/17 01/24/17 06:01 07:12 08:02 WBC RBC Hgb Hct MCV MCH MCHC RDW Plt Count MPV Gran % Lymph % (Auto) [place] % (Auto) Eos % (Auto) Baso % (Auto) Gran # Lymph # [place] # Eos # Baso # PT INR APTT Sodium Potassium Chloride Carbon Dioxide Anion Gap BUN Creatinine Est GFR ( Amer) Est GFR (Non-Af Amer) POC Glucose (mg/dL) 98 98 100 Random Glucose Lactic Acid Calcium Phosphorus Magnesium Total Bilirubin AST ALT Alkaline Phosphatase Total Protein Albumin Globulin Albumin/Globulin Ratio Triglycerides Cholesterol LDL Cholesterol Direct HDL Cholesterol Lipase 01/24/17 09:02 WBC RBC Hgb Hct MCV MCH MCHC RDW Plt Count MPV Gran % Lymph % (Auto) [place] % (Auto) Eos % (Auto) Baso % (Auto) Gran # Lymph # [place] # Eos # Baso # PT INR APTT Sodium Potassium Chloride Carbon Dioxide Anion Gap BUN Creatinine Est GFR ( Amer) Est GFR (Non-Af Amer) POC Glucose (mg/dL) 147 H Random Glucose Lactic Acid Calcium Phosphorus Magnesium Total Bilirubin AST ALT Alkaline Phosphatase Total Protein Albumin Globulin Albumin/Globulin Ratio Triglycerides Cholesterol LDL Cholesterol Direct HDL Cholesterol Lipase Fingerstick Blood Sugar Results: 147 Review of Systems - Constitutional Constitutional: absent: Fever, Chills - EENT Eyes: absent: Blurred Vision, Change in Vision, Loss of Vision Ears: absent: Dizziness Nose/Mouth/Throat: absent: Dysphagia, Sore Throat - Cardiovascular Cardiovascular: absent: Chest Pain, Chest Pain at Rest, Chest Pain with Activity , Dyspnea, Dyspnea on Exertion, Edema, Pain Radiating to Arm/Neck/Jaw, Lightheadedness, Syncope - Respiratory Respiratory: absent: Cough, Dyspnea, Hemoptysis, Dyspnea on Exertion, Wheezing, Pain on Inspiration - Gastrointestinal Gastrointestinal: absent: Abdominal Pain, Constipation, Diarrhea, Dysphagia, Nausea, Vomiting - Genitourinary Genitourinary: absent: Difficulty Urinating, Dysuria, Flank Pain, Hematuria - Musculoskeletal Musculoskeletal: absent: Back Pain, Deformity, Muscle Weakness, Numbness, Radiating Pain into Limb - Integumentary Integumentary: absent: Pruritus, Rash, Skin Pain, Jaundice - Neurological Neurological: absent: Confusion, Focal Weakness, Loss of Vision, Syncope, Tremor , Weakness, Other Visual Disturbances - Psychiatric Psychiatric: absent: Anxiety - Endocrine Endocrine: absent: Fatigue, Palpitations Critical Care Progress Note - Nutrition Nutrition: Nutrition Category Date Time Status Heart Healthy Diet [DIET] Diets 01/21/17 Dinner Ordered Assessment/Plan - Assessment and Plan (Free Text) Assessment: This is a 51 yo M with PMH of HTN (not medically managed) and alcohol abuse who was admitted to the ICU for management of severe hypertriglyceridemia (>5000) with pancreatitis, requiring pheresis. He has undergone two rounds of pheresis, and is now managed with oral fibrate medication and an insulin drip with D5. He is stable for transfer to Med/Surg. Plan: Neuro: -AAOx3, spontaneous movement of all extremities -Following commands appropriately -maintain normothermia, no fevers overnight -CIWA for EtOH withdrawal -Tox screen negative Pulm: -CTAB on exam, satting well on room air, No O2 supplementation indicated at this time -Given pancreatitis, at risk for developing pulm edema/ARDS, continue to monitor -maintain SaO2 90-92% and paO2 > 60 -Aspiration precautions, head of bed to 30 degrees Cardio: -Currently hemodynamically stable, maintain MAP > 65 -Hx HTN, continue Amlodipine 5mg daily, continue PRN Lopressor 5mg IV q6 if SBP >= 180 -Hypertriglyceridemia > 5000 on admission labs, improved to 705 after 2nd pheresis, now 288; Insulin drip d/c, 2 fingersticks wnl after insulin drip d/c so D5 d/c'ed as well -Hypertriglyceridemia 2/2 severe alcohol abuse vs familial component, likely multifactorial; gallstone etiology ruled out -Coags wnl -Heparin 5000u SC q8 for DVT/PE ppx -TSH wnl at 1.33 GI: -Lopid 600 BID -heart-healthy low fat diet, tolerating well -Protonix for GI ppx -LFTs remain elevated but are stable, improved over yesterday -Hypertriglyceridemia > 5000 on admission labs, improved to 705 after 2nd pheresis, now 288; Insulin drip d/c, 2 fingersticks wnl after insulin drip d/c so D5 d/c'ed as well -Lipase improved to 696 today -CT abd/pelvis notable for mild infiltration of peripancreatic fat confined to head of pancreas, likely mild pancreatitis; recently passed common duct stones, hepatomegaly/hepatic steatosis; Abd US notable for findings consistent with mild fatty liver, no sonographic evidence of pancreatic or GB pathology -Aggressive fluid rehydration completed -GI (Dr. Regan) consulted, appreciate all recs -Uric acid 7.2 on admit -Hgb A1c 5.7 Renal: -Monitor I's & O's -Nephro (Dr. Berumen) consulted, appreciate all recs -avoid nephrotoxic drugs where feasible -monitor and replete electrolytes as needed; no repletion needed today -maintain euglycemia (BG 140-180), euvolemia -UA obtained on admission, notable for 30 Protein and trace intact blood -s/p 2 rounds of pheresis, now managing with oral Lopid, insulin drip and D5 d/c 'ed Heme: -Hypertriglyceridemia > 5000 on admission labs, improved to 705 after 2nd pheresis, now 288; Insulin drip d/c, 2 fingersticks wnl after insulin drip d/c so D5 d/c'ed as well -s/p 2 rounds of pheresis, now managing with oral Lopid, insulin drip and D5 d/c 'ed, dialysis catheter removed -Hgb 12.1 (was 12.7) -Heparin 5000u SC q8 for DVT/PE ppx -platelets improved to 96 today; HIT panel pending; most likely thrombocytopenia 2/2 alcohol abuse ID: -No leukocytosis, afebrile -no antibiotics indicated at this time -if patient becomes febrile and/or shows signs of necrotizing pancreatitis, start on carbapenems -IGG4 pending Dispo: ICU s/p 2nd round of pheresis, s/p aggressive fluid resuscitation, now managed on Lopid, stable for transfer to Med/Surg FEN: Heart-healthy low fat Access: Peripheral IVs Consults: GI, Nephro, Heme/onc Ppx: Protonix for GI, D/C Heparin for DVT. Pt ambulates well, scd prn Code status: Full Patient seen, reviewed, and discussed with attending, Dr. Markham. - Date & Time Date: 01/24/17 Time: 10:32 <Luis Fernando Markham - Last Filed: 01/24/17 10:45> CCU Objective - Vital Signs / Intake & Output Vital Signs (Last 4 hours): Vital Signs Temp Pulse Resp BP Pulse Ox 01/24/17 09:29 101 H 125/72 01/24/17 09:00 102 H 125/72 96 01/24/17 08:04 97 H 96 01/24/17 08:01 102 H 17 152/78 H 96 01/24/17 08:00 98.7 F 100 H 22 94 L 01/24/17 07:59 102 H 17 94 L 01/24/17 07:00 94 H 18 152/88 H 95 Intake and Output (Last 8hrs): Intake & Output 01/23/17 01/24/17 01/24/17 22:59 06:59 14:59 Intake Total 4422 1612 Output Total 1600 Balance 4422 12 Weight 172 lb 4.8 oz Intake: IV 1222 1012 Left Forearm 1222 thierno 1012 Oral 3200 600 Output: Urine 1600 Urine, Voided 1600 Other: Voiding Method Urinal Toilet # Voids Urine, Voided 6 # Bowel Movements 1 - Medications Active Medications: Active Medications Generic Name Dose Route Start Last Admin Trade Name Freq PRN Reason Stop Dose Admin Amlodipine Besylate 5 mg 01/21/17 12:00 01/24/17 09:29 Norvasc PO 5 mg DAILY LENKA Administration Chlordiazepoxide 10 mg 01/20/17 22:45 01/24/17 05:42 Librium PO 10 mg Q8 LENKA Administration Protocol Folic Acid 1 mg 01/21/17 10:00 01/24/17 09:29 Folic Acid PO 1 mg DAILY LENKA Administration Gemfibrozil 600 mg 01/21/17 18:00 01/24/17 09:29 Lopid PO 600 mg BID LENKA Administration Lorazepam 1 mg 01/19/17 19:03 01/21/17 12:20 Ativan IVP 1 mg Q3H PRN Administration Withdrawal Protocol Sucralfate 1 gm 01/23/17 14:00 01/24/17 09:29 Carafate Oral Susp PO 1 gm QID LENKA Administration Thiamine HCl 100 mg 01/21/17 10:00 01/24/17 09:29 Vitamin B1 Tab PO 100 mg DAILY LENKA Administration - Patient Studies Lab Studies: Lab Studies 01/24/17 01/24/17 01/24/17 Range/Units 09:02 08:02 07:12 WBC (4.5-11.0) 10^3/ul RBC (3.5-6.1) 10^6/uL Hgb (14.0-18.0) gm/dL Hct (42.0-52.0) % MCV (80.0-105.0) fL MCH (25.0-35.0) pg MCHC (31.0-37.0) g/dl RDW (11.5-14.5) % Plt Count (120.0-450.0) 10^3/uL MPV (7.0-11.0) fl Gran % (50.0-68.0) % Lymph % (Auto) (22.0-35.0) % [place] % (Auto) (1.0-6.0) % Eos % (Auto) (1.5-5.0) % Baso % (Auto) (0.0-3.0) % Gran # (1.4-6.5) Lymph # (1.2-3.4) [place] # (0.1-0.6) Eos # (0.0-0.7) Baso # (0.0-2.0) K/mm3 PT (9.9-11.8) Seconds INR (0.93-1.08) APTT (23.7-30.8) Seconds Sodium (132-148) mmol/L Potassium (3.6-5.0) mmol/L Chloride (95-110) mmol/L Carbon Dioxide (21-33) mmol/L Anion Gap (10-20) BUN (7-21) mg/dL Creatinine (0.5-1.4) mg/dL Est GFR ( Amer) Est GFR (Non-Af Amer) POC Glucose (mg/dL) 147 H 100 98 (65-110) mg/dL Random Glucose (70-110) mg/dL Lactic Acid (0.7-2.1) mmol/L Calcium (8.4-10.5) mg/dL Phosphorus (2.5-4.5) mg/dL Magnesium (1.7-2.2) mg/dL Total Bilirubin (0.2-1.3) mg/dL AST (15-59) U/L ALT (7-56) U/L Alkaline Phosphatase (38-133) U/L Total Protein (5.8-8.3) g/dL Albumin (3.0-4.8) g/dL Globulin gm/dL Albumin/Globulin Ratio (1.1-1.8) Triglycerides (35-160) mg/dL Cholesterol (130-200) mg/dL LDL Cholesterol Direct (0-129) mg/dL HDL Cholesterol (29-60) mg/dL Lipase (23-300) U/L 01/24/17 01/24/17 01/24/17 Range/Units 06:01 05:33 05:30 WBC 6.7 (4.5-11.0) 10^3/ul RBC 3.81 (3.5-6.1) 10^6/uL Hgb 12.1 L (14.0-18.0) gm/dL Hct 36.0 L (42.0-52.0) % MCV 94.5 (80.0-105.0) fL MCH 31.8 (25.0-35.0) pg MCHC 33.6 (31.0-37.0) g/dl RDW 14.1 (11.5-14.5) % Plt Count 96 L (120.0-450.0) 10^3/uL MPV 9.6 (7.0-11.0) fl Gran % 65.7 (50.0-68.0) % Lymph % (Auto) 22.1 (22.0-35.0) % [place] % (Auto) 7.9 H (1.0-6.0) % Eos % (Auto) 3.7 (1.5-5.0) % Baso % (Auto) 0.6 (0.0-3.0) % Gran # 4.42 (1.4-6.5) Lymph # 1.5 (1.2-3.4) [place] # 0.5 (0.1-0.6) Eos # 0.3 (0.0-0.7) Baso # 0.04 (0.0-2.0) K/mm3 PT 10.0 (9.9-11.8) Seconds INR 0.93 (0.93-1.08) APTT 23.8 (23.7-30.8) Seconds Sodium 136 (132-148) mmol/L Potassium 4.1 (3.6-5.0) mmol/L Chloride 101 (95-110) mmol/L Carbon Dioxide 29 (21-33) mmol/L Anion Gap 10 (10-20) BUN 7 (7-21) mg/dL Creatinine 0.9 (0.5-1.4) mg/dL Est GFR ( Amer) > 60 Est GFR (Non-Af Amer) > 60 POC Glucose (mg/dL) 98 103 (65-110) mg/dL Random Glucose 96 (70-110) mg/dL Lactic Acid 0.9 (0.7-2.1) mmol/L Calcium 8.7 (8.4-10.5) mg/dL Phosphorus 3.9 (2.5-4.5) mg/dL Magnesium 2.2 (1.7-2.2) mg/dL Total Bilirubin 1.6 H (0.2-1.3) mg/dL AST 153 H (15-59) U/L ALT 125 H (7-56) U/L Alkaline Phosphatase 94 (38-133) U/L Total Protein 6.0 (5.8-8.3) g/dL Albumin 3.4 (3.0-4.8) g/dL Globulin 2.6 gm/dL Albumin/Globulin Ratio 1.3 (1.1-1.8) Triglycerides 288 H (35-160) mg/dL Cholesterol 203 H (130-200) mg/dL LDL Cholesterol Direct 114 (0-129) mg/dL HDL Cholesterol 31 (29-60) mg/dL Lipase 696 H (23-300) U/L 01/24/17 01/24/17 01/24/17 Range/Units 04:38 02:58 01:55 WBC (4.5-11.0) 10^3/ul RBC (3.5-6.1) 10^6/uL Hgb (14.0-18.0) gm/dL Hct (42.0-52.0) % MCV (80.0-105.0) fL MCH (25.0-35.0) pg MCHC (31.0-37.0) g/dl RDW (11.5-14.5) % Plt Count (120.0-450.0) 10^3/uL MPV (7.0-11.0) fl Gran % (50.0-68.0) % Lymph % (Auto) (22.0-35.0) % [place] % (Auto) (1.0-6.0) % Eos % (Auto) (1.5-5.0) % Baso % (Auto) (0.0-3.0) % Gran # (1.4-6.5) Lymph # (1.2-3.4) [place] # (0.1-0.6) Eos # (0.0-0.7) Baso # (0.0-2.0) K/mm3 PT (9.9-11.8) Seconds INR (0.93-1.08) APTT (23.7-30.8) Seconds Sodium (132-148) mmol/L Potassium (3.6-5.0) mmol/L Chloride (95-110) mmol/L Carbon Dioxide (21-33) mmol/L Anion Gap (10-20) BUN (7-21) mg/dL Creatinine (0.5-1.4) mg/dL Est GFR ( Amer) Est GFR (Non-Af Amer) POC Glucose (mg/dL) 96 113 H 110 (65-110) mg/dL Random Glucose (70-110) mg/dL Lactic Acid (0.7-2.1) mmol/L Calcium (8.4-10.5) mg/dL Phosphorus (2.5-4.5) mg/dL Magnesium (1.7-2.2) mg/dL Total Bilirubin (0.2-1.3) mg/dL AST (15-59) U/L ALT (7-56) U/L Alkaline Phosphatase (38-133) U/L Total Protein (5.8-8.3) g/dL Albumin (3.0-4.8) g/dL Globulin gm/dL Albumin/Globulin Ratio (1.1-1.8) Triglycerides (35-160) mg/dL Cholesterol (130-200) mg/dL LDL Cholesterol Direct (0-129) mg/dL HDL Cholesterol (29-60) mg/dL Lipase (23-300) U/L 01/24/17 01/24/17 01/23/17 Range/Units 00:59 00:15 23:02 WBC (4.5-11.0) 10^3/ul RBC (3.5-6.1) 10^6/uL Hgb (14.0-18.0) gm/dL Hct (42.0-52.0) % MCV (80.0-105.0) fL MCH (25.0-35.0) pg MCHC (31.0-37.0) g/dl RDW (11.5-14.5) % Plt Count (120.0-450.0) 10^3/uL MPV (7.0-11.0) fl Gran % (50.0-68.0) % Lymph % (Auto) (22.0-35.0) % [place] % (Auto) (1.0-6.0) % Eos % (Auto) (1.5-5.0) % Baso % (Auto) (0.0-3.0) % Gran # (1.4-6.5) Lymph # (1.2-3.4) [place] # (0.1-0.6) Eos # (0.0-0.7) Baso # (0.0-2.0) K/mm3 PT (9.9-11.8) Seconds INR (0.93-1.08) APTT (23.7-30.8) Seconds Sodium (132-148) mmol/L Potassium (3.6-5.0) mmol/L Chloride (95-110) mmol/L Carbon Dioxide (21-33) mmol/L Anion Gap (10-20) BUN (7-21) mg/dL Creatinine (0.5-1.4) mg/dL Est GFR ( Amer) Est GFR (Non-Af Amer) POC Glucose (mg/dL) 107 122 H 114 H (65-110) mg/dL Random Glucose (70-110) mg/dL Lactic Acid (0.7-2.1) mmol/L Calcium (8.4-10.5) mg/dL Phosphorus (2.5-4.5) mg/dL Magnesium (1.7-2.2) mg/dL Total Bilirubin (0.2-1.3) mg/dL AST (15-59) U/L ALT (7-56) U/L Alkaline Phosphatase (38-133) U/L Total Protein (5.8-8.3) g/dL Albumin (3.0-4.8) g/dL Globulin gm/dL Albumin/Globulin Ratio (1.1-1.8) Triglycerides (35-160) mg/dL Cholesterol (130-200) mg/dL LDL Cholesterol Direct (0-129) mg/dL HDL Cholesterol (29-60) mg/dL Lipase (23-300) U/L 01/23/17 01/23/17 01/23/17 Range/Units 22:03 21:16 20:18 WBC (4.5-11.0) 10^3/ul RBC (3.5-6.1) 10^6/uL Hgb (14.0-18.0) gm/dL Hct (42.0-52.0) % MCV (80.0-105.0) fL MCH (25.0-35.0) pg MCHC (31.0-37.0) g/dl RDW (11.5-14.5) % Plt Count (120.0-450.0) 10^3/uL MPV (7.0-11.0) fl Gran % (50.0-68.0) % Lymph % (Auto) (22.0-35.0) % [place] % (Auto) (1.0-6.0) % Eos % (Auto) (1.5-5.0) % Baso % (Auto) (0.0-3.0) % Gran # (1.4-6.5) Lymph # (1.2-3.4) [place] # (0.1-0.6) Eos # (0.0-0.7) Baso # (0.0-2.0) K/mm3 PT (9.9-11.8) Seconds INR (0.93-1.08) APTT (23.7-30.8) Seconds Sodium (132-148) mmol/L Potassium (3.6-5.0) mmol/L Chloride (95-110) mmol/L Carbon Dioxide (21-33) mmol/L Anion Gap (10-20) BUN (7-21) mg/dL Creatinine (0.5-1.4) mg/dL Est GFR ( Amer) Est GFR (Non-Af Amer) POC Glucose (mg/dL) 94 115 H 110 (65-110) mg/dL Random Glucose (70-110) mg/dL Lactic Acid (0.7-2.1) mmol/L Calcium (8.4-10.5) mg/dL Phosphorus (2.5-4.5) mg/dL Magnesium (1.7-2.2) mg/dL Total Bilirubin (0.2-1.3) mg/dL AST (15-59) U/L ALT (7-56) U/L Alkaline Phosphatase (38-133) U/L Total Protein (5.8-8.3) g/dL Albumin (3.0-4.8) g/dL Globulin gm/dL Albumin/Globulin Ratio (1.1-1.8) Triglycerides (35-160) mg/dL Cholesterol (130-200) mg/dL LDL Cholesterol Direct (0-129) mg/dL HDL Cholesterol (29-60) mg/dL Lipase (23-300) U/L 01/23/17 01/23/17 01/23/17 Range/Units 19:46 18:28 17:21 WBC (4.5-11.0) 10^3/ul RBC (3.5-6.1) 10^6/uL Hgb (14.0-18.0) gm/dL Hct (42.0-52.0) % MCV (80.0-105.0) fL MCH (25.0-35.0) pg MCHC (31.0-37.0) g/dl RDW (11.5-14.5) % Plt Count (120.0-450.0) 10^3/uL MPV (7.0-11.0) fl Gran % (50.0-68.0) % Lymph % (Auto) (22.0-35.0) % [place] % (Auto) (1.0-6.0) % Eos % (Auto) (1.5-5.0) % Baso % (Auto) (0.0-3.0) % Gran # (1.4-6.5) Lymph # (1.2-3.4) [place] # (0.1-0.6) Eos # (0.0-0.7) Baso # (0.0-2.0) K/mm3 PT (9.9-11.8) Seconds INR (0.93-1.08) APTT (23.7-30.8) Seconds Sodium (132-148) mmol/L Potassium (3.6-5.0) mmol/L Chloride (95-110) mmol/L Carbon Dioxide (21-33) mmol/L Anion Gap (10-20) BUN (7-21) mg/dL Creatinine (0.5-1.4) mg/dL Est GFR ( Amer) Est GFR (Non-Af Amer) POC Glucose (mg/dL) 133 H 130 H 103 (65-110) mg/dL Random Glucose (70-110) mg/dL Lactic Acid (0.7-2.1) mmol/L Calcium (8.4-10.5) mg/dL Phosphorus (2.5-4.5) mg/dL Magnesium (1.7-2.2) mg/dL Total Bilirubin (0.2-1.3) mg/dL AST (15-59) U/L ALT (7-56) U/L Alkaline Phosphatase (38-133) U/L Total Protein (5.8-8.3) g/dL Albumin (3.0-4.8) g/dL Globulin gm/dL Albumin/Globulin Ratio (1.1-1.8) Triglycerides (35-160) mg/dL Cholesterol (130-200) mg/dL LDL Cholesterol Direct (0-129) mg/dL HDL Cholesterol (29-60) mg/dL Lipase (23-300) U/L 01/23/17 01/23/17 01/23/17 Range/Units 16:16 15:03 14:45 WBC (4.5-11.0) 10^3/ul RBC (3.5-6.1) 10^6/uL Hgb (14.0-18.0) gm/dL Hct (42.0-52.0) % MCV (80.0-105.0) fL MCH (25.0-35.0) pg MCHC (31.0-37.0) g/dl RDW (11.5-14.5) % Plt Count (120.0-450.0) 10^3/uL MPV (7.0-11.0) fl Gran % (50.0-68.0) % Lymph % (Auto) (22.0-35.0) % [place] % (Auto) (1.0-6.0) % Eos % (Auto) (1.5-5.0) % Baso % (Auto) (0.0-3.0) % Gran # (1.4-6.5) Lymph # (1.2-3.4) [place] # (0.1-0.6) Eos # (0.0-0.7) Baso # (0.0-2.0) K/mm3 PT (9.9-11.8) Seconds INR (0.93-1.08) APTT (23.7-30.8) Seconds Sodium 132 (132-148) mmol/L Potassium 4.2 (3.6-5.0) mmol/L Chloride 100 (95-110) mmol/L Carbon Dioxide 27 (21-33) mmol/L Anion Gap 9 L (10-20) BUN 8 (7-21) mg/dL Creatinine 0.9 (0.5-1.4) mg/dL Est GFR ( Amer) > 60 Est GFR (Non-Af Amer) > 60 POC Glucose (mg/dL) 120 H 141 H (65-110) mg/dL Random Glucose 114 H (70-110) mg/dL Lactic Acid (0.7-2.1) mmol/L Calcium 8.7 (8.4-10.5) mg/dL Phosphorus 2.7 (2.5-4.5) mg/dL Magnesium 2.1 (1.7-2.2) mg/dL Total Bilirubin 2.3 H (0.2-1.3) mg/dL AST 198 H (15-59) U/L ALT 131 H (7-56) U/L Alkaline Phosphatase 107 (38-133) U/L Total Protein 6.2 (5.8-8.3) g/dL Albumin 3.6 (3.0-4.8) g/dL Globulin 2.6 gm/dL Albumin/Globulin Ratio 1.4 (1.1-1.8) Triglycerides 525 H (35-160) mg/dL Cholesterol (130-200) mg/dL LDL Cholesterol Direct (0-129) mg/dL HDL Cholesterol (29-60) mg/dL Lipase 1165 H (23-300) U/L 01/23/17 01/23/17 01/23/17 Range/Units 13:59 12:57 12:04 WBC (4.5-11.0) 10^3/ul RBC (3.5-6.1) 10^6/uL Hgb (14.0-18.0) gm/dL Hct (42.0-52.0) % MCV (80.0-105.0) fL MCH (25.0-35.0) pg MCHC (31.0-37.0) g/dl RDW (11.5-14.5) % Plt Count (120.0-450.0) 10^3/uL MPV (7.0-11.0) fl Gran % (50.0-68.0) % Lymph % (Auto) (22.0-35.0) % [place] % (Auto) (1.0-6.0) % Eos % (Auto) (1.5-5.0) % Baso % (Auto) (0.0-3.0) % Gran # (1.4-6.5) Lymph # (1.2-3.4) [place] # (0.1-0.6) Eos # (0.0-0.7) Baso # (0.0-2.0) K/mm3 PT (9.9-11.8) Seconds INR (0.93-1.08) APTT (23.7-30.8) Seconds Sodium (132-148) mmol/L Potassium (3.6-5.0) mmol/L Chloride (95-110) mmol/L Carbon Dioxide (21-33) mmol/L Anion Gap (10-20) BUN (7-21) mg/dL Creatinine (0.5-1.4) mg/dL Est GFR ( Amer) Est GFR (Non-Af Amer) POC Glucose (mg/dL) 127 H 168 H 126 H (65-110) mg/dL Random Glucose (70-110) mg/dL Lactic Acid (0.7-2.1) mmol/L Calcium (8.4-10.5) mg/dL Phosphorus (2.5-4.5) mg/dL Magnesium (1.7-2.2) mg/dL Total Bilirubin (0.2-1.3) mg/dL AST (15-59) U/L ALT (7-56) U/L Alkaline Phosphatase (38-133) U/L Total Protein (5.8-8.3) g/dL Albumin (3.0-4.8) g/dL Globulin gm/dL Albumin/Globulin Ratio (1.1-1.8) Triglycerides (35-160) mg/dL Cholesterol (130-200) mg/dL LDL Cholesterol Direct (0-129) mg/dL HDL Cholesterol (29-60) mg/dL Lipase (23-300) U/L 01/23/17 Range/Units 10:54 WBC (4.5-11.0) 10^3/ul RBC (3.5-6.1) 10^6/uL Hgb (14.0-18.0) gm/dL Hct (42.0-52.0) % MCV (80.0-105.0) fL MCH (25.0-35.0) pg MCHC (31.0-37.0) g/dl RDW (11.5-14.5) % Plt Count (120.0-450.0) 10^3/uL MPV (7.0-11.0) fl Gran % (50.0-68.0) % Lymph % (Auto) (22.0-35.0) % [place] % (Auto) (1.0-6.0) % Eos % (Auto) (1.5-5.0) % Baso % (Auto) (0.0-3.0) % Gran # (1.4-6.5) Lymph # (1.2-3.4) [place] # (0.1-0.6) Eos # (0.0-0.7) Baso # (0.0-2.0) K/mm3 PT (9.9-11.8) Seconds INR (0.93-1.08) APTT (23.7-30.8) Seconds Sodium (132-148) mmol/L Potassium (3.6-5.0) mmol/L Chloride (95-110) mmol/L Carbon Dioxide (21-33) mmol/L Anion Gap (10-20) BUN (7-21) mg/dL Creatinine (0.5-1.4) mg/dL Est GFR ( Amer) Est GFR (Non-Af Amer) POC Glucose (mg/dL) 141 H (65-110) mg/dL Random Glucose (70-110) mg/dL Lactic Acid (0.7-2.1) mmol/L Calcium (8.4-10.5) mg/dL Phosphorus (2.5-4.5) mg/dL Magnesium (1.7-2.2) mg/dL Total Bilirubin (0.2-1.3) mg/dL AST (15-59) U/L ALT (7-56) U/L Alkaline Phosphatase (38-133) U/L Total Protein (5.8-8.3) g/dL Albumin (3.0-4.8) g/dL Globulin gm/dL Albumin/Globulin Ratio (1.1-1.8) Triglycerides (35-160) mg/dL Cholesterol (130-200) mg/dL LDL Cholesterol Direct (0-129) mg/dL HDL Cholesterol (29-60) mg/dL Lipase (23-300) U/L Laboratory Results - last 24 hr 01/23/17 01/23/17 01/23/17 10:54 12:04 12:57 WBC RBC Hgb Hct MCV MCH MCHC RDW Plt Count MPV Gran % Lymph % (Auto) [place] % (Auto) Eos % (Auto) Baso % (Auto) Gran # Lymph # [place] # Eos # Baso # PT INR APTT Sodium Potassium Chloride Carbon Dioxide Anion Gap BUN Creatinine Est GFR ( Amer) Est GFR (Non-Af Amer) POC Glucose (mg/dL) 141 H 126 H 168 H Random Glucose Lactic Acid Calcium Phosphorus Magnesium Total Bilirubin AST ALT Alkaline Phosphatase Total Protein Albumin Globulin Albumin/Globulin Ratio Triglycerides Cholesterol LDL Cholesterol Direct HDL Cholesterol Lipase 01/23/17 01/23/17 01/23/17 13:59 14:45 15:03 WBC RBC Hgb Hct MCV MCH MCHC RDW Plt Count MPV Gran % Lymph % (Auto) [place] % (Auto) Eos % (Auto) Baso % (Auto) Gran # Lymph # [place] # Eos # Baso # PT INR APTT Sodium 132 Potassium 4.2 Chloride 100 Carbon Dioxide 27 Anion Gap 9 L BUN 8 Creatinine 0.9 Est GFR ( Amer) > 60 Est GFR (Non-Af Amer) > 60 POC Glucose (mg/dL) 127 H 141 H Random Glucose 114 H Lactic Acid Calcium 8.7 Phosphorus 2.7 Magnesium 2.1 Total Bilirubin 2.3 H AST 198 H ALT 131 H Alkaline Phosphatase 107 Total Protein 6.2 Albumin 3.6 Globulin 2.6 Albumin/Globulin Ratio 1.4 Triglycerides 525 H Cholesterol LDL Cholesterol Direct HDL Cholesterol Lipase 1165 H 01/23/17 01/23/17 01/23/17 16:16 17:21 18:28 WBC RBC Hgb Hct MCV MCH MCHC RDW Plt Count MPV Gran % Lymph % (Auto) [place] % (Auto) Eos % (Auto) Baso % (Auto) Gran # Lymph # [place] # Eos # Baso # PT INR APTT Sodium Potassium Chloride Carbon Dioxide Anion Gap BUN Creatinine Est GFR ( Amer) Est GFR (Non-Af Amer) POC Glucose (mg/dL) 120 H 103 130 H Random Glucose Lactic Acid Calcium Phosphorus Magnesium Total Bilirubin AST ALT Alkaline Phosphatase Total Protein Albumin Globulin Albumin/Globulin Ratio Triglycerides Cholesterol LDL Cholesterol Direct HDL Cholesterol Lipase 01/23/17 01/23/17 01/23/17 19:46 20:18 21:16 WBC RBC Hgb Hct MCV MCH MCHC RDW Plt Count MPV Gran % Lymph % (Auto) [place] % (Auto) Eos % (Auto) Baso % (Auto) Gran # Lymph # [place] # Eos # Baso # PT INR APTT Sodium Potassium Chloride Carbon Dioxide Anion Gap BUN Creatinine Est GFR ( Amer) Est GFR (Non-Af Amer) POC Glucose (mg/dL) 133 H 110 115 H Random Glucose Lactic Acid Calcium Phosphorus Magnesium Total Bilirubin AST ALT Alkaline Phosphatase Total Protein Albumin Globulin Albumin/Globulin Ratio Triglycerides Cholesterol LDL Cholesterol Direct HDL Cholesterol Lipase 01/23/17 01/23/17 01/24/17 22:03 23:02 00:15 WBC RBC Hgb Hct MCV MCH MCHC RDW Plt Count MPV Gran % Lymph % (Auto) [place] % (Auto) Eos % (Auto) Baso % (Auto) Gran # Lymph # [place] # Eos # Baso # PT INR APTT Sodium Potassium Chloride Carbon Dioxide Anion Gap BUN Creatinine Est GFR ( Amer) Est GFR (Non-Af Amer) POC Glucose (mg/dL) 94 114 H 122 H Random Glucose Lactic Acid Calcium Phosphorus Magnesium Total Bilirubin AST ALT Alkaline Phosphatase Total Protein Albumin Globulin Albumin/Globulin Ratio Triglycerides Cholesterol LDL Cholesterol Direct HDL Cholesterol Lipase 01/24/17 01/24/17 01/24/17 00:59 01:55 02:58 WBC RBC Hgb Hct MCV MCH MCHC RDW Plt Count MPV Gran % Lymph % (Auto) [place] % (Auto) Eos % (Auto) Baso % (Auto) Gran # Lymph # [place] # Eos # Baso # PT INR APTT Sodium Potassium Chloride Carbon Dioxide Anion Gap BUN Creatinine Est GFR ( Amer) Est GFR (Non-Af Amer) POC Glucose (mg/dL) 107 110 113 H Random Glucose Lactic Acid Calcium Phosphorus Magnesium Total Bilirubin AST ALT Alkaline Phosphatase Total Protein Albumin Globulin Albumin/Globulin Ratio Triglycerides Cholesterol LDL Cholesterol Direct HDL Cholesterol Lipase 01/24/17 01/24/17 01/24/17 04:38 05:30 05:33 WBC 6.7 RBC 3.81 Hgb 12.1 L Hct 36.0 L MCV 94.5 MCH 31.8 MCHC 33.6 RDW 14.1 Plt Count 96 L MPV 9.6 Gran % 65.7 Lymph % (Auto) 22.1 [place] % (Auto) 7.9 H Eos % (Auto) 3.7 Baso % (Auto) 0.6 Gran # 4.42 Lymph # 1.5 [place] # 0.5 Eos # 0.3 Baso # 0.04 PT 10.0 INR 0.93 APTT 23.8 Sodium 136 Potassium 4.1 Chloride 101 Carbon Dioxide 29 Anion Gap 10 BUN 7 Creatinine 0.9 Est GFR ( Amer) > 60 Est GFR (Non-Af Amer) > 60 POC Glucose (mg/dL) 96 103 Random Glucose 96 Lactic Acid 0.9 Calcium 8.7 Phosphorus 3.9 Magnesium 2.2 Total Bilirubin 1.6 H AST 153 H ALT 125 H Alkaline Phosphatase 94 Total Protein 6.0 Albumin 3.4 Globulin 2.6 Albumin/Globulin Ratio 1.3 Triglycerides 288 H Cholesterol 203 H LDL Cholesterol Direct 114 HDL Cholesterol 31 Lipase 696 H 01/24/17 01/24/17 01/24/17 06:01 07:12 08:02 WBC RBC Hgb Hct MCV MCH MCHC RDW Plt Count MPV Gran % Lymph % (Auto) [place] % (Auto) Eos % (Auto) Baso % (Auto) Gran # Lymph # [place] # Eos # Baso # PT INR APTT Sodium Potassium Chloride Carbon Dioxide Anion Gap BUN Creatinine Est GFR ( Amer) Est GFR (Non-Af Amer) POC Glucose (mg/dL) 98 98 100 Random Glucose Lactic Acid Calcium Phosphorus Magnesium Total Bilirubin AST ALT Alkaline Phosphatase Total Protein Albumin Globulin Albumin/Globulin Ratio Triglycerides Cholesterol LDL Cholesterol Direct HDL Cholesterol Lipase 01/24/17 09:02 WBC RBC Hgb Hct MCV MCH MCHC RDW Plt Count MPV Gran % Lymph % (Auto) [place] % (Auto) Eos % (Auto) Baso % (Auto) Gran # Lymph # [place] # Eos # Baso # PT INR APTT Sodium Potassium Chloride Carbon Dioxide Anion Gap BUN Creatinine Est GFR ( Amer) Est GFR (Non-Af Amer) POC Glucose (mg/dL) 147 H Random Glucose Lactic Acid Calcium Phosphorus Magnesium Total Bilirubin AST ALT Alkaline Phosphatase Total Protein Albumin Globulin Albumin/Globulin Ratio Triglycerides Cholesterol LDL Cholesterol Direct HDL Cholesterol Lipase Critical Care Progress Note - Nutrition Nutrition: Nutrition Category Date Time Status Heart Healthy Diet [DIET] Diets 01/21/17 Dinner Ordered Attending/Attestation - Attestation I have personally seen and examined this patient.: Yes I have fully participated in the care of the patient.: Yes I have reviewed all pertinent clinical information: Yes Notes (Text): 01/24/17 10:43 The patient was seen and examined at the bedside. Patient care was discussed with resident Medical records, lab studies, and imaging were reviewed and management issues were discussed and formulated. Last 24H events reviewed. Agree with above treatment plans as outlined in 's note with addition of the following: -continue hemodynamic monitoring to maintain MAP>65; currently stable -continue norvasc and metoprolol -o2 supplementation to maintain Spo2 90-92 Pao2>60; currently comfortable on room air -monitor fever and WBC, off Abx at this time -f\u Bun\Cr and U\o -Monitor and replace e-lites -PO diet and aspiration precautions -Trigliceride level 288 today -continue gemfibrozil -off insulin drip and D5w -ISS and BGM monitoring -f\u lipase; pt clinically improved and tolerating diet -GI team following -hold heparin and f\u HIT Ab and DWAIN -heme\onc eval for thrombocytopenia -monitor serial CBC and for bleeding -continue thiamine and folic acid -continue librium and monitor for etoh withdrawal -DVT \ PUD prophylaxis -ETOH abuse counseling given CCM f\u 35min
--- NOTE | 2017-01-24 12:04 | PN ---
DATE: 01/24/2017 SUBJECTIVE: This patient was seen and evaluated in ICU today, discussed with the staff. The patient is doing much better and tolerating the diet. No complaints. No abdominal pain. PHYSICAL EXAMINATION: VITAL SIGNS: His temperature is afebrile, blood pressure 125/71, pulse 101. O2 saturation is 95%. Respiration is 18. HEENT: Atraumatic, anicteric. NECK: Supple. HEART: S1, S2 heard. LUNGS: Bilateral normal vesicular breath sounds. ABDOMEN: Soft. There is no tenderness. EXTREMITIES: No edema, no cyanosis. NEUROLOGIC: Alert, oriented. Moves all the extremities. LABORATORY DATA: Hemoglobin is 12.1, hematocrit 36. WBC 6.7. Platelet count has improved to 96. L FTs showing improving trend. Total bilirubin has come down to 1.6, AST 153, ALT 125, alkaline phosph atase normal. Triglycerides are significantly lowered to 288. Lipase is 696. IMPRESSION: 1. This is a 51-year-old patient admitted with acute pancreatitis, hypertriglyceridemia, status post plasmapheresis x 2, then subsequently, followed by insulin drip. Significant improvement of the tri glycerides. The patient did have some CT evidence of mild pancreatitis, but lipase level has also si gnificantly improved. The patient did have an ultrasound scan done, which showed no gallstones. Cli nically, it is alcoholic. Clinically, this pancreatitis is probably secondary to alcohol and hypertr iglyceridemia. 2. Alcoholic hepatitis, clinically improving. 3. Thrombocytopenia, probably secondary to alcohol-induced plus possible proton pump inhibitor. Now , he is off the proton pump inhibitor. He has been improving. LFTs have been improving, on Carafat e, continue that. We will continue to closely follow up his care and suggest further management base d on the clinical course. Brian Regan MD cc: [id number] TT: 01/24/2017 12:03:31 Confirmation # [id number] Dictation # [id number] soni
[2017-01-24 14:54] LABS: ALB/GLOB RATIO 1.3 (1.1-1.8); ALKALINE PHOSPHATASE 112 U/L (38-133); ALT/SGPT 174 U/L (7-56); AST/SGOT 203 U/L (15-59); BILIRUBIN,TOTAL 1.7 mg/dL (0.2-1.3); BLOOD UREA NITROGEN 8 mg/dL (7-21); CALCIUM 9.2 mg/dL (8.4-10.5); CARBON DIOXIDE 26 mmol/L (21-33); CHLORIDE 99 mmol/L (98-107); GFR AFRICAN-AMERICAN > 60; GLUCOSE,RANDOM 114 mg/dL (70-110); LIPASE 1061 U/L (23-300); MAGNESIUM 2.1 mg/dL (1.7-2.2); PHOSPHOROUS 3.5 mg/dL (2.5-4.5); POTASSIUM 4.1 mmol/L (3.6-5.0); SODIUM 134 mmol/L (132-148); TOTAL PROTEIN 6.6 g/dL (5.8-8.3)
--- NOTE | 2017-01-24 14:58 | PN ---
DATE: 01/23/2017 The patient was seen in the intensive care unit. When I saw him, he was receiving insulin infusion at 1 unit per hour. He was also on D5W infusion as well. Right IJ PermCath remained in place. He was mildly tremulous, but otherwise had no complaints. There was no chest pain, shortness of breath or palpitations and he was not on any pressors on any inotropes. PHYSICAL EXAMINATION: VITAL SIGNS: Heart rate has ranged from the 80s to approximately 105 beats per minute in the last 24-hour period. Temperature is 98.4 and the patient has been afebrile for the last 48-hour period. Blood pressure is 125/72, but has ranged from approximately 49/21 up to 152/88 in the last 24-hour period. Respiratory rate is 17, but has ranged from approximately 14-49 breaths per minute in the last 24-hour period. Oxygen saturation was 94%, but has ranged from 93%-97% in the last 24-hour period. I's and O's documented as 5600/1600. HEENT: The patient appeared to be normocephalic and atraumatic without any sinus tenderness. Conjunctivae were neither pale nor were they icteric. There was no jugular venous distention that I could appreciate. As stated above, he did have a right internal jugular triple lumen catheter in place. CHEST: Lung valenzuela were grossly clear to auscultation and there were no rales, rhonchi or wheezing. Diaphragmatic excursion as well as airflow into both lung valenzuela was bilaterally symmetrical. CARDIAC: Had a regular rate and rhythm and there were no rubs or gallops. ABDOMEN: Distended, but nontender. There was no rebounding, guarding or rigidity. There was mild hepatomegaly one exam. EXTREMITIES: Had 1+ edema, which the patient stated was more or less his baseline. NEUROLOGIC: He did not appear tremulous to me. VASCULAR: Had no bruits. SKIN: Intact. LABORATORIES: White count is 6.7, H and H 12.1/36 with a platelet count of 96, 000. MCV is 95. There were 66% neutrophils, 22% lymphocytes, 8% monocytes. Coagulation studies are within normal limits. Sodium is 136, potassium 4.1, chloride 101, bicarbonate 29, BUN/creatinine 7/0.9 with a glucose of 96, calcium is 8.7, phosphorus 3.9, magnesium 2.2, total bilirubin 1.6, AST/ALT is 153/125, total protein/albumin is 6/3.4. Lipase is 696, having decreased from 1165. There is no new microbiology data to report. There is on imaging to report either. IMPRESSION AND PLAN: The patient is a 51-year-old gentleman with history of hypertension, alcohol abuse, admitted with severe hypertriglyceridemia (greater than 5000) with pancreatitis, for which he underwent 2 rounds of plasmapheresis. 1. The patient's hypertriglyceridemia is currently being managed with an insulin infusion and accompanying D5W solution to prevent hypoglycemia. His last triglyceride count is down to 288 and we will continue gemfibrozil 600 mg orally twice daily. 2. The patient's blood pressure goal would be approximately 130/80 as per SPRINT trial and he is essentially at goal, for which we will continue him on amlodipine 5 mg orally daily. 3. For gastrointestinal prophylaxis, he remains on Carafate. He is not on an H2 receptor antagonist because of thrombocytopenia. 4. For prevention against alcohol withdrawal, he remains on lorazepam as well as Librium as per protocol. Additionally, he is on thiamine as well as folic acid. 5. Gastroenterology followup is appreciated and the patient's alcoholic hepatitis is improving. At present, he is not on any corticosteroids, but we will defer that decision to infectious disease based on his hepatitis discriminant function. 6. Given the fact that the patient is thrombocytopenic, I would avoid heparin or Lovenox for deep venous thrombosis prophylaxis. Instead, we can use sequential compression devices. 7. For gastrointestinal prophylaxis, the Carafate will suffice. 8. The patient does not require any additional plasmapheresis. Review of systems, past medical history, social history and family history were all reviewed and there were no new changes. More than 35 minutes were spent in the care of this ICU patient today. Nghia Berumen MD, DELMAR cc: [id number] TT: 01/24/2017 14:57:29 Confirmation # [id number] Dictation # [id number] en MTDD
[2017-01-24 16:19] VITALS: RESP 20; O2SAT 97
[2017-01-25 05:50] LABS: ADD MANUAL DIFF? NO
[2017-01-25 05:52] LABS: BASO # 0.06 K/mm3 (0.0-2.0); BASO % 0.9 % (0.0-3.0); EOS # 0.3 (0.0-0.7); EOS % 3.9 % (1.5-5.0); GRAN % 66.5 % (50.0-68.0); HEMATOCRIT 35.1 % (42.0-52.0); LYMPH # 1.5 (1.2-3.4); MEAN CELL VOLUME 95.9 fL (80.0-105.0); MEAN CORPUSCULAR HEMOGLOBIN 32.2 pg (25.0-35.0); MEAN CORPUSCULAR HGB CONC 33.6 g/dl (31.0-37.0); MEAN PLATELET VOLUME 9.4 fl (7.0-11.0); MONO # 0.5 (0.1-0.6); MONO % 7.7 % (1.0-6.0); PLATELET COUNT 139 10^3/uL (120.0-450.0); RED CELL DISTRIBUTION WIDTH 14.1 % (11.5-14.5); WHITE BLOOD COUNT 6.9 10^3/ul (4.5-11.0)
[2017-01-25 06:09] LABS: INR 0.93 (0.93-1.08); PARTIAL THROMBOPLASTIN TIME 23.9 Seconds (23.7-30.8)
[2017-01-25 06:23] LABS: ALB/GLOB RATIO 1.4 (1.1-1.8); ALKALINE PHOSPHATASE 91 U/L (38-133); ALT/SGPT 146 U/L (7-56); AST/SGOT 149 U/L (15-59); BILIRUBIN,TOTAL 1.3 mg/dL (0.2-1.3); BLOOD UREA NITROGEN 9 mg/dL (7-21); CALCIUM 8.7 mg/dL (8.4-10.5); CARBON DIOXIDE 30 mmol/L (21-33); CHLORIDE 101 mmol/L (95-110); CHOLESTEROL 232 mg/dL (130-200); GFR AFRICAN-AMERICAN > 60; GLUCOSE,RANDOM 96 mg/dL (70-110); LIPASE 585 U/L (23-300); MAGNESIUM 2.1 mg/dL (1.7-2.2); POTASSIUM 4.2 mmol/L (3.6-5.0); SODIUM 137 mmol/L (132-148)
[2017-01-25 07:43] VITALS: TEMP 98.4
[2017-01-25] MEDS: Sucralfate 1 gm/10 ml Oral Susp UD PO SCH (09:31)
[2017-01-25 09:36] VITALS: BP 130/89; PULSE 101
[2017-01-26] MEDS ORDERED: Pantoprazole 40 mg EC Tab PO SCH (10:00)
[2017-01-27 15:45] LABS: HEPARIN-IND PLATELET AB Negative (Negative)
[2017-01-27 17:48] LABS: UFH SRA RESULT Negative (Negative)
--- NOTE | 2017-02-26 12:28 | DS ---
This is a 51-year-old man I have known for some time, but does not come to the office often. In fact, he was last seen in 2011 for a well physical that was quite unremarkable. His mother and brother are patients of mine. I am more concerned about him recently, requesting that he come for a wellness exam, but he was feeling well and rather resistant. He came to the hospital for this acute admission after developing some abdominal pain. In the Emergency Room, his amylase and lipase were compatible with a rather severe pancreatitis and his triglycerides elevated at over 5100. Arrangements were made to be admitted. PAST MEDICAL HISTORY: Negative for hypertension, diabetes, cholesterol, tuberculosis, asthma, seizures. ALLERGIES: HE IS ALLERGIC TO PENICILLIN. SOCIAL HISTORY: Does not smoke, but does drink quite a bit of alcohol, in fact recently was drinking quite a bit of wine. REVIEW OF SYSTEMS: Negative except for reflux esophagitis symptoms. COURSE OF HOSPITAL STAY: My initial approach was a more conservative traditional measure of treating his acute pancreatitis and hyperlipidemia, but the Emergency Room contacted Dr. Berumen before contacting me and arrangements were made to begin plasmapheresis because of the elevated triglycerides and the pancreatitis. Dr. Berumen and I reviewed relayed information and recent medical literature and indications. The patient underwent 2 rounds of plasmapheresis, but I noted did not meet criteria to continue a third round, so that pheresis was discontinued. He had improved dramatically just with abstinence from alcohol and the plasmaphereses sessions that had been done. He was asymptomatic, had been counseled at great length regarding future alcohol consumption. He was followed by GI as well and ready for discharge to home. FINAL DISCHARGE DIAGNOSES: 1. Acute pancreatitis. 2. Hypertriglyceridemia. 3. Acute alcohol intoxication. 4. Recent history of heavy alcohol consumption. PLAN: The patient will be followed up in the office within the next few days. Jamar Gay MD cc: [id number] TT: 02/26/2017 12:27:36 corey ALCANTAR
== END 2017-01-25 13:20 | disposition home or self-care (01) | DRG 439 ==
LOC: ED 11:39 → ERH 14:43 → CCU 17:24 → 5RNO 01-24 15:51
PROVIDERS: ADMIT Internal Medicine; ATTEND Internal Medicine
PROC: 6A551Z3 Pheresis of Plasma, Multiple (ICD-10-PCS; principal; 2017-01-20)
DX: K85.20 Alcohol induced acute pancreatitis without necrosis or infection (principal); F10.239 Alcohol dependence with withdrawal, unspecified; D69.6 Thrombocytopenia, unspecified; E83.42 Hypomagnesemia; E83.51 Hypocalcemia; E83.39 Other disorders of phosphorus metabolism; K76.0 Fatty (change of) liver, not elsewhere classified; K70.10 Alcoholic hepatitis without ascites; E78.1 Pure hyperglyceridemia; E78.5 Hyperlipidemia, unspecified; E87.5 Hyperkalemia; I10 Essential (primary) hypertension; K21.0 Gastro-esophageal reflux disease with esophagitis; Z82.3 Family history of stroke; Z83.3 Family history of diabetes mellitus; Z88.0 Allergy status to penicillin; R40.2412 Glasgow coma scale score 13-15, at arrival to emergency department; R00.0 Tachycardia, unspecified

== ENCOUNTER 2019-03-08 21:22 | Emergency (ER) | payer OTHER, BC ==
[2019-03-08 21:23] VITALS: BMI 24.3
[2019-03-08 21:31] VITALS: TEMP 98
[2019-03-08] MEDS ORDERED: TDAP Vaccine 0.5 mL Syr IM ONE (21:53)
[2019-03-08] MEDS ORDERED: Naproxen 550 mg Tab PO STA (21:53)
--- NOTE | 2019-03-08 22:30 | ED PDOC ---
Arrival/HPI - General Historian: Patient - History of Present Illness Narrative History of Present Illness (Text): 53 year old male, whose past medical history includes hypertension, who presents to the ED complaining of laceration to left ankle and right tabor s/p injury. Patient states he was at work today when he dropped a 6-pack, noted there was bleeding and 2 lacerations, 1 to the right anterior tabor, and 1 to the medial aspect of the left ankle. Otherwise, patient denies any weakness/numbness/tingling in the extremity, decreased range of motion, other injury, or any other complaints. Time/Duration: Other (tonight) Symptom Onset: Sudden Symptom Course: Unchanged Activities at Onset: Light Context: Work <Sylvia Bennett - Last Filed: 03/09/19 00:29> <Jesse Harvey - Last Filed: 03/09/19 04:26> - General Chief Complaint: Abnormal Skin Integrity Time Seen by Provider: 03/08/19 21:23 Past Medical History - Provider Review Nursing Documentation Reviewed: Yes Primary Care Provider: Jamar Gay - Infectious Disease Hx of Infectious Diseases: None - Cardiac Hx Cardiac Disorders: Yes Hx Hypertension: Yes - Pulmonary Hx Respiratory Disorders: No - Neurological Hx Neurological Disorder: No - HEENT Hx HEENT Disorder: No - Renal Hx Renal Disorder: No - Endocrine/Metabolic Hx Endocrine Disorders: No - Hematological/Oncological Hx Blood Disorders: No - Integumentary Hx Dermatological Disorder: No - Musculoskeletal/Rheumatological Hx Musculoskeletal Disorders: Yes (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 BOURBON) Hx Substance Use: No Other/Comment: IN ICU IN 01/2017 for high idalia and etoh - Anesthesia Hx Anesthesia: No <Sylvia Bennett - Last Filed: 03/09/19 00:29> Family/Social History - Physician Review Nursing Documentation Reviewed: Yes Family/Social History: Unknown Family HX Smoking Status: Never Smoked Hx Alcohol Use: Yes (DAILY ALCOHOL DRINKS BOURBON,WINE DAILY) Hx Substance Use: No <Sylvia Bennett - Last Filed: 03/09/19 00:29> Allergies/Home Meds <Sylvia Bennett - Last Filed: 03/09/19 00:29> <Jesse Harvey - Last Filed: 03/09/19 04:26> Allergies/Adverse Reactions: Allergies No Known Allergies Allergy (Verified 03/08/19 21:28) Home Medications: Home Meds Medication Instructions Recorded Confirmed No Known Home Med 03/08/19 03/08/19 Review of Systems - Physician Review All systems were reviewed & negative as marked: Yes - Review of Systems Musculoskeletal: absent: Arthralgias Skin: Laceration <Sylvia Bennett - Last Filed: 03/09/19 00:29> Physical Exam Vital Signs Reviewed: Yes Vital Signs Temp Pulse Resp BP Pulse Ox 03/08/19 21:31 98.0 F 84 18 163/105 H 98 Temperature: Afebrile Blood Pressure: Hypertensive Pulse: Regular Respiratory Rate: Normal Appearance: Positive for: Well-Appearing, Non-Toxic, Comfortable Pain Distress: None Mental Status: Positive for: Alert and Oriented X 3 - Systems Exam Lower Extremity: Present: NORMAL PULSES, Normal ROM, Neurovascularly Intact, Capillary Refill < 2 s, Other (1cm L-shaoed laceration to right anterior tabor, 1cm horizontal linear laceration to medial left ankle). No: Edema, Cyanosis, Tenderness, Swelling, Erythema, Deformity, Temperature Abnormalties Neurological: Present: GCS=15, CN II-XII Intact, Speech Normal Skin: Present: Warm, Dry, Normal Color. No: Rashes <Sylvia Bennett - Last Filed: 03/09/19 00:29> Vital Signs Temp Pulse Resp BP Pulse Ox 03/08/19 22:53 83 16 165/90 H 97 03/08/19 21:31 98.0 F 84 18 163/105 H 98 <Jesse Harvey - Last Filed: 03/09/19 04:26> Medical Decision Making ED Course and Treatment: 03/08/19 22:47 Impression: 53 year old male complaining of laceration to the right tabor and left ankle today. Plan: -- XR Right Tibia/Fibula -- XR Left Ankle -- Naproxen -- TDAP -- Laceration Repair -- Reassess and disposition XR L ankle: no fracture, no dislocation, no FB, as read by PA XR R tib-fib: no fracture, no dislocation, no FB, as read by PA X-ray results discussed with the patient. Progress Notes: PROCEDURE: LACERATION REPAIR Performed by the emergency provider Location: Right anterior tabor Length: 1 cm Description: L-shaped, clean wound edges, no foreign bodies Preparation: The wound was cleaned with NS. The area was prepped and draped in the usual sterile fashion. Exploration: The wound was explored and no foreign bodies were found. Procedure: The wound was closed with Dermabond. There was good approximation. Post-Procedure: Good closure and hemostasis. The patient tolerated the procedure well and there were no complications. CSM remains intact. Post procedure dressing applied PROCEDURE: LACERATION REPAIR Performed by the emergency provider Location: Medial left ankle Length: 1 cm Description: Horizontal, linear, clean wound edges, no foreign bodies Preparation: The wound was cleaned with NS. The area was prepped and draped in the usual sterile fashion. Exploration: The wound was explored and no foreign bodies were found. Procedure: The wound was closed with Dermabond. There was good approximation. Post-Procedure: Good closure and hemostasis. The patient tolerated the procedure well and there were no complications. CSM remains intact. Post procedure dressing applied Advised to follow up with primary care physician in 1-2 days without fail. Advised to follow up bp with his pmd. Return to the emergency room at any time for any new or worsening symptoms. Patient states he fully agrees with and understands discharge instructions. States that he agrees with the plan and disposition. Verbalized and repeated discharge instructions and plan. I have given the patient opportunity to ask any additional questions. - RAD Interpretation Radiology Orders: 03/08/19 21:53 ANKLE LEFT 3 VIEWS ROUTINE [RAD] Stat TIBIA FIBULA RIGHT [RAD] Stat - Medication Orders Current Medication Orders: Discontinued Medications Naproxen (Anaprox Ds) 550 mg PO ONCE STA Stop: 03/08/19 21:54 Last Admin: 03/08/19 22:24 Dose: 550 mg Tetanus/Reduced Diphtheria/Acell Pertussis (Boostrix Vaccine Inj) 0.5 ml IM .ONCE ONE Stop: 03/08/19 21:54 Last Admin: 03/08/19 22:24 Dose: 0.5 ml Immunization Registry Document 03/08/19 22:24 KV (Rec: 03/08/19 22:24 KV [id number]) [facility]-Date provided 03/08/19 <Sylvia Bennett - Last Filed: 03/09/19 00:29> - RAD Interpretation Radiology Orders: 03/08/19 21:53 ANKLE LEFT 3 VIEWS ROUTINE [RAD] Stat TIBIA FIBULA RIGHT [RAD] Stat - Medication Orders Current Medication Orders: Discontinued Medications Naproxen (Anaprox Ds) 550 mg PO ONCE STA Stop: 03/08/19 21:54 Last Admin: 03/08/19 22:24 Dose: 550 mg Tetanus/Reduced Diphtheria/Acell Pertussis (Boostrix Vaccine Inj) 0.5 ml IM .ONCE ONE Stop: 03/08/19 21:54 Last Admin: 03/08/19 22:24 Dose: 0.5 ml Immunization Registry Document 03/08/19 22:24 KV (Rec: 03/08/19 22:24 KV [id number]) [facility]-Date provided 03/08/19 <Jesse Harvey - Last Filed: 03/09/19 04:26> - PA / AUDITING CODER / Resident Statement RENETTA has reviewed & agrees with the documentation as recorded. - Scribe Statement The provider has reviewed the documentation as recorded by the Art Arias Provider Scribe Attestation: All medical record entries made by the Scribe were at my direction and personally dictated by me. I have reviewed the chart and agree that the record accurately reflects my personal performance of the history, physical exam, medical decision making, and the department course for this patient. I have also personally directed, reviewed, and agree with the discharge instructions and disposition. <Sylvia Bennett - Last Filed: 03/09/19 00:29> - PA / AUDITING CODER / Resident Statement RENETTA has reviewed & agrees with the documentation as recorded. RENETTA has examined the patient and agrees with the treatment plan. <Jesse Harvey - Last Filed: 03/09/19 04:26> Disposition/Present on Arrival - Present on Arrival Any Indicators Present on Arrival: No History of DVT/PE: No History of Uncontrolled Diabetes: No Urinary Catheter: No History of Decub. Ulcer: No History Surgical Site Infection Following: None - Disposition Have Diagnosis and Disposition been Completed?: Yes Disposition Time: 22:45 Patient Plan: Discharge <Sylvia Bennett - Last Filed: 03/09/19 00:29> <Jesse Harvey - Last Filed: 03/09/19 04:26> - Disposition Diagnosis: Leg laceration, Laceration of ankle Disposition: HOME/ ROUTINE Condition: STABLE Discharge Instructions (ExitCare): Laceration Repair With Glue (DC), Wound Care (DC) Additional Instructions: Thank you for letting us take care of you today. You were treated for R leg laceration, L ankle laceration. The emergency medical care you received today was directed at your acute symptoms. It may take several days for your symptoms to resolve. Return to the Emergency Department if your symptoms worsen, do not improve, or if you have any other problems. Please contact your doctor in 2 days for re-evaluation and follow up. Bring any paperwork you were given at discharge with you along with any medications you are taking to your follow up visit. Our treatment cannot replace ongoing medical care by a primary care provider (PCP) outside of the emergency department. Thank you for allowing the [facility] team to be part of your care today. If you had an X-Ray : A Radiologist will review the ED reading if any change in treatment is needed we will contact you. Referrals: PCP,NO [Primary Care Provider] - Follow up with primary Forms: [employer] (T[place]anian), WORK NOTE
[2019-03-08 22:54] VITALS: BP 165/90; PULSE 83; RESP 16; O2SAT 97
--- NOTE | 2019-03-09 08:50 | RAD ---
Date of service: 03/08/2019 PROCEDURE: Radiographs of the right tibia and fibula. HISTORY: pain COMPARISON: None available TECHNIQUE: Frontal and lateral views obtained. 2 views obtained. FINDINGS: BONES: No fracture or destructive lesion. JOINT SPACES: Unremarkable. OTHER FINDINGS: None. IMPRESSION: Unremarkable radiographs of the right tibia and fibula.
--- NOTE | 2019-03-09 08:52 | RAD ---
Date of service: 03/08/2019 PROCEDURE: Left Ankle Radiographs. HISTORY: pain COMPARISON: None available. TECHNIQUE: 3 views obtained. FINDINGS: BONES: Normal. No fracture. JOINTS: Normal. No osteoarthritis. Ankle mortise maintained. Talar dome intact SOFT TISSUES: Normal. OTHER FINDINGS: None. IMPRESSION: Normal left ankle radiographs.
== END 2019-03-08 23:12 | disposition home or self-care (01) ==
LOC: ED 21:22
DX: S91.012A Laceration without foreign body, left ankle, initial encounter (principal); S81.811A Laceration without foreign body, right lower leg, initial encounter; W25.XXXA Contact with sharp glass, initial encounter; Y92.89 Other specified places as the place of occurrence of the external cause; Y99.0 Civilian activity done for income or pay; Z23 Encounter for immunization